=== PATIENT | male | born 1940 | race Caucasian/White ===

== ENCOUNTER → 2017-10-25 08:55 | Outpatient (CLI) | payer MEDICARE, SELFPAY ==
[2017-10-25 11:14] LABS: Alanine Aminotransferase 37 IU/L (21-72); Albumin Globulin Ratio 1.5 (1.0-2.8); Alkaline Phosphatase 85 U/L (38-126); Amylase 98 U/L (30-110); Aspartate Aminotransferase 33 IU/L (17-59); Bilirubin Total 0.6 mg/dL (0.2-1.3); C-Reactive Protein Quant < 0.5 mg/dL (<1.0); Calcium 9.2 mg/dL (8.4-10.2); Estimated Glomerular Filt Rate > 60.0 mL/min (>60); Globulin 2.6 g/dL (1.7-4.1); Glucose 98 mg/dL (80-110); HEMOLYSIS < 15 (0-50); Lipase 127 U/L (23-300); Potassium 4.1 mmol/L (3.4-5.1); Sodium 142 mmol/L (137-145); Total Protein 6.6 g/dL (6.3-8.2)
[2017-10-25 11:22] LABS: Add Manual Diff / Slide Review YES; Hematocrit 36.7 % (41-53); Hemoglobin 12.6 g/dL (13.5-17.5); Mean Corpuscular HGB Conc 34.4 % (30-36); Mean Corpuscular Hemoglobin 32.3 PG (26-34); Mean Corpuscular Volume 93.8 fL (80-100); Platelet Count 179 X10^3/uL (150-400); Red Blood Cell Count 3.91 X10^6/uL (4.5-5.9); Red Cell Distribution Width 14.1 % (11.6-14.8); White Blood Cell Count 6.3 X10^3/uL (4.5-11.0)
[2017-10-25 13:49] LABS: Neutrophils Absolute Manual 4032 /uL (3000-5900); Total Cells Counted 100
[2017-10-25 13:58] LABS: Morphology Comment Normal Morphology
== END ==
PROVIDERS: PCP Family Medicine; Visit Provider Family Medicine
DX: R10.9 Unspecified abdominal pain (principal); K57.30 Diverticulosis of large intestine without perforation or abscess without bleeding
CPT/HCPCS: 36415; 80053; 82150; 83690; 85025; 86140

== ENCOUNTER → 2017-10-26 10:08 | Outpatient (CLI) | payer MEDICARE, SELFPAY ==
--- NOTE | 2017-10-26 | DI.CT.S_ITS ---
PROCEDURE: CT ABDOMEN PELVIS W CON INDICATIONS: 77 year-old male with left lower quadrant abdominal pain. TECHNIQUE: After the administration of oral and intravenous contrast, 5 mm thick sections acquired from the diaphragms to the symphysis. 5 mm thick coronal and sagittal reformats were performed. For radiation dose reduction, the following was used: automated exposure control, adjustment of mA and/or kV according to patient size. COMPARISON: [facility], CT, ABDOMEN/PELVIS WITH CONTRAST, 06/23/2015, 13:02. [facility], CT, ABDOMEN/PELVIS WITH CONTRAST, 06/19/2014, 18:14. [facility], CT, ABDOMEN/PELVIS WITH CONTRAST, 09/27/2010, 13:47. FINDINGS: Image quality: Metallic streak artifact from right hip arthroplasty hardware obscures adjacent bony and soft tissue structures. ABDOMEN: Lung bases: Lung bases are clear. Heart size is normal. There is small hiatal hernia. Solid organs: Liver is normal in size and enhancement. Gallbladder wall thickness is normal. Biliary system is non-dilated. Pancreas enhances normally. Spleen is normal in size and enhancement. No adrenal nodules. Kidneys are normal in size and enhancement, without hydronephrosis. Peritoneum and bowel: Stomach, small bowel, and colon loops are normal in caliber and wall thickness. There is pancolonic diverticulosis as before, without acute diverticulitis. No free fluid or air. Nodes and vessels: No retroperitoneal or mesenteric adenopathy. Aorta and inferior vena cava are normal in caliber, with mild aortoiliac atherosclerosis. 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 Miscellaneous: No ventral hernias. PELVIS: Genitourinary: Bladder wall thickness is normal. Prostate gland is normal in size. Miscellaneous: No inguinal hernias or adenopathy. Bones: No suspicious bony lesions. No vertebral body compression fractures. IMPRESSION: 1. Romero colonic diverticulosis, without acute diverticulitis to explain left lower quadrant abdominal pain. 2. 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 3. 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 4. Small retrocardiac hiatal hernia. Dictated by: Jadon Arreguin M.D. on 10/26/2017 at 12:31 Approved by: Jadon Arreguin M.D. on 10/26/2017 at 12:42
== END ==
PROVIDERS: Family Provider Family Medicine; PCP Family Medicine; Visit Provider Family Medicine
DX: K57.90 Diverticulosis of intestine, part unspecified, without perforation or abscess without bleeding (principal); I72.8 Aneurysm of other specified arteries; K44.9 Diaphragmatic hernia without obstruction or gangrene
CPT/HCPCS: 74177; Q9967

== ENCOUNTER → 2017-12-05 16:13 | Outpatient (CLI) | payer MEDICARE, SELFPAY ==
--- NOTE | 2017-12-05 16:20 | DI.MRI.S_ITS ---
PROCEDURE: MR LUMBAR SPINE WO CON INDICATIONS: BACK PAIN TECHNIQUE: Noncontrast sagittal T1 spin echo and T2 fast echo, sagittal STIR, axial T1 and T2 fast spin echo through the lumbar spine. In cases with scoliosis, additional coronal T2 fast spin echo may be performed. COMPARISON: [facility], MR, MR THORACIC SPINE WO CON, 12/05/2017, 16:24. [facility], CT, CT ABDOMEN PELVIS W CON, 10/26/2017, 11:20. [facility], MR, L-SPINE WITHOUT CONTRAST, 04/26/2010, 7:39. FINDINGS: Image quality: Excellent. Alignment and Curvature: There is minimal retrolisthesis seen at the L3-L4 level and the L5-S1 level. Bone Marrow: Marrow is of normal overall signal. No acute vertebral body compression fractures. Spinal Cord: Conus medullaris terminates at the L1 level. Visualized cord demonstrates normal signal and size. Paraspinous Soft Tissues: No paravertebral masses. T12-L1: Normal appearance. L1-L2: Moderate loss of disc height is seen. Loss of disc signal is seen. Moderate generalized disc bulge is seen. Mild facet joint hypertrophy is seen. Moderate bilateral neural foraminal narrowing is seen, left greater than right. Dxag-hl-xwaqnykl central canal narrowing is seen. These degenerative findings have progressed compared to 2010. L2-L3: Mild loss of disc height is seen. Loss of disc signal is seen. Moderate generalized disc bulge is seen. Moderate facet joint hypertrophy is seen. Novz-mp-[id number] bilateral neural foraminal narrowing is seen. Fwur-vo-llffnyhu central canal narrowing is seen. These imaging findings are mildly progressed compared to the prior study. L3-L4: Moderate loss of disc height is seen. Loss of disc signal is seen. Moderate to prominent disc bulge is seen, which is eccentric to the left. Moderate facet joint hypertrophy is seen. There is at least moderate bilateral neural foraminal narrowing seen, left greater than right. Mild to moderate central canal narrowing is seen. There has been progression of degenerative change since 2009. L4-L5: Moderate loss of disc height is seen. Loss of disc signal is seen. Moderate generalized disc bulge is seen. Moderate facet joint hypertrophy is seen. There is at least moderate bilateral neural foraminal narrowing seen, right worse than left. Mild central canal narrowing is seen. These degenerative findings are worse than in 2010. L5-S1: Moderate to severe loss of disc height and disc signal are seen. Moderate to prominent disc bulge is seen, which is eccentric to the right. Moderate facet joint hypertrophy is seen. Moderate to severe bilateral neural foraminal narrowing is seen. There is a degree of impingement seen upon the exiting nerve roots. Mild central canal narrowing is seen. These degenerative changes are prominent than in 2010. IMPRESSION: Multiple levels of lumbar spine degenerative change are seen, which are most prominent at the L5-S1 level, where there is moderate to severe bilateral neural foraminal narrowing, with associated nerve root impingement. The degenerative changes have progressed compared to 2009. Dictated by: Gonzalez Galindo M.D. on 12/05/2017 at 16:52 Approved by: Gonzalez Galindo M.D. on 12/05/2017 at 16:57
--- NOTE | 2017-12-05 16:20 | DI.MRI.S_ITS ---
PROCEDURE: MR THORACIC SPINE WO CON INDICATIONS: BACK PAIN TECHNIQUE: Noncontrast sagittal T1 spine echo and T2 fast spin echo, sagittal STIR, axial T1 and T2 fast spin echo through the thoracic spine. COMPARISON: [facility], , MR LUMBAR SPINE WO CON, 12/05/2017, 16:48. FINDINGS: Image quality: Excellent. Alignment and Curvature: There is normal bony alignment. Bone Marrow: Marrow is of normal overall signal. No acute vertebral body compression fractures. Scattered foci are seen, which are hyperintense on T1-weighted and T2-weighted imaging, which are most consistent with benign vertebral body hemangiomas. Spinal Cord: Visualized spinal cord is normal in size and signal. Paraspinous Soft Tissues: No paravertebral masses. Miscellaneous: Age-appropriate degenerative changes are seen, with minimal to mild disc space narrowing with associated endplate irregularity. There is a minimal central/left disc bulge seen at the T5-T6 level. No significant neural foraminal or central canal narrowing can be seen at this level. IMPRESSION: No significant abnormality is seen for age. Dictated by: Gonzalez Galindo M.D. on 12/05/2017 at 16:45 Approved by: Gonzalez Galindo M.D. on 12/05/2017 at 16:49
== END ==
PROVIDERS: Family Provider Family Medicine; PCP Family Medicine; Visit Provider Family Medicine
DX: M54.9 Dorsalgia, unspecified (principal); M47.9 Spondylosis, unspecified; M48.061 Spinal stenosis, lumbar region without neurogenic claudication
CPT/HCPCS: 72146; 72148

== ENCOUNTER → 2018-06-27 10:22 | Outpatient (CLI) | payer MEDICARE, SELFPAY ==
--- NOTE | 2018-06-27 | DI.US.S_ITS ---
ULTRASOUND OF RIGHT BREAST: 06/27/2018 CLINICAL: Right axillary edema x 2 months. History of rtight shoulder replacement 2 years ago. No prior exams were available for comparison. Ultrasound of the right axilla was performed on the area of interest. Bishop scale images of the real-time examination were reviewed. IMPRESSION: NEGATIVE There is no sonographic evidence of malignancy. There is no sonographic abnormality seen in the right axilla to correspond with the area of clinical concern in the right axilla, however, clinical followup is recommended. If further characterization is warranted, MRI could be considered. This exam was interpreted at Station ID: [id number]. Electronically Signed By: Chioma odell/:06/27/2018 17:23:46 letter sent: Clinical Evaluation Ultrasound BI-RADS: 1 Negative
== END ==
PROVIDERS: Family Provider Family Medicine; PCP Family Medicine; Visit Provider Family Medicine
DX: R22.31 Localized swelling, mass and lump, right upper limb (principal); Z96.611 Presence of right artificial shoulder joint
CPT/HCPCS: 76882

== ENCOUNTER → 2018-08-29 11:44 | Outpatient (REF) | payer MEDICARE, SELFPAY ==
[2018-08-29 11:56] LABS: Prothrombin Time 34.8 SECONDS (10.1-12.7)
== END ==
LOC: LAB 11:44
PROVIDERS: Family Provider Family Medicine; PCP Family Medicine; Visit Provider Family Medicine
DX: Z79.01 Long term (current) use of anticoagulants (principal)
CPT/HCPCS: 85610

== ENCOUNTER → 2018-09-05 15:32 | Outpatient (REF) | payer MEDICARE, SELFPAY ==
[2018-09-05 15:50] LABS: INR 3.1 (0.9-1.3); Prothrombin Time 36.3 SECONDS (10.1-12.7)
== END ==
LOC: LAB 15:32
PROVIDERS: Family Provider Family Medicine; PCP Family Medicine; Visit Provider Family Medicine
DX: Z79.01 Long term (current) use of anticoagulants (principal)
CPT/HCPCS: 85610

== ENCOUNTER → 2018-09-17 10:06 | Outpatient (REF) | payer MEDICARE, SELFPAY ==
[2018-09-17 10:20] LABS: Prothrombin Time 35.6 SECONDS (10.1-12.7)
== END ==
LOC: LAB 10:06
PROVIDERS: Family Provider Family Medicine; PCP Family Medicine; Visit Provider Family Medicine
DX: Z79.01 Long term (current) use of anticoagulants (principal)
CPT/HCPCS: 85610

== ENCOUNTER → 2018-10-05 16:10 | Outpatient (REF) | payer MEDICARE, SELFPAY ==
[2018-10-05 16:23] LABS: INR 2.7 (0.9-1.3)
== END ==
LOC: LAB 16:10
PROVIDERS: Family Provider Family Medicine; PCP Family Medicine; Visit Provider Family Medicine
DX: Z79.01 Long term (current) use of anticoagulants (principal)
CPT/HCPCS: 85610

== ENCOUNTER → 2018-10-25 11:00 | Outpatient (ROUT) | payer MEDICARE, SELFPAY | PROVIDERS: Family Provider Family Medicine; PCP Family Medicine; Visit Provider Family Medicine | DX: Z79.01 Long term (current) use of anticoagulants (principal) | CPT/HCPCS: 85610 ==

== ENCOUNTER → 2018-11-22 14:52 | Outpatient (ROUT) | payer MEDICARE, SELFPAY ==
[2018-11-22 15:00] LABS: INR 2.7 (0.9-1.3); Prothrombin Time 32.4 SECONDS (10.1-12.7)
== END ==
PROVIDERS: Family Provider Family Medicine; PCP Family Medicine; Visit Provider Family Medicine
DX: Z79.01 Long term (current) use of anticoagulants (principal)
CPT/HCPCS: 85610

== ENCOUNTER → 2018-12-25 11:46 | Outpatient (ROUT) | payer MEDICARE, SELFPAY ==
[2018-12-25 12:23] LABS: INR 2.7 (0.9-1.3); Prothrombin Time 31.3 SECONDS (10.1-12.7)
== END ==
PROVIDERS: PCP Family Medicine; Visit Provider Family Medicine
DX: Z79.01 Long term (current) use of anticoagulants (principal)
CPT/HCPCS: 85610

== ENCOUNTER → 2019-01-25 12:21 | Outpatient (ROUT) | payer MEDICARE, SELFPAY ==
[2019-01-25 12:37] LABS: INR 3.1 (0.9-1.3); Prothrombin Time 36.3 SECONDS (10.1-12.7)
== END ==
PROVIDERS: PCP Family Medicine; Visit Provider Family Medicine
DX: I48.0 Paroxysmal atrial fibrillation (principal); Z79.01 Long term (current) use of anticoagulants
CPT/HCPCS: 85610

== ENCOUNTER → 2019-02-08 10:49 | Outpatient (ROUT) | payer MEDICARE, SELFPAY ==
[2019-02-08 11:01] LABS: INR 2.6 (0.9-1.3); Prothrombin Time 30.1 SECONDS (10.1-12.7)
== END ==
PROVIDERS: PCP Family Medicine; Visit Provider Family Medicine
DX: Z79.01 Long term (current) use of anticoagulants (principal)
CPT/HCPCS: 85610

== ENCOUNTER 2019-03-19 14:30 | Outpatient (RCR) | payer MEDICARE, SELFPAY ==
--- NOTE | 2018-11-22 15:30 | PT.OIE ---
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) Spinal stenosis, lumbar region without neurogenic claudication (11/22/18) Other intervertebral disc degeneration, lumbosacral region (11/22/18) Low back pain (11/22/18) Abnormal posture (11/22/18) Pain in left hip (11/22/18) Past Medical History (Last Reviewed 09/11/18 @ 13:06 by Hector Oviedo MD) Obstructive sleep apnea of adult (Chronic ~2011) Central sleep apnea (Chronic Unknown) Snoring (Chronic ~2011) Atrial fibrillation, currently in sinus rhythm (Chronic ~08/2016) Past Surgical History (Last Updated 11/22/18 @ 16:36 by Maral Gonzales, PT) History of arthroplasty of right shoulder (Acute) History of total hip arthroplasty (Acute), right Provider Visit Care Team Role Provider Type Genet Severino MD Attending Provider Physician Primary Care Provider Specialty: Family Practice Address: [address] [place] [address], [facility] Email: Physical Therapy Initial Evaluation PT-OP-A Visit Information Start: 11/22/18 16:41 Freq: Status: Active Protocol: Document 11/22/18 15:30 DLM (Rec: 11/22/18 16:57 DL [id number]) Out-Patient Physical Therapy Visit Information Visit Information Visit Type Initial Evaluation Visit Start Time 15:30 Visit Stop Time 16:15 Total Visit Minutes 45 Visit Number 1 Number of ENGROSSER Visits 0 Evaluation Information Evaluation Date 11/22/18 Precautions Precautions hx of falls PT-OP-B Current Condition Start: 11/22/18 16:41 Freq: Status: Active Protocol: Document 11/22/18 15:30 DLM (Rec: 11/22/18 16:57 DLM [id number]) Current Condition History of Current Condition Onset Date 6 months ago Current Complaints low back pain and left lateral hip pain History of Current Condition He reports about 6 months ago he developed more difficulty walking. He reports his back gets stiff and sore. He fell a few months ago when his foot caught on the steps at his Sisters house and he fell onto his left side. He is having left lateral hip pain that he is not sure if it is from his back or from the fall. Prior Treatments and Tests Pool therapy years ago that helped his back. 02/2018 Injection in his low back that did not help. Treatment Goals Patient/Caregiver Goals He wants to be able to walk without back pain. He wants to be able to walk up the hill in his neighborhood to walk his dog. He wants to have a pool exercise program he can continue on his own. Prior Functional Status Baseline Function- ADL's Independent Baseline Function- Mobility Independent Baseline Function- Gait Independent in community, [place] Baseline Function- Work/School retired Baseline Function- Recreation/Hobbies golf, yard work, walks dog, travels Current Functional Impairments (Reported) Functional Limitations- ADL's Independent, holds onto soap dish in shower when closes his eyes, back pain getting in/ out of car, back pain if he tries to sit for any length of time without back support Functional Limitations- Mobility/Gait Independent, slower pace, back pain limits his distances, too much pain to be able to walk up the hill in his neighborhood to walk his dog Functional Limitations- Work/School retired Functional Limitations- Recreation/ back pain and stiffness when Hobbies he tries to golf, can only bend over doing yard work for about 5 min due to back pain Personal Factors Other Personal Factors That May Effect new tremor in right hand Therapy/Recovery started about 6 months ago, pt reports physician is aware and they are monitoring it ( concern for Parkinsons disease ) PT-OP-C Subjective Start: 11/22/18 16:41 Freq: Status: Active Protocol: Document 11/22/18 15:30 DLM (Rec: 11/22/18 16:57 DLM [id number]) Patient Questionnaires Oswestry Low Back Index Oswestry Score 24% Oswestry Impairment 20 to 39% Impaired (Score 20- 39) OP-PT Pain Assessment Location Bilateral Lower Back Intensity 4 Scale Used Numeric (1 - 10) Description Aching Tightness With Movement Description- Other no pain at rest Frequency Intermittent Pain Aggravating Factors Changing Position Activity Walking Bending Pain Alleviating Factors Rest Pain Behaviors Pain Behaviors Facial Grimacing Wincing PT-OP-D Balance Start: 11/22/18 16:41 Freq: Status: Active Protocol: Document 11/22/18 15:30 DLM (Rec: 11/22/18 16:58 DLM [id number]) Balance Tests Davalos Balance Test Davalos Balance Test Score 45/56 Davalos Impairment Rating 1 to 19% Impaired (Score 45-55 ) Romberg Romberg increased sway with eyes closed but no loss of balance Single Limb Standing Single Limb- Right 3-5 sec Single Limb- Left 3 sec PT-OP-E Functional Tests Start: 11/22/18 16:41 Freq: Status: Active Protocol: Document 11/22/18 15:30 DLM (Rec: 11/22/18 17:00 DLM [id number]) Functional Tests 6 Minute Walk Test Distance 936.5 feet Device Used none Comments low back pain and stiffness PT-OP-G Mobility & Gait Start: 11/22/18 16:41 Freq: Status: Active Protocol: Document 11/22/18 15:30 DLM (Rec: 11/22/18 17:02 DLM [id number]) OP Mobility Evaluation Bed Mobility Rolling Independent, slow and difficult Supine to and from Sit Independent with mild difficulty Transfers Sit to Stand Independent Functional Movements Other Functional Movements increased left lateral hip pain with any rotational movements in standing OP Gait Assessment Gait Gait Assistance Required: Independent Assistive Devices Assistive Device None Gait Deviations General Gait Pattern Decreased Stride Length Flexed Trunk Factors Limiting Gait Function Factors Limiting Gait Function Decreased Activity Tolerance Pain PT-OP-H Neuro Start: 11/22/18 16:41 Freq: Status: Active Protocol: Document 11/22/18 15:30 DLM (Rec: 11/22/18 17:23 DLM [id number]) Sensation Evaluation Comments Summary Comments hx of neuropathy in feet, mild tremor noted in right hand PT-OP-J Posture/Palpation/Skin Start: 11/22/18 16:41 Freq: Status: Active Protocol: Document 11/22/18 15:30 DLM (Rec: 11/22/18 17:19 DLM [id number]) Posture Evaluation Position Standing Evaluation View Posterior Head/C-Spine Posture Forward Head L-Spine Posture Flexed Shoulder Posture (L) Rounded (R) Rounded Comments Posture Comments protruding abdomen in standing Palpation Assessment Location Two Palpation Location left lateral hip Palpation Findings Tenderness Palpation Details bursa tenderness One Palpation Location lumbar paraspinals Palpation Findings Soft Tissue Tightness Tenderness PT-OP-K Range of Motion Start: 11/22/18 16:41 Freq: Status: Active Protocol: Document 11/22/18 15:30 DLM (Rec: 11/22/18 17:19 DLM [id number]) Lumbar Spine Range of Motion Lumbar Spine Active Percentage Testing Position Standing Flexion 50 Extension 5 Rotation Left 30 Rotation Right 50 Lateral Flexion Left 25 Lateral Flexion Right 25 ROM Limitations Soft Tissue Tightness Pain Comments back pain with flexion and right lateral flexion, left hip pain with rotation Shoulder Goniometric Range of Motion Shoulder Measured in Degrees bilateral Shoulder ROM WFL Yes Testing Position Sitting Shoulder ROM Limitations Comments hx right shoulder total arthroplasty with pt reporting good recovery PT-OP-L Special Tests Start: 11/22/18 16:41 Freq: Status: Active Protocol: Document 11/22/18 15:30 DLM (Rec: 11/22/18 17:19 DL [id number]) Special Tests Lumbar Spine Special Tests Straight Leg Raise Test Results no back pain Comments hamstring tightness at 60b degrees bilaterally Slump Test Results back pain PT-OP-M Strength Start: 11/22/18 16:41 Freq: Status: Active Protocol: Document 11/22/18 15:30 DLM (Rec: 11/22/18 17:19 DL [id number]) Trunk Strength Trunk Manual Muscle Testing Core Stabilization 3+/5 Reason Not Measured Pain Comments bilateral hip flexor tightness interferes with his ability to stand erect Hip Strength Hip Manual Muscle Testing Right Flexion (L2) 4 Good Extension (S1) 3+ Fair+ Abduction 4 Good Adduction 5 Normal Comments left hip pain with resisted right hip abduction in sidelying, hip extension tested in prone Left Flexion (L2) 4+ Good+ Extension (S1) 3+ Fair+ Abduction 5 Normal Adduction 5 Normal Comments pain with resisted left hip flexion, hip extension tested in prone Knee Strength Knee Manual Muscle Testing bilateral Flexion (S2) 5 Normal Extension (L3) 5 Normal Ankle/Foot Strength Ankle and Foot Manual Muscle Testing Bilateral Dorsiflexion (L4) 5 Normal PT-OP-T Assessment and Plan Start: 11/22/18 16:41 Freq: Status: Active Protocol: Document 11/22/18 15:30 DLM (Rec: 11/22/18 17:43 DLM [id number]) Physical Therapy Assessment Rehab Potential Rehabilitation Potential Good Evaluation Complexity Number of Personal Factors/Comorbidities 3 or More Number of Body Systems Impaired 4 or More Clinical Presentation at Evaluation Evolving Impairments Impairments Activity Tolerance Balance Functional Activities Functional Mobility Gait Pain Posture ROM Soft Tissue Mobility Strength Goals Three Impairment Limited activity Short Term Goal (STG) He will be able to bend over to the ground without increased back pain. STG Duration 4 weeks Detention Goal (LTG) He will be able to walk up the hill in his neighborhood to walk his dog. LTG Duration 6 weeks Two Impairment Has no Home Exercise Program Short Term Goal (STG) Independent with stretching and strengthening program to do at home. 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 STG Duration 4 weeks Detention Goal (LTG) He will be able to walk for at least 30 min without back pain. LTG Duration 6 weeks Assessment Summary Assessment Thor presents with low back pain that appears degenerative in nature compounded by significant muscular tightness . He has left lateral hip pain that does not present like radicular pain. Suspect his left hip pain is related to trauma from his fall. His posture is flexed in standing and he can barely improve it to an erect position when asked and he can not maintain it. He is a good candidate for physical therapy to address his impairments. Pt agrees to a treatment plan of one day a week at the clinic and one day a week in the pool. He reports pool therapy helped his back pain in the past so he is motivated to have an independent pool HEP by discharge. Physical Therapy Plan Frequency and Duration Frequency of Treatment 2x/Week Duration of Treatment 6 weeks Plan of Care Start Date 11/22/18 Plan of Care End Date 12/05/18 Therapeutic Interventions Therapeutic Interventions Aquatic Therapy Balance Training Gait Training Home Exercise Program Manual Therapy Neuromuscular Re-education Patient/Caregiver Education Self-Care/Home Management Soft Tissue Mobilization Therapeutic Activities Therapeutic Exercises Modalities Cold Pack/Ice Massage Electric Stimulation Hot Packs Ultrasound Next Visit Focus/Plan Next Note Type Treatment Note Next Visit Plan pool therapy once a week and physical therapy at the clinic once a week, begin stretching program
--- NOTE | 2018-11-22 15:30 | PT.OPPOC ---
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) Spinal stenosis, lumbar region without neurogenic claudication (11/22/18) Other intervertebral disc degeneration, lumbosacral region (11/22/18) Low back pain (11/22/18) Abnormal posture (11/22/18) Provider Visit Care Team Role Provider Type Genet Severino MD Attending Provider Physician Primary Care Provider Specialty: Family Practice Address: [address] [place] [address], [facility] Email: Plan Of Care PT-OP-T Assessment and Plan Start: 11/22/18 16:41 Freq: Status: Active Protocol: Document 11/22/18 15:30 DLM (Rec: 11/22/18 17:43 DLM [id number]) Physical Therapy Assessment Rehab Potential Rehabilitation Potential Good Evaluation Complexity Number of Personal Factors/Comorbidities 3 or More Number of Body Systems Impaired 4 or More Clinical Presentation at Evaluation Evolving Impairments Impairments Activity Tolerance Balance Functional Activities Functional Mobility Gait Pain Posture ROM Soft Tissue Mobility Strength Goals Three Impairment Limited activity Short Term Goal (STG) He will be able to bend over to the ground without increased back pain. STG Duration 4 weeks Custodial Goal (LTG) He will be able to walk up the hill in his neighborhood to walk his dog. LTG Duration 6 weeks Two Impairment Has no Home Exercise Program Short Term Goal (STG) Independent with stretching and strengthening program to do at home. 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 STG Duration 4 weeks Custodial Goal (LTG) He will be able to walk for at least 30 min without back pain. LTG Duration 6 weeks Assessment Summary Assessment Thor presents with low back pain that appears degenerative in nature compounded by significant muscular tightness . He has left lateral hip pain that does not present like radicular pain. Suspect his left hip pain is related to trauma from his fall. His posture is flexed in standing and he can barely improve it to an erect position when asked and he can not maintain it. He is a good candidate for physical therapy to address his impairments. Pt agrees to a treatment plan of one day a week at the clinic and one day a week in the pool. He reports pool therapy helped his back pain in the past so he is motivated to have an independent pool HEP by discharge. Physical Therapy Plan Frequency and Duration Frequency of Treatment 2x/Week Duration of Treatment 6 weeks Plan of Care Start Date 11/22/18 Plan of Care End Date 01/04/19 Therapeutic Interventions Therapeutic Interventions Aquatic Therapy Balance Training Gait Training Home Exercise Program Manual Therapy Neuromuscular Re-education Patient/Caregiver Education Self-Care/Home Management Soft Tissue Mobilization Therapeutic Activities Therapeutic Exercises Modalities Cold Pack/Ice Massage Electric Stimulation Hot Packs Ultrasound Next Visit Focus/Plan Next Note Type Treatment Note Next Visit Plan pool therapy once a week and physical therapy at the clinic once a week, begin stretching program Plan of Care Dates Plan of Care Start Date 11/22/18 Plan of Care End Date 01/04/19 Please Sign and Return: I have reviewed this Plan of Care and certify that the skilled therapy services above are required to meet the patient?s needs. Physician Signature Date Printed Name and Credentials
--- NOTE | 2018-11-28 13:45 | PT.OTN ---
Current Diagnoses Pain in left hip (11/28/18) Unspecified inflammatory spondylopathy, lumbar region (11/28/18) Spinal stenosis, lumbar region without neurogenic claudication (11/28/18) Other intervertebral disc degeneration, lumbosacral region (11/28/18) Low back pain (11/28/18) Abnormal posture (11/28/18) Physical Therapy Treatment Note PT-OP-A Visit Information Start: 11/22/18 16:41 Freq: Status: Active Protocol: Document 11/28/18 13:45 RCC (Rec: 11/29/18 09:34 RCC [email or web address]) Out-Patient Physical Therapy Visit Information Visit Information Visit Type Treatment Note Visit Start Time 13:45 Visit Stop Time 14:35 Total Visit Minutes 50 Visit Number 2 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 He reports his back gets stiff and sore. He fell a few months ago when his foot caught on the steps at his Sisters house and he fell onto his left side. He is having left lateral hip pain that he is not sure if it is from his back or from the fall. Prior Treatments and Tests Pool therapy years ago that helped his back. 02/2018 Injection in his low back that did not help. Treatment Goals Patient/Caregiver Goals He wants to be able to walk without back pain. He wants to be able to walk up the hill in his neighborhood to walk his dog. He wants to have a pool exercise program he can continue on his own. Prior Functional Status Baseline Function- ADL's Independent Baseline Function- Mobility Independent Baseline Function- Gait Independent in community, [place] Baseline Function- Work/School retired Baseline Function- Recreation/Hobbies golf, yard work, walks dog, travels Current Functional Impairments (Reported) Functional Limitations- ADL's Independent, holds onto soap dish in shower when closes his eyes, back pain getting in/ out of car, back pain if he tries to sit for any length of time without back support Functional Limitations- Mobility/Gait Independent, slower pace, back pain limits his distances, too much pain to be able to walk up the hill in his neighborhood to walk his dog Functional Limitations- Work/School retired Functional Limitations- Recreation/ back pain and stiffness when Hobbies he tries to golf, can only bend over doing yard work for about 5 min due to back pain Personal Factors Other Personal Factors That May Effect new tremor in right hand Therapy/Recovery started about 6 months ago, pt reports physician is aware and they are monitoring it ( concern for Parkinsons disease ) PT-OP-C Subjective Start: 11/22/18 16:41 Freq: Status: Active Protocol: Document 11/28/18 13:45 RCC (Rec: 11/29/18 09:34 RCC [email or web address]) OP-PT Subjective Patient Comments Patient Comments Pt reports that his back is about the same, as well as his L hip pain has not improved yet. PT-OP-D Balance Start: 11/22/18 16:41 Freq: Status: Active Protocol: Document 11/22/18 15:30 DLM (Rec: 11/22/18 16:58 DLM [id number]) Balance Tests Davalos Balance Test Davalos Balance Test Score 45/56 Davalos Impairment Rating 1 to 19% Impaired (Score 45-55 ) Romberg Romberg increased sway with eyes closed but no loss of balance Single Limb Standing Single Limb- Right 3-5 sec Single Limb- Left 3 sec PT-OP-E Functional Tests Start: 11/22/18 16:41 Freq: Status: Active Protocol: Document 11/22/18 15:30 DLM (Rec: 11/22/18 17:00 DLM [id number]) Functional Tests 6 Minute Walk Test Distance 936.5 feet Device Used none Comments low back pain and stiffness PT-OP-G Mobility & Gait Start: 11/22/18 16:41 Freq: Status: Active Protocol: Document 11/22/18 15:30 DLM (Rec: 11/22/18 17:02 DLM [id number]) OP Mobility Evaluation Bed Mobility Rolling Independent, slow and difficult Supine to and from Sit Independent with mild difficulty Transfers Sit to Stand Independent Functional Movements Other Functional Movements increased left lateral hip pain with any rotational movements in standing OP Gait Assessment Gait Gait Assistance Required: Independent Assistive Devices Assistive Device None Gait Deviations General Gait Pattern Decreased Stride Length Flexed Trunk Factors Limiting Gait Function Factors Limiting Gait Function Decreased Activity Tolerance Pain PT-OP-H Neuro Start: 11/22/18 16:41 Freq: Status: Active Protocol: Document 11/22/18 15:30 DLM (Rec: 11/22/18 17:23 DLM [id number]) Sensation Evaluation Comments Summary Comments hx of neuropathy in feet, mild tremor noted in right hand PT-OP-J Posture/Palpation/Skin Start: 11/22/18 16:41 Freq: Status: Active Protocol: Document 11/22/18 15:30 DLM (Rec: 11/22/18 17:19 DLM [id number]) Posture Evaluation Position Standing Evaluation View Posterior Head/C-Spine Posture Forward Head L-Spine Posture Flexed Shoulder Posture (L) Rounded (R) Rounded Comments Posture Comments protruding abdomen in standing Palpation Assessment Location Two Palpation Location left lateral hip Palpation Findings Tenderness Palpation Details bursa tenderness One Palpation Location lumbar paraspinals Palpation Findings Soft Tissue Tightness Tenderness PT-OP-K Range of Motion Start: 11/22/18 16:41 Freq: Status: Active Protocol: Document 11/22/18 15:30 DLM (Rec: 11/22/18 17:19 DLM [id number]) Lumbar Spine Range of Motion Lumbar Spine Active Percentage Testing Position Standing Flexion 50 Extension 5 Rotation Left 30 Rotation Right 50 Lateral Flexion Left 25 Lateral Flexion Right 25 ROM Limitations Soft Tissue Tightness Pain Comments back pain with flexion and right lateral flexion, left hip pain with rotation Shoulder Goniometric Range of Motion Shoulder Measured in Degrees bilateral Shoulder ROM WFL Yes Testing Position Sitting Shoulder ROM Limitations Comments hx right shoulder total arthroplasty with pt reporting good recovery PT-OP-L Special Tests Start: 11/22/18 16:41 Freq: Status: Active Protocol: Document 11/22/18 15:30 DLM (Rec: 11/22/18 17:19 DLM [id number]) Special Tests Lumbar Spine Special Tests Straight Leg Raise Test Results no back pain Comments hamstring tightness at 60b degrees bilaterally Slump Test Results back pain PT-OP-M Strength Start: 11/22/18 16:41 Freq: Status: Active Protocol: Document 11/22/18 15:30 DLM (Rec: 11/22/18 17:19 DLM [id number]) Trunk Strength Trunk Manual Muscle Testing Core Stabilization 3+/5 Reason Not Measured Pain Comments bilateral hip flexor tightness interferes with his ability to stand erect Hip Strength Hip Manual Muscle Testing Right Flexion (L2) 4 Good Extension (S1) 3+ Fair+ Abduction 4 Good Adduction 5 Normal Comments left hip pain with resisted right hip abduction in sidelying, hip extension tested in prone Left Flexion (L2) 4+ Good+ Extension (S1) 3+ Fair+ Abduction 5 Normal Adduction 5 Normal Comments pain with resisted left hip flexion, hip extension tested in prone Knee Strength Knee Manual Muscle Testing bilateral Flexion (S2) 5 Normal Extension (L3) 5 Normal Ankle/Foot Strength Ankle and Foot Manual Muscle Testing Bilateral Dorsiflexion (L4) 5 Normal PT-OP-Q Treatments Start: 11/22/18 16:41 Freq: Status: Active Protocol: Document 11/28/18 13:45 RCC (Rec: 11/29/18 09:34 RCC [email or web address]) Therapeutic Exercises Supine Exercises sciatic nerve glides Supine Exercise Name manual assist- flossing Side bilateral Reps/Minutes 2x60 sec each HS stretch Side bilateral Equipment Used with towel Reps/Minutes 3x30 sec piriformis stretch Side bilateral Reps/Minutes 3x30 sec SKC Side bilateral Reps/Minutes 3x30 sec Sitting Exercises sciatic nerve glides Sitting Exercise Name HS stretch position with ankle pumps Side bilateral Reps/Minutes x3 min HS stretch Side bilateral Equipment Used foot on stool Reps/Minutes 3x60 sec Standing Exercises HC stretch Side bilateral Equipment Used MAYE Reps/Minutes 5x10 sec Manual Therapy Treatment Soft Tissue Mobilization L IT band Mobilization Type Rolling Intensity/Depth Superficial Body Position Sidelying Comments rolling stick to L IT band PT-OP-R Modalities Start: 11/22/18 16:41 Freq: Status: Active Protocol: Document 11/28/18 13:45 RCC (Rec: 11/29/18 09:35 RCC [email or web address]) Hot Pack/Cold Pack Treatment Hot Pack Location lumbar and L IT band Patient Position Hooklying Treatment Duration (minutes) 15 Patient Tolerance Good PT-OP-T Assessment and Plan Start: 11/22/18 16:41 Freq: Status: Active Protocol: Document 11/28/18 13:45 RCC (Rec: 11/29/18 09:34 RCC [email or web address]) Physical Therapy Assessment Assessment Summary Assessment Pt with significant tension along the L IT band this session, without c/o pain with palpation in the buttock or hip ERs today. Pt presents with high tension throughout the lumbar and LE mm. He was given a HEP today for stretching bilaterally. Physical Therapy Plan Frequency and Duration Frequency of Treatment 2x/Week Duration of Treatment 6 weeks Plan of Care Start Date 11/22/18 Plan of Care End Date 01/04/19 Next Visit Focus/Plan Next Note Type Treatment Note Next Visit Plan progress aquatic PT as tolerated.
--- NOTE | 2018-11-30 15:25 | PT.OTN ---
Current Diagnoses Pain in left hip (11/30/18) Unspecified inflammatory spondylopathy, lumbar region (11/30/18) Spinal stenosis, lumbar region without neurogenic claudication (11/30/18) Other intervertebral disc degeneration, lumbosacral region (11/30/18) Low back pain (11/30/18) Abnormal posture (11/30/18) Physical Therapy Treatment Note PT-OP-A Visit Information Start: 11/22/18 16:41 Freq: Status: Active Protocol: Document 11/30/18 11:45 LJ (Rec: 11/30/18 15:25 LJ [email or web address]) Out-Patient Physical Therapy Visit Information Visit Information Visit Type Aquatic Treatment Note Visit Start Time 11:45 Visit Stop Time 12:30 Total Visit Minutes 45 Visit Number 3 Number of EXPLOSIVE MAN Visits 1 Precautions Precautions hx of falls PT-OP-B Current Condition Start: 11/22/18 16:41 Freq: Status: Active Protocol: Document 11/22/18 15:30 DLM (Rec: 11/22/18 16:57 DLM [id number]) Current Condition History of Current Condition Onset Date 6 months ago Current Complaints low back pain and left lateral hip pain History of Current Condition He reports about 6 monts ago he developed more difficulty walking. He reports his back gets stiff and sore. He fell a few months ago when his foot caught on the steps at his Sisters house and he fell onto his left side. He is having left lateral hip pain that he is not sure if it is from his back or from the fall. Prior Treatments and Tests Pool therapy years ago that helped his back. 02/2018 Injection in his low back that did not help. Treatment Goals Patient/Caregiver Goals He wants to be able to walk without back pain. He wants to be able to walk up the hill in his neighborhood to walk his dog. He wants to have a pool exercise program he can continue on his own. Prior Functional Status Baseline Function- ADL's Independent Baseline Function- Mobility Independent Baseline Function- Gait Independent in community, able [place] Baseline Function- Work/School retired Baseline Function- Recreation/Hobbies golf, yard work, walks dog, travels Current Functional Impairments (Reported) Functional Limitations- ADL's Independent, holds onto soap dish in shower when closes his eyes, back pain getting in/ out of car, back pain if he tries to sit for any length of time without back support Functional Limitations- Mobility/Gait Independent, slower pace, back pain limits his distances, too much pain to be able to walk up the hill in his neighborhood to walk his dog Functional Limitations- Work/School retired Functional Limitations- Recreation/ back pain and stiffness when Hobbies he tries to golf, can only bend over doing yard work for about 5 min due to back pain Personal Factors Other Personal Factors That May Effect new tremor in right hand Therapy/Recovery started about 6 months ago, pt reports physician is aware and they are monitoring it ( concern for Parkinsons disease ) PT-OP-C Subjective Start: 11/22/18 16:41 Freq: Status: Active Protocol: Document 11/30/18 11:45 LJ (Rec: 11/30/18 15:25 LJ [email or web address]) OP-PT Subjective Patient Comments Patient Comments Pt reports L hip pain while walking. PT-OP-D Balance Start: 11/22/18 16:41 Freq: Status: Active Protocol: Document 11/22/18 15:30 DLM (Rec: 11/22/18 16:58 DLM [id number]) Balance Tests Davalos Balance Test Davalos Balance Test Score 45/56 Davalos Impairment Rating 1 to 19% Impaired (Score 45-55 ) Romberg Romberg increased sway with eyes closed but no loss of balance Single Limb Standing Single Limb- Right 3-5 sec Single Limb- Left 3 sec PT-OP-E Functional Tests Start: 11/22/18 16:41 Freq: Status: Active Protocol: Document 11/22/18 15:30 DLM (Rec: 11/22/18 17:00 DLM [id number]) Functional Tests 6 Minute Walk Test Distance 936.5 feet Device Used none Comments low back pain and stiffness PT-OP-G Mobility & Gait Start: 11/22/18 16:41 Freq: Status: Active Protocol: Document 11/22/18 15:30 DLM (Rec: 11/22/18 17:02 DLM [id number]) OP Mobility Evaluation Bed Mobility Rolling Independent, slow and difficult Supine to and from Sit Independent with mild difficulty Transfers Sit to Stand Independent Functional Movements Other Functional Movements increased left lateral hip pain with any rotational movements in standing OP Gait Assessment Gait Gait Assistance Required: Independent Assistive Devices Assistive Device None Gait Deviations General Gait Pattern Decreased Stride Length Flexed Trunk Factors Limiting Gait Function Factors Limiting Gait Function Decreased Activity Tolerance Pain PT-OP-H Neuro Start: 11/22/18 16:41 Freq: Status: Active Protocol: Document 11/22/18 15:30 DLM (Rec: 11/22/18 17:23 DLM [id number]) Sensation Evaluation Comments Summary Comments hx of neuropathy in feet, mild tremor noted in right hand PT-OP-J Posture/Palpation/Skin Start: 11/22/18 16:41 Freq: Status: Active Protocol: Document 11/22/18 15:30 DLM (Rec: 11/22/18 17:19 DLM [id number]) Posture Evaluation Position Standing Evaluation View Posterior Head/C-Spine Posture Forward Head L-Spine Posture Flexed Shoulder Posture (L) Rounded (R) Rounded Comments Posture Comments protruding abdomen in standing Palpation Assessment Location Two Palpation Location left lateral hip Palpation Findings Tenderness Palpation Details bursa tenderness One Palpation Location lumbar paraspinals Palpation Findings Soft Tissue Tightness Tenderness PT-OP-K Range of Motion Start: 11/22/18 16:41 Freq: Status: Active Protocol: Document 11/22/18 15:30 DLM (Rec: 11/22/18 17:19 DLM [id number]) Lumbar Spine Range of Motion Lumbar Spine Active Percentage Testing Position Standing Flexion 50 Extension 5 Rotation Left 30 Rotation Right 50 Lateral Flexion Left 25 Lateral Flexion Right 25 ROM Limitations Soft Tissue Tightness Pain Comments back pain with flexion and right lateral flexion, left hip pain with rotation Shoulder Goniometric Range of Motion Shoulder bilateral Shoulder ROM WFL Yes Testing Position Sitting Shoulder ROM Limitations Comments hx right shoulder total arthroplasty with pt reporting good recovery PT-OP-L Special Tests Start: 11/22/18 16:41 Freq: Status: Active Protocol: Document 11/22/18 15:30 DLM (Rec: 11/22/18 17:19 DLM [id number]) Special Tests Lumbar Spine Special Tests Straight Leg Raise Test Results no back pain Comments hamstring tightness at 60b degrees bilaterally Slump Test Results back pain PT-OP-M Strength Start: 11/22/18 16:41 Freq: Status: Active Protocol: Document 11/22/18 15:30 DLM (Rec: 11/22/18 17:19 DLM [id number]) Trunk Strength Trunk Manual Muscle Testing Core Stabilization 3+/5 Reason Not Measured Pain Comments bilateral hip flexor tightness interferes with his ability to stand erect Hip Strength Hip Manual Muscle Testing Right Flexion (L2) 4 Good Extension (S1) 3+ Fair+ Abduction 4 Good Adduction 5 Normal Comments left hip pain with resisted right hip abduction in sidelying, hip extension tested in prone Left Flexion (L2) 4+ Good+ Extension (S1) 3+ Fair+ Abduction 5 Normal Adduction 5 Normal Comments pain with resisted left hip flexion, hip extension tested in prone Knee Strength Knee Manual Muscle Testing bilateral Flexion (S2) 5 Normal Extension (L3) 5 Normal Ankle/Foot Strength Ankle and Foot Manual Muscle Testing Bilateral Dorsiflexion (L4) 5 Normal PT-OP-Q Treatments Start: 11/22/18 16:41 Freq: Status: Active Protocol: Document 11/28/18 13:45 RCC (Rec: 11/29/18 09:34 RCC [email or web address]) Therapeutic Exercises Supine Exercises sciatic nerve glides Supine Exercise Name manual assist- flossing Side bilateral Reps/Minutes 2x60 sec each HS stretch Side bilateral Equipment Used with towel Reps/Minutes 3x30 sec piriformis stretch Side bilateral Reps/Minutes 3x30 sec SKC Side bilateral Reps/Minutes 3x30 sec Sitting Exercises sciatic nerve glides Sitting Exercise Name HS stretch position with ankle pumps Side bilateral Reps/Minutes x3 min HS stretch Side bilateral Equipment Used foot on stool Reps/Minutes 3x60 sec Standing Exercises HC stretch Side bilateral Equipment Used MAYE Reps/Minutes 5x10 sec Manual Therapy Treatment Soft Tissue Mobilization L IT band Mobilization Type Rolling Intensity/Depth Superficial Body Position Sidelying Comments rolling stick to L IT band PT-OP-R Modalities Start: 11/22/18 16:41 Freq: Status: Active Protocol: Document 11/28/18 13:45 RCC (Rec: 11/29/18 09:35 RCC [email or web address]) Hot Pack/Cold Pack Treatment Hot Pack Location lumbar and L IT band Patient Position Hooklying Treatment Duration (minutes) 15 Patient Tolerance Good PT-OP-S Aquatic Treatment Start: 11/22/18 16:41 Freq: Status: Active Protocol: Document 11/30/18 11:45 LJ (Rec: 11/30/18 15:25 LJ [email or web address]) Aquatics Treatment Pool Entry/Exit Pool Entry/Exit Method Stairs Assistance Standby Assistance Verbal Cues Comments step to gait Water Walking Quick Reverses Water Level Chest Level Level of Assistance Standby Assistance Verbal Cues Comments difficulty stabilizing [place] March Water Level Chest Level Level of Assistance Standby Assistance Verbal Cues Lunge Walk Water Level Waist Level Level of Assistance Standby Assistance Verbal Cues Comments cues for large steps, poor coordination Sideways Water Level Chest Level Level of Assistance Standby Assistance Verbal Cues Comments poor coordination Marching Water Level Chest Level Level of Assistance Standby Assistance Verbal Cues Comments poor posture and balance Backwards Water Level Chest Level Level of Assistance Standby Assistance Verbal Cues Comments poor posture, scooting and shuffling rather than stepping Forwards Water Level Chest Level Level of Assistance Standby Assistance Verbal Cues Comments poor posture and balance Lower Extremity Exercises squats on stairs and boxes Water Level Waist Level Reps/Duration 10 Comments cues for mm activation sequencing HS curls Water Level Chest Level Reps/Duration 10 bilat Comments verbal and man cues for reducing hip flexion ab/ad Water Level Chest Level Reps/Duration 10 bilat Comments handhold on wall, man cues for posture flex/ext Water Level Chest Level Reps/Duration 10 bilat Comments handhold on wall Lower Extremity Stretches hip flexors Details at wall Water Level Chest Level Reps/Duration 2 x 30 Comments man cuing HS, Body Position Standing Water Level Chest Level Equipment Large Noodle Reps/Duration 2 x 30 Comments poor posture requiring man cuing Balance SLS Water Level Chest Level Reps/Duration 4 min-alternating Comments with difficulty-no hand hold [place] Activities [place] Activities Bicycle [place] Other Activities scissor kicks in corner Equipment blue float, BBs for stability Duration 10 min Comments Pt very unstable in deep water with difficulty activating glutes and maintaining upright position PT-OP-T Assessment and Plan Start: 11/22/18 16:41 Freq: Status: Active Protocol: Document 11/30/18 11:45 JOHNIE (Rec: 11/30/18 15:25 JOHNIE [email or web address]) Physical Therapy Assessment Rehab Potential Rehabilitation Potential Good Evaluation Complexity Number of Personal Factors/Comorbidities 3 or More Number of Body Systems Impaired 4 or More Clinical Presentation at Evaluation Evolving Impairments Impairments Activity Tolerance Balance Functional Activities Functional Mobility Gait Pain Posture ROM Soft Tissue Mobility Strength Goals Three Impairment Limited activity Short Term Goal (STG) He will be able to bend over to the ground without increased back pain. STG Duration 4 weeks Longterm Goal (LTG) He will be able to walk up the hill in his neighborhood to walk his dog. LTG Duration 6 weeks Two Impairment Has no Home Exercise Program Short Term Goal (STG) Independent with stretching and strengthening program to do at home. STG Duration 4 weeks Mud Analysis Supervisor Goal (LTG) Independent with pool exercise program LTG Duration 6 weeks One Impairment pain 4/10 with activity Short Term Goal (STG) He will be able to walk with less than 2/10 pain. STG Duration 4 weeks Longterm Goal (LTG) He will be able to walk for at least 30 min without back pain. LTG Duration 6 weeks Assessment Summary Assessment Pt was unstable and lacked walking coordination in water walking activitiies and deep water. Very weak in glutes and core with difficulty activating posterior chain mm to stand erect for more than a few seconds. Appears to ba a fall risk especially on the pool deck where he slipped slightly when exiting. In corner scissor kicking exercise pt was unable to flex and extend LEs without hip rotation compensation. With step up/down pt stronger with Lhip. Pt presents with Parkinson like movements and coordination. Recommend gait and balance testing next clinic visit. Physical Therapy Plan Frequency and Duration Frequency of Treatment 2x/Week Duration of Treatment 6 weeks Plan of Care Start Date 11/22/18 Plan of Care End Date 01/04/19 Therapeutic Interventions Therapeutic Interventions Aquatic Therapy Balance Training Gait Training Home Exercise Program Manual Therapy Neuromuscular Re-education Patient/Caregiver Education Self-Care/Home Management Soft Tissue Mobilization Therapeutic Activities Therapeutic Exercises Modalities Cold Pack/Ice Massage Electric Stimulation Hot Packs Ultrasound Other Referrals/Consults Referrals/Consults Recommended fall risk assessment Next Visit Focus/Plan Next Note Type Treatment Note Next Visit Plan Next clinic visit assess balance and gait due to potential fall risk. Progress core stabilization and strengthening focusing on balance and mm coordination.
--- NOTE | 2018-12-07 11:45 | PT.OTN ---
Current Diagnoses Pain in left hip (12/07/18) Unspecified inflammatory spondylopathy, lumbar region (12/07/18) Spinal stenosis, lumbar region without neurogenic claudication (12/07/18) Other intervertebral disc degeneration, lumbosacral region (12/07/18) Low back pain (12/07/18) Abnormal posture (12/07/18) Physical Therapy Treatment Note PT-OP-A Visit Information Start: 11/22/18 16:41 Freq: Status: Active Protocol: Document 12/07/18 11:45 SAK (Rec: 12/09/18 16:08 SAK [id number]) Out-Patient Physical Therapy Visit Information Visit Information Visit Type Aquatic Treatment Note Visit Start Time 11:45 Visit Stop Time 12:30 Total Visit Minutes 45 Visit Number 4 Number of PHYSICIAN GYNECOLOGIST Visits 0 Precautions Precautions hx of falls PT-OP-B Current Condition Start: 11/22/18 16:41 Freq: Status: Active Protocol: Document 11/22/18 15:30 DLM (Rec: 11/22/18 16:57 DLM [id number]) Current Condition History of Current Condition Onset Date 6 months ago Current Complaints low back pain and left lateral hip pain History of Current Condition He reports about 6 monts ago he developed more difficulty walking. He reports his back gets stiff and sore. He fell a few months ago when his foot caught on the steps at his Sisters house and he fell onto his left side. He is having left lateral hip pain that he is not sure if it is from his back or from the fall. Prior Treatments and Tests Pool therapy years ago that helped his back. 02/2018 Injection in his low back that did not help. Treatment Goals Patient/Caregiver Goals He wants to be able to walk without back pain. He wants to be able to walk up the hill in his neighborhood to walk his dog. He wants to have a pool exercise program he can continue on his own. Prior Functional Status Baseline Function- ADL's Independent Baseline Function- Mobility Independent Baseline Function- Gait Independent in community, [place] Baseline Function- Work/School retired Baseline Function- Recreation/Hobbies golf, yard work, walks dog, travels Current Functional Impairments (Reported) Functional Limitations- ADL's Independent, holds onto soap dish in shower when closes his eyes, back pain getting in/ out of car, back pain if he tries to sit for any length of time without back support Functional Limitations- Mobility/Gait Independent, slower pace, back pain limits his distances, too much pain to be able to walk up the hill in his neighborhood to walk his dog Functional Limitations- Work/School retired Functional Limitations- Recreation/ back pain and stiffness when Hobbies he tries to golf, can only bend over doing yard work for about 5 min due to back pain Personal Factors Other Personal Factors That May Effect new tremor in right hand Therapy/Recovery started about 6 months ago, pt reports physician is aware and they are monitoring it ( concern for Parkinsons disease ) PT-OP-C Subjective Start: 11/22/18 16:41 Freq: Status: Active Protocol: Document 12/07/18 11:45 SAK (Rec: 12/09/18 16:08 SAK [id number]) OP-PT Subjective Patient Comments Patient Comments Maybe a little better, easy to flare left hip pain. PT-OP-D Balance Start: 11/22/18 16:41 Freq: Status: Active Protocol: Document 11/22/18 15:30 DLM (Rec: 11/22/18 16:58 DLM [id number]) Balance Tests Davalos Balance Test Davalos Balance Test Score 45/56 Davalos Impairment Rating 1 to 19% Impaired (Score 45-55 ) Romberg Romberg increased sway with eyes closed but no loss of balance Single Limb Standing Single Limb- Right 3-5 sec Single Limb- Left 3 sec PT-OP-E Functional Tests Start: 11/22/18 16:41 Freq: Status: Active Protocol: Document 11/22/18 15:30 DLM (Rec: 11/22/18 17:00 DLM [id number]) Functional Tests 6 Minute Walk Test Distance 936.5 feet Device Used none Comments low back pain and stiffness PT-OP-G Mobility & Gait Start: 11/22/18 16:41 Freq: Status: Active Protocol: Document 11/22/18 15:30 DLM (Rec: 11/22/18 17:02 DLM [id number]) OP Mobility Evaluation Bed Mobility Rolling Independent, slow and difficult Supine to and from Sit Independent with mild difficulty Transfers Sit to Stand Independent Functional Movements Other Functional Movements increased left lateral hip pain with any rotational movements in standing OP Gait Assessment Gait Gait Assistance Required: Independent Assistive Devices Assistive Device None Gait Deviations General Gait Pattern Decreased Stride Length Flexed Trunk Factors Limiting Gait Function Factors Limiting Gait Function Decreased Activity Tolerance Pain PT-OP-H Neuro Start: 11/22/18 16:41 Freq: Status: Active Protocol: Document 11/22/18 15:30 DLM (Rec: 11/22/18 17:23 DLM [id number]) Sensation Evaluation Comments Summary Comments hx of neuropathy in feet, mild tremor noted in right hand PT-OP-J Posture/Palpation/Skin Start: 11/22/18 16:41 Freq: Status: Active Protocol: Document 11/22/18 15:30 DLM (Rec: 11/22/18 17:19 DLM [id number]) Posture Evaluation Position Standing Evaluation View Posterior Head/C-Spine Posture Forward Head L-Spine Posture Flexed Shoulder Posture (L) Rounded (R) Rounded Comments Posture Comments protruding abdomen in standing Palpation Assessment Location Two Palpation Location left lateral hip Palpation Findings Tenderness Palpation Details bursa tenderness One Palpation Location lumbar paraspinals Palpation Findings Soft Tissue Tightness Tenderness PT-OP-K Range of Motion Start: 11/22/18 16:41 Freq: Status: Active Protocol: Document 11/22/18 15:30 DLM (Rec: 11/22/18 17:19 DLM [id number]) Lumbar Spine Range of Motion Lumbar Spine Active Percentage Testing Position Standing Flexion 50 Extension 5 Rotation Left 30 Rotation Right 50 Lateral Flexion Left 25 Lateral Flexion Right 25 ROM Limitations Soft Tissue Tightness Pain Comments back pain with flexion and right lateral flexion, left hip pain with rotation Shoulder Goniometric Range of Motion Shoulder bilateral Shoulder ROM WFL Yes Testing Position Sitting Shoulder ROM Limitations Comments hx right shoulder total arthroplasty with pt reporting good recovery PT-OP-L Special Tests Start: 11/22/18 16:41 Freq: Status: Active Protocol: Document 11/22/18 15:30 DLM (Rec: 11/22/18 17:19 DLM [id number]) Special Tests Lumbar Spine Special Tests Straight Leg Raise Test Results no back pain Comments hamstring tightness at 60b degrees bilaterally Slump Test Results back pain PT-OP-M Strength Start: 11/22/18 16:41 Freq: Status: Active Protocol: Document 11/22/18 15:30 DLM (Rec: 11/22/18 17:19 DLM [id number]) Trunk Strength Trunk Manual Muscle Testing Core Stabilization 3+/5 Reason Not Measured Pain Comments bilateral hip flexor tightness interferes with his ability to stand erect Hip Strength Hip Manual Muscle Testing Right Flexion (L2) 4 Good Extension (S1) 3+ Fair+ Abduction 4 Good Adduction 5 Normal Comments left hip pain with resisted right hip abduction in sidelying, hip extension tested in prone Left Flexion (L2) 4+ Good+ Extension (S1) 3+ Fair+ Abduction 5 Normal Adduction 5 Normal Comments pain with resisted left hip flexion, hip extension tested in prone Knee Strength Knee Manual Muscle Testing bilateral Flexion (S2) 5 Normal Extension (L3) 5 Normal Ankle/Foot Strength Ankle and Foot Manual Muscle Testing Bilateral Dorsiflexion (L4) 5 Normal PT-OP-Q Treatments Start: 11/22/18 16:41 Freq: Status: Active Protocol: Document 11/28/18 13:45 RCC (Rec: 11/29/18 09:34 RCC [id number]) Therapeutic Exercises Supine Exercises sciatic nerve glides Supine Exercise Name manual assist- flossing Side bilateral Reps/Minutes 2x60 sec each HS stretch Side bilateral Equipment Used with towel Reps/Minutes 3x30 sec piriformis stretch Side bilateral Reps/Minutes 3x30 sec SKC Side bilateral Reps/Minutes 3x30 sec Sitting Exercises sciatic nerve glides Sitting Exercise Name HS stretch position with ankle pumps Side bilateral Reps/Minutes x3 min HS stretch Side bilateral Equipment Used foot on stool Reps/Minutes 3x60 sec Standing Exercises HC stretch Side bilateral Equipment Used MAYE Reps/Minutes 5x10 sec Manual Therapy Treatment Soft Tissue Mobilization L IT band Mobilization Type Rolling Intensity/Depth Superficial Body Position Sidelying Comments rolling stick to L IT band PT-OP-R Modalities Start: 11/22/18 16:41 Freq: Status: Active Protocol: Document 11/28/18 13:45 RCC (Rec: 11/29/18 09:35 RCC [id number]) Hot Pack/Cold Pack Treatment Hot Pack Location lumbar and L IT band Patient Position Hooklying Treatment Duration (minutes) 15 Patient Tolerance Good PT-OP-S Aquatic Treatment Start: 11/22/18 16:41 Freq: Status: Active Protocol: Document 12/07/18 11:45 SAK (Rec: 12/09/18 16:08 SAK [id number]) Aquatics Treatment Pool Entry/Exit Pool Entry/Exit Method Stairs Assistance Standby Assistance Verbal Cues Comments step to gait Water Walking Quick Reverses Water Level Chest Level Level of Assistance Standby Assistance Verbal Cues Comments difficulty stabilizing [place] Water Level Chest Level Level of Assistance Standby Assistance Verbal Cues Comments manual cues Lunge Walk Water Level Waist Level Level of Assistance Standby Assistance Verbal Cues Comments manual cues Marching Water Level Chest Level Level of Assistance Standby Assistance Verbal Cues Comments poor posture and balance Backwards Water Level Chest Level Level of Assistance Standby Assistance Verbal Cues Comments manual cues Forwards Water Level Chest Level Level of Assistance Standby Assistance Verbal Cues Comments manual cues Lower Extremity Exercises squats on stairs and boxes Water Level Waist Level Reps/Duration 10 Comments cues for mm activation sequencing HS curls Water Level Chest Level Reps/Duration 10 bilat Comments verbal and man cues for reducing hip flexion flex/ext Water Level Chest Level Reps/Duration 10 bilat Comments handhold on wall Lower Extremity Stretches quads Equipment Small Noodle Reps/Duration 2 x 30 hip flexors Details at wall Water Level Chest Level Reps/Duration 2 x 30 Comments man cuing [place] Activities [place] Activities Bicycle [place] Other Activities scissor kicks in corner Equipment blue float, 2.5# ankle weights Duration 10 min Comments verbal and manual cues for alignment but much improved ability with use of ankle weights. PT-OP-T Assessment and Plan Start: 11/22/18 16:41 Freq: Status: Active Protocol: Document 12/07/18 11:45 [facility] (Rec: 12/09/18 16:08 [facility] [id number]) Physical Therapy Assessment Goals Three Impairment Limited activity Short Term Goal (STG) He will be able to bend over to the ground without increased back pain. STG Duration 4 weeks Halfway Goal (LTG) He will be able to walk up the hill in his neighborhood to walk his dog. LTG Duration 6 weeks Two Impairment Has no Home Exercise Program Short Term Goal (STG) Independent with stretching and strengthening program to do at home. STG Duration 4 weeks [employer] Goal (LTG) Independent with pool exercise program LTG Duration 6 weeks One Impairment pain 4/10 with activity Short Term Goal (STG) He will be able to walk with less than 2/10 pain. STG Duration 4 weeks Halfway Goal (LTG) He will be able to walk for at least 30 min without back pain. LTG Duration 6 weeks Assessment Summary Assessment Improved ability to perform deep water activities with use of ankle weights. Needs mod verbal and manual cues for exercise performance, muscle activation. Physical Therapy Plan Frequency and Duration Frequency of Treatment 2x/Week Duration of Treatment 6 weeks Plan of Care Start Date 11/22/18 Plan of Care End Date 01/04/19 Therapeutic Interventions Therapeutic Interventions Aquatic Therapy Balance Training Gait Training Home Exercise Program Manual Therapy Neuromuscular Re-education Patient/Caregiver Education Self-Care/Home Management Soft Tissue Mobilization Therapeutic Activities Therapeutic Exercises Modalities Cold Pack/Ice Massage Electric Stimulation Hot Packs Ultrasound Other Referrals/Consults Referrals/Consults Recommended fall risk assessment Next Visit Focus/Plan Next Note Type Treatment Note Next Visit Plan Continue PT per POC to decrease patient's pain and improve his function.
--- NOTE | 2018-12-09 16:08 | PT.OTN ---
Current Diagnoses Pain in left hip (12/07/18) Unspecified inflammatory spondylopathy, lumbar region (12/07/18) Spinal stenosis, lumbar region without neurogenic claudication (12/07/18) Other intervertebral disc degeneration, lumbosacral region (12/07/18) Low back pain (12/07/18) Abnormal posture (12/07/18) Physical Therapy Treatment Note PT-OP-A Visit Information Start: 11/22/18 16:41 Freq: Status: Active Protocol: Document 12/07/18 11:45 SAK (Rec: 12/09/18 16:08 SAK [id number]) Out-Patient Physical Therapy Visit Information Visit Information Visit Type Aquatic Treatment Note Visit Start Time 11:45 Visit Stop Time 12:30 Total Visit Minutes 45 Visit Number 4 Number of X RAY TECH Visits 0 Precautions Precautions hx of falls PT-OP-B Current Condition Start: 11/22/18 16:41 Freq: Status: Active Protocol: Document 11/22/18 15:30 DLM (Rec: 11/22/18 16:57 DLM [id number]) Current Condition History of Current Condition Onset Date 6 months ago Current Complaints low back pain and left lateral hip pain History of Current Condition He reports about 6 monts ago he developed more difficulty walking. He reports his back gets stiff and sore. He fell a few months ago when his foot caught on the steps at his Sisters house and he fell onto his left side. He is having left lateral hip pain that he is not sure if it is from his back or from the fall. Prior Treatments and Tests Pool therapy years ago that helped his back. 02/2018 Injection in his low back that did not help. Treatment Goals Patient/Caregiver Goals He wants to be able to walk without back pain. He wants to be able to walk up the hill in his neighborhood to walk his dog. He wants to have a pool exercise program he can continue on his own. Prior Functional Status Baseline Function- ADL's Independent Baseline Function- Mobility Independent Baseline Function- Gait Independent in community, able [place] Baseline Function- Work/School retired Baseline Function- Recreation/Hobbies golf, yard work, walks dog, travels Current Functional Impairments (Reported) Functional Limitations- ADL's Independent, holds onto soap dish in shower when closes his eyes, back pain getting in/ out of car, back pain if he tries to sit for any length of time without back support Functional Limitations- Mobility/Gait Independent, slower pace, back pain limits his distances, too much pain to be able to walk up the hill in his neighborhood to walk his dog Functional Limitations- Work/School retired Functional Limitations- Recreation/ back pain and stiffness when Hobbies he tries to golf, can only bend over doing yard work for about 5 min due to back pain Personal Factors Other Personal Factors That May Effect new tremor in right hand Therapy/Recovery started about 6 months ago, pt reports physician is aware and they are monitoring it ( concern for Parkinsons disease ) PT-OP-C Subjective Start: 11/22/18 16:41 Freq: Status: Active Protocol: Document 12/07/18 11:45 SAK (Rec: 12/09/18 16:08 SAK [id number]) OP-PT Subjective Patient Comments Patient Comments Maybe a little better, easy to flare left hip pain. PT-OP-D Balance Start: 11/22/18 16:41 Freq: Status: Active Protocol: Document 11/22/18 15:30 DLM (Rec: 11/22/18 16:58 DLM [id number]) Balance Tests Davalos Balance Test Davalos Balance Test Score 45/56 Davalos Impairment Rating 1 to 19% Impaired (Score 45-55 ) Romberg Romberg increased sway with eyes closed but no loss of balance Single Limb Standing Single Limb- Right 3-5 sec Single Limb- Left 3 sec PT-OP-E Functional Tests Start: 11/22/18 16:41 Freq: Status: Active Protocol: Document 11/22/18 15:30 DLM (Rec: 11/22/18 17:00 DLM [id number]) Functional Tests 6 Minute Walk Test Distance 936.5 feet Device Used none Comments low back pain and stiffness PT-OP-G Mobility & Gait Start: 11/22/18 16:41 Freq: Status: Active Protocol: Document 11/22/18 15:30 DLM (Rec: 11/22/18 17:02 DLM [id number]) OP Mobility Evaluation Bed Mobility Rolling Independent, slow and difficult Supine to and from Sit Independent with mild difficulty Transfers Sit to Stand Independent Functional Movements Other Functional Movements increased left lateral hip pain with any rotational movements in standing OP Gait Assessment Gait Gait Assistance Required: Independent Assistive Devices Assistive Device None Gait Deviations General Gait Pattern Decreased Stride Length Flexed Trunk Factors Limiting Gait Function Factors Limiting Gait Function Decreased Activity Tolerance Pain PT-OP-H Neuro Start: 11/22/18 16:41 Freq: Status: Active Protocol: Document 11/22/18 15:30 DLM (Rec: 11/22/18 17:23 DLM [id number]) Sensation Evaluation Comments Summary Comments hx of neuropathy in feet, mild tremor noted in right hand PT-OP-J Posture/Palpation/Skin Start: 11/22/18 16:41 Freq: Status: Active Protocol: Document 11/22/18 15:30 DLM (Rec: 11/22/18 17:19 DLM [id number]) Posture Evaluation Position Standing Evaluation View Posterior Head/C-Spine Posture Forward Head L-Spine Posture Flexed Shoulder Posture (L) Rounded (R) Rounded Comments Posture Comments protruding abdomen in standing Palpation Assessment Location Two Palpation Location left lateral hip Palpation Findings Tenderness Palpation Details bursa tenderness One Palpation Location lumbar paraspinals Palpation Findings Soft Tissue Tightness Tenderness PT-OP-K Range of Motion Start: 11/22/18 16:41 Freq: Status: Active Protocol: Document 11/22/18 15:30 DLM (Rec: 11/22/18 17:19 DLM [id number]) Lumbar Spine Range of Motion Lumbar Spine Active Percentage Testing Position Standing Flexion 50 Extension 5 Rotation Left 30 Rotation Right 50 Lateral Flexion Left 25 Lateral Flexion Right 25 ROM Limitations Soft Tissue Tightness Pain Comments back pain with flexion and right lateral flexion, left hip pain with rotation Shoulder Goniometric Range of Motion Shoulder bilateral Shoulder ROM WFL Yes Testing Position Sitting Shoulder ROM Limitations Comments hx right shoulder total arthroplasty with pt reporting good recovery PT-OP-L Special Tests Start: 11/22/18 16:41 Freq: Status: Active Protocol: Document 11/22/18 15:30 DLM (Rec: 11/22/18 17:19 DLM [id number]) Special Tests Lumbar Spine Special Tests Straight Leg Raise Test Results no back pain Comments hamstring tightness at 60b degrees bilaterally Slump Test Results back pain PT-OP-M Strength Start: 11/22/18 16:41 Freq: Status: Active Protocol: Document 11/22/18 15:30 DLM (Rec: 11/22/18 17:19 DLM [id number]) Trunk Strength Trunk Manual Muscle Testing Core Stabilization 3+/5 Reason Not Measured Pain Comments bilateral hip flexor tightness interferes with his ability to stand erect Hip Strength Hip Manual Muscle Testing Right Flexion (L2) 4 Good Extension (S1) 3+ Fair+ Abduction 4 Good Adduction 5 Normal Comments left hip pain with resisted right hip abduction in sidelying, hip extension tested in prone Left Flexion (L2) 4+ Good+ Extension (S1) 3+ Fair+ Abduction 5 Normal Adduction 5 Normal Comments pain with resisted left hip flexion, hip extension tested in prone Knee Strength Knee Manual Muscle Testing bilateral Flexion (S2) 5 Normal Extension (L3) 5 Normal Ankle/Foot Strength Ankle and Foot Manual Muscle Testing Bilateral Dorsiflexion (L4) 5 Normal PT-OP-Q Treatments Start: 11/22/18 16:41 Freq: Status: Active Protocol: Document 11/28/18 13:45 RCC (Rec: 11/29/18 09:34 RCC [id number]) Therapeutic Exercises Supine Exercises sciatic nerve glides Supine Exercise Name manual assist- flossing Side bilateral Reps/Minutes 2x60 sec each HS stretch Side bilateral Equipment Used with towel Reps/Minutes 3x30 sec piriformis stretch Side bilateral Reps/Minutes 3x30 sec SKC Side bilateral Reps/Minutes 3x30 sec Sitting Exercises sciatic nerve glides Sitting Exercise Name HS stretch position with ankle pumps Side bilateral Reps/Minutes x3 min HS stretch Side bilateral Equipment Used foot on stool Reps/Minutes 3x60 sec Standing Exercises HC stretch Side bilateral Equipment Used MAYE Reps/Minutes 5x10 sec Manual Therapy Treatment Soft Tissue Mobilization L IT band Mobilization Type Rolling Intensity/Depth Superficial Body Position Sidelying Comments rolling stick to L IT band PT-OP-R Modalities Start: 11/22/18 16:41 Freq: Status: Active Protocol: Document 11/28/18 13:45 RCC (Rec: 11/29/18 09:35 RCC [id number]) Hot Pack/Cold Pack Treatment Hot Pack Location lumbar and L IT band Patient Position Hooklying Treatment Duration (minutes) 15 Patient Tolerance Good PT-OP-S Aquatic Treatment Start: 11/22/18 16:41 Freq: Status: Active Protocol: Document 12/07/18 11:45 SAK (Rec: 12/09/18 16:08 SAK [id number]) Aquatics Treatment Pool Entry/Exit Pool Entry/Exit Method Stairs Assistance Standby Assistance Verbal Cues Comments step to gait Water Walking Quick Reverses Water Level Chest Level Level of Assistance Standby Assistance Verbal Cues Comments difficulty stabilizing [place] March Water Level Chest Level Level of Assistance Standby Assistance Verbal Cues Comments manual cues Lunge Walk Water Level Waist Level Level of Assistance Standby Assistance Verbal Cues Comments manual cues Marching Water Level Chest Level Level of Assistance Standby Assistance Verbal Cues Comments poor posture and balance Backwards Water Level Chest Level Level of Assistance Standby Assistance Verbal Cues Comments manual cues Forwards Water Level Chest Level Level of Assistance Standby Assistance Verbal Cues Comments manual cues Lower Extremity Exercises squats on stairs and boxes Water Level Waist Level Reps/Duration 10 Comments cues for mm activation sequencing HS curls Water Level Chest Level Reps/Duration 10 bilat Comments verbal and man cues for reducing hip flexion flex/ext Water Level Chest Level Reps/Duration 10 bilat Comments handhold on wall Lower Extremity Stretches quads Equipment Small Noodle Reps/Duration 2 x 30 hip flexors Details at wall Water Level Chest Level Reps/Duration 2 x 30 Comments man cuing [place] Activities [place] Activities Bicycle Cross [place] Other Activities scissor kicks in corner Equipment blue float, 2.5# ankle weights Duration 10 min Comments verbal and manual cues for alignment but much improved ability with use of ankle weights. PT-OP-T Assessment and Plan Start: 11/22/18 16:41 Freq: Status: Active Protocol: Document 12/07/18 11:45 [facility] (Rec: 12/09/18 16:08 [facility] [id number]) Physical Therapy Assessment Goals Three Impairment Limited activity Short Term Goal (STG) He will be able to bend over to the ground without increased back pain. STG Duration 4 weeks [facility] Goal (LTG) He will be able to walk up the hill in his neighborhood to walk his dog. LTG Duration 6 weeks Two Impairment Has no Home Exercise Program Short Term Goal (STG) Independent with stretching and strengthening program to do at home. STG Duration 4 weeks Load Blocker Goal (LTG) Independent with pool exercise program LTG Duration 6 weeks One Impairment pain 4/10 with activity Short Term Goal (STG) He will be able to walk with less than 2/10 pain. STG Duration 4 weeks [facility] Goal (LTG) He will be able to walk for at least 30 min without back pain. LTG Duration 6 weeks Assessment Summary Assessment Improved ability to perform deep water activities with use of ankle weights. Needs mod verbal and manual cues for exercise performance, muscle activation. Physical Therapy Plan Frequency and Duration Frequency of Treatment 2x/Week Duration of Treatment 6 weeks Plan of Care Start Date 11/22/18 Plan of Care End Date 01/04/19 Therapeutic Interventions Therapeutic Interventions Aquatic Therapy Balance Training Gait Training Home Exercise Program Manual Therapy Neuromuscular Re-education Patient/Caregiver Education Self-Care/Home Management Soft Tissue Mobilization Therapeutic Activities Therapeutic Exercises Modalities Cold Pack/Ice Massage Electric Stimulation Hot Packs Ultrasound Other Referrals/Consults Referrals/Consults Recommended fall risk assessment Next Visit Focus/Plan Next Note Type Treatment Note Next Visit Plan Continue PT per POC to decrease patient's pain and improve his function.
--- NOTE | 2018-12-12 15:12 | PT.OTN ---
Current Diagnoses Pain in left hip (12/12/18) Unspecified inflammatory spondylopathy, lumbar region (12/12/18) Spinal stenosis, lumbar region without neurogenic claudication (12/12/18) Other intervertebral disc degeneration, lumbosacral region (12/12/18) Low back pain (12/12/18) Abnormal posture (12/12/18) Physical Therapy Treatment Note PT-OP-A Visit Information Start: 11/22/18 16:41 Freq: Status: Active Protocol: Document 12/12/18 13:45 AMB (Rec: 12/12/18 15:11 AMB [email or web address]) Out-Patient Physical Therapy Visit Information Visit Information Visit Type Treatment Note Visit Start Time 13:45 Visit Stop Time 14:30 Total Visit Minutes 45 Visit Number 5 Number of [employer] MEMBER Visits 0 PT-OP-B Current Condition Start: 11/22/18 16:41 Freq: Status: Active Protocol: Document 11/22/18 15:30 DLM (Rec: 11/22/18 16:57 DLM [id number]) Current Condition History of Current Condition Onset Date 6 months ago Current Complaints low back pain and left lateral hip pain History of Current Condition He reports about 6 monts ago he developed more difficulty walking. He reports his back gets stiff and sore. He fell a few months ago when his foot caught on the steps at his Sisters house and he fell onto his left side. He is having left lateral hip pain that he is not sure if it is from his back or from the fall. Prior Treatments and Tests Pool therapy years ago that helped his back. 02/2018 Injection in his low back that did not help. Treatment Goals Patient/Caregiver Goals He wants to be able to walk without back pain. He wants to be able to walk up the hill in his neighborhood to walk his dog. He wants to have a pool exercise program he can continue on his own. Prior Functional Status Baseline Function- ADL's Independent Baseline Function- Mobility Independent Baseline Function- Gait Independent in community, able [place] Baseline Function- Work/School retired Baseline Function- Recreation/Hobbies golf, yard work, walks dog, travels Current Functional Impairments (Reported) Functional Limitations- ADL's Independent, holds onto soap dish in shower when closes his eyes, back pain getting in/ out of car, back pain if he tries to sit for any length of time without back support Functional Limitations- Mobility/Gait Independent, slower pace, back pain limits his distances, too much pain to be able to walk up the hill in his neighborhood to walk his dog Functional Limitations- Work/School retired Functional Limitations- Recreation/ back pain and stiffness when Hobbies he tries to golf, can only bend over doing yard work for about 5 min due to back pain Personal Factors Other Personal Factors That May Effect new tremor in right hand Therapy/Recovery started about 6 months ago, pt reports physician is aware and they are monitoring it ( concern for Parkinsons disease ) PT-OP-C Subjective Start: 11/22/18 16:41 Freq: Status: Active Protocol: Document 12/12/18 13:45 AMB (Rec: 12/12/18 15:11 AMB [email or web address]) OP-PT Subjective Patient Comments Patient Comments Left hip feels a lot better, but right lower back has been bothersome, especially with moving from sit to stand. PT-OP-D Balance Start: 11/22/18 16:41 Freq: Status: Active Protocol: Document 11/22/18 15:30 DLM (Rec: 11/22/18 16:58 DLM [id number]) Balance Tests Davalos Balance Test Davalos Balance Test Score 45/56 Davalos Impairment Rating 1 to 19% Impaired (Score 45-55 ) Romberg Romberg increased sway with eyes closed but no loss of balance Single Limb Standing Single Limb- Right 3-5 sec Single Limb- Left 3 sec PT-OP-E Functional Tests Start: 11/22/18 16:41 Freq: Status: Active Protocol: Document 11/22/18 15:30 DLM (Rec: 11/22/18 17:00 DLM [id number]) Functional Tests 6 Minute Walk Test Distance 936.5 feet Device Used none Comments low back pain and stiffness PT-OP-G Mobility & Gait Start: 11/22/18 16:41 Freq: Status: Active Protocol: Document 11/22/18 15:30 DLM (Rec: 11/22/18 17:02 DLM [id number]) OP Mobility Evaluation Bed Mobility Rolling Independent, slow and difficult Supine to and from Sit Independent with mild difficulty Transfers Sit to Stand Independent Functional Movements Other Functional Movements increased left lateral hip pain with any rotational movements in standing OP Gait Assessment Gait Gait Assistance Required: Independent Assistive Devices Assistive Device None Gait Deviations General Gait Pattern Decreased Stride Length Flexed Trunk Factors Limiting Gait Function Factors Limiting Gait Function Decreased Activity Tolerance Pain PT-OP-H Neuro Start: 11/22/18 16:41 Freq: Status: Active Protocol: Document 11/22/18 15:30 DLM (Rec: 11/22/18 17:23 DLM [id number]) Sensation Evaluation Comments Summary Comments hx of neuropathy in feet, mild tremor noted in right hand PT-OP-J Posture/Palpation/Skin Start: 11/22/18 16:41 Freq: Status: Active Protocol: Document 11/22/18 15:30 DLM (Rec: 11/22/18 17:19 DLM [id number]) Posture Evaluation Position Standing Evaluation View Posterior Head/C-Spine Posture Forward Head L-Spine Posture Flexed Shoulder Posture (L) Rounded (R) Rounded Comments Posture Comments protruding abdomen in standing Palpation Assessment Location Two Palpation Location left lateral hip Palpation Findings Tenderness Palpation Details bursa tenderness One Palpation Location lumbar paraspinals Palpation Findings Soft Tissue Tightness Tenderness PT-OP-K Range of Motion Start: 11/22/18 16:41 Freq: Status: Active Protocol: Document 11/22/18 15:30 DLM (Rec: 11/22/18 17:19 DLM [id number]) Lumbar Spine Range of Motion Lumbar Spine Active Percentage Testing Position Standing Flexion 50 Extension 5 Rotation Left 30 Rotation Right 50 Lateral Flexion Left 25 Lateral Flexion Right 25 ROM Limitations Soft Tissue Tightness Pain Comments back pain with flexion and right lateral flexion, left hip pain with rotation Shoulder Goniometric Range of Motion Shoulder bilateral Shoulder ROM WFL Yes Testing Position Sitting Shoulder ROM Limitations Comments hx right shoulder total arthroplasty with pt reporting good recovery PT-OP-L Special Tests Start: 11/22/18 16:41 Freq: Status: Active Protocol: Document 11/22/18 15:30 DLM (Rec: 11/22/18 17:19 DLM [id number]) Special Tests Lumbar Spine Special Tests Straight Leg Raise Test Results no back pain Comments hamstring tightness at 60b degrees bilaterally Slump Test Results back pain PT-OP-M Strength Start: 11/22/18 16:41 Freq: Status: Active Protocol: Document 11/22/18 15:30 DLM (Rec: 11/22/18 17:19 DLM [id number]) Trunk Strength Trunk Manual Muscle Testing Core Stabilization 3+/5 Reason Not Measured Pain Comments bilateral hip flexor tightness interferes with his ability to stand erect Hip Strength Hip Manual Muscle Testing Right Flexion (L2) 4 Good Extension (S1) 3+ Fair+ Abduction 4 Good Adduction 5 Normal Comments left hip pain with resisted right hip abduction in sidelying, hip extension tested in prone Left Flexion (L2) 4+ Good+ Extension (S1) 3+ Fair+ Abduction 5 Normal Adduction 5 Normal Comments pain with resisted left hip flexion, hip extension tested in prone Knee Strength Knee Manual Muscle Testing bilateral Flexion (S2) 5 Normal Extension (L3) 5 Normal Ankle/Foot Strength Ankle and Foot Manual Muscle Testing Bilateral Dorsiflexion (L4) 5 Normal PT-OP-Q Treatments Start: 11/22/18 16:41 Freq: Status: Active Protocol: Document 12/12/18 13:45 AMB (Rec: 12/12/18 15:11 AMB [email or web address]) Therapeutic Exercises Supine Exercises 3 Supine Exercise Name lower trunk rotation Reps/Minutes 2x10 2 Supine Exercise Name bridges Reps/Minutes 2x10 1 Supine Exercise Name SLR Reps/Minutes 10 Comments with TrA SKC Side bilateral Reps/Minutes 3x30 sec Comments modified to avoid back pain on R Standing Exercises 2 Standing Exercise Name lumbar extension Reps/Minutes 10 1 Standing Exercise Name doorway pec stretch Reps/Minutes 30x2 PT-OP-R Modalities Start: 11/22/18 16:41 Freq: Status: Active Protocol: Document 12/12/18 13:45 AMB (Rec: 12/12/18 15:12 AMB [email or web address]) Hot Pack/Cold Pack Treatment Hot Pack Location lumbar Patient Position Hooklying Treatment Duration (minutes) 15 Patient Tolerance Good PT-OP-S Aquatic Treatment Start: 11/22/18 16:41 Freq: Status: Active Protocol: Document 12/07/18 11:45 SAK (Rec: 12/09/18 16:08 SAK [id number]) Aquatics Treatment Pool Entry/Exit Pool Entry/Exit Method Stairs Assistance Standby Assistance Verbal Cues Comments step to gait Water Walking Quick Reverses Water Level Chest Level Level of Assistance Standby Assistance Verbal Cues Comments difficulty stabilizing [place] March Water Level Chest Level Level of Assistance Standby Assistance Verbal Cues Comments manual cues Lunge Walk Water Level Waist Level Level of Assistance Standby Assistance Verbal Cues Comments manual cues Marching Water Level Chest Level Level of Assistance Standby Assistance Verbal Cues Comments poor posture and balance Backwards Water Level Chest Level Level of Assistance Standby Assistance Verbal Cues Comments manual cues Forwards Water Level Chest Level Level of Assistance Standby Assistance Verbal Cues Comments manual cues Lower Extremity Exercises squats on stairs and boxes Water Level Waist Level Reps/Duration 10 Comments cues for mm activation sequencing HS curls Water Level Chest Level Reps/Duration 10 bilat Comments verbal and man cues for reducing hip flexion flex/ext Water Level Chest Level Reps/Duration 10 bilat Comments handhold on wall Lower Extremity Stretches quads Equipment Small Noodle Reps/Duration 2 x 30 hip flexors Details at wall Water Level Chest Level Reps/Duration 2 x 30 Comments man cuing [place] Activities [place] Activities Bicycle [place] Other Activities scissor kicks in corner Equipment blue float, 2.5# ankle weights Duration 10 min Comments verbal and manual cues for alignment but much improved ability with use of ankle weights. PT-OP-T Assessment and Plan Start: 11/22/18 16:41 Freq: Status: Active Protocol: Document 12/12/18 13:45 AMB (Rec: 12/12/18 15:11 AMB [email or web address]) Physical Therapy Assessment Goals Three Impairment Limited activity Short Term Goal (STG) He will be able to bend over to the ground without increased back pain. STG Duration 4 weeks Custodial Goal (LTG) He will be able to walk up the hill in his neighborhood to walk his dog. LTG Duration 6 weeks Two Impairment Has no Home Exercise Program Short Term Goal (STG) Independent with stretching and strengthening program to do at home. STG Duration 4 weeks Assembly Stock Supervisor Goal (LTG) Independent with pool exercise program LTG Duration 6 weeks One Impairment pain 4/10 with activity Short Term Goal (STG) He will be able to walk with less than 2/10 pain. STG Duration 4 weeks Assembly Stock Supervisor Goal (LTG) He will be able to walk for at least 30 min without back pain. LTG Duration 6 weeks Assessment Summary Assessment Pt's hip pain is improving, removed/modified two stretches (single knee to chest, and knee to opposite shoulder that were increasing pain). Physical Therapy Plan Frequency and Duration Frequency of Treatment 2x/Week Duration of Treatment 6 weeks Plan of Care Start Date 11/22/18 Plan of Care End Date 01/04/19 Therapeutic Interventions Therapeutic Interventions Aquatic Therapy Balance Training Gait Training Home Exercise Program Manual Therapy Neuromuscular Re-education Patient/Caregiver Education Self-Care/Home Management Soft Tissue Mobilization Therapeutic Activities Therapeutic Exercises Modalities Cold Pack/Ice Massage Electric Stimulation Hot Packs Ultrasound Next Visit Focus/Plan Next Visit Plan Progress core stabilization, reassess stretching, continue aquatic.
--- NOTE | 2018-12-14 14:21 | PT.OTN ---
Current Diagnoses Pain in left hip (12/12/18) Unspecified inflammatory spondylopathy, lumbar region (12/12/18) Spinal stenosis, lumbar region without neurogenic claudication (12/12/18) Other intervertebral disc degeneration, lumbosacral region (12/12/18) Low back pain (12/12/18) Abnormal posture (12/12/18) Physical Therapy Treatment Note PT-OP-A Visit Information Start: 11/22/18 16:41 Freq: Status: Active Protocol: Document 12/14/18 11:45 LJ (Rec: 12/14/18 14:21 LJ [id number]) Out-Patient Physical Therapy Visit Information Visit Information Visit Type Aquatic Treatment Note Visit Start Time 11:45 Visit Stop Time 12:30 Total Visit Minutes 45 Visit Number 6 Number of MAINTENANCE DATA ANALYST Visits 1 Precautions Precautions hx of falls PT-OP-B Current Condition Start: 11/22/18 16:41 Freq: Status: Active Protocol: Document 11/22/18 15:30 DLM (Rec: 11/22/18 16:57 DLM [id number]) Current Condition History of Current Condition Onset Date 6 months ago Current Complaints low back pain and left lateral hip pain History of Current Condition He reports about 6 monts ago he developed more difficulty walking. He reports his back gets stiff and sore. He fell a few months ago when his foot caught on the steps at his Sisters house and he fell onto his left side. He is having left lateral hip pain that he is not sure if it is from his back or from the fall. Prior Treatments and Tests Pool therapy years ago that helped his back. 02/2018 Injection in his low back that did not help. Treatment Goals Patient/Caregiver Goals He wants to be able to walk without back pain. He wants to be able to walk up the hill in his neighborhood to walk his dog. He wants to have a pool exercise program he can continue on his own. Prior Functional Status Baseline Function- ADL's Independent Baseline Function- Mobility Independent Baseline Function- Gait Independent in community, [place] Baseline Function- Work/School retired Baseline Function- Recreation/Hobbies golf, yard work, walks dog, travels Current Functional Impairments (Reported) Functional Limitations- ADL's Independent, holds onto soap dish in shower when closes his eyes, back pain getting in/ out of car, back pain if he tries to sit for any length of time without back support Functional Limitations- Mobility/Gait Independent, slower pace, back pain limits his distances, too much pain to be able to walk up the hill in his neighborhood to walk his dog Functional Limitations- Work/School retired Functional Limitations- Recreation/ back pain and stiffness when Hobbies he tries to golf, can only bend over doing yard work for about 5 min due to back pain Personal Factors Other Personal Factors That May Effect new tremor in right hand Therapy/Recovery started about 6 months ago, pt reports physician is aware and they are monitoring it ( concern for Parkinsons disease ) PT-OP-C Subjective Start: 11/22/18 16:41 Freq: Status: Active Protocol: Document 12/14/18 11:45 LJ (Rec: 12/14/18 14:21 LJ [email or web address]) OP-PT Subjective Patient Comments Patient Comments Left hip is less painful and feels it is getting stronger. Pt reports doing all of the exercises he has been perscribed. PT-OP-D Balance Start: 11/22/18 16:41 Freq: Status: Active Protocol: Document 11/22/18 15:30 DLM (Rec: 11/22/18 16:58 DLM [id number]) Balance Tests Davalos Balance Test Davalos Balance Test Score 45/56 Davalos Impairment Rating 1 to 19% Impaired (Score 45-55 ) Romberg Romberg increased sway with eyes closed but no loss of balance Single Limb Standing Single Limb- Right 3-5 sec Single Limb- Left 3 sec PT-OP-E Functional Tests Start: 11/22/18 16:41 Freq: Status: Active Protocol: Document 11/22/18 15:30 DLM (Rec: 11/22/18 17:00 DLM [id number]) Functional Tests 6 Minute Walk Test Distance 936.5 feet Device Used none Comments low back pain and stiffness PT-OP-G Mobility & Gait Start: 11/22/18 16:41 Freq: Status: Active Protocol: Document 11/22/18 15:30 DLM (Rec: 11/22/18 17:02 DLM [id number]) OP Mobility Evaluation Bed Mobility Rolling Independent, slow and difficult Supine to and from Sit Independent with mild difficulty Transfers Sit to Stand Independent Functional Movements Other Functional Movements increased left lateral hip pain with any rotational movements in standing OP Gait Assessment Gait Gait Assistance Required: Independent Assistive Devices Assistive Device None Gait Deviations General Gait Pattern Decreased Stride Length Flexed Trunk Factors Limiting Gait Function Factors Limiting Gait Function Decreased Activity Tolerance Pain PT-OP-H Neuro Start: 11/22/18 16:41 Freq: Status: Active Protocol: Document 11/22/18 15:30 DLM (Rec: 11/22/18 17:23 DLM [id number]) Sensation Evaluation Comments Summary Comments hx of neuropathy in feet, mild tremor noted in right hand PT-OP-J Posture/Palpation/Skin Start: 11/22/18 16:41 Freq: Status: Active Protocol: Document 11/22/18 15:30 DLM (Rec: 11/22/18 17:19 DLM [id number]) Posture Evaluation Position Standing Evaluation View Posterior Head/C-Spine Posture Forward Head L-Spine Posture Flexed Shoulder Posture (L) Rounded (R) Rounded Comments Posture Comments protruding abdomen in standing Palpation Assessment Location Two Palpation Location left lateral hip Palpation Findings Tenderness Palpation Details bursa tenderness One Palpation Location lumbar paraspinals Palpation Findings Soft Tissue Tightness Tenderness PT-OP-K Range of Motion Start: 11/22/18 16:41 Freq: Status: Active Protocol: Document 11/22/18 15:30 DLM (Rec: 11/22/18 17:19 DLM [id number]) Lumbar Spine Range of Motion Lumbar Spine Active Percentage Testing Position Standing Flexion 50 Extension 5 Rotation Left 30 Rotation Right 50 Lateral Flexion Left 25 Lateral Flexion Right 25 ROM Limitations Soft Tissue Tightness Pain Comments back pain with flexion and right lateral flexion, left hip pain with rotation Shoulder Goniometric Range of Motion Shoulder bilateral Shoulder ROM WFL Yes Testing Position Sitting Shoulder ROM Limitations Comments hx right shoulder total arthroplasty with pt reporting good recovery PT-OP-L Special Tests Start: 11/22/18 16:41 Freq: Status: Active Protocol: Document 11/22/18 15:30 DLM (Rec: 11/22/18 17:19 DLM [id number]) Special Tests Lumbar Spine Special Tests Straight Leg Raise Test Results no back pain Comments hamstring tightness at 60b degrees bilaterally Slump Test Results back pain PT-OP-M Strength Start: 11/22/18 16:41 Freq: Status: Active Protocol: Document 11/22/18 15:30 DLM (Rec: 11/22/18 17:19 DLM [id number]) Trunk Strength Trunk Manual Muscle Testing Core Stabilization 3+/5 Reason Not Measured Pain Comments bilateral hip flexor tightness interferes with his ability to stand erect Hip Strength Hip Manual Muscle Testing Right Flexion (L2) 4 Good Extension (S1) 3+ Fair+ Abduction 4 Good Adduction 5 Normal Comments left hip pain with resisted right hip abduction in sidelying, hip extension tested in prone Left Flexion (L2) 4+ Good+ Extension (S1) 3+ Fair+ Abduction 5 Normal Adduction 5 Normal Comments pain with resisted left hip flexion, hip extension tested in prone Knee Strength Knee Manual Muscle Testing bilateral Flexion (S2) 5 Normal Extension (L3) 5 Normal Ankle/Foot Strength Ankle and Foot Manual Muscle Testing Bilateral Dorsiflexion (L4) 5 Normal PT-OP-Q Treatments Start: 11/22/18 16:41 Freq: Status: Active Protocol: Document 12/12/18 13:45 AMB (Rec: 12/12/18 15:11 AMB [id number]) Therapeutic Exercises Supine Exercises 3 Supine Exercise Name lower trunk rotation Reps/Minutes 2x10 2 Supine Exercise Name bridges Reps/Minutes 2x10 1 Supine Exercise Name SLR Reps/Minutes 10 Comments with TrA SKC Side bilateral Reps/Minutes 3x30 sec Comments modified to avoid back pain on R Standing Exercises 2 Standing Exercise Name lumbar extension Reps/Minutes 10 1 Standing Exercise Name doorway pec stretch Reps/Minutes 30x2 PT-OP-R Modalities Start: 11/22/18 16:41 Freq: Status: Active Protocol: Document 12/12/18 13:45 AMB (Rec: 12/12/18 15:12 AMB [email or web address]) Hot Pack/Cold Pack Treatment Hot Pack Location lumbar Patient Position Hooklying Treatment Duration (minutes) 15 Patient Tolerance Good PT-OP-S Aquatic Treatment Start: 11/22/18 16:41 Freq: Status: Active Protocol: Document 12/14/18 11:45 LJ (Rec: 12/14/18 14:21 LJ [email or web address]) Aquatics Treatment Pool Entry/Exit Pool Entry/Exit Method Stairs Assistance Standby Assistance Comments step to gait Water Walking Quick Reverses Water Level Chest Level Level of Assistance Standby Assistance Verbal Cues Comments improved stability; all directions [place] August Water Level Chest Level Level of Assistance Standby Assistance Verbal Cues Comments unable to attain full knee ext bilat Lunge Walk Water Level Waist Level Level of Assistance Standby Assistance Verbal Cues Comments slowly requiring single leg balance Sideways Water Level Chest Level Level of Assistance Standby Assistance Verbal Cues Marching Water Level Chest Level Level of Assistance Standby Assistance Verbal Cues Comments improved posture and balance Backwards Water Level Chest Level Level of Assistance Standby Assistance Verbal Cues Forwards Water Level Chest Level Level of Assistance Standby Assistance Verbal Cues Comments uncoordinated recrip arm motion Lower Extremity Exercises diag hip extension Body Position Standing Water Level Waist Level Equipment Ankle Weight- 2.5# Reps/Duration 2x10 bilat squats on stairs and boxes Water Level Waist Level Reps/Duration 10 Comments pt pulling self up w/arms HS curls Body Position Standing Water Level Chest Level Equipment Ankle Weight- 2.5# Reps/Duration 2x10 bilat Comments verbal and man cues for reducing hip flexion ab/ad Body Position Standing Water Level Waist Level Equipment Ankle Weight- 2.5# Reps/Duration 2x10 bilat Comments handhold on wall, man cues for posture Lower Extremity Stretches quads Equipment Small Noodle Reps/Duration 2 x 30 hip flexors Details at wall Water Level Chest Level Reps/Duration 2 x 30 Comments man cuing HS, Body Position Standing Water Level Chest Level Equipment Large Noodle Reps/Duration 2 x 30 Comments improved posture; still requiring man cuing Upper Extremity Exercises stretch cord lat pull downs and rows Body Position Standing Water Level Neck Level Reps/Duration 2x10 ea Comments pt in squat position Spinal Exercises stretch cord spinal rotations Body Position Standing Water Level Chest Level Balance SLS Water Level Chest Level Equipment right more stable Reps/Duration 4 min-alternating Comments with difficulty-no hand hold Collins Activities Collins Activities Bicycle Cross Country Other Activities quick activity change emphasizing alternating planes of motion Equipment blue float, 2.5# ankle weights Duration 10 min Comments verbal and manual cues for alignment but much improved ability with use of ankle weights. PT-OP-T Assessment and Plan Start: 11/22/18 16:41 Freq: Status: Active Protocol: Document 12/14/18 11:45 JOHNIE (Rec: 12/14/18 14:21 JOHNIE [email or web address]) Physical Therapy Assessment Rehab Potential Rehabilitation Potential Good Evaluation Complexity Number of Personal Factors/Comorbidities 3 or More Number of Body Systems Impaired 4 or More Clinical Presentation at Evaluation Evolving Impairments Impairments Activity Tolerance Balance Functional Activities Functional Mobility Gait Pain Posture ROM Soft Tissue Mobility Strength Goals Three Impairment Limited activity Short Term Goal (STG) He will be able to bend over to the ground without increased back pain. STG Duration 4 weeks Brokerage Office Manager Goal (LTG) He will be able to walk up the hill in his neighborhood to walk his dog. LTG Duration 6 weeks Two Impairment Has no Home Exercise Program Short Term Goal (STG) Independent with stretching and strengthening program to do at home. STG Duration 4 weeks Shelter Goal (LTG) Independent with pool exercise program LTG Duration 6 weeks One Impairment pain 4/10 with activity Short Term Goal (STG) He will be able to walk with less than 2/10 pain. STG Duration 4 weeks Brokerage Office Manager Goal (LTG) He will be able to walk for at least 30 min without back pain. LTG Duration 6 weeks Assessment Summary Assessment Pt improved with coordination and exercise tolerance. Still lacks some coordination with recip arm swing and deep water running. Pt tends to flex at hips during most activities. Needs man and verbal cues for posture and LE coordination Physical Therapy Plan Frequency and Duration Frequency of Treatment 2x/Week Duration of Treatment 6 weeks Plan of Care Start Date 11/22/18 Plan of Care End Date 01/04/19 Therapeutic Interventions Therapeutic Interventions Aquatic Therapy Balance Training Gait Training Home Exercise Program Manual Therapy Neuromuscular Re-education Patient/Caregiver Education Self-Care/Home Management Soft Tissue Mobilization Therapeutic Activities Therapeutic Exercises Modalities Cold Pack/Ice Massage Electric Stimulation Hot Packs Ultrasound Other Referrals/Consults Referrals/Consults Recommended fall risk assessment Next Visit Focus/Plan Next Visit Plan Progress core stabilization, reassess stretching, continue aquatic.
--- NOTE | 2018-12-18 15:39 | PT.OTN ---
Current Diagnoses Pain in left hip (12/18/18) Unspecified inflammatory spondylopathy, lumbar region (12/18/18) Spinal stenosis, lumbar region without neurogenic claudication (12/18/18) Other intervertebral disc degeneration, lumbosacral region (12/18/18) Low back pain (12/18/18) Abnormal posture (12/18/18) Physical Therapy Treatment Note PT-OP-A Visit Information Start: 11/22/18 16:41 Freq: Status: Active Protocol: Document 12/18/18 15:29 SA (Rec: 12/18/18 15:39 SA [email or web address]) Out-Patient Physical Therapy Visit Information Visit Information Visit Type Treatment Note Visit Start Time 13:00 Visit Stop Time 13:47 Total Visit Minutes 47 Visit Number 7 Number of TRUST EVALUATION SUPERVISOR Visits 2 PT-OP-B Current Condition Start: 11/22/18 16:41 Freq: Status: Active Protocol: Document 11/22/18 15:30 DLM (Rec: 11/22/18 16:57 DLM [id number]) Current Condition History of Current Condition Onset Date 6 months ago Current Complaints low back pain and left lateral hip pain History of Current Condition He reports about 6 monts ago he developed more difficulty walking. He reports his back gets stiff and sore. He fell a few months ago when his foot caught on the steps at his Sisters house and he fell onto his left side. He is having left lateral hip pain that he is not sure if it is from his back or from the fall. Prior Treatments and Tests Pool therapy years ago that helped his back. 02/2018 Injection in his low back that did not help. Treatment Goals Patient/Caregiver Goals He wants to be able to walk without back pain. He wants to be able to walk up the hill in his neighborhood to walk his dog. He wants to have a pool exercise program he can continue on his own. Prior Functional Status Baseline Function- ADL's Independent Baseline Function- Mobility Independent Baseline Function- Gait Independent in community, [place] Baseline Function- Work/School retired Baseline Function- Recreation/Hobbies golf, yard work, walks dog, travels Current Functional Impairments (Reported) Functional Limitations- ADL's Independent, holds onto soap dish in shower when closes his eyes, back pain getting in/ out of car, back pain if he tries to sit for any length of time without back support Functional Limitations- Mobility/Gait Independent, slower pace, back pain limits his distances, too much pain to be able to walk up the hill in his neighborhood to walk his dog Functional Limitations- Work/School retired Functional Limitations- Recreation/ back pain and stiffness when Hobbies he tries to golf, can only bend over doing yard work for about 5 min due to back pain Personal Factors Other Personal Factors That May Effect new tremor in right hand Therapy/Recovery started about 6 months ago, pt reports physician is aware and they are monitoring it ( concern for Parkinsons disease ) PT-OP-C Subjective Start: 11/22/18 16:41 Freq: Status: Active Protocol: Document 12/18/18 15:29 SA (Rec: 12/18/18 15:39 SA [email or web address]) OP-PT Subjective Patient Comments Patient Comments L hip is a little flared up today, tolerated aquatic session well but had some soreness the last couple days. PT-OP-D Balance Start: 11/22/18 16:41 Freq: Status: Active Protocol: Document 11/22/18 15:30 DLM (Rec: 11/22/18 16:58 DLM [id number]) Balance Tests Davalos Balance Test Davalos Balance Test Score 45/56 Davalos Impairment Rating 1 to 19% Impaired (Score 45-55 ) Romberg Romberg increased sway with eyes closed but no loss of balance Single Limb Standing Single Limb- Right 3-5 sec Single Limb- Left 3 sec PT-OP-E Functional Tests Start: 11/22/18 16:41 Freq: Status: Active Protocol: Document 11/22/18 15:30 DLM (Rec: 11/22/18 17:00 DLM [id number]) Functional Tests 6 Minute Walk Test Distance 936.5 feet Device Used none Comments low back pain and stiffness PT-OP-G Mobility & Gait Start: 11/22/18 16:41 Freq: Status: Active Protocol: Document 11/22/18 15:30 DLM (Rec: 11/22/18 17:02 DLM [id number]) OP Mobility Evaluation Bed Mobility Rolling Independent, slow and difficult Supine to and from Sit Independent with mild difficulty Transfers Sit to Stand Independent Functional Movements Other Functional Movements increased left lateral hip pain with any rotational movements in standing OP Gait Assessment Gait Gait Assistance Required: Independent Assistive Devices Assistive Device None Gait Deviations General Gait Pattern Decreased Stride Length Flexed Trunk Factors Limiting Gait Function Factors Limiting Gait Function Decreased Activity Tolerance Pain PT-OP-H Neuro Start: 11/22/18 16:41 Freq: Status: Active Protocol: Document 11/22/18 15:30 DLM (Rec: 11/22/18 17:23 DLM [id number]) Sensation Evaluation Comments Summary Comments hx of neuropathy in feet, mild tremor noted in right hand PT-OP-J Posture/Palpation/Skin Start: 11/22/18 16:41 Freq: Status: Active Protocol: Document 11/22/18 15:30 DLM (Rec: 11/22/18 17:19 DLM [id number]) Posture Evaluation Position Standing Evaluation View Posterior Head/C-Spine Posture Forward Head L-Spine Posture Flexed Shoulder Posture (L) Rounded (R) Rounded Comments Posture Comments protruding abdomen in standing Palpation Assessment Location Two Palpation Location left lateral hip Palpation Findings Tenderness Palpation Details bursa tenderness One Palpation Location lumbar paraspinals Palpation Findings Soft Tissue Tightness Tenderness PT-OP-K Range of Motion Start: 11/22/18 16:41 Freq: Status: Active Protocol: Document 11/22/18 15:30 DLM (Rec: 11/22/18 17:19 DLM [id number]) Lumbar Spine Range of Motion Lumbar Spine Active Percentage Testing Position Standing Flexion 50 Extension 5 Rotation Left 30 Rotation Right 50 Lateral Flexion Left 25 Lateral Flexion Right 25 ROM Limitations Soft Tissue Tightness Pain Comments back pain with flexion and right lateral flexion, left hip pain with rotation Shoulder Goniometric Range of Motion Shoulder bilateral Shoulder ROM WFL Yes Testing Position Sitting Shoulder ROM Limitations Comments hx right shoulder total arthroplasty with pt reporting good recovery PT-OP-L Special Tests Start: 11/22/18 16:41 Freq: Status: Active Protocol: Document 11/22/18 15:30 DLM (Rec: 11/22/18 17:19 DLM [id number]) Special Tests Lumbar Spine Special Tests Straight Leg Raise Test Results no back pain Comments hamstring tightness at 60b degrees bilaterally Slump Test Results back pain PT-OP-M Strength Start: 11/22/18 16:41 Freq: Status: Active Protocol: Document 11/22/18 15:30 DLM (Rec: 11/22/18 17:19 DLM [id number]) Trunk Strength Trunk Manual Muscle Testing Core Stabilization 3+/5 Reason Not Measured Pain Comments bilateral hip flexor tightness interferes with his ability to stand erect Hip Strength Hip Manual Muscle Testing Right Flexion (L2) 4 Good Extension (S1) 3+ Fair+ Abduction 4 Good Adduction 5 Normal Comments left hip pain with resisted right hip abduction in sidelying, hip extension tested in prone Left Flexion (L2) 4+ Good+ Extension (S1) 3+ Fair+ Abduction 5 Normal Adduction 5 Normal Comments pain with resisted left hip flexion, hip extension tested in prone Knee Strength Knee Manual Muscle Testing bilateral Flexion (S2) 5 Normal Extension (L3) 5 Normal Ankle/Foot Strength Ankle and Foot Manual Muscle Testing Bilateral Dorsiflexion (L4) 5 Normal PT-OP-Q Treatments Start: 11/22/18 16:41 Freq: Status: Active Protocol: Document 12/18/18 15:29 SA (Rec: 12/18/18 15:39 SA [email or web address]) Cardio Equipment Recumbent Elliptical (TxVia) Duration (Minutes) 6 Resistance 3 Therapeutic Exercises Supine Exercises 3 Supine Exercise Name lower trunk rotation Reps/Minutes 2x10 2 Supine Exercise Name bridges Reps/Minutes 2x10 1 Supine Exercise Name SLR Reps/Minutes 15 Comments with TrA HS stretch Side bilateral Equipment Used with towel Reps/Minutes 3x30 sec piriformis stretch Side bilateral Reps/Minutes 3x30 sec SKC Side bilateral Reps/Minutes 3x30 sec Comments modified to avoid back pain on R Standing Exercises 2 Standing Exercise Name lumbar extension Reps/Minutes 10 x 10 1 Standing Exercise Name doorway pec stretch Reps/Minutes 30x2 PT-OP-R Modalities Start: 11/22/18 16:41 Freq: Status: Active Protocol: Document 12/18/18 15:29 SA (Rec: 12/18/18 15:39 SA [email or web address]) Electric Stimulation Electric Stimulation L hip IFC Body Location L hip Duration (Minutes) 15 Combined With Heat/Cold Hot Pack Comments R side lying PT-OP-S Aquatic Treatment Start: 11/22/18 16:41 Freq: Status: Active Protocol: Document 12/14/18 11:45 LJ (Rec: 12/14/18 14:21 LJ [email or web address]) Aquatics Treatment Pool Entry/Exit Pool Entry/Exit Method Stairs Assistance Standby Assistance Comments step to gait Water Walking Quick Reverses Water Level Chest Level Level of Assistance Standby Assistance Verbal Cues Comments improved stability; all directions [place] March Water Level Chest Level Level of Assistance Standby Assistance Verbal Cues Comments unable to attain full knee ext bilat Lunge Walk Water Level Waist Level Level of Assistance Standby Assistance Verbal Cues Comments slowly requiring single leg balance Sideways Water Level Chest Level Level of Assistance Standby Assistance Verbal Cues Marching Water Level Chest Level Level of Assistance Standby Assistance Verbal Cues Comments improved posture and balance Backwards Water Level Chest Level Level of Assistance Standby Assistance Verbal Cues Forwards Water Level Chest Level Level of Assistance Standby Assistance Verbal Cues Comments uncoordinated recrip arm motion Lower Extremity Exercises diag hip extension Body Position Standing Water Level Waist Level Equipment Ankle Weight- 2.5# Reps/Duration 2x10 bilat squats on stairs and boxes Water Level Waist Level Reps/Duration 10 Comments pt pulling self up w/arms HS curls Body Position Standing Water Level Chest Level Equipment Ankle Weight- 2.5# Reps/Duration 2x10 bilat Comments verbal and man cues for reducing hip flexion ab/ad Body Position Standing Water Level Waist Level Equipment Ankle Weight- 2.5# Reps/Duration 2x10 bilat Comments handhold on wall, man cues for posture Lower Extremity Stretches quads Equipment Small Noodle Reps/Duration 2 x 30 hip flexors Details at wall Water Level Chest Level Reps/Duration 2 x 30 Comments man cuing HS, Body Position Standing Water Level Chest Level Equipment Large Noodle Reps/Duration 2 x 30 Comments improved posture; still requiring man cuing Upper Extremity Exercises stretch cord lat pull downs and rows Body Position Standing Water Level Neck Level Reps/Duration 2x10 ea Comments pt in squat position Spinal Exercises stretch cord spinal rotations Body Position Standing Water Level Chest Level Balance SLS Water Level Chest Level Equipment right more stable Reps/Duration 4 min-alternating Comments with difficulty-no hand hold Mccoll Activities M[place]oll Activities Bicycle [place] Other Activities quick activity change emphasizing alternating planes of motion Equipment blue float, 2.5# ankle weights Duration 10 min Comments verbal and manual cues for alignment but much improved ability with use of ankle weights. PT-OP-T Assessment and Plan Start: 11/22/18 16:41 Freq: Status: Active Protocol: Document 12/18/18 15:29 SA (Rec: 12/18/18 15:39 SA [email or web address]) Physical Therapy Assessment Assessment Summary Assessment Pt doing HEP daily, tolerating core stability training well. Continued limitations with hip mobility. Physical Therapy Plan Next Visit Focus/Plan Next Note Type Treatment Note Next Visit Plan Progress core stabilization, reassess stretching, continue aquatic.
--- NOTE | 2018-12-25 15:21 | PT.OTN ---
Current Diagnoses Pain in left hip (12/25/18) Unspecified inflammatory spondylopathy, lumbar region (12/25/18) Spinal stenosis, lumbar region without neurogenic claudication (12/25/18) Other intervertebral disc degeneration, lumbosacral region (12/25/18) Low back pain (12/25/18) Abnormal posture (12/25/18) Physical Therapy Treatment Note PT-OP-A Visit Information Start: 11/22/18 16:41 Freq: Status: Active Protocol: Document 12/25/18 15:13 SA (Rec: 12/25/18 15:21 SA [email or web address]) Out-Patient Physical Therapy Visit Information Visit Information Visit Type Treatment Note Visit Start Time 13:45 Visit Stop Time 14:32 Total Visit Minutes 47 Visit Number 8 Number of UTILITY TENDER CARDING Visits 3 PT-OP-B Current Condition Start: 11/22/18 16:41 Freq: Status: Active Protocol: Document 11/22/18 15:30 DLM (Rec: 11/22/18 16:57 DLM [id number]) Current Condition History of Current Condition Onset Date 6 months ago Current Complaints low back pain and left lateral hip pain History of Current Condition He reports about 6 monts ago he developed more difficulty walking. He reports his back gets stiff and sore. He fell a few months ago when his foot caught on the steps at his Sisters house and he fell onto his left side. He is having left lateral hip pain that he is not sure if it is from his back or from the fall. Prior Treatments and Tests Pool therapy years ago that helped his back. 02/2018 Injection in his low back that did not help. Treatment Goals Patient/Caregiver Goals He wants to be able to walk without back pain. He wants to be able to walk up the hill in his neighborhood to walk his dog. He wants to have a pool exercise program he can continue on his own. Prior Functional Status Baseline Function- ADL's Independent Baseline Function- Mobility Independent Baseline Function- Gait Independent in community, able [place] Baseline Function- Work/School retired Baseline Function- Recreation/Hobbies golf, yard work, walks dog, travels Current Functional Impairments (Reported) Functional Limitations- ADL's Independent, holds onto soap dish in shower when closes his eyes, back pain getting in/ out of car, back pain if he tries to sit for any length of time without back support Functional Limitations- Mobility/Gait Independent, slower pace, back pain limits his distances, too much pain to be able to walk up the hill in his neighborhood to walk his dog Functional Limitations- Work/School retired Functional Limitations- Recreation/ back pain and stiffness when Hobbies he tries to golf, can only bend over doing yard work for about 5 min due to back pain Personal Factors Other Personal Factors That May Effect new tremor in right hand Therapy/Recovery started about 6 months ago, pt reports physician is aware and they are monitoring it ( concern for Parkinsons disease ) PT-OP-C Subjective Start: 11/22/18 16:41 Freq: Status: Active Protocol: Document 12/25/18 15:13 SA (Rec: 12/25/18 15:21 SA [email or web address]) OP-PT Subjective Patient Comments Patient Comments Pt reports decreased hip pain but continued tightness, doing HEP regularly. PT-OP-D Balance Start: 11/22/18 16:41 Freq: Status: Active Protocol: Document 11/22/18 15:30 DLM (Rec: 11/22/18 16:58 DLM [id number]) Balance Tests Davalos Balance Test Davalos Balance Test Score 45/56 Davalos Impairment Rating 1 to 19% Impaired (Score 45-55 ) Romberg Romberg increased sway with eyes closed but no loss of balance Single Limb Standing Single Limb- Right 3-5 sec Single Limb- Left 3 sec PT-OP-E Functional Tests Start: 11/22/18 16:41 Freq: Status: Active Protocol: Document 11/22/18 15:30 DLM (Rec: 11/22/18 17:00 DLM [id number]) Functional Tests 6 Minute Walk Test Distance 936.5 feet Device Used none Comments low back pain and stiffness PT-OP-G Mobility & Gait Start: 11/22/18 16:41 Freq: Status: Active Protocol: Document 11/22/18 15:30 DLM (Rec: 11/22/18 17:02 DLM [id number]) OP Mobility Evaluation Bed Mobility Rolling Independent, slow and difficult Supine to and from Sit Independent with mild difficulty Transfers Sit to Stand Independent Functional Movements Other Functional Movements increased left lateral hip pain with any rotational movements in standing OP Gait Assessment Gait Gait Assistance Required: Independent Assistive Devices Assistive Device None Gait Deviations General Gait Pattern Decreased Stride Length Flexed Trunk Factors Limiting Gait Function Factors Limiting Gait Function Decreased Activity Tolerance Pain PT-OP-H Neuro Start: 11/22/18 16:41 Freq: Status: Active Protocol: Document 11/22/18 15:30 DLM (Rec: 11/22/18 17:23 DLM [id number]) Sensation Evaluation Comments Summary Comments hx of neuropathy in feet, mild tremor noted in right hand PT-OP-J Posture/Palpation/Skin Start: 11/22/18 16:41 Freq: Status: Active Protocol: Document 11/22/18 15:30 DLM (Rec: 11/22/18 17:19 DLM [id number]) Posture Evaluation Position Standing Evaluation View Posterior Head/C-Spine Posture Forward Head L-Spine Posture Flexed Shoulder Posture (L) Rounded (R) Rounded Comments Posture Comments protruding abdomen in standing Palpation Assessment Location Two Palpation Location left lateral hip Palpation Findings Tenderness Palpation Details bursa tenderness One Palpation Location lumbar paraspinals Palpation Findings Soft Tissue Tightness Tenderness PT-OP-K Range of Motion Start: 11/22/18 16:41 Freq: Status: Active Protocol: Document 11/22/18 15:30 DLM (Rec: 11/22/18 17:19 DLM [id number]) Lumbar Spine Range of Motion Lumbar Spine Active Percentage Testing Position Standing Flexion 50 Extension 5 Rotation Left 30 Rotation Right 50 Lateral Flexion Left 25 Lateral Flexion Right 25 ROM Limitations Soft Tissue Tightness Pain Comments back pain with flexion and right lateral flexion, left hip pain with rotation Shoulder Goniometric Range of Motion Shoulder bilateral Shoulder ROM WFL Yes Testing Position Sitting Shoulder ROM Limitations Comments hx right shoulder total arthroplasty with pt reporting good recovery PT-OP-L Special Tests Start: 11/22/18 16:41 Freq: Status: Active Protocol: Document 11/22/18 15:30 DLM (Rec: 11/22/18 17:19 DLM [id number]) Special Tests Lumbar Spine Special Tests Straight Leg Raise Test Results no back pain Comments hamstring tightness at 60b degrees bilaterally Slump Test Results back pain PT-OP-M Strength Start: 11/22/18 16:41 Freq: Status: Active Protocol: Document 11/22/18 15:30 DLM (Rec: 11/22/18 17:19 DLM [id number]) Trunk Strength Trunk Manual Muscle Testing Core Stabilization 3+/5 Reason Not Measured Pain Comments bilateral hip flexor tightness interferes with his ability to stand erect Hip Strength Hip Manual Muscle Testing Right Flexion (L2) 4 Good Extension (S1) 3+ Fair+ Abduction 4 Good Adduction 5 Normal Comments left hip pain with resisted right hip abduction in sidelying, hip extension tested in prone Left Flexion (L2) 4+ Good+ Extension (S1) 3+ Fair+ Abduction 5 Normal Adduction 5 Normal Comments pain with resisted left hip flexion, hip extension tested in prone Knee Strength Knee Manual Muscle Testing bilateral Flexion (S2) 5 Normal Extension (L3) 5 Normal Ankle/Foot Strength Ankle and Foot Manual Muscle Testing Bilateral Dorsiflexion (L4) 5 Normal PT-OP-Q Treatments Start: 11/22/18 16:41 Freq: Status: Active Protocol: Document 12/25/18 15:13 SA (Rec: 12/25/18 15:21 SA [email or web address]) Therapeutic Exercises Supine Exercises 3 Supine Exercise Name lower trunk rotation Equipment Used Red PT ball Reps/Minutes 2x10 2 Supine Exercise Name bridges Equipment Used Red PT ball Reps/Minutes 2x10 1 Supine Exercise Name SLR Side bilateral Reps/Minutes 20x Comments with TrA HS stretch Side bilateral Equipment Used with towel Reps/Minutes 3x30 sec piriformis stretch Side bilateral Reps/Minutes 3x30 sec SKC Side bilateral Reps/Minutes 3x30 sec Comments modified to avoid back pain on R Sidelying Exercises Clamshells Side bilateral Reps/Minutes 20 x each Standing Exercises half kneel hip flexor stretch Side bilateral Equipment Used low mat Reps/Minutes 30 x 3 each 2 Standing Exercise Name lumbar extension Reps/Minutes 10 x 10 1 Standing Exercise Name doorway pec stretch Reps/Minutes 30x2 HC stretch Side bilateral Equipment Used MAYE Reps/Minutes 5x10 sec PT-OP-R Modalities Start: 11/22/18 16:41 Freq: Status: Active Protocol: Document 12/25/18 15:13 SA (Rec: 12/25/18 15:21 SA [email or web address]) Electric Stimulation Electric Stimulation L hip IFC Body Location L hip Duration (Minutes) 15 Combined With Heat/Cold Hot Pack Comments R side lying PT-OP-S Aquatic Treatment Start: 11/22/18 16:41 Freq: Status: Active Protocol: Document 12/14/18 11:45 LJ (Rec: 12/14/18 14:21 LJ [email or web address]) Aquatics Treatment Pool Entry/Exit Pool Entry/Exit Method Stairs Assistance Standby Assistance Comments step to gait Water Walking Quick Reverses Water Level Chest Level Level of Assistance Standby Assistance Verbal Cues Comments improved stability; all directions [place] March Water Level Chest Level Level of Assistance Standby Assistance Verbal Cues Comments unable to attain full knee ext bilat Lunge Walk Water Level Waist Level Level of Assistance Standby Assistance Verbal Cues Comments slowly requiring single leg balance Sideways Water Level Chest Level Level of Assistance Standby Assistance Verbal Cues Marching Water Level Chest Level Level of Assistance Standby Assistance Verbal Cues Comments improved posture and balance Backwards Water Level Chest Level Level of Assistance Standby Assistance Verbal Cues Forwards Water Level Chest Level Level of Assistance Standby Assistance Verbal Cues Comments uncoordinated recrip arm motion Lower Extremity Exercises diag hip extension Body Position Standing Water Level Waist Level Equipment Ankle Weight- 2.5# Reps/Duration 2x10 bilat squats on stairs and boxes Water Level Waist Level Reps/Duration 10 Comments pt pulling self up w/arms HS curls Body Position Standing Water Level Chest Level Equipment Ankle Weight- 2.5# Reps/Duration 2x10 bilat Comments verbal and man cues for reducing hip flexion ab/ad Body Position Standing Water Level Waist Level Equipment Ankle Weight- 2.5# Reps/Duration 2x10 bilat Comments handhold on wall, man cues for posture Lower Extremity Stretches quads Equipment Small Noodle Reps/Duration 2 x 30 hip flexors Details at wall Water Level Chest Level Reps/Duration 2 x 30 Comments man cuing HS, Body Position Standing Water Level Chest Level Equipment Large Noodle Reps/Duration 2 x 30 Comments improved posture; still requiring man cuing Upper Extremity Exercises stretch cord lat pull downs and rows Body Position Standing Water Level Neck Level Reps/Duration 2x10 ea Comments pt in squat position Spinal Exercises stretch cord spinal rotations Body Position Standing Water Level Chest Level Balance SLS Water Level Chest Level Equipment right more stable Reps/Duration 4 min-alternating Comments with difficulty-no hand hold [place]ye Activities Nye Activities Bicycle Cross [place] Other Activities quick activity change emphasizing alternating planes of motion Equipment blue float, 2.5# ankle weights Duration 10 min Comments verbal and manual cues for alignment but much improved ability with use of ankle weights. PT-OP-T Assessment and Plan Start: 06/06/19 16:41 Freq: Status: Active Protocol: Document 12/25/18 15:13 SA (Rec: 12/25/18 15:21 SA [email or web address]) Physical Therapy Assessment Assessment Summary Assessment Pt tolerating ther ex progressions well, added hip flexor stretch to HEP. Decreasing hip pain overall. Physical Therapy Plan Next Visit Focus/Plan Next Note Type Treatment Note Next Visit Plan Progress core stabilization, reassess stretching, continue aquatic.
--- NOTE | 2018-12-26 15:56 | PT.OTN ---
Current Diagnoses Pain in left hip (12/26/18) Unspecified inflammatory spondylopathy, lumbar region (12/26/18) Spinal stenosis, lumbar region without neurogenic claudication (12/26/18) Other intervertebral disc degeneration, lumbosacral region (12/26/18) Low back pain (12/26/18) Abnormal posture (12/26/18) Physical Therapy Treatment Note PT-OP-A Visit Information Start: 11/22/18 16:41 Freq: Status: Active Protocol: Document 12/26/18 11:30 LJ (Rec: 12/26/18 15:55 LJ [email or web address]) Out-Patient Physical Therapy Visit Information Visit Information Visit Type Aquatic Treatment Note Visit Start Time 11:30 Visit Stop Time 12:15 Total Visit Minutes 45 Visit Number 9 Number of VENEER STOCK GRADER Visits 4 PT-OP-B Current Condition Start: 11/22/18 16:41 Freq: Status: Active Protocol: Document 11/22/18 15:30 DLM (Rec: 11/22/18 16:57 DLM [id number]) Current Condition History of Current Condition Onset Date 6 months ago Current Complaints low back pain and left lateral hip pain History of Current Condition He reports about 6 monts ago he developed more difficulty walking. He reports his back gets stiff and sore. He fell a few months ago when his foot caught on the steps at his Sisters house and he fell onto his left side. He is having left lateral hip pain that he is not sure if it is from his back or from the fall. Prior Treatments and Tests Pool therapy years ago that helped his back. 02/2018 Injection in his low back that did not help. Treatment Goals Patient/Caregiver Goals He wants to be able to walk without back pain. He wants to be able to walk up the hill in his neighborhood to walk his dog. He wants to have a pool exercise program he can continue on his own. Prior Functional Status Baseline Function- ADL's Independent Baseline Function- Mobility Independent Baseline Function- Gait Independent in community, [place] Baseline Function- Work/School retired Baseline Function- Recreation/Hobbies golf, yard work, walks dog, travels Current Functional Impairments (Reported) Functional Limitations- ADL's Independent, holds onto soap dish in shower when closes his eyes, back pain getting in/ out of car, back pain if he tries to sit for any length of time without back support Functional Limitations- Mobility/Gait Independent, slower pace, back pain limits his distances, too much pain to be able to walk up the hill in his neighborhood to walk his dog Functional Limitations- Work/School retired Functional Limitations- Recreation/ back pain and stiffness when Hobbies he tries to golf, can only bend over doing yard work for about 5 min due to back pain Personal Factors Other Personal Factors That May Effect new tremor in right hand Therapy/Recovery started about 6 months ago, pt reports physician is aware and they are monitoring it ( concern for Parkinsons disease ) PT-OP-C Subjective Start: 11/22/18 16:41 Freq: Status: Active Protocol: Document 12/26/18 11:30 LJ (Rec: 12/26/18 15:55 LJ [email or web address]) OP-PT Subjective Patient Comments Patient Comments Pt reports aquatic therapy is helping with his balance and strength. PT-OP-D Balance Start: 11/22/18 16:41 Freq: Status: Active Protocol: Document 11/22/18 15:30 DLM (Rec: 11/22/18 16:58 DLM [id number]) Balance Tests Davalos Balance Test Davalos Balance Test Score 45/56 Davalos Impairment Rating 1 to 19% Impaired (Score 45-55 ) Romberg Romberg increased sway with eyes closed but no loss of balance Single Limb Standing Single Limb- Right 3-5 sec Single Limb- Left 3 sec PT-OP-E Functional Tests Start: 11/22/18 16:41 Freq: Status: Active Protocol: Document 11/22/18 15:30 DLM (Rec: 11/22/18 17:00 DLM [id number]) Functional Tests 6 Minute Walk Test Distance 936.5 feet Device Used none Comments low back pain and stiffness PT-OP-G Mobility & Gait Start: 11/22/18 16:41 Freq: Status: Active Protocol: Document 11/22/18 15:30 DLM (Rec: 11/22/18 17:02 DLM [id number]) OP Mobility Evaluation Bed Mobility Rolling Independent, slow and difficult Supine to and from Sit Independent with mild difficulty Transfers Sit to Stand Independent Functional Movements Other Functional Movements increased left lateral hip pain with any rotational movements in standing OP Gait Assessment Gait Gait Assistance Required: Independent Assistive Devices Assistive Device None Gait Deviations General Gait Pattern Decreased Stride Length Flexed Trunk Factors Limiting Gait Function Factors Limiting Gait Function Decreased Activity Tolerance Pain PT-OP-H Neuro Start: 11/22/18 16:41 Freq: Status: Active Protocol: Document 11/22/18 15:30 DLM (Rec: 11/22/18 17:23 DLM [id number]) Sensation Evaluation Comments Summary Comments hx of neuropathy in feet, mild tremor noted in right hand PT-OP-J Posture/Palpation/Skin Start: 11/22/18 16:41 Freq: Status: Active Protocol: Document 11/22/18 15:30 DLM (Rec: 11/22/18 17:19 DLM [id number]) Posture Evaluation Position Standing Evaluation View Posterior Head/C-Spine Posture Forward Head L-Spine Posture Flexed Shoulder Posture (L) Rounded (R) Rounded Comments Posture Comments protruding abdomen in standing Palpation Assessment Location Two Palpation Location left lateral hip Palpation Findings Tenderness Palpation Details bursa tenderness One Palpation Location lumbar paraspinals Palpation Findings Soft Tissue Tightness Tenderness PT-OP-K Range of Motion Start: 11/22/18 16:41 Freq: Status: Active Protocol: Document 11/22/18 15:30 DLM (Rec: 11/22/18 17:19 DLM [id number]) Lumbar Spine Range of Motion Lumbar Spine Active Percentage Testing Position Standing Flexion 50 Extension 5 Rotation Left 30 Rotation Right 50 Lateral Flexion Left 25 Lateral Flexion Right 25 ROM Limitations Soft Tissue Tightness Pain Comments back pain with flexion and right lateral flexion, left hip pain with rotation Shoulder Goniometric Range of Motion Shoulder bilateral Shoulder ROM WFL Yes Testing Position Sitting Shoulder ROM Limitations Comments hx right shoulder total arthroplasty with pt reporting good recovery PT-OP-L Special Tests Start: 11/22/18 16:41 Freq: Status: Active Protocol: Document 11/22/18 15:30 DLM (Rec: 11/22/18 17:19 DLM [id number]) Special Tests Lumbar Spine Special Tests Straight Leg Raise Test Results no back pain Comments hamstring tightness at 60b degrees bilaterally Slump Test Results back pain PT-OP-M Strength Start: 11/22/18 16:41 Freq: Status: Active Protocol: Document 11/22/18 15:30 DLM (Rec: 11/22/18 17:19 DLM [id number]) Trunk Strength Trunk Manual Muscle Testing Core Stabilization 3+/5 Reason Not Measured Pain Comments bilateral hip flexor tightness interferes with his ability to stand erect Hip Strength Hip Manual Muscle Testing Right Flexion (L2) 4 Good Extension (S1) 3+ Fair+ Abduction 4 Good Adduction 5 Normal Comments left hip pain with resisted right hip abduction in sidelying, hip extension tested in prone Left Flexion (L2) 4+ Good+ Extension (S1) 3+ Fair+ Abduction 5 Normal Adduction 5 Normal Comments pain with resisted left hip flexion, hip extension tested in prone Knee Strength Knee Manual Muscle Testing bilateral Flexion (S2) 5 Normal Extension (L3) 5 Normal Ankle/Foot Strength Ankle and Foot Manual Muscle Testing Bilateral Dorsiflexion (L4) 5 Normal PT-OP-Q Treatments Start: 11/22/18 16:41 Freq: Status: Active Protocol: Document 12/25/18 15:13 SA (Rec: 12/25/18 15:21 SA [email or web address]) Therapeutic Exercises Supine Exercises 3 Supine Exercise Name lower trunk rotation Equipment Used Red PT ball Reps/Minutes 2x10 2 Supine Exercise Name bridges Equipment Used Red PT ball Reps/Minutes 2x10 1 Supine Exercise Name SLR Side bilateral Reps/Minutes 20x Comments with TrA HS stretch Side bilateral Equipment Used with towel Reps/Minutes 3x30 sec piriformis stretch Side bilateral Reps/Minutes 3x30 sec SKC Side bilateral Reps/Minutes 3x30 sec Comments modified to avoid back pain on R Sidelying Exercises Clamshells Side bilateral Reps/Minutes 20 x each Standing Exercises half kneel hip flexor stretch Side bilateral Equipment Used low mat Reps/Minutes 30 x 3 each 2 Standing Exercise Name lumbar extension Reps/Minutes 10 x 10 1 Standing Exercise Name doorway pec stretch Reps/Minutes 30x2 HC stretch Side bilateral Equipment Used MAYE Reps/Minutes 5x10 sec PT-OP-R Modalities Start: 11/22/18 16:41 Freq: Status: Active Protocol: Document 12/25/18 15:13 SA (Rec: 12/25/18 15:21 SA [id number]) Electric Stimulation Electric Stimulation L hip IFC Body Location L hip Duration (Minutes) 15 Combined With Heat/Cold Hot Pack Comments R side lying PT-OP-S Aquatic Treatment Start: 11/22/18 16:41 Freq: Status: Active Protocol: Document 12/26/18 11:30 LJ (Rec: 12/26/18 15:55 LJ [email or web address]) Aquatics Treatment Pool Entry/Exit Pool Entry/Exit Method Stairs Assistance Standby Assistance Comments step to gait Water Walking Quick Reverses Water Level Chest Level Level of Assistance Standby Assistance Verbal Cues Comments improved stability; all directions Barton March Water Level Chest Level Comments unable to attain full knee ext bilat Sideways Water Level Chest Level Backwards Water Level Chest Level Level of Assistance Verbal Cues Comments man cues for hip ext and posture Forwards Water Level Chest Level Level of Assistance Standby Assistance Verbal Cues Comments self correcting arm swing Lower Extremity Exercises diag hip extension Body Position Standing Water Level Waist Level Equipment Ankle Weight- 2.5# Reps/Duration 2x10 bilat squats on stairs and boxes Water Level Waist Level Reps/Duration 10 Comments pt pulling self up w/arms HS curls Body Position Standing Water Level Chest Level Equipment Ankle Weight- 2.5# Reps/Duration 2x10 bilat Comments verbal and man cues for reducing hip flexion ab/ad Body Position Standing Water Level Waist Level Equipment Ankle Weight- 2.5# Reps/Duration 2x10 bilat Comments handhold on wall, man cues for posture Lower Extremity Stretches seated figure 4 Reps/Duration 2 x 45 sec bilat Comments at wall spiderman on wall Reps/Duration 1 min Comments pt in modified pose horizontal abd Body Position Standing Water Level Chest Level Equipment Large Noodle Reps/Duration 2 x 30 Comments contract relax-improved ROM bilat HS, Body Position Standing Water Level Chest Level Equipment Large Noodle Reps/Duration 2 x 30 Comments improved posture; still requiring man cuing Upper Extremity Exercises stretch cord lat pull downs and rows Body Position Standing Water Level Neck Level Reps/Duration 2x10 ea Comments pt in squat position Spinal Exercises stretch cord spinal rotations Body Position Standing Water Level Chest Level Reps/Duration 15 bilat Comments improved posture Balance SLS Water Level Chest Level Equipment right more stable Reps/Duration 4 min-alternating Comments with difficulty-no hand hold Rousseau Activities Rousseau Activities Bicycle Cross [place] Other Activities quick activity change emphasizing alternating planes of motion Equipment blue float Duration 8 min Comments verbal cues for alignment; pt did not require wts PT-OP-T Assessment and Plan Start: 11/22/18 16:41 Freq: Status: Active Protocol: Document 12/26/18 11:30 JOHNIE (Rec: 12/26/18 15:55 LJ [email or web address]) Physical Therapy Assessment Rehab Potential Rehabilitation Potential Good Evaluation Complexity Number of Personal Factors/Comorbidities 3 or More Number of Body Systems Impaired 4 or More Clinical Presentation at Evaluation Evolving Impairments Impairments Activity Tolerance Balance Functional Activities Functional Mobility Gait Pain Posture ROM Soft Tissue Mobility Strength Goals Three Impairment Limited activity Short Term Goal (STG) He will be able to bend over to the ground without increased back pain. STG Duration 4 weeks Hand Compositor Goal (LTG) He will be able to walk up the hill in his neighborhood to walk his dog. LTG Duration 6 weeks Two Impairment Has no Home Exercise Program Short Term Goal (STG) Independent with stretching and strengthening program to do at home. STG Duration 4 weeks Alf Goal (LTG) Independent with pool exercise program LTG Duration 6 weeks One Impairment pain 4/10 with activity Short Term Goal (STG) He will be able to walk with less than 2/10 pain. STG Duration 4 weeks Hand Compositor Goal (LTG) He will be able to walk for at least 30 min without back pain. LTG Duration 6 weeks Assessment Summary Assessment Pt demonstrated much better posture and coordination with walking activities after using stretch cords and walking with paddles. Improved hip ROM after session complete. Overall, seeing improvements Physical Therapy Plan Frequency and Duration Frequency of Treatment 2x/Week Duration of Treatment 6 weeks Plan of Care Start Date 11/22/18 Plan of Care End Date 01/04/19 Therapeutic Interventions Therapeutic Interventions Aquatic Therapy Balance Training Gait Training Home Exercise Program Manual Therapy Neuromuscular Re-education Patient/Caregiver Education Self-Care/Home Management Soft Tissue Mobilization Therapeutic Activities Therapeutic Exercises Modalities Cold Pack/Ice Massage Electric Stimulation Hot Packs Ultrasound Other Referrals/Consults Referrals/Consults Recommended fall risk assessment Next Visit Focus/Plan Next Note Type Treatment Note Next Visit Plan Progress core stabilization, incorporate monster steps and reverse lunges for hip strengthening and balance.
--- NOTE | 2019-01-01 14:42 | PT.OTN ---
Current Diagnoses Pain in left hip (01/01/19) Unspecified inflammatory spondylopathy, lumbar region (01/01/19) Spinal stenosis, lumbar region without neurogenic claudication (01/01/19) Other intervertebral disc degeneration, lumbosacral region (01/01/19) Low back pain (01/01/19) Abnormal posture (01/01/19) Physical Therapy Treatment Note PT-OP-A Visit Information Start: 11/22/18 16:41 Freq: Status: Active Protocol: Document 01/01/19 14:32 EA (Rec: 01/01/19 14:42 EA [id number]) Out-Patient Physical Therapy Visit Information Visit Information Visit Type Treatment Note Visit Start Time 13:45 Visit Stop Time 14:30 Total Visit Minutes 50 Visit Number 10 PT-OP-B Current Condition Start: 11/22/18 16:41 Freq: Status: Active Protocol: Document 11/22/18 15:30 DLM (Rec: 11/22/18 16:57 DLM [id number]) Current Condition History of Current Condition Onset Date 6 months ago Current Complaints low back pain and left lateral hip pain History of Current Condition He reports about 6 monts ago he developed more difficulty walking. He reports his back gets stiff and sore. He fell a few months ago when his foot caught on the steps at his Sisters house and he fell onto his left side. He is having left lateral hip pain that he is not sure if it is from his back or from the fall. Prior Treatments and Tests Pool therapy years ago that helped his back. 02/2018 Injection in his low back that did not help. Treatment Goals Patient/Caregiver Goals He wants to be able to walk without back pain. He wants to be able to walk up the hill in his neighborhood to walk his dog. He wants to have a pool exercise program he can continue on his own. Prior Functional Status Baseline Function- ADL's Independent Baseline Function- Mobility Independent Baseline Function- Gait Independent in community, [place] Baseline Function- Work/School retired Baseline Function- Recreation/Hobbies golf, yard work, walks dog, travels Current Functional Impairments (Reported) Functional Limitations- ADL's Independent, holds onto soap dish in shower when closes his eyes, back pain getting in/ out of car, back pain if he tries to sit for any length of time without back support Functional Limitations- Mobility/Gait Independent, slower pace, back pain limits his distances, too much pain to be able to walk up the hill in his neighborhood to walk his dog Functional Limitations- Work/School retired Functional Limitations- Recreation/ back pain and stiffness when Hobbies he tries to golf, can only bend over doing yard work for about 5 min due to back pain Personal Factors Other Personal Factors That May Effect new tremor in right hand Therapy/Recovery started about 6 months ago, pt reports physician is aware and they are monitoring it ( concern for Parkinsons disease ) PT-OP-C Subjective Start: 11/22/18 16:41 Freq: Status: Active Protocol: Document 01/01/19 14:32 EA (Rec: 01/01/19 14:42 EA [id number]) OP-PT Subjective Patient Comments Patient Comments Patient reports low back when at steady sitting and improves once mobilized. PT-OP-D Balance Start: 11/22/18 16:41 Freq: Status: Active Protocol: Document 11/22/18 15:30 DLM (Rec: 11/22/18 16:58 DLM [id number]) Balance Tests Davalos Balance Test Davalos Balance Test Score 45/56 Davalos Impairment Rating 1 to 19% Impaired (Score 45-55 ) Romberg Romberg increased sway with eyes closed but no loss of balance Single Limb Standing Single Limb- Right 3-5 sec Single Limb- Left 3 sec PT-OP-E Functional Tests Start: 11/22/18 16:41 Freq: Status: Active Protocol: Document 11/22/18 15:30 DLM (Rec: 11/22/18 17:00 DLM [id number]) Functional Tests 6 Minute Walk Test Distance 936.5 feet Device Used none Comments low back pain and stiffness PT-OP-G Mobility & Gait Start: 11/22/18 16:41 Freq: Status: Active Protocol: Document 11/22/18 15:30 DLM (Rec: 11/22/18 17:02 DLM [id number]) OP Mobility Evaluation Bed Mobility Rolling Independent, slow and difficult Supine to and from Sit Independent with mild difficulty Transfers Sit to Stand Independent Functional Movements Other Functional Movements increased left lateral hip pain with any rotational movements in standing OP Gait Assessment Gait Gait Assistance Required: Independent Assistive Devices Assistive Device None Gait Deviations General Gait Pattern Decreased Stride Length Flexed Trunk Factors Limiting Gait Function Factors Limiting Gait Function Decreased Activity Tolerance Pain PT-OP-H Neuro Start: 11/22/18 16:41 Freq: Status: Active Protocol: Document 11/22/18 15:30 DLM (Rec: 11/22/18 17:23 DLM [id number]) Sensation Evaluation Comments Summary Comments hx of neuropathy in feet, mild tremor noted in right hand PT-OP-J Posture/Palpation/Skin Start: 11/22/18 16:41 Freq: Status: Active Protocol: Document 11/22/18 15:30 DLM (Rec: 11/22/18 17:19 DLM [id number]) Posture Evaluation Position Standing Evaluation View Posterior Head/C-Spine Posture Forward Head L-Spine Posture Flexed Shoulder Posture (L) Rounded (R) Rounded Comments Posture Comments protruding abdomen in standing Palpation Assessment Location Two Palpation Location left lateral hip Palpation Findings Tenderness Palpation Details bursa tenderness One Palpation Location lumbar paraspinals Palpation Findings Soft Tissue Tightness Tenderness PT-OP-K Range of Motion Start: 11/22/18 16:41 Freq: Status: Active Protocol: Document 11/22/18 15:30 DLM (Rec: 11/22/18 17:19 DLM [id number]) Lumbar Spine Range of Motion Lumbar Spine Active Percentage Testing Position Standing Flexion 50 Extension 5 Rotation Left 30 Rotation Right 50 Lateral Flexion Left 25 Lateral Flexion Right 25 ROM Limitations Soft Tissue Tightness Pain Comments back pain with flexion and right lateral flexion, left hip pain with rotation Shoulder Goniometric Range of Motion Shoulder bilateral Shoulder ROM WFL Yes Testing Position Sitting Shoulder ROM Limitations Comments hx right shoulder total arthroplasty with pt reporting good recovery PT-OP-L Special Tests Start: 11/22/18 16:41 Freq: Status: Active Protocol: Document 11/22/18 15:30 DLM (Rec: 11/22/18 17:19 DLM [id number]) Special Tests Lumbar Spine Special Tests Straight Leg Raise Test Results no back pain Comments hamstring tightness at 60b degrees bilaterally Slump Test Results back pain PT-OP-M Strength Start: 11/22/18 16:41 Freq: Status: Active Protocol: Document 11/22/18 15:30 DLM (Rec: 11/22/18 17:19 DLM [id number]) Trunk Strength Trunk Manual Muscle Testing Core Stabilization 3+/5 Reason Not Measured Pain Comments bilateral hip flexor tightness interferes with his ability to stand erect Hip Strength Hip Manual Muscle Testing Right Flexion (L2) 4 Good Extension (S1) 3+ Fair+ Abduction 4 Good Adduction 5 Normal Comments left hip pain with resisted right hip abduction in sidelying, hip extension tested in prone Left Flexion (L2) 4+ Good+ Extension (S1) 3+ Fair+ Abduction 5 Normal Adduction 5 Normal Comments pain with resisted left hip flexion, hip extension tested in prone Knee Strength Knee Manual Muscle Testing bilateral Flexion (S2) 5 Normal Extension (L3) 5 Normal Ankle/Foot Strength Ankle and Foot Manual Muscle Testing Bilateral Dorsiflexion (L4) 5 Normal PT-OP-Q Treatments Start: 11/22/18 16:41 Freq: Status: Active Protocol: Document 01/01/19 14:32 EA (Rec: 01/01/19 14:42 EA [id number]) Cardio Equipment Recumbent Elliptical (Private Practice) Duration (Minutes) 6 Resistance 3 Other noted calves tightness Therapeutic Exercises Supine Exercises 4 Supine Exercise Name BKTC Reps/Minutes x 30SH x 2 reps 3 Supine Exercise Name lower trunk rotation Equipment Used Red PT ball Reps/Minutes 2x10 1 Supine Exercise Name Marching with PPT Side bilateral Reps/Minutes 15 x 3 reps Comments with TrA HS stretch Side bilateral Equipment Used with towel Reps/Minutes 3x30 sec piriformis stretch Side bilateral Reps/Minutes 3x30 sec SKC Side bilateral Reps/Minutes 3x30 sec Comments modified to avoid back pain on R Sitting Exercises 1 Sitting Exercise Name Lumabr stretch Reps/Minutes c 10 secs hold x 6 reps Standing Exercises 3 Standing Exercise Name The [facility] Manual Therapy Treatment Soft Tissue Mobilization 1 Body Location Par[place]umbars Mobilization Type Myofascial Release Rolling Sustained Pressure Intensity/Depth Moderate L IT band Mobilization Type Rolling Intensity/Depth Superficial Body Position Sidelying PT-OP-R Modalities Start: 11/22/18 16:41 Freq: Status: Active Protocol: Document 01/01/19 14:32 EA (Rec: 01/01/19 14:42 EA [id number]) Electric Stimulation Electric Stimulation L hip IFC Body Location both paralumbars Duration (Minutes) 15 Combined With Heat/Cold Hot Pack Comments supine PT-OP-S Aquatic Treatment Start: 11/22/18 16:41 Freq: Status: Active Protocol: Document 12/26/18 11:30 LJ (Rec: 12/26/18 15:55 LJ [id number]) Aquatics Treatment Pool Entry/Exit Pool Entry/Exit Method Stairs Assistance Standby Assistance Comments step to gait Water Walking Quick Reverses Water Level Chest Level Level of Assistance Standby Assistance Verbal Cues Comments improved stability; all directions [employer] [place] Water Level Chest Level Comments unable to attain full knee ext bilat Sideways Water Level Chest Level Backwards Water Level Chest Level Level of Assistance Verbal Cues Comments man cues for hip ext and posture Forwards Water Level Chest Level Level of Assistance Standby Assistance Verbal Cues Comments self correcting arm swing Lower Extremity Exercises diag hip extension Body Position Standing Water Level Waist Level Equipment Ankle Weight- 2.5# Reps/Duration 2x10 bilat squats on stairs and boxes Water Level Waist Level Reps/Duration 10 Comments pt pulling self up w/arms HS curls Body Position Standing Water Level Chest Level Equipment Ankle Weight- 2.5# Reps/Duration 2x10 bilat Comments verbal and man cues for reducing hip flexion ab/ad Body Position Standing Water Level Waist Level Equipment Ankle Weight- 2.5# Reps/Duration 2x10 bilat Comments handhold on wall, man cues for posture Lower Extremity Stretches seated figure 4 Reps/Duration 2 x 45 sec bilat Comments at wall spiderman on wall Reps/Duration 1 min Comments pt in modified pose horizontal abd Body Position Standing Water Level Chest Level Equipment Large Noodle Reps/Duration 2 x 30 Comments contract relax-improved ROM bilat HS, Body Position Standing Water Level Chest Level Equipment Large Noodle Reps/Duration 2 x 30 Comments improved posture; still requiring man cuing Upper Extremity Exercises stretch cord lat pull downs and rows Body Position Standing Water Level Neck Level Reps/Duration 2x10 ea Comments pt in squat position Spinal Exercises stretch cord spinal rotations Body Position Standing Water Level Chest Level Reps/Duration 15 bilat Comments improved posture Balance SLS Water Level Chest Level Equipment right more stable Reps/Duration 4 min-alternating Comments with difficulty-no hand hold [place] Activities [place] Activities Bicycle [place] Other Activities quick activity change emphasizing alternating planes of motion Equipment blue float Duration 8 min Comments verbal cues for alignment; pt did not require wts PT-OP-T Assessment and Plan Start: 11/22/18 16:41 Freq: Status: Active Protocol: Document 01/01/19 14:32 EA (Rec: 01/01/19 14:42 EA [id number]) Physical Therapy Assessment Assessment Summary Assessment Quick assessment performed and identified abdominal hernia with a previous diagnosis of spinal stenosis with DJD; therefore in my opinion back extension exercises is not necessary at this time. Patient would benefit with decreasing lumbar curve while preventing abd hernia progression through the use of abdominal binder. Physical Therapy Plan Next Visit Focus/Plan Next Note Type Treatment Note Next Visit Plan Progress core stabilization in supine to progress in standing
--- NOTE | 2019-01-04 14:52 | PT.OTN ---
Current Diagnoses Pain in left hip (01/04/19) Unspecified inflammatory spondylopathy, lumbar region (01/04/19) Spinal stenosis, lumbar region without neurogenic claudication (01/04/19) Other intervertebral disc degeneration, lumbosacral region (01/04/19) Low back pain (01/04/19) Abnormal posture (01/04/19) Physical Therapy Treatment Note PT-OP-A Visit Information Start: 11/22/18 16:41 Freq: Status: Active Protocol: Document 01/04/19 14:36 SAK (Rec: 01/04/19 14:48 SAK [id number]) Out-Patient Physical Therapy Visit Information Visit Information Visit Type Treatment Note Visit Start Time 13:45 Visit Stop Time 14:30 Total Visit Minutes 45 Visit Number 11 PT-OP-B Current Condition Start: 11/22/18 16:41 Freq: Status: Active Protocol: Document 11/22/18 15:30 DLM (Rec: 11/22/18 16:57 DLM [id number]) Current Condition History of Current Condition Onset Date 6 months ago Current Complaints low back pain and left lateral hip pain History of Current Condition He reports about 6 monts ago he developed more difficulty walking. He reports his back gets stiff and sore. He fell a few months ago when his foot caught on the steps at his Sisters house and he fell onto his left side. He is having left lateral hip pain that he is not sure if it is from his back or from the fall. Prior Treatments and Tests Pool therapy years ago that helped his back. 02/2018 Injection in his low back that did not help. Treatment Goals Patient/Caregiver Goals He wants to be able to walk without back pain. He wants to be able to walk up the hill in his neighborhood to walk his dog. He wants to have a pool exercise program he can continue on his own. Prior Functional Status Baseline Function- ADL's Independent Baseline Function- Mobility Independent Baseline Function- Gait Independent in community, [place] Baseline Function- Work/School retired Baseline Function- Recreation/Hobbies golf, yard work, walks dog, travels Current Functional Impairments (Reported) Functional Limitations- ADL's Independent, holds onto soap dish in shower when closes his eyes, back pain getting in/ out of car, back pain if he tries to sit for any length of time without back support Functional Limitations- Mobility/Gait Independent, slower pace, back pain limits his distances, too much pain to be able to walk up the hill in his neighborhood to walk his dog Functional Limitations- Work/School retired Functional Limitations- Recreation/ back pain and stiffness when Hobbies he tries to golf, can only bend over doing yard work for about 5 min due to back pain Personal Factors Other Personal Factors That May Effect new tremor in right hand Therapy/Recovery started about 6 months ago, pt reports physician is aware and they are monitoring it ( concern for Parkinsons disease ) PT-OP-C Subjective Start: 11/22/18 16:41 Freq: Status: Active Protocol: Document 01/04/19 14:36 SAK (Rec: 01/04/19 14:48 SAK [id number]) OP-PT Subjective Patient Comments Patient Comments Reports decreased pain with walking since he started PT, feeling stronger, balance improved. Not really able to walk further and when pain comes on can get as high as a 6. PT-OP-D Balance Start: 11/22/18 16:41 Freq: Status: Active Protocol: Document 11/22/18 15:30 DLM (Rec: 11/22/18 16:58 DLM [id number]) Balance Tests Davalos Balance Test Davalos Balance Test Score 45/56 Davalos Impairment Rating 1 to 19% Impaired (Score 45-55 ) Romberg Romberg increased sway with eyes closed but no loss of balance Single Limb Standing Single Limb- Right 3-5 sec Single Limb- Left 3 sec PT-OP-E Functional Tests Start: 11/22/18 16:41 Freq: Status: Active Protocol: Document 11/22/18 15:30 DLM (Rec: 11/22/18 17:00 DLM [id number]) Functional Tests 6 Minute Walk Test Distance 936.5 feet Device Used none Comments low back pain and stiffness PT-OP-G Mobility & Gait Start: 11/22/18 16:41 Freq: Status: Active Protocol: Document 11/22/18 15:30 DLM (Rec: 11/22/18 17:02 DLM [id number]) OP Mobility Evaluation Bed Mobility Rolling Independent, slow and difficult Supine to and from Sit Independent with mild difficulty Transfers Sit to Stand Independent Functional Movements Other Functional Movements increased left lateral hip pain with any rotational movements in standing OP Gait Assessment Gait Gait Assistance Required: Independent Assistive Devices Assistive Device None Gait Deviations General Gait Pattern Decreased Stride Length Flexed Trunk Factors Limiting Gait Function Factors Limiting Gait Function Decreased Activity Tolerance Pain PT-OP-H Neuro Start: 11/22/18 16:41 Freq: Status: Active Protocol: Document 11/22/18 15:30 DLM (Rec: 11/22/18 17:23 DLM [id number]) Sensation Evaluation Comments Summary Comments hx of neuropathy in feet, mild tremor noted in right hand PT-OP-J Posture/Palpation/Skin Start: 11/22/18 16:41 Freq: Status: Active Protocol: Document 11/22/18 15:30 DLM (Rec: 11/22/18 17:19 DLM [id number]) Posture Evaluation Position Standing Evaluation View Posterior Head/C-Spine Posture Forward Head L-Spine Posture Flexed Shoulder Posture (L) Rounded (R) Rounded Comments Posture Comments protruding abdomen in standing Palpation Assessment Location Two Palpation Location left lateral hip Palpation Findings Tenderness Palpation Details bursa tenderness One Palpation Location lumbar paraspinals Palpation Findings Soft Tissue Tightness Tenderness PT-OP-K Range of Motion Start: 11/22/18 16:41 Freq: Status: Active Protocol: Document 11/22/18 15:30 DLM (Rec: 11/22/18 17:19 DLM [id number]) Lumbar Spine Range of Motion Lumbar Spine Active Percentage Testing Position Standing Flexion 50 Extension 5 Rotation Left 30 Rotation Right 50 Lateral Flexion Left 25 Lateral Flexion Right 25 ROM Limitations Soft Tissue Tightness Pain Comments back pain with flexion and right lateral flexion, left hip pain with rotation Shoulder Goniometric Range of Motion Shoulder bilateral Shoulder ROM WFL Yes Testing Position Sitting Shoulder ROM Limitations Comments hx right shoulder total arthroplasty with pt reporting good recovery PT-OP-L Special Tests Start: 11/22/18 16:41 Freq: Status: Active Protocol: Document 11/22/18 15:30 DLM (Rec: 11/22/18 17:19 DLM [id number]) Special Tests Lumbar Spine Special Tests Straight Leg Raise Test Results no back pain Comments hamstring tightness at 60b degrees bilaterally Slump Test Results back pain PT-OP-M Strength Start: 11/22/18 16:41 Freq: Status: Active Protocol: Document 11/22/18 15:30 DLM (Rec: 11/22/18 17:19 DLM [id number]) Trunk Strength Trunk Manual Muscle Testing Core Stabilization 3+/5 Reason Not Measured Pain Comments bilateral hip flexor tightness interferes with his ability to stand erect Hip Strength Hip Manual Muscle Testing Right Flexion (L2) 4 Good Extension (S1) 3+ Fair+ Abduction 4 Good Adduction 5 Normal Comments left hip pain with resisted right hip abduction in sidelying, hip extension tested in prone Left Flexion (L2) 4+ Good+ Extension (S1) 3+ Fair+ Abduction 5 Normal Adduction 5 Normal Comments pain with resisted left hip flexion, hip extension tested in prone Knee Strength Knee Manual Muscle Testing bilateral Flexion (S2) 5 Normal Extension (L3) 5 Normal Ankle/Foot Strength Ankle and Foot Manual Muscle Testing Bilateral Dorsiflexion (L4) 5 Normal PT-OP-Q Treatments Start: 11/22/18 16:41 Freq: Status: Active Protocol: Document 01/01/19 14:32 EA (Rec: 01/01/19 14:42 EA [id number]) Cardio Equipment Recumbent Elliptical (Shelfari) Duration (Minutes) 6 Resistance 3 Other noted calves tightness Therapeutic Exercises Supine Exercises 4 Supine Exercise Name BKTC Reps/Minutes x 30SH x 2 reps 3 Supine Exercise Name lower trunk rotation Equipment Used Red PT ball Reps/Minutes 2x10 1 Supine Exercise Name Marching with PPT Side bilateral Reps/Minutes 15 x 3 reps Comments with TrA HS stretch Side bilateral Equipment Used with towel Reps/Minutes 3x30 sec piriformis stretch Side bilateral Reps/Minutes 3x30 sec SKC Side bilateral Reps/Minutes 3x30 sec Comments modified to avoid back pain on R Sitting Exercises 1 Sitting Exercise Name Lumabr stretch Reps/Minutes c 10 secs hold x 6 reps Standing Exercises 3 Standing Exercise Name The MAYE Manual Therapy Treatment Soft Tissue Mobilization 1 Body Location Paralumbars Mobilization Type Myofascial Release Rolling Sustained Pressure Intensity/Depth Moderate L IT band Mobilization Type Rolling Intensity/Depth Superficial Body Position Sidelying PT-OP-R Modalities Start: 11/22/18 16:41 Freq: Status: Active Protocol: Document 01/01/19 14:32 EA (Rec: 01/01/19 14:42 EA [id number]) Electric Stimulation Electric Stimulation L hip IFC Body Location both paralumbars Duration (Minutes) 15 Combined With Heat/Cold Hot Pack Comments supine PT-OP-S Aquatic Treatment Start: 11/22/18 16:41 Freq: Status: Active Protocol: Document 01/04/19 14:36 SAK (Rec: 01/04/19 14:52 SAK [id number]) Aquatics Treatment Pool Entry/Exit Pool Entry/Exit Method Stairs Assistance Standby Assistance Comments step to gait Water Walking Quick Reverses Water Level Chest Level Level of Assistance Standby Assistance Verbal Cues Comments improved stability; all directions Mackey March Water Level Chest Level Comments unable to attain full knee ext bilat Sideways Water Level Chest Level Marching Water Level Chest Level Level of Assistance Standby Assistance Verbal Cues Comments improved posture and balance Backwards Water Level Chest Level Level of Assistance Verbal Cues Comments man cues for hip ext and posture Forwards Water Level Chest Level Level of Assistance Standby Assistance Verbal Cues Comments self correcting arm swing Lower Extremity Exercises hoe downs Details UE support reinaldo Equipment Large Noodle Reps/Duration 10x Comments to strengthen hip ext diag hip extension Body Position Standing Water Level Waist Level Equipment Ankle Weight- 2.5# Reps/Duration 2x10 bilat ab/ad Body Position Standing Water Level Waist Level Equipment Ankle Weight- 2.5# Reps/Duration 2x10 bilat Comments handhold on wall, man cues for posture flex/ext Water Level Chest Level Equipment 2.5# Reps/Duration 10 bilat Comments handhold on wall Lower Extremity Stretches seated figure 4 Reps/Duration 2 x 45 sec bilat Comments at wall horizontal abd Body Position Standing Water Level Chest Level Equipment Large Noodle Reps/Duration 2 x 30 quads Equipment Small Noodle Reps/Duration 2 x 30 hip flexors Details at wall Water Level Chest Level Reps/Duration 2 x 30 Comments man cuing HS, Body Position Standing Water Level Chest Level Equipment Large Noodle Reps/Duration 2 x 30 Comments improved posture; still requiring man cuing Upper Extremity Exercises stretch cord lat pull downs and rows Body Position Standing Water Level Neck Level Reps/Duration 2x10 ea Comments pt in squat position Spinal Exercises stretch cord spinal rotations Body Position Standing Water Level Chest Level Reps/Duration 15 bilat Comments improved posture Balance SLS Water Level Chest Level Equipment right more stable Reps/Duration 4 min-alternating Comments with difficulty-no hand hold [place] Activities [place] Activities Bicycle [place] Other Activities quick activity change emphasizing alternating planes of motion Equipment blue float Duration 8 min PT-OP-T Assessment and Plan Start: 11/22/18 16:41 Freq: Status: Active Protocol: Document 01/04/19 14:36 ACOSTA (Rec: 01/04/19 14:48 [facility] [id number]) Physical Therapy Assessment Goals Three Impairment Limited activity Short Term Goal (STG) He will be able to bend over to the ground without increased back pain. 01/04/19: good goal progress STG Duration 01/18/19 Lead Project Engineer Goal (LTG) He will be able to walk up the hill in his neighborhood to walk his dog. 01/04/19: some goal progress, painful LTG Duration 02/04/19 Two Impairment Has no Home Exercise Program Short Term Goal (STG) Independent with stretching and strengthening program to do at home. 01/04/19: achieved but continue to modify and progress STG Duration 01/18/19 Assisted Goal (LTG) Independent with pool exercise program 01/04/19: good goal progress, also continue to progress his aquatic exercise program LTG Duration 02/04/19 One Impairment pain 4/10 with activity Short Term Goal (STG) He will be able to walk with less than 2/10 pain. 01/04/19: some goal progress though reports pain can get as high as 6/10 STG Duration 01/25/19 Lead Project Engineer Goal (LTG) He will be able to walk for at least 30 min without back pain. 01/04/19: limited to 10 min LTG Duration 02/04/19 Assessment Summary Assessment Making progress toward physical therapy goals, recommend continued skilled PT to help patient fully achieve his goals to decrease his pain and improve his function and quality of life. Complicating progress is assessment of abdominal hernia at last PT visit with recommendation for abdominal binder and follow-up with physician. Physical Therapy Plan Frequency and Duration Frequency of Treatment 2x/Week Duration of Treatment 6 weeks Plan of Care Start Date 01/04/19 Plan of Care End Date 02/04/19 Therapeutic Interventions Therapeutic Interventions Aquatic Therapy Balance Training Gait Training Home Exercise Program Manual Therapy Neuromuscular Re-education Patient/Caregiver Education Self-Care/Home Management Soft Tissue Mobilization Therapeutic Activities Therapeutic Exercises Modalities Cold Pack/Ice Massage Electric Stimulation Hot Packs Ultrasound Next Visit Focus/Plan Next Note Type Treatment Note Next Visit Plan Continue combination land and aquatic-based PT. Further discuss hernia as noted at last PT visit.
--- NOTE | 2019-01-04 14:53 | PT.OPPOC ---
Current Diagnoses Pain in left hip (01/04/19) Unspecified inflammatory spondylopathy, lumbar region (01/04/19) Spinal stenosis, lumbar region without neurogenic claudication (01/04/19) Other intervertebral disc degeneration, lumbosacral region (01/04/19) Low back pain (01/04/19) Abnormal posture (01/04/19) Provider Visit Care Team Role Provider Type Genet Severino MD Attending Provider Physician Primary Care Provider Specialty: Family Practice Address: [address] [place] [address], [facility] Email: Plan Of Care PT-OP-T Assessment and Plan Start: 11/22/18 16:41 Freq: Status: Active Protocol: Document 01/04/19 14:36 SAK (Rec: 01/04/19 14:48 SAK [id number]) Physical Therapy Assessment Goals Three Impairment Limited activity Short Term Goal (STG) He will be able to bend over to the ground without increased back pain. 01/04/19: good goal progress STG Duration 01/18/19 Vending Technician Goal (LTG) He will be able to walk up the hill in his neighborhood to walk his dog. 01/04/19: some goal progress, painful LTG Duration 02/04/19 Two Impairment Has no Home Exercise Program Short Term Goal (STG) Independent with stretching and strengthening program to do at home. 01/04/19: achieved but continue to modify and progress STG Duration 01/18/19 Vending Technician Goal (LTG) Independent with pool exercise program 01/04/19: good goal progress, also continue to progress his aquatic exercise program LTG Duration 02/04/19 One Impairment pain 4/10 with activity Short Term Goal (STG) He will be able to walk with less than 2/10 pain. 01/04/19: some goal progress though reports pain can get as high as 6/10 STG Duration 01/25/19 [facility] Goal (LTG) He will be able to walk for at least 30 min without back pain. 01/04/19: limited to 10 min LTG Duration 02/04/19 Assessment Summary Assessment Making progress toward physical therapy goals, recommend continued skilled PT to help patient fully achieve his goals to decrease his pain and improve his function and quality of life. Complicating progress is assessment of abdominal hernia at last PT visit with recommendation for abdominal binder and follow-up with physician. Physical Therapy Plan Frequency and Duration Frequency of Treatment 2x/Week Duration of Treatment 6 weeks Plan of Care Start Date 01/04/19 Plan of Care End Date 02/04/19 Therapeutic Interventions Therapeutic Interventions Aquatic Therapy Balance Training Gait Training Home Exercise Program Manual Therapy Neuromuscular Re-education Patient/Caregiver Education Self-Care/Home Management Soft Tissue Mobilization Therapeutic Activities Therapeutic Exercises Modalities Cold Pack/Ice Massage Electric Stimulation Hot Packs Ultrasound Next Visit Focus/Plan Next Note Type Treatment Note Next Visit Plan Continue combination land and aquatic-based PT. Further discuss hernia as noted at last PT visit. Plan of Care Dates Plan of Care Start Date 01/04/19 Plan of Care End Date 02/04/19 Please Sign and Return: I have reviewed this Plan of Care and certify that the skilled therapy services above are required to meet the patient?s needs. Physician Signature Date Printed Name and Credentials Clinical Instructor Signature Printed Name and Credentials
--- NOTE | 2019-01-08 14:44 | PT.OTN ---
Current Diagnoses Pain in left hip (01/08/19) Unspecified inflammatory spondylopathy, lumbar region (01/08/19) Spinal stenosis, lumbar region without neurogenic claudication (01/08/19) Other intervertebral disc degeneration, lumbosacral region (01/08/19) Low back pain (01/08/19) Abnormal posture (01/08/19) Physical Therapy Treatment Note PT-OP-A Visit Information Start: 11/22/18 16:41 Freq: Status: Active Protocol: Document 01/08/19 14:36 SA (Rec: 01/08/19 14:44 SA [email or web address]) Out-Patient Physical Therapy Visit Information Visit Information Visit Type Treatment Note Visit Start Time 13:45 Visit Stop Time 14:30 Total Visit Minutes 45 Visit Number 12 Number of CLINICAL PROGRAM DIRECTOR Visits 1 PT-OP-B Current Condition Start: 11/22/18 16:41 Freq: Status: Active Protocol: Document 11/22/18 15:30 DLM (Rec: 11/22/18 16:57 DLM [id number]) Current Condition History of Current Condition Onset Date 6 months ago Current Complaints low back pain and left lateral hip pain History of Current Condition He reports about 6 monts ago he developed more difficulty walking. He reports his back gets stiff and sore. He fell a few months ago when his foot caught on the steps at his Sisters house and he fell onto his left side. He is having left lateral hip pain that he is not sure if it is from his back or from the fall. Prior Treatments and Tests Pool therapy years ago that helped his back. 02/2018 Injection in his low back that did not help. Treatment Goals Patient/Caregiver Goals He wants to be able to walk without back pain. He wants to be able to walk up the hill in his neighborhood to walk his dog. He wants to have a pool exercise program he can continue on his own. Prior Functional Status Baseline Function- ADL's Independent Baseline Function- Mobility Independent Baseline Function- Gait Independent in community, [place] Baseline Function- Work/School retired Baseline Function- Recreation/Hobbies golf, yard work, walks dog, travels Current Functional Impairments (Reported) Functional Limitations- ADL's Independent, holds onto soap dish in shower when closes his eyes, back pain getting in/ out of car, back pain if he tries to sit for any length of time without back support Functional Limitations- Mobility/Gait Independent, slower pace, back pain limits his distances, too much pain to be able to walk up the hill in his neighborhood to walk his dog Functional Limitations- Work/School retired Functional Limitations- Recreation/ back pain and stiffness when Hobbies he tries to golf, can only bend over doing yard work for about 5 min due to back pain Personal Factors Other Personal Factors That May Effect new tremor in right hand Therapy/Recovery started about 6 months ago, pt reports physician is aware and they are monitoring it ( concern for Parkinsons disease ) PT-OP-C Subjective Start: 11/22/18 16:41 Freq: Status: Active Protocol: Document 01/08/19 14:36 SA (Rec: 01/08/19 14:44 SA [email or web address]) OP-PT Subjective Patient Comments Patient Comments Pt has trip planned next week with long plane ride, discussed getting up and stretching as often as able. States exercises are helping and does not want to have a set back. PT-OP-D Balance Start: 11/22/18 16:41 Freq: Status: Active Protocol: Document 11/22/18 15:30 DLM (Rec: 11/22/18 16:58 DLM [id number]) Balance Tests Davalos Balance Test Davalos Balance Test Score 45/56 Davalos Impairment Rating 1 to 19% Impaired (Score 45-55 ) Romberg Romberg increased sway with eyes closed but no loss of balance Single Limb Standing Single Limb- Right 3-5 sec Single Limb- Left 3 sec PT-OP-E Functional Tests Start: 11/22/18 16:41 Freq: Status: Active Protocol: Document 11/22/18 15:30 DLM (Rec: 11/22/18 17:00 DLM [id number]) Functional Tests 6 Minute Walk Test Distance 936.5 feet Device Used none Comments low back pain and stiffness PT-OP-G Mobility & Gait Start: 11/22/18 16:41 Freq: Status: Active Protocol: Document 11/22/18 15:30 DLM (Rec: 11/22/18 17:02 DLM [id number]) OP Mobility Evaluation Bed Mobility Rolling Independent, slow and difficult Supine to and from Sit Independent with mild difficulty Transfers Sit to Stand Independent Functional Movements Other Functional Movements increased left lateral hip pain with any rotational movements in standing OP Gait Assessment Gait Gait Assistance Required: Independent Assistive Devices Assistive Device None Gait Deviations General Gait Pattern Decreased Stride Length Flexed Trunk Factors Limiting Gait Function Factors Limiting Gait Function Decreased Activity Tolerance Pain PT-OP-H Neuro Start: 11/22/18 16:41 Freq: Status: Active Protocol: Document 11/22/18 15:30 DLM (Rec: 11/22/18 17:23 DLM [id number]) Sensation Evaluation Comments Summary Comments hx of neuropathy in feet, mild tremor noted in right hand PT-OP-J Posture/Palpation/Skin Start: 11/22/18 16:41 Freq: Status: Active Protocol: Document 11/22/18 15:30 DLM (Rec: 11/22/18 17:19 DLM [id number]) Posture Evaluation Position Standing Evaluation View Posterior Head/C-Spine Posture Forward Head L-Spine Posture Flexed Shoulder Posture (L) Rounded (R) Rounded Comments Posture Comments protruding abdomen in standing Palpation Assessment Location Two Palpation Location left lateral hip Palpation Findings Tenderness Palpation Details bursa tenderness One Palpation Location lumbar paraspinals Palpation Findings Soft Tissue Tightness Tenderness PT-OP-K Range of Motion Start: 11/22/18 16:41 Freq: Status: Active Protocol: Document 11/22/18 15:30 DLM (Rec: 11/22/18 17:19 DLM [id number]) Lumbar Spine Range of Motion Lumbar Spine Active Percentage Testing Position Standing Flexion 50 Extension 5 Rotation Left 30 Rotation Right 50 Lateral Flexion Left 25 Lateral Flexion Right 25 ROM Limitations Soft Tissue Tightness Pain Comments back pain with flexion and right lateral flexion, left hip pain with rotation Shoulder Goniometric Range of Motion Shoulder bilateral Shoulder ROM WFL Yes Testing Position Sitting Shoulder ROM Limitations Comments hx right shoulder total arthroplasty with pt reporting good recovery PT-OP-L Special Tests Start: 11/22/18 16:41 Freq: Status: Active Protocol: Document 11/22/18 15:30 DLM (Rec: 11/22/18 17:19 DLM [id number]) Special Tests Lumbar Spine Special Tests Straight Leg Raise Test Results no back pain Comments hamstring tightness at 60b degrees bilaterally Slump Test Results back pain PT-OP-M Strength Start: 11/22/18 16:41 Freq: Status: Active Protocol: Document 11/22/18 15:30 DLM (Rec: 11/22/18 17:19 DL [id number]) Trunk Strength Trunk Manual Muscle Testing Core Stabilization 3+/5 Reason Not Measured Pain Comments bilateral hip flexor tightness interferes with his ability to stand erect Hip Strength Hip Manual Muscle Testing Right Flexion (L2) 4 Good Extension (S1) 3+ Fair+ Abduction 4 Good Adduction 5 Normal Comments left hip pain with resisted right hip abduction in sidelying, hip extension tested in prone Left Flexion (L2) 4+ Good+ Extension (S1) 3+ Fair+ Abduction 5 Normal Adduction 5 Normal Comments pain with resisted left hip flexion, hip extension tested in prone Knee Strength Knee Manual Muscle Testing bilateral Flexion (S2) 5 Normal Extension (L3) 5 Normal Ankle/Foot Strength Ankle and Foot Manual Muscle Testing Bilateral Dorsiflexion (L4) 5 Normal PT-OP-Q Treatments Start: 11/22/18 16:41 Freq: Status: Active Protocol: Document 01/08/19 14:36 SA (Rec: 01/08/19 14:44 SA [email or web address]) Cardio Equipment Recumbent Elliptical (Live Matrix) Duration (Minutes) 6 Resistance 5 Other noted calves tightness Therapeutic Exercises Supine Exercises 4 Supine Exercise Name BKTC Reps/Minutes x 30SH x 2 reps 3 Supine Exercise Name lower trunk rotation Equipment Used Red PT ball Reps/Minutes 2x10 1 Supine Exercise Name Marching with PPT Side bilateral Reps/Minutes 15 x 3 reps Comments with TrA HS stretch Side bilateral Equipment Used with towel Reps/Minutes 3x30 sec piriformis stretch Side bilateral Reps/Minutes 3x30 sec SKC Side bilateral Reps/Minutes 3x30 sec Comments modified to avoid back pain on R Sidelying Exercises Clamshells Side bilateral Equipment Used 2 # Reps/Minutes 20 x each Standing Exercises 3 Standing Exercise Name The MAYE Side bilateral Reps/Minutes 30 x 3 Manual Therapy Treatment Soft Tissue Mobilization 1 Body Location [place] Mobilization Type Myofascial Release Rolling Sustained Pressure Intensity/Depth Moderate Body Position Sidelying L IT band Mobilization Type Rolling Intensity/Depth Superficial Body Position Sidelying PT-OP-R Modalities Start: 11/22/18 16:41 Freq: Status: Active Protocol: Document 01/08/19 14:36 SA (Rec: 01/08/19 14:44 SA [email or web address]) Hot Pack/Cold Pack Treatment Hot Pack Location lumbar Patient Position Hooklying Treatment Duration (minutes) 10 Patient Tolerance Good PT-OP-S Aquatic Treatment Start: 11/22/18 16:41 Freq: Status: Active Protocol: Document 01/04/19 14:36 [facility] (Rec: 01/04/19 14:52 [facility] [id number]) Aquatics Treatment Pool Entry/Exit Pool Entry/Exit Method Stairs Assistance Standby Assistance Comments step to gait Water Walking Quick Reverses Water Level Chest Level Level of Assistance Standby Assistance Verbal Cues Comments improved stability; all directions [place] March Water Level Chest Level Comments unable to attain full knee ext bilat Sideways Water Level Chest Level Marching Water Level Chest Level Level of Assistance Standby Assistance Verbal Cues Comments improved posture and balance Backwards Water Level Chest Level Level of Assistance Verbal Cues Comments man cues for hip ext and posture Forwards Water Level Chest Level Level of Assistance Standby Assistance Verbal Cues Comments self correcting arm swing Lower Extremity Exercises hoe downs Details UE support reinaldo Equipment Large Noodle Reps/Duration 10x Comments to strengthen hip ext diag hip extension Body Position Standing Water Level Waist Level Equipment Ankle Weight- 2.5# Reps/Duration 2x10 bilat ab/ad Body Position Standing Water Level Waist Level Equipment Ankle Weight- 2.5# Reps/Duration 2x10 bilat Comments handhold on wall, man cues for posture flex/ext Water Level Chest Level Equipment 2.5# Reps/Duration 10 bilat Comments handhold on wall Lower Extremity Stretches seated figure 4 Reps/Duration 2 x 45 sec bilat Comments at wall horizontal abd Body Position Standing Water Level Chest Level Equipment Large Noodle Reps/Duration 2 x 30 quads Equipment Small Noodle Reps/Duration 2 x 30 hip flexors Details at wall Water Level Chest Level Reps/Duration 2 x 30 Comments man cuing HS, Body Position Standing Water Level Chest Level Equipment Large Noodle Reps/Duration 2 x 30 Comments improved posture; still requiring man cuing Upper Extremity Exercises stretch cord lat pull downs and rows Body Position Standing Water Level Neck Level Reps/Duration 2x10 ea Comments pt in squat position Spinal Exercises stretch cord spinal rotations Body Position Standing Water Level Chest Level Reps/Duration 15 bilat Comments improved posture Balance SLS Water Level Chest Level Equipment right more stable Reps/Duration 4 min-alternating Comments with difficulty-no hand hold [place] Activities [place] Activities Bicycle [place] Other Activities quick activity change emphasizing alternating planes of motion Equipment blue float Duration 8 min PT-OP-T Assessment and Plan Start: 11/22/18 16:41 Freq: Status: Active Protocol: Document 01/08/19 14:36 SA (Rec: 01/08/19 14:44 SA [email or web address]) Physical Therapy Assessment Assessment Summary Assessment Pt has one more aqautic apt left, made follow up visits for after trip today. Pt to cont with HEP while traveling. Physical Therapy Plan Next Visit Focus/Plan Next Note Type Treatment Note Next Visit Plan Continue combination land and aquatic-based PT. Further discuss hernia as noted at last PT visit.
--- NOTE | 2019-01-11 15:15 | PT.OTN ---
Current Diagnoses Pain in left hip (01/11/19) Unspecified inflammatory spondylopathy, lumbar region (01/11/19) Spinal stenosis, lumbar region without neurogenic claudication (01/11/19) Other intervertebral disc degeneration, lumbosacral region (01/11/19) Low back pain (01/11/19) Abnormal posture (01/11/19) Physical Therapy Treatment Note PT-OP-A Visit Information Start: 11/22/18 16:41 Freq: Status: Active Protocol: Document 01/11/19 11:30 LJ (Rec: 01/11/19 15:15 LJ [email or web address]) Out-Patient Physical Therapy Visit Information Visit Information Visit Type Aquatic Treatment Note Visit Start Time 11:30 Visit Stop Time 12:15 Total Visit Minutes 45 Visit Number 13 Number of [employer] Visits 1 PT-OP-B Current Condition Start: 11/22/18 16:41 Freq: Status: Active Protocol: Document 11/22/18 15:30 DLM (Rec: 11/22/18 16:57 DLM [id number]) Current Condition History of Current Condition Onset Date 6 months ago Current Complaints low back pain and left lateral hip pain History of Current Condition He reports about 6 monts ago he developed more difficulty walking. He reports his back gets stiff and sore. He fell a few months ago when his foot caught on the steps at his Sisters house and he fell onto his left side. He is having left lateral hip pain that he is not sure if it is from his back or from the fall. Prior Treatments and Tests Pool therapy years ago that helped his back. 02/2018 Injection in his low back that did not help. Treatment Goals Patient/Caregiver Goals He wants to be able to walk without back pain. He wants to be able to walk up the hill in his neighborhood to walk his dog. He wants to have a pool exercise program he can continue on his own. Prior Functional Status Baseline Function- ADL's Independent Baseline Function- Mobility Independent Baseline Function- Gait Independent in community, [place] Baseline Function- Work/School retired Baseline Function- Recreation/Hobbies golf, yard work, walks dog, travels Current Functional Impairments (Reported) Functional Limitations- ADL's Independent, holds onto soap dish in shower when closes his eyes, back pain getting in/ out of car, back pain if he tries to sit for any length of time without back support Functional Limitations- Mobility/Gait Independent, slower pace, back pain limits his distances, too much pain to be able to walk up the hill in his neighborhood to walk his dog Functional Limitations- Work/School retired Functional Limitations- Recreation/ back pain and stiffness when Hobbies he tries to golf, can only bend over doing yard work for about 5 min due to back pain Personal Factors Other Personal Factors That May Effect new tremor in right hand Therapy/Recovery started about 6 months ago, pt reports physician is aware and they are monitoring it ( concern for Parkinsons disease ) PT-OP-C Subjective Start: 11/22/18 16:41 Freq: Status: Active Protocol: Document 01/11/19 11:30 LJ (Rec: 01/11/19 15:15 LJ [email or web address]) OP-PT Subjective Patient Comments Patient Comments Pt states he feels less pain with walking and feels stronger but thinks he has hit a plateau in his rehab. PT-OP-D Balance Start: 11/22/18 16:41 Freq: Status: Active Protocol: Document 11/22/18 15:30 DLM (Rec: 11/22/18 16:58 DLM [id number]) Balance Tests Davalos Balance Test Davalos Balance Test Score 45/56 Davalos Impairment Rating 1 to 19% Impaired (Score 45-55 ) Romberg Romberg increased sway with eyes closed but no loss of balance Single Limb Standing Single Limb- Right 3-5 sec Single Limb- Left 3 sec PT-OP-E Functional Tests Start: 11/22/18 16:41 Freq: Status: Active Protocol: Document 11/22/18 15:30 DLM (Rec: 11/22/18 17:00 DLM [id number]) Functional Tests 6 Minute Walk Test Distance 936.5 feet Device Used none Comments low back pain and stiffness PT-OP-G Mobility & Gait Start: 11/22/18 16:41 Freq: Status: Active Protocol: Document 11/22/18 15:30 DLM (Rec: 11/22/18 17:02 DLM [id number]) OP Mobility Evaluation Bed Mobility Rolling Independent, slow and difficult Supine to and from Sit Independent with mild difficulty Transfers Sit to Stand Independent Functional Movements Other Functional Movements increased left lateral hip pain with any rotational movements in standing OP Gait Assessment Gait Gait Assistance Required: Independent Assistive Devices Assistive Device None Gait Deviations General Gait Pattern Decreased Stride Length Flexed Trunk Factors Limiting Gait Function Factors Limiting Gait Function Decreased Activity Tolerance Pain PT-OP-H Neuro Start: 11/22/18 16:41 Freq: Status: Active Protocol: Document 11/22/18 15:30 DLM (Rec: 11/22/18 17:23 DLM [id number]) Sensation Evaluation Comments Summary Comments hx of neuropathy in feet, mild tremor noted in right hand PT-OP-J Posture/Palpation/Skin Start: 11/22/18 16:41 Freq: Status: Active Protocol: Document 11/22/18 15:30 DLM (Rec: 11/22/18 17:19 DLM [id number]) Posture Evaluation Position Standing Evaluation View Posterior Head/C-Spine Posture Forward Head L-Spine Posture Flexed Shoulder Posture (L) Rounded (R) Rounded Comments Posture Comments protruding abdomen in standing Palpation Assessment Location Two Palpation Location left lateral hip Palpation Findings Tenderness Palpation Details bursa tenderness One Palpation Location lumbar paraspinals Palpation Findings Soft Tissue Tightness Tenderness PT-OP-K Range of Motion Start: 11/22/18 16:41 Freq: Status: Active Protocol: Document 11/22/18 15:30 DLM (Rec: 11/22/18 17:19 DLM [id number]) Lumbar Spine Range of Motion Lumbar Spine Active Percentage Testing Position Standing Flexion 50 Extension 5 Rotation Left 30 Rotation Right 50 Lateral Flexion Left 25 Lateral Flexion Right 25 ROM Limitations Soft Tissue Tightness Pain Comments back pain with flexion and right lateral flexion, left hip pain with rotation Shoulder Goniometric Range of Motion Shoulder bilateral Shoulder ROM WFL Yes Testing Position Sitting Shoulder ROM Limitations Comments hx right shoulder total arthroplasty with pt reporting good recovery PT-OP-L Special Tests Start: 11/22/18 16:41 Freq: Status: Active Protocol: Document 11/22/18 15:30 DLM (Rec: 11/22/18 17:19 DLM [id number]) Special Tests Lumbar Spine Special Tests Straight Leg Raise Test Results no back pain Comments hamstring tightness at 60b degrees bilaterally Slump Test Results back pain PT-OP-M Strength Start: 11/22/18 16:41 Freq: Status: Active Protocol: Document 11/22/18 15:30 DLM (Rec: 11/22/18 17:19 DLM [id number]) Trunk Strength Trunk Manual Muscle Testing Core Stabilization 3+/5 Reason Not Measured Pain Comments bilateral hip flexor tightness interferes with his ability to stand erect Hip Strength Hip Manual Muscle Testing Right Flexion (L2) 4 Good Extension (S1) 3+ Fair+ Abduction 4 Good Adduction 5 Normal Comments left hip pain with resisted right hip abduction in sidelying, hip extension tested in prone Left Flexion (L2) 4+ Good+ Extension (S1) 3+ Fair+ Abduction 5 Normal Adduction 5 Normal Comments pain with resisted left hip flexion, hip extension tested in prone Knee Strength Knee Manual Muscle Testing bilateral Flexion (S2) 5 Normal Extension (L3) 5 Normal Ankle/Foot Strength Ankle and Foot Manual Muscle Testing Bilateral Dorsiflexion (L4) 5 Normal PT-OP-Q Treatments Start: 11/22/18 16:41 Freq: Status: Active Protocol: Document 01/08/19 14:36 SA (Rec: 01/08/19 14:44 SA [email or web address]) Cardio Equipment Recumbent Elliptical ([place]) Duration (Minutes) 6 Resistance 5 Other noted calves tightness Therapeutic Exercises Supine Exercises 4 Supine Exercise Name BKTC Reps/Minutes x 30SH x 2 reps 3 Supine Exercise Name lower trunk rotation Equipment Used Red PT ball Reps/Minutes 2x10 1 Supine Exercise Name Marching with PPT Side bilateral Reps/Minutes 15 x 3 reps Comments with TrA HS stretch Side bilateral Equipment Used with towel Reps/Minutes 3x30 sec piriformis stretch Side bilateral Reps/Minutes 3x30 sec SKC Side bilateral Reps/Minutes 3x30 sec Comments modified to avoid back pain on R Sidelying Exercises Clamshells Side bilateral Equipment Used 2 # Reps/Minutes 20 x each Standing Exercises 3 Standing Exercise Name The MAYE Side bilateral Reps/Minutes 30 x 3 Manual Therapy Treatment Soft Tissue Mobilization 1 Body Location [place] Mobilization Type Myofascial Release Rolling Sustained Pressure Intensity/Depth Moderate Body Position Sidelying L IT band Mobilization Type Rolling Intensity/Depth Superficial Body Position Sidelying PT-OP-R Modalities Start: 11/22/18 16:41 Freq: Status: Active Protocol: Document 01/08/19 14:36 SA (Rec: 01/08/19 14:44 SA [email or web address]) Hot Pack/Cold Pack Treatment Hot Pack Location lumbar Patient Position Hooklying Treatment Duration (minutes) 10 Patient Tolerance Good PT-OP-S Aquatic Treatment Start: 11/22/18 16:41 Freq: Status: Active Protocol: Document 01/11/19 11:30 LJ (Rec: 01/11/19 15:15 LJ [email or web address]) Aquatics Treatment Pool Entry/Exit Pool Entry/Exit Method Stairs Assistance Standby Assistance Comments step to gait Water Walking forward w/reverse breaststroke Water Level Chest Level Quick Reverses Water Level Chest Level Level of Assistance Standby Assistance Verbal Cues Comments improved stability; all directions Lunge Walk Water Level Waist Level Level of Assistance Standby Assistance Verbal Cues Comments slowly requiring single leg balance Marching Water Level Chest Level Level of Assistance Standby Assistance Verbal Cues Comments improved posture and balance Backwards Water Level Chest Level Level of Assistance Verbal Cues Comments breaststroke arms Forwards Water Level Chest Level Level of Assistance Standby Assistance Verbal Cues Comments self correcting arm swing Lower Extremity Exercises figure 8 knee leading Body Position Standing Water Level Chest Level Equipment Ankle Weight- 2.5# Comments verbal cues hoe downs Details UE support reinaldo Equipment Large Noodle Reps/Duration 10x Comments to strengthen hip ext diag hip extension Body Position Standing Water Level Waist Level Equipment Ankle Weight- 2.5# Reps/Duration 2x10 bilat ab/ad Body Position Standing Water Level Waist Level Equipment Ankle Weight- 2.5# Reps/Duration 2x10 bilat Comments handhold on wall, man cues for posture Lower Extremity Stretches right hip ER Details bracing on stairs Body Position Standing Water Level Waist Level Reps/Duration 1 min hold seated figure 4 Reps/Duration 2 x 45 sec bilat Comments at wall horizontal abd Body Position Standing Water Level Chest Level Equipment Large Noodle Reps/Duration 2 x 30 quads Equipment Small Noodle Reps/Duration 2 x 30 hip flexors Details at wall Water Level Chest Level Reps/Duration 2 x 30 Comments man cuing HS, Body Position Standing Water Level Chest Level Equipment Large Noodle Reps/Duration 2 x 30 Comments improved posture; still requiring man cuing Upper Extremity Exercises stretch cord lat pull downs and rows Body Position Standing Water Level Neck Level Reps/Duration 2x10 ea Comments pt in squat position Spinal Exercises stretch cord spinal rotations Body Position Standing Water Level Chest Level Reps/Duration 15 bilat Comments improved posture Elk Activities Elk Activities Bicycle Cross Country Other Activities quick activity change emphasizing alternating planes of motion Equipment blue float Duration 10 min PT-OP-T Assessment and Plan Start: 11/22/18 16:41 Freq: Status: Active Protocol: Document 01/11/19 11:30 LJ (Rec: 01/11/19 15:15 LJ [email or web address]) Physical Therapy Assessment Impairments Impairments Activity Tolerance Balance Functional Activities Functional Mobility Gait Pain Posture ROM Soft Tissue Mobility Strength Goals Three Impairment Limited activity Short Term Goal (STG) He will be able to bend over to the ground without increased back pain. 01/04/19: good goal progress STG Duration 01/18/19 Soils Analyst Goal (LTG) He will be able to walk up the hill in his neighborhood to walk his dog. 01/04/19: some goal progress, painful LTG Duration 02/04/19 Two Impairment Has no Home Exercise Program Short Term Goal (STG) Independent with stretching and strengthening program to do at home. 01/04/19: achieved but continue to modify and progress STG Duration 01/18/19 Assisted Goal (LTG) Independent with pool exercise program 01/04/19: good goal progress, also continue to progress his aquatic exercise program LTG Duration 02/04/19 One Impairment pain 4/10 with activity Short Term Goal (STG) He will be able to walk with less than 2/10 pain. 01/04/19: some goal progress though reports pain can get as high as 6/10 STG Duration 01/25/19 Soils Analyst Goal (LTG) He will be able to walk for at least 30 min without back pain. 01/04/19: limited to 10 min LTG Duration 02/04/19 Assessment Summary Assessment Pt shows improvement with mobility and coordination as well as strength and tolerance for exercise. Will purchase stretch cords for HEP. Also given new stretches for right hip mobility and HS tightness. Physical Therapy Plan Frequency and Duration Frequency of Treatment 2x/Week Duration of Treatment 6 weeks Plan of Care Start Date 01/04/19 Plan of Care End Date 02/04/19 Therapeutic Interventions Therapeutic Interventions Aquatic Therapy Balance Training Gait Training Home Exercise Program Manual Therapy Neuromuscular Re-education Patient/Caregiver Education Self-Care/Home Management Soft Tissue Mobilization Therapeutic Activities Therapeutic Exercises Modalities Cold Pack/Ice Massage Electric Stimulation Hot Packs Ultrasound Next Visit Focus/Plan Next Note Type Treatment Note Next Visit Plan Revisit balance and core stability exercises to determine improvement. Progress strengthening and increase intensity with aquatic exercises.
--- NOTE | 2019-01-23 14:57 | PT.OTN ---
Current Diagnoses Pain in left hip (01/11/19) Unspecified inflammatory spondylopathy, lumbar region (01/11/19) Spinal stenosis, lumbar region without neurogenic claudication (01/11/19) Other intervertebral disc degeneration, lumbosacral region (01/11/19) Low back pain (01/11/19) Abnormal posture (01/11/19) Physical Therapy Treatment Note PT-OP-A Visit Information Start: 11/22/18 16:41 Freq: Status: Active Protocol: Document 01/23/19 13:00 LJ (Rec: 01/23/19 14:56 LJ [email or web address]) Out-Patient Physical Therapy Visit Information Visit Information Visit Type Aquatic Treatment Note Visit Start Time 13:00 Visit Stop Time 13:45 Total Visit Minutes 45 Visit Number 14 Number of FIBREGLASS GUN HAND Visits 2 PT-OP-B Current Condition Start: 11/22/18 16:41 Freq: Status: Active Protocol: Document 11/22/18 15:30 DLM (Rec: 11/22/18 16:57 DLM [id number]) Current Condition History of Current Condition Onset Date 6 months ago Current Complaints low back pain and left lateral hip pain History of Current Condition He reports about 6 monts ago he developed more difficulty walking. He reports his back gets stiff and sore. He fell a few months ago when his foot caught on the steps at his Sisters house and he fell onto his left side. He is having left lateral hip pain that he is not sure if it is from his back or from the fall. Prior Treatments and Tests Pool therapy years ago that helped his back. 02/2018 Injection in his low back that did not help. Treatment Goals Patient/Caregiver Goals He wants to be able to walk without back pain. He wants to be able to walk up the hill in his neighborhood to walk his dog. He wants to have a pool exercise program he can continue on his own. Prior Functional Status Baseline Function- ADL's Independent Baseline Function- Mobility Independent Baseline Function- Gait Independent in community, [place] Baseline Function- Work/School retired Baseline Function- Recreation/Hobbies golf, yard work, walks dog, travels Current Functional Impairments (Reported) Functional Limitations- ADL's Independent, holds onto soap dish in shower when closes his eyes, back pain getting in/ out of car, back pain if he tries to sit for any length of time without back support Functional Limitations- Mobility/Gait Independent, slower pace, back pain limits his distances, too much pain to be able to walk up the hill in his neighborhood to walk his dog Functional Limitations- Work/School retired Functional Limitations- Recreation/ back pain and stiffness when Hobbies he tries to golf, can only bend over doing yard work for about 5 min due to back pain Personal Factors Other Personal Factors That May Effect new tremor in right hand Therapy/Recovery started about 6 months ago, pt reports physician is aware and they are monitoring it ( concern for Parkinsons disease ) PT-OP-C Subjective Start: 11/22/18 16:41 Freq: Status: Active Protocol: Document 01/23/19 13:00 LJ (Rec: 01/23/19 14:56 LJ [email or web address]) OP-PT Subjective Patient Comments Patient Comments Pt reutrned from business trip where he walked a lot. States he feels he is getting stronger and his balance is getting better. PT-OP-D Balance Start: 11/22/18 16:41 Freq: Status: Active Protocol: Document 11/22/18 15:30 DLM (Rec: 11/22/18 16:58 DLM [id number]) Balance Tests Davalos Balance Test Davalos Balance Test Score 45/56 Davalos Impairment Rating 1 to 19% Impaired (Score 45-55 ) Romberg Romberg increased sway with eyes closed but no loss of balance Single Limb Standing Single Limb- Right 3-5 sec Single Limb- Left 3 sec PT-OP-E Functional Tests Start: 11/22/18 16:41 Freq: Status: Active Protocol: Document 11/22/18 15:30 DLM (Rec: 11/22/18 17:00 DLM [id number]) Functional Tests 6 Minute Walk Test Distance 936.5 feet Device Used none Comments low back pain and stiffness PT-OP-G Mobility & Gait Start: 11/22/18 16:41 Freq: Status: Active Protocol: Document 11/22/18 15:30 DLM (Rec: 11/22/18 17:02 DLM [id number]) OP Mobility Evaluation Bed Mobility Rolling Independent, slow and difficult Supine to and from Sit Independent with mild difficulty Transfers Sit to Stand Independent Functional Movements Other Functional Movements increased left lateral hip pain with any rotational movements in standing OP Gait Assessment Gait Gait Assistance Required: Independent Assistive Devices Assistive Device None Gait Deviations General Gait Pattern Decreased Stride Length Flexed Trunk Factors Limiting Gait Function Factors Limiting Gait Function Decreased Activity Tolerance Pain PT-OP-H Neuro Start: 11/22/18 16:41 Freq: Status: Active Protocol: Document 11/22/18 15:30 DLM (Rec: 11/22/18 17:23 DLM [id number]) Sensation Evaluation Comments Summary Comments hx of neuropathy in feet, mild tremor noted in right hand PT-OP-J Posture/Palpation/Skin Start: 11/22/18 16:41 Freq: Status: Active Protocol: Document 11/22/18 15:30 DLM (Rec: 11/22/18 17:19 DLM [id number]) Posture Evaluation Position Standing Evaluation View Posterior Head/C-Spine Posture Forward Head L-Spine Posture Flexed Shoulder Posture (L) Rounded (R) Rounded Comments Posture Comments protruding abdomen in standing Palpation Assessment Location Two Palpation Location left lateral hip Palpation Findings Tenderness Palpation Details bursa tenderness One Palpation Location lumbar paraspinals Palpation Findings Soft Tissue Tightness Tenderness PT-OP-K Range of Motion Start: 11/22/18 16:41 Freq: Status: Active Protocol: Document 11/22/18 15:30 DLM (Rec: 11/22/18 17:19 DLM [id number]) Lumbar Spine Range of Motion Lumbar Spine Active Percentage Testing Position Standing Flexion 50 Extension 5 Rotation Left 30 Rotation Right 50 Lateral Flexion Left 25 Lateral Flexion Right 25 ROM Limitations Soft Tissue Tightness Pain Comments back pain with flexion and right lateral flexion, left hip pain with rotation Shoulder Goniometric Range of Motion Shoulder bilateral Shoulder ROM WFL Yes Testing Position Sitting Shoulder ROM Limitations Comments hx right shoulder total arthroplasty with pt reporting good recovery PT-OP-L Special Tests Start: 11/22/18 16:41 Freq: Status: Active Protocol: Document 11/22/18 15:30 DLM (Rec: 11/22/18 17:19 DLM [id number]) Special Tests Lumbar Spine Special Tests Straight Leg Raise Test Results no back pain Comments hamstring tightness at 60b degrees bilaterally Slump Test Results back pain PT-OP-M Strength Start: 11/22/18 16:41 Freq: Status: Active Protocol: Document 11/22/18 15:30 DLM (Rec: 11/22/18 17:19 [facility] [id number]) Trunk Strength Trunk Manual Muscle Testing Core Stabilization 3+/5 Reason Not Measured Pain Comments bilateral hip flexor tightness interferes with his ability to stand erect Hip Strength Hip Manual Muscle Testing Right Flexion (L2) 4 Good Extension (S1) 3+ Fair+ Abduction 4 Good Adduction 5 Normal Comments left hip pain with resisted right hip abduction in sidelying, hip extension tested in prone Left Flexion (L2) 4+ Good+ Extension (S1) 3+ Fair+ Abduction 5 Normal Adduction 5 Normal Comments pain with resisted left hip flexion, hip extension tested in prone Knee Strength Knee Manual Muscle Testing bilateral Flexion (S2) 5 Normal Extension (L3) 5 Normal Ankle/Foot Strength Ankle and Foot Manual Muscle Testing Bilateral Dorsiflexion (L4) 5 Normal PT-OP-Q Treatments Start: 11/22/18 16:41 Freq: Status: Active Protocol: Document 01/08/19 14:36 SA (Rec: 01/08/19 14:44 SA [email or web address]) Cardio Equipment Recumbent Elliptical ([employer]) Duration (Minutes) 6 Resistance 5 Other noted calves tightness Therapeutic Exercises Supine Exercises 4 Supine Exercise Name BKTC Reps/Minutes x 30SH x 2 reps 3 Supine Exercise Name lower trunk rotation Equipment Used Red PT ball Reps/Minutes 2x10 1 Supine Exercise Name Marching with PPT Side bilateral Reps/Minutes 15 x 3 reps Comments with TrA HS stretch Side bilateral Equipment Used with towel Reps/Minutes 3x30 sec piriformis stretch Side bilateral Reps/Minutes 3x30 sec SKC Side bilateral Reps/Minutes 3x30 sec Comments modified to avoid back pain on R Sidelying Exercises Clamshells Side bilateral Equipment Used 2 # Reps/Minutes 20 x each Standing Exercises 3 Standing Exercise Name The MAYE Side bilateral Reps/Minutes 30 x 3 Manual Therapy Treatment Soft Tissue Mobilization 1 Body Location [place] Mobilization Type Myofascial Release Rolling Sustained Pressure Intensity/Depth Moderate Body Position Sidelying L IT band Mobilization Type Rolling Intensity/Depth Superficial Body Position Sidelying PT-OP-R Modalities Start: 11/22/18 16:41 Freq: Status: Active Protocol: Document 01/08/19 14:36 SA (Rec: 01/08/19 14:44 SA [email or web address]) Hot Pack/Cold Pack Treatment Hot Pack Location lumbar Patient Position Hooklying Treatment Duration (minutes) 10 Patient Tolerance Good PT-OP-S Aquatic Treatment Start: 11/22/18 16:41 Freq: Status: Active Protocol: Document 01/23/19 13:00 JOHNIE (Rec: 01/23/19 14:56 JOHNEI [email or web address]) Aquatics Treatment Pool Entry/Exit Pool Entry/Exit Method Stairs Assistance Standby Assistance Comments step to gait Water Walking forward w/reverse breaststroke Water Level Chest Level Quick Reverses Water Level Chest Level Level of Assistance Standby Assistance Verbal Cues Comments improved stability; all directions Sideways Water Level Chest Level Comments 15 steps across pool Marching Water Level Chest Level Level of Assistance Standby Assistance Verbal Cues Comments 15 steps across pool Backwards Water Level Chest Level Level of Assistance Verbal Cues Comments 17 steps across pool Forwards Water Level Chest Level Level of Assistance Standby Assistance Verbal Cues Comments 15 steps across pool Lower Extremity Exercises figure 8 knee leading Body Position Standing Water Level Chest Level Equipment Ankle Weight- 2.5# Comments verbal cues Lower Extremity Stretches seated figure 4 Reps/Duration 2 x 45 sec bilat Comments at wall quads Equipment Small Noodle Reps/Duration 2 x 30 hip flexors Details at wall Water Level Chest Level Reps/Duration 2 x 30 HS, Body Position Standing Water Level Chest Level Equipment Large Noodle Reps/Duration 2 x 30 Upper Extremity Exercises stretch cord lat pull downs and rows Body Position Standing Water Level Neck Level Reps/Duration 2x10 ea Comments pt in squat position Spinal Exercises stretch cord spinal rotations Body Position Standing Water Level Chest Level Reps/Duration 15 bilat Comments improved posture Balance step ups on boxes Details all directions Water Level Chest Level Reps/Duration x3 each direction Comments with difficulty SLS Water Level Chest Level Equipment right more stable Reps/Duration 4 min-alternating Comments 30 seconds each [place] Activities [place] Activities Bicycle [place] Other Activities quick activity change emphasizing alternating planes of motion Equipment blue float Duration 10 min PT-OP-T Assessment and Plan Start: 11/22/18 16:41 Freq: Status: Active Protocol: Document 01/23/19 13:00 JOHNIE (Rec: 01/23/19 14:56 JOHNIE [email or web address]) Physical Therapy Assessment Impairments Impairments Activity Tolerance Balance Functional Activities Functional Mobility Gait Pain Posture ROM Soft Tissue Mobility Strength Goals Three Impairment Limited activity Short Term Goal (STG) He will be able to bend over to the ground without increased back pain. 01/04/19: good goal progress STG Duration 8/2/19 Fundraising Officer Goal (LTG) He will be able to walk up the hill in his neighborhood to walk his dog. 01/04/19: some goal progress, painful LTG Duration 02/04/19 Two Impairment Has no Home Exercise Program Short Term Goal (STG) Independent with stretching and strengthening program to do at home. 01/04/19: achieved but continue to modify and progress STG Duration 01/18/19 Custodial Goal (LTG) Independent with pool exercise program 01/04/19: good goal progress, also continue to progress his aquatic exercise program LTG Duration 02/04/19 One Impairment pain 4/10 with activity Short Term Goal (STG) He will be able to walk with less than 2/10 pain. 01/04/19: some goal progress though reports pain can get as high as 6/10 STG Duration 01/25/19 Custodial Goal (LTG) He will be able to walk for at least 30 min without back pain. 01/04/19: limited to 10 min LTG Duration 02/04/19 Assessment Summary Assessment Pt improving strength, coordination and balance. Still challenged on SLS and step ups on boxes not coming to full standing but rather remaining low in the water for support. Still has difficulty following directions in deep water. Unable to perform a ski with straight legs. Most LE movement is the same regardless of whether he is skiing or bicycling. Physical Therapy Plan Frequency and Duration Frequency of Treatment 2x/Week Duration of Treatment 6 weeks Plan of Care Start Date 01/04/19 Plan of Care End Date 02/04/19 Therapeutic Interventions Therapeutic Interventions Aquatic Therapy Balance Training Gait Training Home Exercise Program Manual Therapy Neuromuscular Re-education Patient/Caregiver Education Self-Care/Home Management Soft Tissue Mobilization Therapeutic Activities Therapeutic Exercises Modalities Cold Pack/Ice Massage Electric Stimulation Hot Packs Ultrasound Other Referrals/Consults Referrals/Consults Recommended fall risk assessment Next Visit Focus/Plan Next Note Type Treatment Note Next Visit Plan Attempt skiing in shallower water where pt can slide his feet on bottom to encourage straight knees. Progress exercises using bands and encourage large movements.
--- NOTE | 2019-02-01 15:36 | PT.OTN ---
Current Diagnoses Pain in left hip (02/01/19) Unspecified inflammatory spondylopathy, lumbar region (02/01/19) Spinal stenosis, lumbar region without neurogenic claudication (02/01/19) Other intervertebral disc degeneration, lumbosacral region (02/01/19) Low back pain (02/01/19) Abnormal posture (02/01/19) Physical Therapy Treatment Note PT-OP-A Visit Information Start: 11/22/18 16:41 Freq: Status: Active Protocol: Document 02/01/19 13:45 AMB (Rec: 02/01/19 15:35 AMB [email or web address]) Out-Patient Physical Therapy Visit Information Visit Information Visit Type Progress Note Visit Start Time 13:45 Visit Stop Time 14:30 Total Visit Minutes 45 Visit Number 15 Number of BI ANALYST Visits 0 PT-OP-B Current Condition Start: 11/22/18 16:41 Freq: Status: Active Protocol: Document 11/22/18 15:30 DLM (Rec: 11/22/18 16:57 DLM [id number]) Current Condition History of Current Condition Onset Date 6 months ago Current Complaints low back pain and left lateral hip pain History of Current Condition He reports about 6 monts ago he developed more difficulty walking. He reports his back gets stiff and sore. He fell a few months ago when his foot caught on the steps at his Sisters house and he fell onto his left side. He is having left lateral hip pain that he is not sure if it is from his back or from the fall. Prior Treatments and Tests Pool therapy years ago that helped his back. 02/2018 Injection in his low back that did not help. Treatment Goals Patient/Caregiver Goals He wants to be able to walk without back pain. He wants to be able to walk up the hill in his neighborhood to walk his dog. He wants to have a pool exercise program he can continue on his own. Prior Functional Status Baseline Function- ADL's Independent Baseline Function- Mobility Independent Baseline Function- Gait Independent in community, [place] Baseline Function- Work/School retired Baseline Function- Recreation/Hobbies golf, yard work, walks dog, travels Current Functional Impairments (Reported) Functional Limitations- ADL's Independent, holds onto soap dish in shower when closes his eyes, back pain getting in/ out of car, back pain if he tries to sit for any length of time without back support Functional Limitations- Mobility/Gait Independent, slower pace, back pain limits his distances, too much pain to be able to walk up the hill in his neighborhood to walk his dog Functional Limitations- Work/School retired Functional Limitations- Recreation/ back pain and stiffness when Hobbies he tries to golf, can only bend over doing yard work for about 5 min due to back pain Personal Factors Other Personal Factors That May Effect new tremor in right hand Therapy/Recovery started about 6 months ago, pt reports physician is aware and they are monitoring it ( concern for Parkinsons disease ) PT-OP-C Subjective Start: 11/22/18 16:41 Freq: Status: Active Protocol: Document 02/01/19 13:45 AMB (Rec: 02/01/19 15:35 AMB [email or web address]) OP-PT Subjective Patient Comments Patient Comments Pt continues to notice balance challenges and walking up a hill is still difficult. Low back is painful at times. PT-OP-D Balance Start: 11/22/18 16:41 Freq: Status: Active Protocol: Document 11/22/18 15:30 DLM (Rec: 11/22/18 16:58 DLM [id number]) Balance Tests Davalos Balance Test Davalos Balance Test Score 45/56 Davalos Impairment Rating 1 to 19% Impaired (Score 45-55 ) Romberg Romberg increased sway with eyes closed but no loss of balance Single Limb Standing Single Limb- Right 3-5 sec Single Limb- Left 3 sec PT-OP-E Functional Tests Start: 11/22/18 16:41 Freq: Status: Active Protocol: Document 11/22/18 15:30 DLM (Rec: 11/22/18 17:00 DLM [id number]) Functional Tests 6 Minute Walk Test Distance 936.5 feet Device Used none Comments low back pain and stiffness PT-OP-G Mobility & Gait Start: 11/22/18 16:41 Freq: Status: Active Protocol: Document 11/22/18 15:30 DLM (Rec: 11/22/18 17:02 DLM [id number]) OP Mobility Evaluation Bed Mobility Rolling Independent, slow and difficult Supine to and from Sit Independent with mild difficulty Transfers Sit to Stand Independent Functional Movements Other Functional Movements increased left lateral hip pain with any rotational movements in standing OP Gait Assessment Gait Gait Assistance Required: Independent Assistive Devices Assistive Device None Gait Deviations General Gait Pattern Decreased Stride Length Flexed Trunk Factors Limiting Gait Function Factors Limiting Gait Function Decreased Activity Tolerance Pain PT-OP-H Neuro Start: 11/22/18 16:41 Freq: Status: Active Protocol: Document 11/22/18 15:30 DLM (Rec: 11/22/18 17:23 DLM [id number]) Sensation Evaluation Comments Summary Comments hx of neuropathy in feet, mild tremor noted in right hand PT-OP-J Posture/Palpation/Skin Start: 11/22/18 16:41 Freq: Status: Active Protocol: Document 11/22/18 15:30 DLM (Rec: 11/22/18 17:19 DLM [id number]) Posture Evaluation Position Standing Evaluation View Posterior Head/C-Spine Posture Forward Head L-Spine Posture Flexed Shoulder Posture (L) Rounded (R) Rounded Comments Posture Comments protruding abdomen in standing Palpation Assessment Location Two Palpation Location left lateral hip Palpation Findings Tenderness Palpation Details bursa tenderness One Palpation Location lumbar paraspinals Palpation Findings Soft Tissue Tightness Tenderness PT-OP-K Range of Motion Start: 11/22/18 16:41 Freq: Status: Active Protocol: Document 11/22/18 15:30 DLM (Rec: 11/22/18 17:19 DLM [id number]) Lumbar Spine Range of Motion Lumbar Spine Active Percentage Testing Position Standing Flexion 50 Extension 5 Rotation Left 30 Rotation Right 50 Lateral Flexion Left 25 Lateral Flexion Right 25 ROM Limitations Soft Tissue Tightness Pain Comments back pain with flexion and right lateral flexion, left hip pain with rotation Shoulder Goniometric Range of Motion Shoulder bilateral Shoulder ROM WFL Yes Testing Position Sitting Shoulder ROM Limitations Comments hx right shoulder total arthroplasty with pt reporting good recovery PT-OP-L Special Tests Start: 11/22/18 16:41 Freq: Status: Active Protocol: Document 11/22/18 15:30 DLM (Rec: 11/22/18 17:19 DLM [id number]) Special Tests Lumbar Spine Special Tests Straight Leg Raise Test Results no back pain Comments hamstring tightness at 60b degrees bilaterally Slump Test Results back pain PT-OP-M Strength Start: 11/22/18 16:41 Freq: Status: Active Protocol: Document 11/22/18 15:30 DLM (Rec: 11/22/18 17:19 DLM [id number]) Trunk Strength Trunk Manual Muscle Testing Core Stabilization 3+/5 Reason Not Measured Pain Comments bilateral hip flexor tightness interferes with his ability to stand erect Hip Strength Hip Manual Muscle Testing Right Flexion (L2) 4 Good Extension (S1) 3+ Fair+ Abduction 4 Good Adduction 5 Normal Comments left hip pain with resisted right hip abduction in sidelying, hip extension tested in prone Left Flexion (L2) 4+ Good+ Extension (S1) 3+ Fair+ Abduction 5 Normal Adduction 5 Normal Comments pain with resisted left hip flexion, hip extension tested in prone Knee Strength Knee Manual Muscle Testing bilateral Flexion (S2) 5 Normal Extension (L3) 5 Normal Ankle/Foot Strength Ankle and Foot Manual Muscle Testing Bilateral Dorsiflexion (L4) 5 Normal PT-OP-Q Treatments Start: 11/22/18 16:41 Freq: Status: Active Protocol: Document 02/01/19 13:45 AMB (Rec: 02/01/19 15:35 AMB [email or web address]) Cardio Equipment Recumbent Elliptical (Bevvy) Duration (Minutes) 6 Resistance 5 Therapeutic Exercises Supine Exercises 4 Supine Exercise Name BKTC Reps/Minutes x 30SH x 2 reps 3 Supine Exercise Name lower trunk rotation Equipment Used Red PT ball Reps/Minutes 2x10 HS stretch Side bilateral Equipment Used with towel Reps/Minutes 3x30 sec piriformis stretch Side bilateral Reps/Minutes 3x30 sec SKC Side bilateral Reps/Minutes 3x30 sec Comments modified to avoid back pain on R Sidelying Exercises 1 Sidelying Exercise Name hip abd Side right Resistance AROM Reps/Minutes 2x10 Comments physical cues for form Clamshells Side bilateral Equipment Used 2 # Reps/Minutes 20 x each Standing Exercises 2 Standing Exercise Name forward lunges Reps/Minutes 10x2 1 Standing Exercise Name sidestepping Resistance #2 t band Reps/Minutes 10 feetx4 Neuro Re-Education Treatment Balance Activities 2 Details modified tandem Comments eyse open head turns 1 Details slow august Reps/Duration 10 feet x 4 PT-OP-R Modalities Start: 11/22/18 16:41 Freq: Status: Active Protocol: Document 02/01/19 13:45 AMB (Rec: 02/01/19 15:36 AMB [email or web address]) Hot Pack/Cold Pack Treatment Hot Pack Location lumbar Patient Position Hooklying Treatment Duration (minutes) 10 Patient Tolerance Good PT-OP-S Aquatic Treatment Start: 11/22/18 16:41 Freq: Status: Active Protocol: Document 01/23/19 13:00 LJ (Rec: 01/23/19 14:56 LJ [email or web address]) Aquatics Treatment Pool Entry/Exit Pool Entry/Exit Method Stairs Assistance Standby Assistance Comments step to gait Water Walking forward w/reverse breaststroke Water Level Chest Level Quick Reverses Water Level Chest Level Level of Assistance Standby Assistance Verbal Cues Comments improved stability; all directions Sideways Water Level Chest Level Comments 15 steps across pool Marching Water Level Chest Level Level of Assistance Standby Assistance Verbal Cues Comments 15 steps across pool Backwards Water Level Chest Level Level of Assistance Verbal Cues Comments 17 steps across pool Forwards Water Level Chest Level Level of Assistance Standby Assistance Verbal Cues Comments 15 steps across pool Lower Extremity Exercises figure 8 knee leading Body Position Standing Water Level Chest Level Equipment Ankle Weight- 2.5# Comments verbal cues Lower Extremity Stretches seated figure 4 Reps/Duration 2 x 45 sec bilat Comments at wall quads Equipment Small Noodle Reps/Duration 2 x 30 hip flexors Details at wall Water Level Chest Level Reps/Duration 2 x 30 HS, Body Position Standing Water Level Chest Level Equipment Large Noodle Reps/Duration 2 x 30 Upper Extremity Exercises stretch cord lat pull downs and rows Body Position Standing Water Level Neck Level Reps/Duration 2x10 ea Comments pt in squat position Spinal Exercises stretch cord spinal rotations Body Position Standing Water Level Chest Level Reps/Duration 15 bilat Comments improved posture Balance step ups on boxes Details all directions Water Level Chest Level Reps/Duration x3 each direction Comments with difficulty SLS Water Level Chest Level Equipment right more stable Reps/Duration 4 min-alternating Comments 30 seconds each [place] Activities Gl[place]ive Activities Bicycle [place] Other Activities quick activity change emphasizing alternating planes of motion Equipment blue float Duration 10 min PT-OP-T Assessment and Plan Start: 11/22/18 16:41 Freq: Status: Active Protocol: Document 02/01/19 13:45 AMB (Rec: 02/01/19 15:35 AMB [email or web address]) Physical Therapy Assessment Goals Three Impairment Limited activity Short Term Goal (STG) He will be able to bend over to the ground without increased back pain. 01/04/19: good goal progress STG Duration MET Production Service Manager Goal (LTG) He will be able to walk up the hill in his neighborhood to walk his dog. LTG Duration MET Two Impairment Has no Home Exercise Program Short Term Goal (STG) Independent with stretching and strengthening program to do at home. 01/04/19: achieved but continue to modify and progress STG Duration 02/22/19 Halfway Goal (LTG) Independent with pool exercise program 01/04/19: good goal progress, also continue to progress his aquatic exercise program LTG Duration 03/15/19 One Impairment pain 4/10 with activity Short Term Goal (STG) He will be able to walk with less than 2/10 pain. 01/04/19: some goal progress though reports pain can get as high as 6/10 STG Duration 02/22/19 Production Service Manager Goal (LTG) He will be able to walk for at least 30 min without back pain. 02/01/19: limited to 10 min LTG Duration 03/15/19 Assessment Summary Assessment Thor has shown good improvement in left hip pain, but continues to have significant right knee valgus positioning and low back tightness that make walking for any distance/elevation change challenging. He continues to have a UE tremor, gait stiffness, and a flat affect so was encouraged to follow up with his PCP regarding those symptoms. Physical Therapy Plan Frequency and Duration Frequency of Treatment 2x/Week Duration of Treatment 6 weeks Plan of Care Start Date 02/01/19 Plan of Care End Date 03/15/19 Therapeutic Interventions Therapeutic Interventions Aquatic Therapy Balance Training Gait Training Home Exercise Program Manual Therapy Neuromuscular Re-education Patient/Caregiver Education Self-Care/Home Management Soft Tissue Mobilization Therapeutic Activities Therapeutic Exercises Modalities Cold Pack/Ice Massage Electric Stimulation Hot Packs Ultrasound Next Visit Focus/Plan Next Note Type Treatment Note Next Visit Plan Continue land and aquatic therapy, pt's left hip pain is improving well, but back pain continues to limit walking
--- NOTE | 2019-02-01 15:39 | PT.OPPOC ---
Current Diagnoses Pain in left hip (02/01/19) Unspecified inflammatory spondylopathy, lumbar region (02/01/19) Spinal stenosis, lumbar region without neurogenic claudication (02/01/19) Other intervertebral disc degeneration, lumbosacral region (02/01/19) Low back pain (02/01/19) Abnormal posture (02/01/19) Provider Visit Care Team Role Provider Type Genet Severino MD Attending Provider Physician Primary Care Provider Specialty: Family Practice Address: [address] [place] [address], [facility] Email: Plan Of Care PT-OP-T Assessment and Plan Start: 11/22/18 16:41 Freq: Status: Active Protocol: Document 02/01/19 13:45 AMB (Rec: 02/01/19 15:35 AMB [email or web address]) Physical Therapy Assessment Goals Three Impairment Limited activity Short Term Goal (STG) He will be able to bend over to the ground without increased back pain. 01/04/19: good goal progress STG Duration MET Firefighting Equipment Specialist Goal (LTG) He will be able to walk up the hill in his neighborhood to walk his dog. LTG Duration MET Two Impairment Has no Home Exercise Program Short Term Goal (STG) Independent with stretching and strengthening program to do at home. 01/04/19: achieved but continue to modify and progress STG Duration 02/22/19 Prison Goal (LTG) Independent with pool exercise program 01/04/19: good goal progress, also continue to progress his aquatic exercise program LTG Duration 03/15/19 One Impairment pain 4/10 with activity Short Term Goal (STG) He will be able to walk with less than 2/10 pain. 01/04/19: some goal progress though reports pain can get as high as 6/10 STG Duration 02/22/19 Prison Goal (LTG) He will be able to walk for at least 30 min without back pain. 02/01/19: limited to 10 min LTG Duration 03/15/19 Assessment Summary Assessment Thor has shown good improvement in left hip pain, but continues to have significant right knee valgus positioning and low back tightness that make walking for any distance/elevation change challenging. He continues to have a UE tremor, gait stiffness, and a flat affect so was encouraged to follow up with his PCP regarding those symptoms. Physical Therapy Plan Frequency and Duration Frequency of Treatment 2x/Week Duration of Treatment 6 weeks Plan of Care Start Date 02/01/19 Plan of Care End Date 03/15/19 Therapeutic Interventions Therapeutic Interventions Aquatic Therapy Balance Training Gait Training Home Exercise Program Manual Therapy Neuromuscular Re-education Patient/Caregiver Education Self-Care/Home Management Soft Tissue Mobilization Therapeutic Activities Therapeutic Exercises Modalities Cold Pack/Ice Massage Electric Stimulation Hot Packs Ultrasound Next Visit Focus/Plan Next Note Type Treatment Note Next Visit Plan Continue land and aquatic therapy, pt's left hip pain is improving well, but back pain continues to limit walking Plan of Care Dates Plan of Care Start Date 02/01/19 Plan of Care End Date 03/15/19 Please Sign and Return: I have reviewed this Plan of Care and certify that the skilled therapy services above are required to meet the patient?s needs. Physician Signature Date Printed Name and Credentials Clinical Instructor Signature Printed Name and Credentials
--- NOTE | 2019-02-05 12:36 | PT.OTN ---
Current Diagnoses Pain in left hip (02/05/19) Unspecified inflammatory spondylopathy, lumbar region (02/05/19) Spinal stenosis, lumbar region without neurogenic claudication (02/05/19) Other intervertebral disc degeneration, lumbosacral region (02/05/19) Low back pain (02/05/19) Abnormal posture (02/05/19) Physical Therapy Treatment Note PT-OP-A Visit Information Start: 11/22/18 16:41 Freq: Status: Active Protocol: Document 02/05/19 12:26 HH (Rec: 02/05/19 12:35 HH [email or web address]) Out-Patient Physical Therapy Visit Information Visit Information Visit Type Treatment Note Visit Start Time 11:20 Visit Stop Time 12:02 Total Visit Minutes 42 Visit Number 16 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 He reports his back gets stiff and sore. He fell a few months ago when his foot caught on the steps at his Sisters house and he fell onto his left side. He is having left lateral hip pain that he is not sure if it is from his back or from the fall. Prior Treatments and Tests Pool therapy years ago that helped his back. 02/2018 Injection in his low back that did not help. Treatment Goals Patient/Caregiver Goals He wants to be able to walk without back pain. He wants to be able to walk up the hill in his neighborhood to walk his dog. He wants to have a pool exercise program he can continue on his own. Prior Functional Status Baseline Function- ADL's Independent Baseline Function- Mobility Independent Baseline Function- Gait Independent in community, [place] Baseline Function- Work/School retired Baseline Function- Recreation/Hobbies golf, yard work, walks dog, travels Current Functional Impairments (Reported) Functional Limitations- ADL's Independent, holds onto soap dish in shower when closes his eyes, back pain getting in/ out of car, back pain if he tries to sit for any length of time without back support Functional Limitations- Mobility/Gait Independent, slower pace, back pain limits his distances, too much pain to be able to walk up the hill in his neighborhood to walk his dog Functional Limitations- Work/School retired Functional Limitations- Recreation/ back pain and stiffness when Hobbies he tries to golf, can only bend over doing yard work for about 5 min due to back pain Personal Factors Other Personal Factors That May Effect new tremor in right hand Therapy/Recovery started about 6 months ago, pt reports physician is aware and they are monitoring it ( concern for Parkinsons disease ) PT-OP-C Subjective Start: 11/22/18 16:41 Freq: Status: Active Protocol: Document 02/05/19 12:35 HH (Rec: 02/05/19 12:35 HH [email or web address]) OP-PT Subjective Patient Comments Patient Comments My L hip does get sore sometimes after a long walk. But i think i am getting better. PT-OP-D Balance Start: 11/22/18 16:41 Freq: Status: Active Protocol: Document 11/22/18 15:30 DLM (Rec: 11/22/18 16:58 DLM [id number]) Balance Tests Davalos Balance Test Davalos Balance Test Score 45/56 Davalos Impairment Rating 1 to 19% Impaired (Score 45-55 ) Romberg Romberg increased sway with eyes closed but no loss of balance Single Limb Standing Single Limb- Right 3-5 sec Single Limb- Left 3 sec PT-OP-E Functional Tests Start: 11/22/18 16:41 Freq: Status: Active Protocol: Document 11/22/18 15:30 DLM (Rec: 11/22/18 17:00 DLM [id number]) Functional Tests 6 Minute Walk Test Distance 936.5 feet Device Used none Comments low back pain and stiffness PT-OP-G Mobility & Gait Start: 11/22/18 16:41 Freq: Status: Active Protocol: Document 11/22/18 15:30 DLM (Rec: 11/22/18 17:02 DLM [id number]) OP Mobility Evaluation Bed Mobility Rolling Independent, slow and difficult Supine to and from Sit Independent with mild difficulty Transfers Sit to Stand Independent Functional Movements Other Functional Movements increased left lateral hip pain with any rotational movements in standing OP Gait Assessment Gait Gait Assistance Required: Independent Assistive Devices Assistive Device None Gait Deviations General Gait Pattern Decreased Stride Length Flexed Trunk Factors Limiting Gait Function Factors Limiting Gait Function Decreased Activity Tolerance Pain PT-OP-H Neuro Start: 11/22/18 16:41 Freq: Status: Active Protocol: Document 11/22/18 15:30 DLM (Rec: 11/22/18 17:23 DLM [id number]) Sensation Evaluation Comments Summary Comments hx of neuropathy in feet, mild tremor noted in right hand PT-OP-J Posture/Palpation/Skin Start: 11/22/18 16:41 Freq: Status: Active Protocol: Document 11/22/18 15:30 DLM (Rec: 11/22/18 17:19 DLM [id number]) Posture Evaluation Position Standing Evaluation View Posterior Head/C-Spine Posture Forward Head L-Spine Posture Flexed Shoulder Posture (L) Rounded (R) Rounded Comments Posture Comments protruding abdomen in standing Palpation Assessment Location Two Palpation Location left lateral hip Palpation Findings Tenderness Palpation Details bursa tenderness One Palpation Location lumbar paraspinals Palpation Findings Soft Tissue Tightness Tenderness PT-OP-K Range of Motion Start: 11/22/18 16:41 Freq: Status: Active Protocol: Document 11/22/18 15:30 DLM (Rec: 11/22/18 17:19 DLM [id number]) Lumbar Spine Range of Motion Lumbar Spine Active Percentage Testing Position Standing Flexion 50 Extension 5 Rotation Left 30 Rotation Right 50 Lateral Flexion Left 25 Lateral Flexion Right 25 ROM Limitations Soft Tissue Tightness Pain Comments back pain with flexion and right lateral flexion, left hip pain with rotation Shoulder Goniometric Range of Motion Shoulder bilateral Shoulder ROM WFL Yes Testing Position Sitting Shoulder ROM Limitations Comments hx right shoulder total arthroplasty with pt reporting good recovery PT-OP-L Special Tests Start: 11/22/18 16:41 Freq: Status: Active Protocol: Document 11/22/18 15:30 DLM (Rec: 11/22/18 17:19 DLM [id number]) Special Tests Lumbar Spine Special Tests Straight Leg Raise Test Results no back pain Comments hamstring tightness at 60b degrees bilaterally Slump Test Results back pain PT-OP-M Strength Start: 11/22/18 16:41 Freq: Status: Active Protocol: Document 11/22/18 15:30 DLM (Rec: 11/22/18 17:19 DLM [id number]) Trunk Strength Trunk Manual Muscle Testing Core Stabilization 3+/5 Reason Not Measured Pain Comments bilateral hip flexor tightness interferes with his ability to stand erect Hip Strength Hip Manual Muscle Testing Right Flexion (L2) 4 Good Extension (S1) 3+ Fair+ Abduction 4 Good Adduction 5 Normal Comments left hip pain with resisted right hip abduction in sidelying, hip extension tested in prone Left Flexion (L2) 4+ Good+ Extension (S1) 3+ Fair+ Abduction 5 Normal Adduction 5 Normal Comments pain with resisted left hip flexion, hip extension tested in prone Knee Strength Knee Manual Muscle Testing bilateral Flexion (S2) 5 Normal Extension (L3) 5 Normal Ankle/Foot Strength Ankle and Foot Manual Muscle Testing Bilateral Dorsiflexion (L4) 5 Normal PT-OP-Q Treatments Start: 11/22/18 16:41 Freq: Status: Active Protocol: Document 02/05/19 12:26 HH (Rec: 02/05/19 12:35 HH [email or web address]) Therapeutic Exercises Sitting Exercises squat Side right Equipment Used 4 inch box underneath L foot Reps/Minutes 8 x2 Comments facilitate push off through R LE seated unilateral ankle reach Sitting Exercise Name lumbar flexion, SB and rotation Side bilateral Reps/Minutes 10 x2 seated ankle reach Sitting Exercise Name lumbar flexion Side bilateral Reps/Minutes 10 x2 seated extension Sitting Exercise Name lumbar extension Side bilateral Reps/Minutes 10 x2 Standing Exercises single leg stance Side bilateral Equipment Used within bar Comments as [place] high knee walking Side bilateral Reps/Minutes 5 rounds Comments within bar Neuro Re-Education Treatment Balance Activities hurdles step over Details step over pattern Surface ground level Equipment hurdles Reps/Duration 8 mins Comments cues on heel strike , hip hike hurdles step to Surface ground level Equipment hurdles Reps/Duration 8 mins Comments cues on heel strike , hip hike PT-OP-R Modalities Start: 11/22/18 16:41 Freq: Status: Active Protocol: Document 02/01/19 13:45 AMB (Rec: 02/01/19 15:36 AMB [email or web address]) Hot Pack/Cold Pack Treatment Hot Pack Location lumbar Patient Position Hooklying Treatment Duration (minutes) 10 Patient Tolerance Good PT-OP-S Aquatic Treatment Start: 11/22/18 16:41 Freq: Status: Active Protocol: Document 01/23/19 13:00 LJ (Rec: 01/23/19 14:56 LJ [email or web address]) Aquatics Treatment Pool Entry/Exit Pool Entry/Exit Method Stairs Assistance Standby Assistance Comments step to gait Water Walking forward w/reverse breaststroke Water Level Chest Level Quick Reverses Water Level Chest Level Level of Assistance Standby Assistance Verbal Cues Comments improved stability; all directions Sideways Water Level Chest Level Comments 15 steps across pool Marching Water Level Chest Level Level of Assistance Standby Assistance Verbal Cues Comments 15 steps across pool Backwards Water Level Chest Level Level of Assistance Verbal Cues Comments 17 steps across pool Forwards Water Level Chest Level Level of Assistance Standby Assistance Verbal Cues Comments 15 steps across pool Lower Extremity Exercises figure 8 knee leading Body Position Standing Water Level Chest Level Equipment Ankle Weight- 2.5# Comments verbal cues Lower Extremity Stretches seated figure 4 Reps/Duration 2 x 45 sec bilat Comments at wall quads Equipment Small Noodle Reps/Duration 2 x 30 hip flexors Details at wall Water Level Chest Level Reps/Duration 2 x 30 HS, Body Position Standing Water Level Chest Level Equipment Large Noodle Reps/Duration 2 x 30 Upper Extremity Exercises stretch cord lat pull downs and rows Body Position Standing Water Level Neck Level Reps/Duration 2x10 ea Comments pt in squat position Spinal Exercises stretch cord spinal rotations Body Position Standing Water Level Chest Level Reps/Duration 15 bilat Comments improved posture Balance step ups on boxes Details all directions Water Level Chest Level Reps/Duration x3 each direction Comments with difficulty SLS Water Level Chest Level Equipment right more stable Reps/Duration 4 min-alternating Comments 30 seconds each [place] Activities [place] Activities Bicycle [place] Other Activities quick activity change emphasizing alternating planes of motion Equipment blue float Duration 10 min PT-OP-T Assessment and Plan Start: 11/22/18 16:41 Freq: Status: Active Protocol: Document 02/05/19 12:26 HH (Rec: 02/05/19 12:35 HH [email or web address]) Physical Therapy Assessment Assessment Summary Assessment pt's SLS: R= 3s, L= 10s. Today focused on single leg balance, hip control during step to /step up ex. Pt [place] tx well. Physical Therapy Plan Next Visit Focus/Plan Next Note Type Treatment Note Next Visit Plan Continue land and aquatic therapy, pt's left hip pain is improving well, but back pain continues to limit walking
--- NOTE | 2019-02-20 16:59 | PT.OTN ---
Current Diagnoses Pain in left hip (02/20/19) Unspecified inflammatory spondylopathy, lumbar region (02/20/19) Spinal stenosis, lumbar region without neurogenic claudication (02/20/19) Other intervertebral disc degeneration, lumbosacral region (02/20/19) Low back pain (02/20/19) Abnormal posture (02/20/19) Physical Therapy Treatment Note PT-OP-A Visit Information Start: 11/22/18 16:41 Freq: Status: Active Protocol: Document 02/20/19 11:45 LJ (Rec: 02/20/19 16:59 LJ [id number]) Out-Patient Physical Therapy Visit Information Visit Information Visit Type Aquatic Treatment Note Visit Start Time 11:45 Visit Stop Time 12:30 Total Visit Minutes 45 Visit Number 3 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 He reports his back gets stiff and sore. He fell a few months ago when his foot caught on the steps at his Sisters house and he fell onto his left side. He is having left lateral hip pain that he is not sure if it is from his back or from the fall. Prior Treatments and Tests Pool therapy years ago that helped his back. 02/2018 Injection in his low back that did not help. Treatment Goals Patient/Caregiver Goals He wants to be able to walk without back pain. He wants to be able to walk up the hill in his neighborhood to walk his dog. He wants to have a pool exercise program he can continue on his own. Prior Functional Status Baseline Function- ADL's Independent Baseline Function- Mobility Independent Baseline Function- Gait Independent in community, [place] Baseline Function- Work/School retired Baseline Function- Recreation/Hobbies golf, yard work, walks dog, travels Current Functional Impairments (Reported) Functional Limitations- ADL's Independent, holds onto soap dish in shower when closes his eyes, back pain getting in/ out of car, back pain if he tries to sit for any length of time without back support Functional Limitations- Mobility/Gait Independent, slower pace, back pain limits his distances, too much pain to be able to walk up the hill in his neighborhood to walk his dog Functional Limitations- Work/School retired Functional Limitations- Recreation/ back pain and stiffness when Hobbies he tries to golf, can only bend over doing yard work for about 5 min due to back pain Personal Factors Other Personal Factors That May Effect new tremor in right hand Therapy/Recovery started about 6 months ago, pt reports physician is aware and they are monitoring it ( concern for Parkinsons disease ) PT-OP-C Subjective Start: 11/22/18 16:41 Freq: Status: Active Protocol: Document 02/20/19 11:45 LJ (Rec: 02/20/19 16:59 LJ [email or web address]) OP-PT Subjective Patient Comments Patient Comments States hip is getting stronger and is able to walk longer distances PT-OP-D Balance Start: 11/22/18 16:41 Freq: Status: Active Protocol: Document 11/22/18 15:30 DLM (Rec: 11/22/18 16:58 DLM [id number]) Balance Tests Davalos Balance Test Davalos Balance Test Score 45/56 Davalos Impairment Rating 1 to 19% Impaired (Score 45-55 ) Romberg Romberg increased sway with eyes closed but no loss of balance Single Limb Standing Single Limb- Right 3-5 sec Single Limb- Left 3 sec PT-OP-E Functional Tests Start: 11/22/18 16:41 Freq: Status: Active Protocol: Document 11/22/18 15:30 DLM (Rec: 11/22/18 17:00 DLM [id number]) Functional Tests 6 Minute Walk Test Distance 936.5 feet Device Used none Comments low back pain and stiffness PT-OP-G Mobility & Gait Start: 11/22/18 16:41 Freq: Status: Active Protocol: Document 11/22/18 15:30 DLM (Rec: 11/22/18 17:02 DLM [id number]) OP Mobility Evaluation Bed Mobility Rolling Independent, slow and difficult Supine to and from Sit Independent with mild difficulty Transfers Sit to Stand Independent Functional Movements Other Functional Movements increased left lateral hip pain with any rotational movements in standing OP Gait Assessment Gait Gait Assistance Required: Independent Assistive Devices Assistive Device None Gait Deviations General Gait Pattern Decreased Stride Length,Flexed Trunk Factors Limiting Gait Function Factors Limiting Gait Function Decreased Activity Tolerance, Pain PT-OP-H Neuro Start: 11/22/18 16:41 Freq: Status: Active Protocol: Document 11/22/18 15:30 DLM (Rec: 11/22/18 17:23 DLM [id number]) Sensation Evaluation Comments Summary Comments hx of neuropathy in feet, mild tremor noted in right hand PT-OP-J Posture/Palpation/Skin Start: 11/22/18 16:41 Freq: Status: Active Protocol: Document 11/22/18 15:30 DLM (Rec: 11/22/18 17:19 DLM [id number]) Posture Evaluation Position Standing Evaluation View Posterior Head/C-Spine Posture Forward Head L-Spine Posture Flexed Shoulder Posture (L) Rounded,(R) Rounded Comments Posture Comments protruding abdomen in standing Palpation Assessment Location Two Palpation Location left lateral hip Palpation Findings Tenderness Palpation Details bursa tenderness One Palpation Location lumbar paraspinals Palpation Findings Soft Tissue Tightness, Tenderness PT-OP-K Range of Motion Start: 11/22/18 16:41 Freq: Status: Active Protocol: Document 11/22/18 15:30 DLM (Rec: 11/22/18 17:19 DLM [id number]) Lumbar Spine Range of Motion Lumbar Spine Active Percentage Testing Position Standing Flexion 50 Extension 5 Rotation Left 30 Rotation Right 50 Lateral Flexion Left 25 Lateral Flexion Right 25 ROM Limitations Soft Tissue Tightness,Pain Comments back pain with flexion and right lateral flexion, left hip pain with rotation Shoulder Goniometric Range of Motion Shoulder bilateral Shoulder ROM WFL Yes Testing Position Sitting Shoulder ROM Limitations Comments hx right shoulder total arthroplasty with pt reporting good recovery PT-OP-L Special Tests Start: 11/22/18 16:41 Freq: Status: Active Protocol: Document 11/22/18 15:30 DLM (Rec: 11/22/18 17:19 DLM [id number]) Special Tests Lumbar Spine Special Tests Straight Leg Raise Test Results no back pain Comments hamstring tightness at 60b degrees bilaterally Slump Test Results back pain PT-OP-M Strength Start: 11/22/18 16:41 Freq: Status: Active Protocol: Document 11/22/18 15:30 DLM (Rec: 11/22/18 17:19 DLM [id number]) Trunk Strength Trunk Manual Muscle Testing Core Stabilization 3+/5 Reason Not Measured Pain Comments bilateral hip flexor tightness interferes with his ability to stand erect Hip Strength Hip Manual Muscle Testing Right Flexion (L2) 4 Good Extension (S1) 3+ Fair+ Abduction 4 Good Adduction 5 Normal Comments left hip pain with resisted right hip abduction in sidelying, hip extension tested in prone Left Flexion (L2) 4+ Good+ Extension (S1) 3+ Fair+ Abduction 5 Normal Adduction 5 Normal Comments pain with resisted left hip flexion, hip extension tested in prone Knee Strength Knee Manual Muscle Testing bilateral Flexion (S2) 5 Normal Extension (L3) 5 Normal Ankle/Foot Strength Ankle and Foot Manual Muscle Testing Bilateral Dorsiflexion (L4) 5 Normal PT-OP-Q Treatments Start: 11/22/18 16:41 Freq: Status: Active Protocol: Document 02/05/19 12:26 HH (Rec: 02/05/19 12:35 HH [email or web address]) Therapeutic Exercises Sitting Exercises squat Side right Equipment Used 4 inch box underneath L foot Reps/Minutes 8 x2 Comments facilitate push off through R LE seated unilateral ankle reach Sitting Exercise Name lumbar flexion, SB and rotation Side bilateral Reps/Minutes 10 x2 seated ankle reach Sitting Exercise Name lumbar flexion Side bilateral Reps/Minutes 10 x2 seated extension Sitting Exercise Name lumbar extension Side bilateral Reps/Minutes 10 x2 Standing Exercises single leg stance Side bilateral Equipment Used within bar Comments as [place] high knee walking Side bilateral Reps/Minutes 5 rounds Comments within bar Neuro Re-Education Treatment Balance Activities hurdles step over Details step over pattern Surface ground level Equipment hurdles Reps/Duration 8 mins Comments cues on heel strike , hip hike hurdles step to Surface ground level Equipment hurdles Reps/Duration 8 mins Comments cues on heel strike , hip hike PT-OP-R Modalities Start: 11/22/18 16:41 Freq: Status: Active Protocol: Document 02/01/19 13:45 AMB (Rec: 02/01/19 15:36 AMB [email or web address]) Hot Pack/Cold Pack Treatment Hot Pack Location lumbar Patient Position Hooklying Treatment Duration (minutes) 10 Patient Tolerance Good PT-OP-S Aquatic Treatment Start: 11/22/18 16:41 Freq: Status: Active Protocol: Document 02/20/19 11:45 LJ (Rec: 02/20/19 16:59 LJ [email or web address]) Aquatics Treatment Pool Entry/Exit Pool Entry/Exit Method Stairs Assistance Standby Assistance Comments step to gait Water Walking forward w/reverse breaststroke Water Level Chest Level Quick Reverses Water Level Chest Level Level of Assistance Standby Assistance,Verbal Cues Comments improved stability; all directions [place] March Water Level Chest Level Comments unable to attain full knee ext bilat Lunge Walk Water Level Waist Level Level of Assistance Standby Assistance,Verbal Cues Comments slowly requiring single leg balance Sideways Water Level Chest Level Comments 15 steps across pool Marching Water Level Chest Level Level of Assistance Standby Assistance,Verbal Cues Comments 15 steps across pool Backwards Water Level Chest Level Level of Assistance Verbal Cues Comments 17 steps across pool Forwards Water Level Chest Level Level of Assistance Standby Assistance,Verbal Cues Comments cues for recrip pattern Lower Extremity Exercises figure 8 knee leading Body Position Standing Water Level Chest Level Equipment Ankle Weight- 2.5# Comments verbal cues hoe downs Details UE support reinaldo Equipment Large Noodle Reps/Duration 10x Comments to strengthen hip ext HS curls Body Position Standing Water Level Chest Level Equipment Ankle Weight- 2.5# Reps/Duration 2x10 bilat Comments verbal and man cues for reducing hip flexion ab/ad Body Position Standing Water Level Waist Level Equipment green band Reps/Duration 2x10 bilat Comments handhold on wall, man cues for posture flex/ext Water Level Chest Level Equipment green band Reps/Duration 2x10 bilat Comments handhold on wall Lower Extremity Stretches right hip ER Details bracing on stairs Body Position Standing Water Level Waist Level Reps/Duration 1 min hold seated figure 4 Reps/Duration 2 x 45 sec bilat Comments at wall spiderman on wall Reps/Duration 1 min Comments pt in modified pose quads Equipment Small Noodle Reps/Duration 2 x 30 hip flexors Details at wall Water Level Chest Level Reps/Duration 2 x 30 HS, Body Position Standing Water Level Chest Level Equipment Large Noodle Reps/Duration 2 x 30 Upper Extremity Exercises stretch cord lat pull downs and rows Body Position Standing Water Level Neck Level Reps/Duration 2x10 ea Comments pt in squat position Spinal Exercises stretch cord spinal rotations Body Position Standing Water Level Chest Level Reps/Duration 15 bilat Comments improved posture Balance obstacle course with boxes Details weaving in and out of 3 boxes Water Level Waist Level Reps/Duration 3 min Comments 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 01/04/19: good goal progress STG Duration MET Shelter Goal (LTG) He will be able to walk up the hill in his neighborhood to walk his dog. LTG Duration MET Two Impairment Has no Home Exercise Program Short Term Goal (STG) Independent with stretching and strengthening program to do at home. 01/04/19: achieved but continue to modify and progress STG Duration 02/22/19 Revenue Manager Goal (LTG) Independent with pool exercise program 01/04/19: good goal progress, also continue to progress his aquatic exercise program LTG Duration 03/15/19 One Impairment pain 4/10 with activity Short Term Goal (STG) He will be able to walk with less than 2/10 pain. 01/04/19: some goal progress though reports pain can get as high as 6/10 STG Duration 02/22/19 Shelter Goal (LTG) He will be able to walk for at least 30 min without back pain. 02/01/19: limited to 10 min LTG Duration 03/15/19 Assessment Summary Assessment Pt improving with coordination and balance. Still challenged with getting knees straight with soldier march and CC ski. Posture and endurance has also improved Physical Therapy Plan Frequency and Duration Frequency of Treatment 2x/Week Duration of Treatment 6 weeks Plan of Care Start Date 02/01/19 Plan of Care End Date 03/15/19 Therapeutic Interventions Therapeutic Interventions Aquatic Therapy,Balance Training,Gait Training,Home Exercise Program,Manual Therapy,Neuromuscular Re- education,Patient/Caregiver Education,Self-Care/Home Management,Soft Tissue Mobilization,Therapeutic Activities,Therapeutic Exercises Modalities Cold Pack/Ice Massage,Electric Stimulation,Hot Packs, Ultrasound Next Visit Focus/Plan Next Note Type Treatment Note Next Visit Plan Increase intensity and strengthening as tolerated.
--- NOTE | 2019-02-22 10:11 | PT.OTN ---
Current Diagnoses Pain in left hip (02/22/19) Unspecified inflammatory spondylopathy, lumbar region (02/22/19) Spinal stenosis, lumbar region without neurogenic claudication (02/22/19) Other intervertebral disc degeneration, lumbosacral region (02/22/19) Low back pain (02/22/19) Abnormal posture (02/22/19) Physical Therapy Treatment Note PT-OP-A Visit Information Start: 11/22/18 16:41 Freq: Status: Active Protocol: Document 02/22/19 09:35 AMB (Rec: 02/22/19 09:56 AMB [id number]) Out-Patient Physical Therapy Visit Information Visit Information Visit Type Treatment Note Visit Note 09/26 Visit Start Time 09:00 Visit Stop Time 09:50 Total Visit Minutes 50 Visit Number 18 Number of REGISTERED NURSE NURSERY Visits 0 PT-OP-B Current Condition Start: 11/22/18 16:41 Freq: Status: Active Protocol: Document 11/22/18 15:30 DLM (Rec: 11/22/18 16:57 DLM [id number]) Current Condition History of Current Condition Onset Date 6 months ago Current Complaints low back pain and left lateral hip pain History of Current Condition He reports about 6 monts ago he developed more difficulty walking. He reports his back gets stiff and sore. He fell a few months ago when his foot caught on the steps at his Sisters house and he fell onto his left side. He is having left lateral hip pain that he is not sure if it is from his back or from the fall. Prior Treatments and Tests Pool therapy years ago that helped his back. 02/2018 Injection in his low back that did not help. Treatment Goals Patient/Caregiver Goals He wants to be able to walk without back pain. He wants to be able to walk up the hill in his neighborhood to walk his dog. He wants to have a pool exercise program he can continue on his own. Prior Functional Status Baseline Function- ADL's Independent Baseline Function- Mobility Independent Baseline Function- Gait Independent in community, [place] Baseline Function- Work/School retired Baseline Function- Recreation/Hobbies golf, yard work, walks dog, travels Current Functional Impairments (Reported) Functional Limitations- ADL's Independent, holds onto soap dish in shower when closes his eyes, back pain getting in/ out of car, back pain if he tries to sit for any length of time without back support Functional Limitations- Mobility/Gait Independent, slower pace, back pain limits his distances, too much pain to be able to walk up the hill in his neighborhood to walk his dog Functional Limitations- Work/School retired Functional Limitations- Recreation/ back pain and stiffness when Hobbies he tries to golf, can only bend over doing yard work for about 5 min due to back pain Personal Factors Other Personal Factors That May Effect new tremor in right hand Therapy/Recovery started about 6 months ago, pt reports physician is aware and they are monitoring it ( concern for Parkinsons disease ) PT-OP-C Subjective Start: 11/22/18 16:41 Freq: Status: Active Protocol: Document 02/22/19 09:35 AMB (Rec: 02/22/19 09:56 AMB [id number]) OP-PT Subjective Patient Comments Patient Comments Pt is feeling like he is continuing to do better. Does feel like back gets a bit stiff at times. 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 PT-OP-D Balance Start: 11/22/18 16:41 Freq: Status: Active Protocol: Document 11/22/18 15:30 DLM (Rec: 11/22/18 16:58 DLM [id number]) Balance Tests Davalos Balance Test Davalos Balance Test Score 45/56 Davalos Impairment Rating 1 to 19% Impaired (Score 45-55 ) Romberg Romberg increased sway with eyes closed but no loss of balance Single Limb Standing Single Limb- Right 3-5 sec Single Limb- Left 3 sec PT-OP-E Functional Tests Start: 11/22/18 16:41 Freq: Status: Active Protocol: Document 11/22/18 15:30 DLM (Rec: 11/22/18 17:00 DLM [id number]) Functional Tests 6 Minute Walk Test Distance 936.5 feet Device Used none Comments low back pain and stiffness PT-OP-G Mobility & Gait Start: 11/22/18 16:41 Freq: Status: Active Protocol: Document 11/22/18 15:30 DLM (Rec: 11/22/18 17:02 DLM [id number]) OP Mobility Evaluation Bed Mobility Rolling Independent, slow and difficult Supine to and from Sit Independent with mild difficulty Transfers Sit to Stand Independent Functional Movements Other Functional Movements increased left lateral hip pain with any rotational movements in standing OP Gait Assessment Gait Gait Assistance Required: Independent Assistive Devices Assistive Device None Gait Deviations General Gait Pattern Decreased Stride Length,Flexed Trunk Factors Limiting Gait Function Factors Limiting Gait Function Decreased Activity Tolerance, Pain PT-OP-H Neuro Start: 11/22/18 16:41 Freq: Status: Active Protocol: Document 11/22/18 15:30 DLM (Rec: 11/22/18 17:23 DLM [id number]) Sensation Evaluation Comments Summary Comments hx of neuropathy in feet, mild tremor noted in right hand PT-OP-J Posture/Palpation/Skin Start: 11/22/18 16:41 Freq: Status: Active Protocol: Document 11/22/18 15:30 DLM (Rec: 11/22/18 17:19 DLM [id number]) Posture Evaluation Position Standing Evaluation View Posterior Head/C-Spine Posture Forward Head L-Spine Posture Flexed Shoulder Posture (L) Rounded,(R) Rounded Comments Posture Comments protruding abdomen in standing Palpation Assessment Location Two Palpation Location left lateral hip Palpation Findings Tenderness Palpation Details bursa tenderness One Palpation Location lumbar paraspinals Palpation Findings Soft Tissue Tightness, Tenderness PT-OP-K Range of Motion Start: 11/22/18 16:41 Freq: Status: Active Protocol: Document 11/22/18 15:30 DLM (Rec: 11/22/18 17:19 DLM [id number]) Lumbar Spine Range of Motion Lumbar Spine Active Percentage Testing Position Standing Flexion 50 Extension 5 Rotation Left 30 Rotation Right 50 Lateral Flexion Left 25 Lateral Flexion Right 25 ROM Limitations Soft Tissue Tightness,Pain Comments back pain with flexion and right lateral flexion, left hip pain with rotation Shoulder Goniometric Range of Motion Shoulder bilateral Shoulder ROM WFL Yes Testing Position Sitting Shoulder ROM Limitations Comments hx right shoulder total arthroplasty with pt reporting good recovery PT-OP-L Special Tests Start: 11/22/18 16:41 Freq: Status: Active Protocol: Document 11/22/18 15:30 DLM (Rec: 11/22/18 17:19 DLM [id number]) Special Tests Lumbar Spine Special Tests Straight Leg Raise Test Results no back pain Comments hamstring tightness at 60b degrees bilaterally Slump Test Results back pain PT-OP-M Strength Start: 11/22/18 16:41 Freq: Status: Active Protocol: Document 11/22/18 15:30 DLM (Rec: 11/22/18 17:19 DLM [id number]) Trunk Strength Trunk Manual Muscle Testing Core Stabilization 3+/5 Reason Not Measured Pain Comments bilateral hip flexor tightness interferes with his ability to stand erect Hip Strength Hip Manual Muscle Testing Right Flexion (L2) 4 Good Extension (S1) 3+ Fair+ Abduction 4 Good Adduction 5 Normal Comments left hip pain with resisted right hip abduction in sidelying, hip extension tested in prone Left Flexion (L2) 4+ Good+ Extension (S1) 3+ Fair+ Abduction 5 Normal Adduction 5 Normal Comments pain with resisted left hip flexion, hip extension tested in prone Knee Strength Knee Manual Muscle Testing bilateral Flexion (S2) 5 Normal Extension (L3) 5 Normal Ankle/Foot Strength Ankle and Foot Manual Muscle Testing Bilateral Dorsiflexion (L4) 5 Normal PT-OP-Q Treatments Start: 11/22/18 16:41 Freq: Status: Active Protocol: Document 02/22/19 09:58 AMB (Rec: 02/22/19 10:10 AMB [id number]) Therapeutic Exercises Supine Exercises 4 Supine Exercise Name lower trunk rotation Reps/Minutes 2x10 Sidelying Exercises 1 Sidelying Exercise Name hip abduction Reps/Minutes 2x10 Comments vc form Sitting Exercises 2 Sitting Exercise Name pelvic circles Equipment Used 65cm ball seated ankle reach Sitting Exercise Name lumbar flexion Side bilateral Reps/Minutes 10 x2 Comments with coming up into arms overhead and then pec stretch 1 Sitting Exercise Name august with alt UE flex Equipment Used 65cm ball Comments 3 min Standing Exercises 3 Standing Exercise Name forward and lateral mini lunge Reps/Minutes 15 ea 2 Standing Exercise Name stride stance weightshift Reps/Minutes 10 ea Comments with alternating arm swing 1 Standing Exercise Name hamstring stretch Reps/Minutes 30x4 Comments at stair HC stretch Standing Exercise Name on MAYE Reps/Minutes 1 min PT-OP-R Modalities Start: 11/22/18 16:41 Freq: Status: Active Protocol: Document 02/01/19 13:45 AMB (Rec: 02/01/19 15:36 AMB [id number]) Hot Pack/Cold Pack Treatment Hot Pack Location lumbar Patient Position Hooklying Treatment Duration (minutes) 10 Patient Tolerance Good PT-OP-S Aquatic Treatment Start: 11/22/18 16:41 Freq: Status: Active Protocol: Document 02/20/19 11:45 LJ (Rec: 02/20/19 16:59 LJ [id number]) Aquatics Treatment Pool Entry/Exit Pool Entry/Exit Method Stairs Assistance Standby Assistance Comments step to gait Water Walking forward w/reverse breaststroke Water Level Chest Level Quick Reverses Water Level Chest Level Level of Assistance Standby Assistance,Verbal Cues Comments improved stability; all directions Chaplin March Water Level Chest Level Comments unable to attain full knee ext bilat Lunge Walk Water Level Waist Level Level of Assistance Standby Assistance,Verbal Cues Comments slowly requiring single leg balance Sideways Water Level Chest Level Comments 15 steps across pool Marching Water Level Chest Level Level of Assistance Standby Assistance,Verbal Cues Comments 15 steps across pool Backwards Water Level Chest Level Level of Assistance Verbal Cues Comments 17 steps across pool Forwards Water Level Chest Level Level of Assistance Standby Assistance,Verbal Cues Comments cues for recrip pattern Lower Extremity Exercises figure 8 knee leading Body Position Standing Water Level Chest Level Equipment Ankle Weight- 2.5# Comments verbal cues hoe downs Details UE support reinaldo Equipment Large Noodle Reps/Duration 10x Comments to strengthen hip ext HS curls Body Position Standing Water Level Chest Level Equipment Ankle Weight- 2.5# Reps/Duration 2x10 bilat Comments verbal and man cues for reducing hip flexion ab/ad Body Position Standing Water Level Waist Level Equipment green band Reps/Duration 2x10 bilat Comments handhold on wall, man cues for posture flex/ext Water Level Chest Level Equipment green band Reps/Duration 2x10 bilat Comments handhold on wall Lower Extremity Stretches right hip ER Details bracing on stairs Body Position Standing Water Level Waist Level Reps/Duration 1 min hold seated figure 4 Reps/Duration 2 x 45 sec bilat Comments at wall spiderman on wall Reps/Duration 1 min Comments pt in modified pose quads Equipment Small Noodle Reps/Duration 2 x 30 hip flexors Details at wall Water Level Chest Level Reps/Duration 2 x 30 HS, Body Position Standing Water Level Chest Level Equipment Large Noodle Reps/Duration 2 x 30 Upper Extremity Exercises stretch cord lat pull downs and rows Body Position Standing Water Level Neck Level Reps/Duration 2x10 ea Comments pt in squat position Spinal Exercises stretch cord spinal rotations Body Position Standing Water Level Chest Level Reps/Duration 15 bilat Comments improved posture Balance obstacle course with boxes Details weaving in and out of 3 boxes Water Level Waist Level Reps/Duration 3 min Comments Therapist making waves for resistance [place] Activities [place] Activities Bicycle,Cross [place] Other Activities quick activity change emphasizing alternating planes of motion Equipment blue float Duration 10 min PT-OP-T Assessment and Plan Start: 11/22/18 16:41 Freq: Status: Active Protocol: Document 02/22/19 09:58 AMB (Rec: 02/22/19 10:10 AMB [email or web address]) Physical Therapy Assessment Assessment Summary Assessment Pt with difficulty with single leg stance today due to toe pain, but otherwise doing well , challenged by higher level coordination exercises and continues to be stiff in hips/ back. Physical Therapy Plan Next Visit Focus/Plan Next Note Type Treatment Note Next Visit Plan Increase intensity and strengthening as tolerated.
--- NOTE | 2019-02-25 15:06 | PT.OTN ---
Current Diagnoses Pain in left hip (02/25/19) Unspecified inflammatory spondylopathy, lumbar region (02/25/19) Spinal stenosis, lumbar region without neurogenic claudication (02/25/19) Other intervertebral disc degeneration, lumbosacral region (02/25/19) Low back pain (02/25/19) Abnormal posture (02/25/19) Physical Therapy Treatment Note PT-OP-A Visit Information Start: 11/22/18 16:41 Freq: Status: Active Protocol: Document 02/25/19 11:00 LJ (Rec: 02/25/19 15:06 LJ [id number]) Out-Patient Physical Therapy Visit Information Visit Information Visit Type Aquatic Treatment Note Visit Start Time 11:00 Visit Stop Time 11:45 Total Visit Minutes 45 Visit Number 19 Number of CUSTOMER TECHNICAL SERVICES MANAGER Visits 1 PT-OP-B Current Condition Start: 11/22/18 16:41 Freq: Status: Active Protocol: Document 11/22/18 15:30 DLM (Rec: 11/22/18 16:57 DLM [id number]) Current Condition History of Current Condition Onset Date 6 months ago Current Complaints low back pain and left lateral hip pain History of Current Condition He reports about 6 monts ago he developed more difficulty walking. He reports his back gets stiff and sore. He fell a few months ago when his foot caught on the steps at his Sisters house and he fell onto his left side. He is having left lateral hip pain that he is not sure if it is from his back or from the fall. Prior Treatments and Tests Pool therapy years ago that helped his back. 02/2018 Injection in his low back that did not help. Treatment Goals Patient/Caregiver Goals He wants to be able to walk without back pain. He wants to be able to walk up the hill in his neighborhood to walk his dog. He wants to have a pool exercise program he can continue on his own. Prior Functional Status Baseline Function- ADL's Independent Baseline Function- Mobility Independent Baseline Function- Gait Independent in community, [place] Baseline Function- Work/School retired Baseline Function- Recreation/Hobbies golf, yard work, walks dog, travels Current Functional Impairments (Reported) Functional Limitations- ADL's Independent, holds onto soap dish in shower when closes his eyes, back pain getting in/ out of car, back pain if he tries to sit for any length of time without back support Functional Limitations- Mobility/Gait Independent, slower pace, back pain limits his distances, too much pain to be able to walk up the hill in his neighborhood to walk his dog Functional Limitations- Work/School retired Functional Limitations- Recreation/ back pain and stiffness when Hobbies he tries to golf, can only bend over doing yard work for about 5 min due to back pain Personal Factors Other Personal Factors That May Effect new tremor in right hand Therapy/Recovery started about 6 months ago, pt reports physician is aware and they are monitoring it ( concern for Parkinsons disease ) PT-OP-C Subjective Start: 11/22/18 16:41 Freq: Status: Active Protocol: Document 02/25/19 11:00 LJ (Rec: 02/25/19 15:06 LJ [id number]) OP-PT Subjective Patient Comments Patient Comments Pt says he feels much stronger than he did a few weeks ago. He and his are planning to get memberships at the pool and he will continue aquatic exercise on his own. PT-OP-D Balance Start: 11/22/18 16:41 Freq: Status: Active Protocol: Document 11/22/18 15:30 DLM (Rec: 11/22/18 16:58 DLM [id number]) Balance Tests Davalos Balance Test Davalos Balance Test Score 45/56 Davalos Impairment Rating 1 to 19% Impaired (Score 45-55 ) Romberg Romberg increased sway with eyes closed but no loss of balance Single Limb Standing Single Limb- Right 3-5 sec Single Limb- Left 3 sec PT-OP-E Functional Tests Start: 11/22/18 16:41 Freq: Status: Active Protocol: Document 11/22/18 15:30 DLM (Rec: 11/22/18 17:00 DLM [id number]) Functional Tests 6 Minute Walk Test Distance 936.5 feet Device Used none Comments low back pain and stiffness PT-OP-G Mobility & Gait Start: 11/22/18 16:41 Freq: Status: Active Protocol: Document 11/22/18 15:30 DLM (Rec: 11/22/18 17:02 DLM [id number]) OP Mobility Evaluation Bed Mobility Rolling Independent, slow and difficult Supine to and from Sit Independent with mild difficulty Transfers Sit to Stand Independent Functional Movements Other Functional Movements increased left lateral hip pain with any rotational movements in standing OP Gait Assessment Gait Gait Assistance Required: Independent Assistive Devices Assistive Device None Gait Deviations General Gait Pattern Decreased Stride Length,Flexed Trunk Factors Limiting Gait Function Factors Limiting Gait Function Decreased Activity Tolerance, Pain PT-OP-H Neuro Start: 11/22/18 16:41 Freq: Status: Active Protocol: Document 11/22/18 15:30 DLM (Rec: 11/22/18 17:23 DLM [id number]) Sensation Evaluation Comments Summary Comments hx of neuropathy in feet, mild tremor noted in right hand PT-OP-J Posture/Palpation/Skin Start: 11/22/18 16:41 Freq: Status: Active Protocol: Document 11/22/18 15:30 DLM (Rec: 11/22/18 17:19 DLM [id number]) Posture Evaluation Position Standing Evaluation View Posterior Head/C-Spine Posture Forward Head L-Spine Posture Flexed Shoulder Posture (L) Rounded,(R) Rounded Comments Posture Comments protruding abdomen in standing Palpation Assessment Location Two Palpation Location left lateral hip Palpation Findings Tenderness Palpation Details bursa tenderness One Palpation Location lumbar paraspinals Palpation Findings Soft Tissue Tightness, Tenderness PT-OP-K Range of Motion Start: 11/22/18 16:41 Freq: Status: Active Protocol: Document 11/22/18 15:30 DLM (Rec: 11/22/18 17:19 DL [id number]) Lumbar Spine Range of Motion Lumbar Spine Active Percentage Testing Position Standing Flexion 50 Extension 5 Rotation Left 30 Rotation Right 50 Lateral Flexion Left 25 Lateral Flexion Right 25 ROM Limitations Soft Tissue Tightness,Pain Comments back pain with flexion and right lateral flexion, left hip pain with rotation Shoulder Goniometric Range of Motion Shoulder bilateral Shoulder ROM WFL Yes Testing Position Sitting Shoulder ROM Limitations Comments hx right shoulder total arthroplasty with pt reporting good recovery PT-OP-L Special Tests Start: 11/22/18 16:41 Freq: Status: Active Protocol: Document 11/22/18 15:30 DLM (Rec: 11/22/18 17:19 DLM [id number]) Special Tests Lumbar Spine Special Tests Straight Leg Raise Test Results no back pain Comments hamstring tightness at 60b degrees bilaterally Slump Test Results back pain PT-OP-M Strength Start: 11/22/18 16:41 Freq: Status: Active Protocol: Document 11/22/18 15:30 DLM (Rec: 11/22/18 17:19 DLM [id number]) Trunk Strength Trunk Manual Muscle Testing Core Stabilization 3+/5 Reason Not Measured Pain Comments bilateral hip flexor tightness interferes with his ability to stand erect Hip Strength Hip Manual Muscle Testing Right Flexion (L2) 4 Good Extension (S1) 3+ Fair+ Abduction 4 Good Adduction 5 Normal Comments left hip pain with resisted right hip abduction in sidelying, hip extension tested in prone Left Flexion (L2) 4+ Good+ Extension (S1) 3+ Fair+ Abduction 5 Normal Adduction 5 Normal Comments pain with resisted left hip flexion, hip extension tested in prone Knee Strength Knee Manual Muscle Testing bilateral Flexion (S2) 5 Normal Extension (L3) 5 Normal Ankle/Foot Strength Ankle and Foot Manual Muscle Testing Bilateral Dorsiflexion (L4) 5 Normal PT-OP-Q Treatments Start: 11/22/18 16:41 Freq: Status: Active Protocol: Document 02/22/19 09:58 AMB (Rec: 02/22/19 10:10 AMB [id number]) Therapeutic Exercises Supine Exercises 4 Supine Exercise Name lower trunk rotation Reps/Minutes 2x10 Sidelying Exercises 1 Sidelying Exercise Name hip abduction Reps/Minutes 2x10 Comments vc form Sitting Exercises 2 Sitting Exercise Name pelvic circles Equipment Used 65cm ball seated ankle reach Sitting Exercise Name lumbar flexion Side bilateral Reps/Minutes 10 x2 Comments with coming up into arms overhead and then pec stretch 1 Sitting Exercise Name august with alt UE flex Equipment Used 65cm ball Comments 3 min Standing Exercises 3 Standing Exercise Name forward and lateral mini lunge Reps/Minutes 15 ea 2 Standing Exercise Name stride stance weightshift Reps/Minutes 10 ea Comments with alternating arm swing 1 Standing Exercise Name hamstring stretch Reps/Minutes 30x4 Comments at stair HC stretch Standing Exercise Name on MAYE Reps/Minutes 1 min PT-OP-R Modalities Start: 11/22/18 16:41 Freq: Status: Active Protocol: Document 02/01/19 13:45 AMB (Rec: 02/01/19 15:36 AMB [id number]) Hot Pack/Cold Pack Treatment Hot Pack Location lumbar Patient Position Hooklying Treatment Duration (minutes) 10 Patient Tolerance Good PT-OP-S Aquatic Treatment Start: 11/22/18 16:41 Freq: Status: Active Protocol: Document 02/25/19 11:00 JOHNIE (Rec: 02/25/19 15:06 JOHNIE [id number]) Aquatics Treatment Pool Entry/Exit Pool Entry/Exit Method Stairs Assistance Independent Water Walking forward w/reverse breaststroke Water Level Chest Level Quick Reverses Water Level Chest Level Level of Assistance Standby Assistance,Verbal Cues Comments improved stability; all directions [place] March Water Level Chest Level Comments unable to attain full knee ext bilat Lunge Walk Water Level Waist Level Level of Assistance Standby Assistance,Verbal Cues Comments slowly requiring single leg balance Sideways Water Level Chest Level Comments 15 steps across pool Marching Water Level Chest Level Level of Assistance Standby Assistance,Verbal Cues Comments 15 steps across pool Backwards Water Level Chest Level Level of Assistance Verbal Cues Comments 20 steps across pool Forwards Water Level Chest Level Level of Assistance Standby Assistance,Verbal Cues Comments cues for recrip pattern Lower Extremity Exercises hoe downs Details UE support reinaldo Equipment Large Noodle Reps/Duration 10x Comments to strengthen hip ext diag hip extension Body Position Standing Water Level Waist Level Equipment Ankle Weight- 5.0# Reps/Duration 2x10 bilat HS curls Body Position Standing Water Level Chest Level Equipment Ankle Weight- 5.0# Reps/Duration 2x10 bilat Comments verbal and man cues for reducing hip flexion ab/ad Body Position Standing Water Level Waist Level Equipment Ankle Weight- 5.0# Reps/Duration 2x10 bilat flex/ext Water Level Chest Level Equipment Ankle Weight- 5.0# Reps/Duration 2x10 bilat Lower Extremity Stretches seated figure 4 Reps/Duration 2 x 45 sec bilat Comments at wall quads Equipment Small Noodle Reps/Duration 2 x 45 hip flexors Details at wall Water Level Chest Level Reps/Duration 2 x 45 HS, Body Position Standing Water Level Chest Level Equipment Large Noodle Reps/Duration 2 x 45 Upper Extremity Exercises stretch cord lat pull downs and rows Body Position Standing Water Level Neck Level Reps/Duration 2x10 ea Comments pt in squat position Spinal Exercises stretch cord spinal rotations Body Position Standing Water Level Chest Level Reps/Duration 15 bilat Comments improved posture Balance obstacle course with boxes Details weaving in and out of 3 boxes Water Level Waist Level Reps/Duration 3 min Comments Therapist making waves for resistance step ups on boxes Details all directions Water Level Chest Level Reps/Duration x3 each direction Comments shallowest water PT-OP-T Assessment and Plan Start: 11/22/18 16:41 Freq: Status: Active Protocol: Document 02/25/19 11:00 JOHNIE (Rec: 02/25/19 15:06 JOHNIE [id number]) Physical Therapy Assessment Goals Three Impairment Limited activity Short Term Goal (STG) He will be able to bend over to the ground without increased back pain. 01/04/19: good goal progress STG Duration MET Egg Separator Goal (LTG) He will be able to walk up the hill in his neighborhood to walk his dog. LTG Duration MET Two Impairment Has no Home Exercise Program Short Term Goal (STG) Independent with stretching and strengthening program to do at home. 01/04/19: achieved but continue to modify and progress STG Duration 02/22/19 Egg Separator Goal (LTG) Independent with pool exercise program 01/04/19: good goal progress, also continue to progress his aquatic exercise program LTG Duration 03/15/19 One Impairment pain 4/10 with activity Short Term Goal (STG) He will be able to walk with less than 2/10 pain. 01/04/19: some goal progress though reports pain can get as high as 6/10 STG Duration 02/22/19 Egg Separator Goal (LTG) He will be able to walk for at least 30 min without back pain. 02/01/19: limited to 10 min LTG Duration 03/15/19 Assessment Summary Assessment Pt did very well with all exercises. Step ups on boxes much improved with pt demonstrating erect posture and balance on top of step for 3 seconds before moving on. He still has difficulty with keeping his knees extended with hip extension exercises and deep water ski. Improving with monster steps across the pool. Physical Therapy Plan Frequency and Duration Frequency of Treatment 2x/Week Duration of Treatment 6 weeks Plan of Care Start Date 02/01/19 Plan of Care End Date 03/15/19 Therapeutic Interventions Therapeutic Interventions Aquatic Therapy,Balance Training,Gait Training,Home Exercise Program,Manual Therapy,Neuromuscular Re- education,Patient/Caregiver Education,Self-Care/Home Management,Soft Tissue Mobilization,Therapeutic Activities,Therapeutic Exercises Modalities Cold Pack/Ice Massage,Electric Stimulation,Hot Packs, Ultrasound Next Visit Focus/Plan Next Note Type Treatment Note Next Visit Plan Give pt HEP handouts next session which is his last session in the pool.
--- NOTE | 2019-02-27 14:30 | PT.OTRE ---
Current Diagnoses Pain in left hip (03/18/19) Unspecified inflammatory spondylopathy, lumbar region (03/18/19) Spinal stenosis, lumbar region without neurogenic claudication (03/18/19) Other intervertebral disc degeneration, lumbosacral region (03/18/19) Low back pain (03/18/19) Abnormal posture (03/18/19) Past Medical History (Last Reviewed 03/12/19 @ 13:12 by Hector Oviedo MD) Atrial fibrillation, currently in sinus rhythm (Chronic ~08/2016) Central sleep apnea (Chronic Unknown) Obstructive sleep apnea of adult (Chronic ~2011) Snoring (Chronic ~2011) Surgical History (Last Reviewed 03/12/19 @ 13:12 by Hector Oviedo MD) History of arthroplasty of right shoulder (Acute) History of total hip arthroplasty (Acute) Visit Care Team Role Provider Type Genet Severino MD Attending Provider Physician Primary Care Provider Specialty: [facility] Address: [address] [place] [address], [facility] Email: [email or web address] Re-Evaluation PT-OP-A Visit Information Start: 11/22/18 16:41 Freq: Status: Active Protocol: Document 02/27/19 14:30 SAK (Rec: 03/18/19 16:32 SAK [id number]) Out-Patient Physical Therapy Visit Information Visit Information Visit Type Re-Evaluation PT-OP-B Current Condition Start: 11/22/18 16:41 Freq: Status: Active Protocol: Document 11/22/18 15:30 DLM (Rec: 11/22/18 16:57 DLM [id number]) Current Condition History of Current Condition Onset Date 6 months ago Current Complaints low back pain and left lateral hip pain History of Current Condition He reports about 6 monts ago he developed more difficulty walking. He reports his back gets stiff and sore. He fell a few months ago when his foot caught on the steps at his Sisters house and he fell onto his left side. He is having left lateral hip pain that he is not sure if it is from his back or from the fall. Prior Treatments and Tests Pool therapy years ago that helped his back. 02/2018 Injection in his low back that did not help. Treatment Goals Patient/Caregiver Goals He wants to be able to walk without back pain. He wants to be able to walk up the hill in his neighborhood to walk his dog. He wants to have a pool exercise program he can continue on his own. Prior Functional Status Baseline Function- ADL's Independent Baseline Function- Mobility Independent Baseline Function- Gait Independent in community, [place] Baseline Function- Work/School retired Baseline Function- Recreation/Hobbies golf, yard work, walks dog, travels Current Functional Impairments (Reported) Functional Limitations- ADL's Independent, holds onto soap dish in shower when closes his eyes, back pain getting in/ out of car, back pain if he tries to sit for any length of time without back support Functional Limitations- Mobility/Gait Independent, slower pace, back pain limits his distances, too much pain to be able to walk up the hill in his neighborhood to walk his dog Functional Limitations- Work/School retired Functional Limitations- Recreation/ back pain and stiffness when Hobbies he tries to golf, can only bend over doing yard work for about 5 min due to back pain Personal Factors Other Personal Factors That May Effect new tremor in right hand Therapy/Recovery started about 6 months ago, pt reports physician is aware and they are monitoring it ( concern for Parkinsons disease ) PT-OP-C Subjective Start: 11/22/18 16:41 Freq: Status: Active Protocol: Document 02/27/19 14:30 LJ (Rec: 02/27/19 16:23 LJ [id number]) OP-PT Subjective Patient Comments Patient Comments Pt is encouraged by his progrwess and plans on continuing exercises at home and at the pool/gym. He was given aquatic HEP today PT-OP-D Balance Start: 11/22/18 16:41 Freq: Status: Active Protocol: Document 11/22/18 15:30 DLM (Rec: 11/22/18 16:58 DLM [id number]) Balance Tests Davalos Balance Test Davalos Balance Test Score 45/56 Davalos Impairment Rating 1 to 19% Impaired (Score 45-55 ) Romberg Romberg increased sway with eyes closed but no loss of balance Single Limb Standing Single Limb- Right 3-5 sec Single Limb- Left 3 sec PT-OP-E Functional Tests Start: 11/22/18 16:41 Freq: Status: Active Protocol: Document 11/22/18 15:30 DLM (Rec: 11/22/18 17:00 DLM [id number]) Functional Tests 6 Minute Walk Test Distance 936.5 feet Device Used none Comments low back pain and stiffness PT-OP-G Mobility & Gait Start: 11/22/18 16:41 Freq: Status: Active Protocol: Document 11/22/18 15:30 DLM (Rec: 11/22/18 17:02 DLM [id number]) OP Mobility Evaluation Bed Mobility Rolling Independent, slow and difficult Supine to and from Sit Independent with mild difficulty Transfers Sit to Stand Independent Functional Movements Other Functional Movements increased left lateral hip pain with any rotational movements in standing OP Gait Assessment Gait Gait Assistance Required: Independent Assistive Devices Assistive Device None Gait Deviations General Gait Pattern Decreased Stride Length,Flexed Trunk Factors Limiting Gait Function Factors Limiting Gait Function Decreased Activity Tolerance, Pain PT-OP-H Neuro Start: 11/22/18 16:41 Freq: Status: Active Protocol: Document 11/22/18 15:30 DLM (Rec: 11/22/18 17:23 DLM [id number]) Sensation Evaluation Comments Summary Comments hx of neuropathy in feet, mild tremor noted in right hand PT-OP-J Posture/Palpation/Skin Start: 11/22/18 16:41 Freq: Status: Active Protocol: Document 11/22/18 15:30 DLM (Rec: 11/22/18 17:19 DLM [id number]) Posture Evaluation Position Standing Evaluation View Posterior Head/C-Spine Posture Forward Head L-Spine Posture Flexed Shoulder Posture (L) Rounded,(R) Rounded Comments Posture Comments protruding abdomen in standing Palpation Assessment Location Two Palpation Location left lateral hip Palpation Findings Tenderness Palpation Details bursa tenderness One Palpation Location lumbar paraspinals Palpation Findings Soft Tissue Tightness, Tenderness PT-OP-K Range of Motion Start: 11/22/18 16:41 Freq: Status: Active Protocol: Document 11/22/18 15:30 DLM (Rec: 11/22/18 17:19 DLM [id number]) Lumbar Spine Range of Motion Lumbar Spine Active Percentage Testing Position Standing Flexion 50 Extension 5 Rotation Left 30 Rotation Right 50 Lateral Flexion Left 25 Lateral Flexion Right 25 ROM Limitations Soft Tissue Tightness,Pain Comments back pain with flexion and right lateral flexion, left hip pain with rotation Shoulder Goniometric Range of Motion Shoulder Measured in Degrees bilateral Shoulder ROM WFL Yes Testing Position Sitting Shoulder ROM Limitations Comments hx right shoulder total arthroplasty with pt reporting good recovery PT-OP-L Special Tests Start: 11/22/18 16:41 Freq: Status: Active Protocol: Document 11/22/18 15:30 DLM (Rec: 11/22/18 17:19 DLM [id number]) Special Tests Lumbar Spine Special Tests Straight Leg Raise Test Results no back pain Comments hamstring tightness at 60b degrees bilaterally Slump Test Results back pain PT-OP-M Strength Start: 11/22/18 16:41 Freq: Status: Active Protocol: Document 11/22/18 15:30 DLM (Rec: 11/22/18 17:19 DLM [id number]) Trunk Strength Trunk Manual Muscle Testing Core Stabilization 3+/5 Reason Not Measured Pain Comments bilateral hip flexor tightness interferes with his ability to stand erect Hip Strength Hip Manual Muscle Testing Right Flexion (L2) 4 Good Extension (S1) 3+ Fair+ Abduction 4 Good Adduction 5 Normal Comments left hip pain with resisted right hip abduction in sidelying, hip extension tested in prone Left Flexion (L2) 4+ Good+ Extension (S1) 3+ Fair+ Abduction 5 Normal Adduction 5 Normal Comments pain with resisted left hip flexion, hip extension tested in prone Knee Strength Knee Manual Muscle Testing bilateral Flexion (S2) 5 Normal Extension (L3) 5 Normal Ankle/Foot Strength Ankle and Foot Manual Muscle Testing Bilateral Dorsiflexion (L4) 5 Normal PT-OP-Q Treatments Start: 11/22/18 16:41 Freq: Status: Active Protocol: Document 02/27/19 14:30 LJ (Rec: 02/27/19 16:23 LJ [email or web address]) Cardio Equipment Recumbent Bicycle Duration (Minutes) 8 Resistance 3 Therapeutic Exercises Supine Exercises 4 Supine Exercise Name lower trunk rotation Reps/Minutes 2x10 2 Supine Exercise Name bridges Reps/Minutes 2x10 Comments on table 1 Supine Exercise Name Marching with PPT Side bilateral Reps/Minutes 15 x 3 reps Comments with TrA HS stretch Side bilateral Equipment Used with towel Reps/Minutes 3x30 sec piriformis stretch Side bilateral Reps/Minutes 3x30 sec Sidelying Exercises 1 Sidelying Exercise Name hip abduction Reps/Minutes 2x10 Comments vc form Clamshells Side bilateral Equipment Used 2 # Reps/Minutes 20 x each Sitting Exercises 2 Sitting Exercise Name pelvic circles Equipment Used 65cm ball squat Side right Reps/Minutes 8 x2 Comments facilitate push off through R LE seated unilateral ankle reach Sitting Exercise Name lumbar flexion, SB and rotation Side bilateral Reps/Minutes 10 x2 Comments 65 cm ball seated ankle reach Sitting Exercise Name lumbar flexion Side bilateral Reps/Minutes 10 x2 Comments with coming up into arms overhead and then pec stretch 1 Sitting Exercise Name march with alt UE flex Equipment Used 65cm ball Comments 3 min HS stretch Side bilateral Equipment Used foot on stool Reps/Minutes 3x60 sec Standing Exercises opposing arm opposite leg extension facing wall Reps/Minutes 15x Comments pt with difficulty coordinating opposite R/L 3 Standing Exercise Name forward and lateral mini lunge Reps/Minutes 15 ea Comments band on RLE for alignment 2 Standing Exercise Name stride stance weightshift Reps/Minutes 10 ea Comments with alternating arm swing PT-OP-R Modalities Start: 11/22/18 16:41 Freq: Status: Active Protocol: Document 02/01/19 13:45 AMB (Rec: 02/01/19 15:36 AMB [id number]) Hot Pack/Cold Pack Treatment Hot Pack Location lumbar Patient Position Hooklying Treatment Duration (minutes) 10 Patient Tolerance Good PT-OP-T Assessment and Plan Start: 11/22/18 16:41 Freq: Status: Active Protocol: Document 02/27/19 14:30 SAK (Rec: 03/18/19 16:32 SAK [id number]) Physical Therapy Assessment Goals Three Impairment Limited activity Short Term Goal (STG) He will be able to bend over to the ground without increased back pain. 01/04/19: good goal progress STG Duration MET Intermediate Goal (LTG) He will be able to walk up the hill in his neighborhood to walk his dog. LTG Duration MET Two Impairment Has no Home Exercise Program Short Term Goal (STG) Independent with stretching and strengthening program to do at home. 01/04/19: achieved but continue to modify and progress 02/27/19 good goal progress. Intermediate Goal (LTG) Independent with pool exercise program 01/04/19: good goal progress, also continue to progress his aquatic exercise program 02/27/19: continue to progress land and aquatic exercise program. LTG Duration 03/20/19 One Impairment pain /10 with activity Short Term Goal (STG) He will be able to walk with less than 2/10 pain. 01/04/19: some goal progress though reports pain can get as high as 6/10 STG Duration MET Intermediate Goal (LTG) He will be able to walk for at least 30 min without back pain. 02/01/19: limited to 10 min 03/20/19 LTG Duration 03/20/19 Assessment Summary Assessment Patient continues to make good progress toward goals. He is highly motivated. Would benefit from further PT to assure safety and independence with HEP and aquatic exercise program. Physical Therapy Plan Frequency and Duration Frequency of Treatment 2 visits Duration of Treatment 3 wks Plan of Care Start Date 02/27/19 Plan of Care End Date 03/20/19 Therapeutic Interventions Therapeutic Interventions Aquatic Therapy,Balance Training,Gait Training,Home Exercise Program,Manual Therapy,Neuromuscular Re- education,Patient/Caregiver Education,Self-Care/Home Management,Soft Tissue Mobilization,Therapeutic Activities,Therapeutic Exercises Modalities Cold Pack/Ice Massage,Electric Stimulation,Hot Packs, Ultrasound Next Visit Focus/Plan Next Note Type Treatment Note Next Visit Plan Review aquatic exercise program and HEP, transition to independence and PT discharge within next month; anticipate 1 further aquatic PT appointment and 1 more PT appointment in clinic.
--- NOTE | 2019-02-27 16:23 | PT.OTN ---
Current Diagnoses Pain in left hip (02/27/19) Unspecified inflammatory spondylopathy, lumbar region (02/27/19) Spinal stenosis, lumbar region without neurogenic claudication (02/27/19) Other intervertebral disc degeneration, lumbosacral region (02/27/19) Low back pain (02/27/19) Abnormal posture (02/27/19) Physical Therapy Treatment Note PT-OP-A Visit Information Start: 11/22/18 16:41 Freq: Status: Active Protocol: Document 02/27/19 14:30 LJ (Rec: 02/27/19 16:23 LJ [id number]) Out-Patient Physical Therapy Visit Information Visit Information Visit Type Treatment Note Visit Start Time 14:30 Visit Stop Time 15:15 Total Visit Minutes 45 Visit Number 20 Number of ENGINEHOUSE BRAKEMAN Visits 2 PT-OP-B Current Condition Start: 11/22/18 16:41 Freq: Status: Active Protocol: Document 11/22/18 15:30 DLM (Rec: 11/22/18 16:57 DLM [id number]) Current Condition History of Current Condition Onset Date 6 months ago Current Complaints low back pain and left lateral hip pain History of Current Condition He reports about 6 monts ago he developed more difficulty walking. He reports his back gets stiff and sore. He fell a few months ago when his foot caught on the steps at his Sisters house and he fell onto his left side. He is having left lateral hip pain that he is not sure if it is from his back or from the fall. Prior Treatments and Tests Pool therapy years ago that helped his back. 02/2018 Injection in his low back that did not help. Treatment Goals Patient/Caregiver Goals He wants to be able to walk without back pain. He wants to be able to walk up the hill in his neighborhood to walk his dog. He wants to have a pool exercise program he can continue on his own. Prior Functional Status Baseline Function- ADL's Independent Baseline Function- Mobility Independent Baseline Function- Gait Independent in community, [place] Baseline Function- Work/School retired Baseline Function- Recreation/Hobbies golf, yard work, walks dog, travels Current Functional Impairments (Reported) Functional Limitations- ADL's Independent, holds onto soap dish in shower when closes his eyes, back pain getting in/ out of car, back pain if he tries to sit for any length of time without back support Functional Limitations- Mobility/Gait Independent, slower pace, back pain limits his distances, too much pain to be able to walk up the hill in his neighborhood to walk his dog Functional Limitations- Work/School retired Functional Limitations- Recreation/ back pain and stiffness when Hobbies he tries to golf, can only bend over doing yard work for about 5 min due to back pain Personal Factors Other Personal Factors That May Effect new tremor in right hand Therapy/Recovery started about 6 months ago, pt reports physician is aware and they are monitoring it ( concern for Parkinsons disease ) PT-OP-C Subjective Start: 11/22/18 16:41 Freq: Status: Active Protocol: Document 02/27/19 14:30 LJ (Rec: 02/27/19 16:23 LJ [id number]) OP-PT Subjective Patient Comments Patient Comments Pt is encouraged by his progrwess and plans on continuing exercises at home and at the pool/gym. He was given aquatic HEP today PT-OP-D Balance Start: 11/22/18 16:41 Freq: Status: Active Protocol: Document 11/22/18 15:30 DLM (Rec: 11/22/18 16:58 DLM [id number]) Balance Tests Davalos Balance Test Davalos Balance Test Score 45/56 Davalos Impairment Rating 1 to 19% Impaired (Score 45-55 ) Romberg Romberg increased sway with eyes closed but no loss of balance Single Limb Standing Single Limb- Right 3-5 sec Single Limb- Left 3 sec PT-OP-E Functional Tests Start: 11/22/18 16:41 Freq: Status: Active Protocol: Document 11/22/18 15:30 DLM (Rec: 11/22/18 17:00 DLM [id number]) Functional Tests 6 Minute Walk Test Distance 936.5 feet Device Used none Comments low back pain and stiffness PT-OP-G Mobility & Gait Start: 11/22/18 16:41 Freq: Status: Active Protocol: Document 11/22/18 15:30 DLM (Rec: 11/22/18 17:02 DLM [id number]) OP Mobility Evaluation Bed Mobility Rolling Independent, slow and difficult Supine to and from Sit Independent with mild difficulty Transfers Sit to Stand Independent Functional Movements Other Functional Movements increased left lateral hip pain with any rotational movements in standing OP Gait Assessment Gait Gait Assistance Required: Independent Assistive Devices Assistive Device None Gait Deviations General Gait Pattern Decreased Stride Length,Flexed Trunk Factors Limiting Gait Function Factors Limiting Gait Function Decreased Activity Tolerance, Pain PT-OP-H Neuro Start: 11/22/18 16:41 Freq: Status: Active Protocol: Document 11/22/18 15:30 DLM (Rec: 11/22/18 17:23 DLM [id number]) Sensation Evaluation Comments Summary Comments hx of neuropathy in feet, mild tremor noted in right hand PT-OP-J Posture/Palpation/Skin Start: 11/22/18 16:41 Freq: Status: Active Protocol: Document 11/22/18 15:30 DLM (Rec: 11/22/18 17:19 DLM [id number]) Posture Evaluation Position Standing Evaluation View Posterior Head/C-Spine Posture Forward Head L-Spine Posture Flexed Shoulder Posture (L) Rounded,(R) Rounded Comments Posture Comments protruding abdomen in standing Palpation Assessment Location Two Palpation Location left lateral hip Palpation Findings Tenderness Palpation Details bursa tenderness One Palpation Location lumbar paraspinals Palpation Findings Soft Tissue Tightness, Tenderness PT-OP-K Range of Motion Start: 11/22/18 16:41 Freq: Status: Active Protocol: Document 11/22/18 15:30 DLM (Rec: 11/22/18 17:19 DLM [id number]) Lumbar Spine Range of Motion Lumbar Spine Active Percentage Testing Position Standing Flexion 50 Extension 5 Rotation Left 30 Rotation Right 50 Lateral Flexion Left 25 Lateral Flexion Right 25 ROM Limitations Soft Tissue Tightness,Pain Comments back pain with flexion and right lateral flexion, left hip pain with rotation Shoulder Goniometric Range of Motion Shoulder bilateral Shoulder ROM WFL Yes Testing Position Sitting Shoulder ROM Limitations Comments hx right shoulder total arthroplasty with pt reporting good recovery PT-OP-L Special Tests Start: 11/22/18 16:41 Freq: Status: Active Protocol: Document 11/22/18 15:30 DLM (Rec: 11/22/18 17:19 DLM [id number]) Special Tests Lumbar Spine Special Tests Straight Leg Raise Test Results no back pain Comments hamstring tightness at 60b degrees bilaterally Slump Test Results back pain PT-OP-M Strength Start: 11/22/18 16:41 Freq: Status: Active Protocol: Document 11/22/18 15:30 DLM (Rec: 11/22/18 17:19 DLM [id number]) Trunk Strength Trunk Manual Muscle Testing Core Stabilization 3+/5 Reason Not Measured Pain Comments bilateral hip flexor tightness interferes with his ability to stand erect Hip Strength Hip Manual Muscle Testing Right Flexion (L2) 4 Good Extension (S1) 3+ Fair+ Abduction 4 Good Adduction 5 Normal Comments left hip pain with resisted right hip abduction in sidelying, hip extension tested in prone Left Flexion (L2) 4+ Good+ Extension (S1) 3+ Fair+ Abduction 5 Normal Adduction 5 Normal Comments pain with resisted left hip flexion, hip extension tested in prone Knee Strength Knee Manual Muscle Testing bilateral Flexion (S2) 5 Normal Extension (L3) 5 Normal Ankle/Foot Strength Ankle and Foot Manual Muscle Testing Bilateral Dorsiflexion (L4) 5 Normal PT-OP-Q Treatments Start: 11/22/18 16:41 Freq: Status: Active Protocol: Document 02/27/19 14:30 LJ (Rec: 02/27/19 16:23 LJ [id number]) Cardio Equipment Recumbent Bicycle Duration (Minutes) 8 Resistance 3 Therapeutic Exercises Supine Exercises 4 Supine Exercise Name lower trunk rotation Reps/Minutes 2x10 2 Supine Exercise Name bridges Reps/Minutes 2x10 Comments on table 1 Supine Exercise Name Marching with PPT Side bilateral Reps/Minutes 15 x 3 reps Comments with TrA HS stretch Side bilateral Equipment Used with towel Reps/Minutes 3x30 sec piriformis stretch Side bilateral Reps/Minutes 3x30 sec Sidelying Exercises 1 Sidelying Exercise Name hip abduction Reps/Minutes 2x10 Comments vc form Clamshells Side bilateral Equipment Used 2 # Reps/Minutes 20 x each Sitting Exercises 2 Sitting Exercise Name pelvic circles Equipment Used 65cm ball squat Side right Reps/Minutes 8 x2 Comments facilitate push off through R LE seated unilateral ankle reach Sitting Exercise Name lumbar flexion, SB and rotation Side bilateral Reps/Minutes 10 x2 Comments 65 cm ball seated ankle reach Sitting Exercise Name lumbar flexion Side bilateral Reps/Minutes 10 x2 Comments with coming up into arms overhead and then pec stretch 1 Sitting Exercise Name march with alt UE flex Equipment Used 65cm ball Comments 3 min HS stretch Side bilateral Equipment Used foot on stool Reps/Minutes 3x60 sec Standing Exercises opposing arm opposite leg extension facing wall Reps/Minutes 15x Comments pt with difficulty coordinating opposite R/L 3 Standing Exercise Name forward and lateral mini lunge Reps/Minutes 15 ea Comments band on RLE for alignment 2 Standing Exercise Name stride stance weightshift Reps/Minutes 10 ea Comments with alternating arm swing PT-OP-R Modalities Start: 11/22/18 16:41 Freq: Status: Active Protocol: Document 02/01/19 13:45 AMB (Rec: 02/01/19 15:36 AMB [id number]) Hot Pack/Cold Pack Treatment Hot Pack Location lumbar Patient Position Hooklying Treatment Duration (minutes) 10 Patient Tolerance Good PT-OP-S Aquatic Treatment Start: 11/22/18 16:41 Freq: Status: Active Protocol: Document 02/25/19 11:00 LJ (Rec: 02/25/19 15:06 LJ [id number]) Aquatics Treatment Pool Entry/Exit Pool Entry/Exit Method Stairs Assistance Independent Water Walking forward w/reverse breaststroke Water Level Chest Level Quick Reverses Water Level Chest Level Level of Assistance Standby Assistance,Verbal Cues Comments improved stability; all directions [place] March Water Level Chest Level Comments unable to attain full knee ext bilat Lunge Walk Water Level Waist Level Level of Assistance Standby Assistance,Verbal Cues Comments slowly requiring single leg balance Sideways Water Level Chest Level Comments 15 steps across pool Marching Water Level Chest Level Level of Assistance Standby Assistance,Verbal Cues Comments 15 steps across pool Backwards Water Level Chest Level Level of Assistance Verbal Cues Comments 20 steps across pool Forwards Water Level Chest Level Level of Assistance Standby Assistance,Verbal Cues Comments cues for recrip pattern Lower Extremity Exercises hoe downs Details UE support reinaldo Equipment Large Noodle Reps/Duration 10x Comments to strengthen hip ext diag hip extension Body Position Standing Water Level Waist Level Equipment Ankle Weight- 5.0# Reps/Duration 2x10 bilat HS curls Body Position Standing Water Level Chest Level Equipment Ankle Weight- 5.0# Reps/Duration 2x10 bilat Comments verbal and man cues for reducing hip flexion ab/ad Body Position Standing Water Level Waist Level Equipment Ankle Weight- 5.0# Reps/Duration 2x10 bilat flex/ext Water Level Chest Level Equipment Ankle Weight- 5.0# Reps/Duration 2x10 bilat Lower Extremity Stretches seated figure 4 Reps/Duration 2 x 45 sec bilat Comments at wall quads Equipment Small Noodle Reps/Duration 2 x 45 hip flexors Details at wall Water Level Chest Level Reps/Duration 2 x 45 HS, Body Position Standing Water Level Chest Level Equipment Large Noodle Reps/Duration 2 x 45 Upper Extremity Exercises stretch cord lat pull downs and rows Body Position Standing Water Level Neck Level Reps/Duration 2x10 ea Comments pt in squat position Spinal Exercises stretch cord spinal rotations Body Position Standing Water Level Chest Level Reps/Duration 15 bilat Comments improved posture Balance obstacle course with boxes Details weaving in and out of 3 boxes Water Level Waist Level Reps/Duration 3 min Comments Therapist making waves for resistance step ups on boxes Details all directions Water Level Chest Level Reps/Duration x3 each direction Comments shallowest water PT-OP-T Assessment and Plan Start: 11/22/18 16:41 Freq: Status: Active Protocol: Document 02/27/19 14:30 JOHNIE (Rec: 02/27/19 16:23 JOHNIE [id number]) Physical Therapy Assessment Goals Three Impairment Limited activity Short Term Goal (STG) He will be able to bend over to the ground without increased back pain. 01/04/19: good goal progress STG Duration MET Volunteer Services Manager Goal (LTG) He will be able to walk up the hill in his neighborhood to walk his dog. LTG Duration MET Two Impairment Has no Home Exercise Program Short Term Goal (STG) Independent with stretching and strengthening program to do at home. 01/04/19: achieved but continue to modify and progress STG Duration 02/22/19 Volunteer Services Manager Goal (LTG) Independent with pool exercise program 01/04/19: good goal progress, also continue to progress his aquatic exercise program LTG Duration 03/15/19 One Impairment pain 4/10 with activity Short Term Goal (STG) He will be able to walk with less than 2/10 pain. 01/04/19: some goal progress though reports pain can get as high as 6/10 STG Duration 02/22/19 Volunteer Services Manager Goal (LTG) He will be able to walk for at least 30 min without back pain. 02/01/19: limited to 10 min LTG Duration 03/15/19 Assessment Summary Assessment Pt shows improved strength and posture with exercises. Seated ball exercises were progressed with holding poses for several seconds to challenge core muscles and balance. Pt was seeking more exercises to do at home and stated he was going to get a ball to continue the exercises at home. Physical Therapy Plan Frequency and Duration Frequency of Treatment 2x/Week Duration of Treatment 6 weeks Plan of Care Start Date 02/01/19 Plan of Care End Date 03/15/19 Therapeutic Interventions Therapeutic Interventions Aquatic Therapy,Balance Training,Gait Training,Home Exercise Program,Manual Therapy,Neuromuscular Re- education,Patient/Caregiver Education,Self-Care/Home Management,Soft Tissue Mobilization,Therapeutic Activities,Therapeutic Exercises Modalities Cold Pack/Ice Massage,Electric Stimulation,Hot Packs, Ultrasound Next Visit Focus/Plan Next Note Type Treatment Note Next Visit Plan Increase intensity and strengthening as tolerated.
--- NOTE | 2019-03-18 16:41 | PT.OTN ---
Current Diagnoses Pain in left hip (03/18/19) Unspecified inflammatory spondylopathy, lumbar region (03/18/19) Spinal stenosis, lumbar region without neurogenic claudication (03/18/19) Other intervertebral disc degeneration, lumbosacral region (03/18/19) Low back pain (03/18/19) Abnormal posture (03/18/19) Physical Therapy Treatment Note PT-OP-A Visit Information Start: 11/22/18 16:41 Freq: Status: Active Protocol: Document 03/18/19 12:30 LJ (Rec: 03/18/19 16:41 LJ [id number]) Out-Patient Physical Therapy Visit Information Visit Information Visit Type Treatment Note Visit Start Time 12:30 Visit Stop Time 12:45 Total Visit Minutes 15 Visit Number 21 Number of REVISING CLERK Visits 1 PT-OP-B Current Condition Start: 11/22/18 16:41 Freq: Status: Active Protocol: Document 11/22/18 15:30 DLM (Rec: 11/22/18 16:57 DLM [id number]) Current Condition History of Current Condition Onset Date 6 months ago Current Complaints low back pain and left lateral hip pain History of Current Condition He reports about 6 monts ago he developed more difficulty walking. He reports his back gets stiff and sore. He fell a few months ago when his foot caught on the steps at his Sisters house and he fell onto his left side. He is having left lateral hip pain that he is not sure if it is from his back or from the fall. Prior Treatments and Tests Pool therapy years ago that helped his back. 02/2018 Injection in his low back that did not help. Treatment Goals Patient/Caregiver Goals He wants to be able to walk without back pain. He wants to be able to walk up the hill in his neighborhood to walk his dog. He wants to have a pool exercise program he can continue on his own. Prior Functional Status Baseline Function- ADL's Independent Baseline Function- Mobility Independent Baseline Function- Gait Independent in community, able [place] Baseline Function- Work/School retired Baseline Function- Recreation/Hobbies golf, yard work, walks dog, travels Current Functional Impairments (Reported) Functional Limitations- ADL's Independent, holds onto soap dish in shower when closes his eyes, back pain getting in/ out of car, back pain if he tries to sit for any length of time without back support Functional Limitations- Mobility/Gait Independent, slower pace, back pain limits his distances, too much pain to be able to walk up the hill in his neighborhood to walk his dog Functional Limitations- Work/School retired Functional Limitations- Recreation/ back pain and stiffness when Hobbies he tries to golf, can only bend over doing yard work for about 5 min due to back pain Personal Factors Other Personal Factors That May Effect new tremor in right hand Therapy/Recovery started about 6 months ago, pt reports physician is aware and they are monitoring it ( concern for Parkinsons disease ) PT-OP-C Subjective Start: 11/22/18 16:41 Freq: Status: Active Protocol: Document 02/27/19 14:30 LJ (Rec: 02/27/19 16:23 LJ [id number]) OP-PT Subjective Patient Comments Patient Comments Pt is encouraged by his progrwess and plans on continuing exercises at home and at the pool/gym. He was given aquatic HEP today PT-OP-D Balance Start: 11/22/18 16:41 Freq: Status: Active Protocol: Document 11/22/18 15:30 DLM (Rec: 11/22/18 16:58 DLM [id number]) Balance Tests Davalos Balance Test Davalos Balance Test Score 45/56 Davalos Impairment Rating 1 to 19% Impaired (Score 45-55 ) Romberg Romberg increased sway with eyes closed but no loss of balance Single Limb Standing Single Limb- Right 3-5 sec Single Limb- Left 3 sec PT-OP-E Functional Tests Start: 11/22/18 16:41 Freq: Status: Active Protocol: Document 11/22/18 15:30 DLM (Rec: 11/22/18 17:00 DLM [id number]) Functional Tests 6 Minute Walk Test Distance 936.5 feet Device Used none Comments low back pain and stiffness PT-OP-G Mobility & Gait Start: 11/22/18 16:41 Freq: Status: Active Protocol: Document 11/22/18 15:30 DLM (Rec: 11/22/18 17:02 DLM [id number]) OP Mobility Evaluation Bed Mobility Rolling Independent, slow and difficult Supine to and from Sit Independent with mild difficulty Transfers Sit to Stand Independent Functional Movements Other Functional Movements increased left lateral hip pain with any rotational movements in standing OP Gait Assessment Gait Gait Assistance Required: Independent Assistive Devices Assistive Device None Gait Deviations General Gait Pattern Decreased Stride Length,Flexed Trunk Factors Limiting Gait Function Factors Limiting Gait Function Decreased Activity Tolerance, Pain PT-OP-H Neuro Start: 11/22/18 16:41 Freq: Status: Active Protocol: Document 11/22/18 15:30 DLM (Rec: 11/22/18 17:23 DLM [id number]) Sensation Evaluation Comments Summary Comments hx of neuropathy in feet, mild tremor noted in right hand PT-OP-J Posture/Palpation/Skin Start: 11/22/18 16:41 Freq: Status: Active Protocol: Document 11/22/18 15:30 DLM (Rec: 11/22/18 17:19 DLM [id number]) Posture Evaluation Position Standing Evaluation View Posterior Head/C-Spine Posture Forward Head L-Spine Posture Flexed Shoulder Posture (L) Rounded,(R) Rounded Comments Posture Comments protruding abdomen in standing Palpation Assessment Location Two Palpation Location left lateral hip Palpation Findings Tenderness Palpation Details bursa tenderness One Palpation Location lumbar paraspinals Palpation Findings Soft Tissue Tightness, Tenderness PT-OP-K Range of Motion Start: 11/22/18 16:41 Freq: Status: Active Protocol: Document 11/22/18 15:30 DLM (Rec: 11/22/18 17:19 DLM [id number]) Lumbar Spine Range of Motion Lumbar Spine Active Percentage Testing Position Standing Flexion 50 Extension 5 Rotation Left 30 Rotation Right 50 Lateral Flexion Left 25 Lateral Flexion Right 25 ROM Limitations Soft Tissue Tightness,Pain Comments back pain with flexion and right lateral flexion, left hip pain with rotation Shoulder Goniometric Range of Motion Shoulder bilateral Shoulder ROM WFL Yes Testing Position Sitting Shoulder ROM Limitations Comments hx right shoulder total arthroplasty with pt reporting good recovery PT-OP-L Special Tests Start: 11/22/18 16:41 Freq: Status: Active Protocol: Document 11/22/18 15:30 DLM (Rec: 11/22/18 17:19 DLM [id number]) Special Tests Lumbar Spine Special Tests Straight Leg Raise Test Results no back pain Comments hamstring tightness at 60b degrees bilaterally Slump Test Results back pain PT-OP-M Strength Start: 11/22/18 16:41 Freq: Status: Active Protocol: Document 11/22/18 15:30 DLM (Rec: 11/22/18 17:19 DLM [id number]) Trunk Strength Trunk Manual Muscle Testing Core Stabilization 3+/5 Reason Not Measured Pain Comments bilateral hip flexor tightness interferes with his ability to stand erect Hip Strength Hip Manual Muscle Testing Right Flexion (L2) 4 Good Extension (S1) 3+ Fair+ Abduction 4 Good Adduction 5 Normal Comments left hip pain with resisted right hip abduction in sidelying, hip extension tested in prone Left Flexion (L2) 4+ Good+ Extension (S1) 3+ Fair+ Abduction 5 Normal Adduction 5 Normal Comments pain with resisted left hip flexion, hip extension tested in prone Knee Strength Knee Manual Muscle Testing bilateral Flexion (S2) 5 Normal Extension (L3) 5 Normal Ankle/Foot Strength Ankle and Foot Manual Muscle Testing Bilateral Dorsiflexion (L4) 5 Normal PT-OP-Q Treatments Start: 11/22/18 16:41 Freq: Status: Active Protocol: Document 03/18/19 12:30 LJ (Rec: 03/18/19 16:41 LJ [email or web address]) Self-Care/Home Management Treatment Education Patient Education Home Exercise Program Other Education verbal review of aquatic HEP for pt use when going to pool on his own. PT-OP-R Modalities Start: 11/22/18 16:41 Freq: Status: Active Protocol: Document 02/01/19 13:45 AMB (Rec: 02/01/19 15:36 AMB [id number]) Hot Pack/Cold Pack Treatment Hot Pack Location lumbar Patient Position Hooklying Treatment Duration (minutes) 10 Patient Tolerance Good PT-OP-S Aquatic Treatment Start: 11/22/18 16:41 Freq: Status: Active Protocol: Document 02/25/19 11:00 LJ (Rec: 02/25/19 15:06 LJ [id number]) Aquatics Treatment Pool Entry/Exit Pool Entry/Exit Method Stairs Assistance Independent Water Walking forward w/reverse breaststroke Water Level Chest Level Quick Reverses Water Level Chest Level Level of Assistance Standby Assistance,Verbal Cues Comments improved stability; all directions [place] March Water Level Chest Level Comments unable to attain full knee ext bilat Lunge Walk Water Level Waist Level Level of Assistance Standby Assistance,Verbal Cues Comments slowly requiring single leg balance Sideways Water Level Chest Level Comments 15 steps across pool Marching Water Level Chest Level Level of Assistance Standby Assistance,Verbal Cues Comments 15 steps across pool Backwards Water Level Chest Level Level of Assistance Verbal Cues Comments 20 steps across pool Forwards Water Level Chest Level Level of Assistance Standby Assistance,Verbal Cues Comments cues for recrip pattern Lower Extremity Exercises hoe downs Details UE support reinaldo Equipment Large Noodle Reps/Duration 10x Comments to strengthen hip ext diag hip extension Body Position Standing Water Level Waist Level Equipment Ankle Weight- 5.0# Reps/Duration 2x10 bilat HS curls Body Position Standing Water Level Chest Level Equipment Ankle Weight- 5.0# Reps/Duration 2x10 bilat Comments verbal and man cues for reducing hip flexion ab/ad Body Position Standing Water Level Waist Level Equipment Ankle Weight- 5.0# Reps/Duration 2x10 bilat flex/ext Water Level Chest Level Equipment Ankle Weight- 5.0# Reps/Duration 2x10 bilat Lower Extremity Stretches seated figure 4 Reps/Duration 2 x 45 sec bilat Comments at wall quads Equipment Small Noodle Reps/Duration 2 x 45 hip flexors Details at wall Water Level Chest Level Reps/Duration 2 x 45 HS, Body Position Standing Water Level Chest Level Equipment Large Noodle Reps/Duration 2 x 45 Upper Extremity Exercises stretch cord lat pull downs and rows Body Position Standing Water Level Neck Level Reps/Duration 2x10 ea Comments pt in squat position Spinal Exercises stretch cord spinal rotations Body Position Standing Water Level Chest Level Reps/Duration 15 bilat Comments improved posture Balance obstacle course with boxes Details weaving in and out of 3 boxes Water Level Waist Level Reps/Duration 3 min Comments Therapist making waves for resistance step ups on boxes Details all directions Water Level Chest Level Reps/Duration x3 each direction Comments shallowest water PT-OP-T Assessment and Plan Start: 11/22/18 16:41 Freq: Status: Active Protocol: Document 03/18/19 12:30 JOHNIE (Rec: 03/18/19 16:41 JOHNIE [email or web address]) Physical Therapy Assessment Assessment Summary Assessment Pt took notes during verbal review and acknowledge understanding of all exercises Physical Therapy Plan Frequency and Duration Frequency of Treatment 2 visits Duration of Treatment 3 wks Plan of Care Start Date 02/27/19 Plan of Care End Date 03/20/19 Therapeutic Interventions Therapeutic Interventions Aquatic Therapy,Balance Training,Gait Training,Home Exercise Program,Manual Therapy,Neuromuscular Re- education,Patient/Caregiver Education,Self-Care/Home Management,Soft Tissue Mobilization,Therapeutic Activities,Therapeutic Exercises Modalities Cold Pack/Ice Massage,Electric Stimulation,Hot Packs, Ultrasound Next Visit Focus/Plan Next Note Type Treatment Note Next Visit Plan DC pt from aquatic therapy and transition to independent [facility] .
--- NOTE | 2019-03-19 16:00 | PT.OPDS ---
Current Diagnoses Pain in left hip (03/19/19) Unspecified inflammatory spondylopathy, lumbar region (03/19/19) Spinal stenosis, lumbar region without neurogenic claudication (03/19/19) Other intervertebral disc degeneration, lumbosacral region (03/19/19) Low back pain (03/19/19) Abnormal posture (03/19/19) Visit Care Team Role Provider Type Genet Severino MD Attending Provider Physician Primary Care Provider Specialty: [facility] Address: [address] [place] [address], [facility] [place] [place], [facility] Email: [email or web address] Visit Number Visit Number 22 Discharge Summary PT-OP-B Current Condition Start: 11/22/18 16:41 Freq: Status: Active Protocol: Document 11/22/18 15:30 DLM (Rec: 11/22/18 16:57 DLM [id number]) Current Condition History of Current Condition Onset Date 6 months ago Current Complaints low back pain and left lateral hip pain History of Current Condition He reports about 6 monts ago he developed more difficulty walking. He reports his back gets stiff and sore. He fell a few months ago when his foot caught on the steps at his Sisters house and he fell onto his left side. He is having left lateral hip pain that he is not sure if it is from his back or from the fall. Prior Treatments and Tests Pool therapy years ago that helped his back. 02/2018 Injection in his low back that did not help. Treatment Goals Patient/Caregiver Goals He wants to be able to walk without back pain. He wants to be able to walk up the hill in his neighborhood to walk his dog. He wants to have a pool exercise program he can continue on his own. Prior Functional Status Baseline Function- ADL's Independent Baseline Function- Mobility Independent Baseline Function- Gait Independent in community, able [place] Baseline Function- Work/School retired Baseline Function- Recreation/Hobbies golf, yard work, walks dog, travels Current Functional Impairments (Reported) Functional Limitations- ADL's Independent, holds onto soap dish in shower when closes his eyes, back pain getting in/ out of car, back pain if he tries to sit for any length of time without back support Functional Limitations- Mobility/Gait Independent, slower pace, back pain limits his distances, too much pain to be able to walk up the hill in his neighborhood to walk his dog Functional Limitations- Work/School retired Functional Limitations- Recreation/ back pain and stiffness when Hobbies he tries to golf, can only bend over doing yard work for about 5 min due to back pain Personal Factors Other Personal Factors That May Effect new tremor in right hand Therapy/Recovery started about 6 months ago, pt reports physician is aware and they are monitoring it ( concern for Parkinsons disease ) PT-OP-C Subjective Start: 11/22/18 16:41 Freq: Status: Active Protocol: Document 03/19/19 17:06 GGD (Rec: 03/19/19 17:10 GGD [email or web address]) OP-PT Subjective Patient Comments Patient Comments Pt states he feels ready to D/ C to HEP PT-OP-D Balance Start: 11/22/18 16:41 Freq: Status: Active Protocol: Document 11/22/18 15:30 DLM (Rec: 11/22/18 16:58 DLM [id number]) Balance Tests Davalos Balance Test Davalos Balance Test Score 45/56 Davalos Impairment Rating 1 to 19% Impaired (Score 45-55 ) Romberg Romberg increased sway with eyes closed but no loss of balance Single Limb Standing Single Limb- Right 3-5 sec Single Limb- Left 3 sec PT-OP-E Functional Tests Start: 11/22/18 16:41 Freq: Status: Active Protocol: Document 11/22/18 15:30 DLM (Rec: 11/22/18 17:00 DLM [id number]) Functional Tests 6 Minute Walk Test Distance 936.5 feet Device Used none Comments low back pain and stiffness PT-OP-G Mobility & Gait Start: 11/22/18 16:41 Freq: Status: Active Protocol: Document 11/22/18 15:30 DLM (Rec: 11/22/18 17:02 DLM [id number]) OP Mobility Evaluation Bed Mobility Rolling Independent, slow and difficult Supine to and from Sit Independent with mild difficulty Transfers Sit to Stand Independent Functional Movements Other Functional Movements increased left lateral hip pain with any rotational movements in standing OP Gait Assessment Gait Gait Assistance Required: Independent Assistive Devices Assistive Device None Gait Deviations General Gait Pattern Decreased Stride Length,Flexed Trunk Factors Limiting Gait Function Factors Limiting Gait Function Decreased Activity Tolerance, Pain PT-OP-H Neuro Start: 11/22/18 16:41 Freq: Status: Active Protocol: Document 11/22/18 15:30 DLM (Rec: 11/22/18 17:23 DLM [id number]) Sensation Evaluation Comments Summary Comments hx of neuropathy in feet, mild tremor noted in right hand PT-OP-J Posture/Palpation/Skin Start: 11/22/18 16:41 Freq: Status: Active Protocol: Document 11/22/18 15:30 DLM (Rec: 11/22/18 17:19 DLM [id number]) Posture Evaluation Position Standing Evaluation View Posterior Head/C-Spine Posture Forward Head L-Spine Posture Flexed Shoulder Posture (L) Rounded,(R) Rounded Comments Posture Comments protruding abdomen in standing Palpation Assessment Location Two Palpation Location left lateral hip Palpation Findings Tenderness Palpation Details bursa tenderness One Palpation Location lumbar paraspinals Palpation Findings Soft Tissue Tightness, Tenderness PT-OP-K Range of Motion Start: 11/22/18 16:41 Freq: Status: Active Protocol: Document 11/22/18 15:30 DLM (Rec: 11/22/18 17:19 DLM [id number]) Lumbar Spine Range of Motion Lumbar Spine Active Percentage Testing Position Standing Flexion 50 Extension 5 Rotation Left 30 Rotation Right 50 Lateral Flexion Left 25 Lateral Flexion Right 25 ROM Limitations Soft Tissue Tightness,Pain Comments back pain with flexion and right lateral flexion, left hip pain with rotation Shoulder Goniometric Range of Motion Shoulder bilateral Shoulder ROM WFL Yes Testing Position Sitting Shoulder ROM Limitations Comments hx right shoulder total arthroplasty with pt reporting good recovery PT-OP-L Special Tests Start: 11/22/18 16:41 Freq: Status: Active Protocol: Document 11/22/18 15:30 DLM (Rec: 11/22/18 17:19 DLM [id number]) Special Tests Lumbar Spine Special Tests Straight Leg Raise Test Results no back pain Comments hamstring tightness at 60b degrees bilaterally Slump Test Results back pain PT-OP-M Strength Start: 11/22/18 16:41 Freq: Status: Active Protocol: Document 11/22/18 15:30 DLM (Rec: 11/22/18 17:19 DLM [id number]) Trunk Strength Trunk Manual Muscle Testing Core Stabilization 3+/5 Reason Not Measured Pain Comments bilateral hip flexor tightness interferes with his ability to stand erect Hip Strength Hip Manual Muscle Testing Right Flexion (L2) 4 Good Extension (S1) 3+ Fair+ Abduction 4 Good Adduction 5 Normal Comments left hip pain with resisted right hip abduction in sidelying, hip extension tested in prone Left Flexion (L2) 4+ Good+ Extension (S1) 3+ Fair+ Abduction 5 Normal Adduction 5 Normal Comments pain with resisted left hip flexion, hip extension tested in prone Knee Strength Knee Manual Muscle Testing bilateral Flexion (S2) 5 Normal Extension (L3) 5 Normal Ankle/Foot Strength Ankle and Foot Manual Muscle Testing Bilateral Dorsiflexion (L4) 5 Normal PT-OP-T Assessment and Plan Start: 11/22/18 16:41 Freq: Status: Active Protocol: Document 03/19/19 17:06 GGBetty (Rec: 03/19/19 17:10 GGD [id number]) Physical Therapy Assessment Goals Three Impairment Limited activity Short Term Goal (STG) He will be able to bend over to the ground without increased back pain. 01/04/19: good goal progress STG Duration MET Care Home Goal (LTG) He will be able to walk up the hill in his neighborhood to walk his dog. LTG Duration MET Two Impairment Has no Home Exercise Program Short Term Goal (STG) Independent with stretching and strengthening program to do at home. 01/04/19: achieved but continue to modify and progress 02/27/19 good goal progress. 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 LTG Duration 03/20/19 One Impairment pain 4/10 with activity Short Term Goal (STG) He will be able to walk with less than 2/10 pain. 01/04/19: some goal progress though reports pain can get as high as 6/10 STG Duration MET Heating Repair Technician Goal (LTG) He will be able to walk for at least 30 min without back pain. 02/01/19: limited to 10 min 03/20/19 LTG Duration 03/20/19 Assessment Summary Assessment Pt has good understanding of HEP and progression. He was able to demonstrate HEP. Physical Therapy Plan Discharge Physical Therapy Discharge Reasons Goals Met Next Visit Focus/Plan Next Note Type Discharge Summary
--- NOTE | 2019-03-19 17:10 | PT.OTN ---
Current Diagnoses Pain in left hip (03/19/19) Unspecified inflammatory spondylopathy, lumbar region (03/19/19) Spinal stenosis, lumbar region without neurogenic claudication (03/19/19) Other intervertebral disc degeneration, lumbosacral region (03/19/19) Low back pain (03/19/19) Abnormal posture (03/19/19) Physical Therapy Treatment Note PT-OP-A Visit Information Start: 11/22/18 16:41 Freq: Status: Active Protocol: Document 03/19/19 17:06 GGD (Rec: 03/19/19 17:10 GGD [id number]) Out-Patient Physical Therapy Visit Information Visit Information Visit Type Treatment Note Visit Start Time 14:30 Visit Stop Time 15:10 Total Visit Minutes 40 Visit Number 22 Number of VALVE FITTER Visits 2 PT-OP-B Current Condition Start: 11/22/18 16:41 Freq: Status: Active Protocol: Document 11/22/18 15:30 DLM (Rec: 11/22/18 16:57 DLM [id number]) Current Condition History of Current Condition Onset Date 6 months ago Current Complaints low back pain and left lateral hip pain History of Current Condition He reports about 6 monts ago he developed more difficulty walking. He reports his back gets stiff and sore. He fell a few months ago when his foot caught on the steps at his Sisters house and he fell onto his left side. He is having left lateral hip pain that he is not sure if it is from his back or from the fall. Prior Treatments and Tests Pool therapy years ago that helped his back. 02/2018 Injection in his low back that did not help. Treatment Goals Patient/Caregiver Goals He wants to be able to walk without back pain. He wants to be able to walk up the hill in his neighborhood to walk his dog. He wants to have a pool exercise program he can continue on his own. Prior Functional Status Baseline Function- ADL's Independent Baseline Function- Mobility Independent Baseline Function- Gait Independent in community, [place] Baseline Function- Work/School retired Baseline Function- Recreation/Hobbies golf, yard work, walks dog, travels Current Functional Impairments (Reported) Functional Limitations- ADL's Independent, holds onto soap dish in shower when closes his eyes, back pain getting in/ out of car, back pain if he tries to sit for any length of time without back support Functional Limitations- Mobility/Gait Independent, slower pace, back pain limits his distances, too much pain to be able to walk up the hill in his neighborhood to walk his dog Functional Limitations- Work/School retired Functional Limitations- Recreation/ back pain and stiffness when Hobbies he tries to golf, can only bend over doing yard work for about 5 min due to back pain Personal Factors Other Personal Factors That May Effect new tremor in right hand Therapy/Recovery started about 6 months ago, pt reports physician is aware and they are monitoring it ( concern for Parkinsons disease ) PT-OP-C Subjective Start: 11/22/18 16:41 Freq: Status: Active Protocol: Document 03/19/19 17:06 GGD (Rec: 03/19/19 17:10 GGD [id number]) OP-PT Subjective Patient Comments Patient Comments Pt states he feels ready to D/ C to HEP PT-OP-D Balance Start: 11/22/18 16:41 Freq: Status: Active Protocol: Document 11/22/18 15:30 DLM (Rec: 11/22/18 16:58 DLM [id number]) Balance Tests Davalos Balance Test Davalos Balance Test Score 45/56 Davalos Impairment Rating 1 to 19% Impaired (Score 45-55 ) Romberg Romberg increased sway with eyes closed but no loss of balance Single Limb Standing Single Limb- Right 3-5 sec Single Limb- Left 3 sec PT-OP-E Functional Tests Start: 11/22/18 16:41 Freq: Status: Active Protocol: Document 11/22/18 15:30 DLM (Rec: 11/22/18 17:00 DLM [id number]) Functional Tests 6 Minute Walk Test Distance 936.5 feet Device Used none Comments low back pain and stiffness PT-OP-G Mobility & Gait Start: 11/22/18 16:41 Freq: Status: Active Protocol: Document 11/22/18 15:30 DLM (Rec: 11/22/18 17:02 DLM [id number]) OP Mobility Evaluation Bed Mobility Rolling Independent, slow and difficult Supine to and from Sit Independent with mild difficulty Transfers Sit to Stand Independent Functional Movements Other Functional Movements increased left lateral hip pain with any rotational movements in standing OP Gait Assessment Gait Gait Assistance Required: Independent Assistive Devices Assistive Device None Gait Deviations General Gait Pattern Decreased Stride Length,Flexed Trunk Factors Limiting Gait Function Factors Limiting Gait Function Decreased Activity Tolerance, Pain PT-OP-H Neuro Start: 11/22/18 16:41 Freq: Status: Active Protocol: Document 11/22/18 15:30 DLM (Rec: 11/22/18 17:23 DLM [id number]) Sensation Evaluation Comments Summary Comments hx of neuropathy in feet, mild tremor noted in right hand PT-OP-J Posture/Palpation/Skin Start: 11/22/18 16:41 Freq: Status: Active Protocol: Document 11/22/18 15:30 DLM (Rec: 11/22/18 17:19 DLM [id number]) Posture Evaluation Position Standing Evaluation View Posterior Head/C-Spine Posture Forward Head L-Spine Posture Flexed Shoulder Posture (L) Rounded,(R) Rounded Comments Posture Comments protruding abdomen in standing Palpation Assessment Location Two Palpation Location left lateral hip Palpation Findings Tenderness Palpation Details bursa tenderness One Palpation Location lumbar paraspinals Palpation Findings Soft Tissue Tightness, Tenderness PT-OP-K Range of Motion Start: 11/22/18 16:41 Freq: Status: Active Protocol: Document 11/22/18 15:30 DLM (Rec: 11/22/18 17:19 DLM [id number]) Lumbar Spine Range of Motion Lumbar Spine Active Percentage Testing Position Standing Flexion 50 Extension 5 Rotation Left 30 Rotation Right 50 Lateral Flexion Left 25 Lateral Flexion Right 25 ROM Limitations Soft Tissue Tightness,Pain Comments back pain with flexion and right lateral flexion, left hip pain with rotation Shoulder Goniometric Range of Motion Shoulder bilateral Shoulder ROM WFL Yes Testing Position Sitting Shoulder ROM Limitations Comments hx right shoulder total arthroplasty with pt reporting good recovery PT-OP-L Special Tests Start: 11/22/18 16:41 Freq: Status: Active Protocol: Document 11/22/18 15:30 DLM (Rec: 11/22/18 17:19 DLM [id number]) Special Tests Lumbar Spine Special Tests Straight Leg Raise Test Results no back pain Comments hamstring tightness at 60b degrees bilaterally Slump Test Results back pain PT-OP-M Strength Start: 11/22/18 16:41 Freq: Status: Active Protocol: Document 11/22/18 15:30 DLM (Rec: 11/22/18 17:19 DLM [id number]) Trunk Strength Trunk Manual Muscle Testing Core Stabilization 3+/5 Reason Not Measured Pain Comments bilateral hip flexor tightness interferes with his ability to stand erect Hip Strength Hip Manual Muscle Testing Right Flexion (L2) 4 Good Extension (S1) 3+ Fair+ Abduction 4 Good Adduction 5 Normal Comments left hip pain with resisted right hip abduction in sidelying, hip extension tested in prone Left Flexion (L2) 4+ Good+ Extension (S1) 3+ Fair+ Abduction 5 Normal Adduction 5 Normal Comments pain with resisted left hip flexion, hip extension tested in prone Knee Strength Knee Manual Muscle Testing bilateral Flexion (S2) 5 Normal Extension (L3) 5 Normal Ankle/Foot Strength Ankle and Foot Manual Muscle Testing Bilateral Dorsiflexion (L4) 5 Normal PT-OP-Q Treatments Start: 11/22/18 16:41 Freq: Status: Active Protocol: Document 03/19/19 17:06 GGD (Rec: 03/19/19 17:10 GGD [email or web address]) Cardio Equipment Recumbent Bicycle Duration (Minutes) 8 Resistance 3 Therapeutic Exercises Supine Exercises 4 Supine Exercise Name lower trunk rotation Reps/Minutes 2x10 2 Supine Exercise Name bridges Reps/Minutes 2x10 Comments on table 1 Supine Exercise Name Marching with PPT Side bilateral Reps/Minutes 15 x 3 reps Comments with TrA HS stretch Side bilateral Equipment Used with towel Reps/Minutes 3x30 sec piriformis stretch Side bilateral Reps/Minutes 3x30 sec Sidelying Exercises 1 Sidelying Exercise Name hip abduction Reps/Minutes 2x10 Comments vc form Clamshells Side bilateral Equipment Used 2 # Reps/Minutes 20 x each Sitting Exercises HS stretch Side bilateral Equipment Used foot on stool Reps/Minutes 3x60 sec Standing Exercises 3 Standing Exercise Name forward and lateral mini lunge Reps/Minutes 15 ea Comments band on RLE for alignment 2 Standing Exercise Name stride stance weightshift Reps/Minutes 10 ea Comments with alternating arm swing Self-Care/Home Management Treatment Education Other Education verbal review of aquatic HEP. PT-OP-R Modalities Start: 11/22/18 16:41 Freq: Status: Active Protocol: Document 02/01/19 13:45 AMB (Rec: 02/01/19 15:36 AMB [email or web address]) Hot Pack/Cold Pack Treatment Hot Pack Location lumbar Patient Position Hooklying Treatment Duration (minutes) 10 Patient Tolerance Good PT-OP-S Aquatic Treatment Start: 11/22/18 16:41 Freq: Status: Active Protocol: Document 02/25/19 11:00 JOHNIE (Rec: 02/25/19 15:06 JOHNIE [id number]) Aquatics Treatment Pool Entry/Exit Pool Entry/Exit Method Stairs Assistance Independent Water Walking forward w/reverse breaststroke Water Level Chest Level Quick Reverses Water Level Chest Level Level of Assistance Standby Assistance,Verbal Cues Comments improved stability; all directions [place] March Water Level Chest Level Comments unable to attain full knee ext bilat Lunge Walk Water Level Waist Level Level of Assistance Standby Assistance,Verbal Cues Comments slowly requiring single leg balance Sideways Water Level Chest Level Comments 15 steps across pool Marching Water Level Chest Level Level of Assistance Standby Assistance,Verbal Cues Comments 15 steps across pool Backwards Water Level Chest Level Level of Assistance Verbal Cues Comments 20 steps across pool Forwards Water Level Chest Level Level of Assistance Standby Assistance,Verbal Cues Comments cues for recrip pattern Lower Extremity Exercises hoe downs Details UE support reinaldo Equipment Large Noodle Reps/Duration 10x Comments to strengthen hip ext diag hip extension Body Position Standing Water Level Waist Level Equipment Ankle Weight- 5.0# Reps/Duration 2x10 bilat HS curls Body Position Standing Water Level Chest Level Equipment Ankle Weight- 5.0# Reps/Duration 2x10 bilat Comments verbal and man cues for reducing hip flexion ab/ad Body Position Standing Water Level Waist Level Equipment Ankle Weight- 5.0# Reps/Duration 2x10 bilat flex/ext Water Level Chest Level Equipment Ankle Weight- 5.0# Reps/Duration 2x10 bilat Lower Extremity Stretches seated figure 4 Reps/Duration 2 x 45 sec bilat Comments at wall quads Equipment Small Noodle Reps/Duration 2 x 45 hip flexors Details at wall Water Level Chest Level Reps/Duration 2 x 45 HS, Body Position Standing Water Level Chest Level Equipment Large Noodle Reps/Duration 2 x 45 Upper Extremity Exercises stretch cord lat pull downs and rows Body Position Standing Water Level Neck Level Reps/Duration 2x10 ea Comments pt in squat position Spinal Exercises stretch cord spinal rotations Body Position Standing Water Level Chest Level Reps/Duration 15 bilat Comments improved posture Balance obstacle course with boxes Details weaving in and out of 3 boxes Water Level Waist Level Reps/Duration 3 min Comments Therapist making waves for resistance step ups on boxes Details all directions Water Level Chest Level Reps/Duration x3 each direction Comments shallowest water PT-OP-T Assessment and Plan Start: 11/22/18 16:41 Freq: Status: Active Protocol: Document 03/19/19 17:06 GGD (Rec: 03/19/19 17:10 GGD [email or web address]) Physical Therapy Assessment Goals Three Impairment Limited activity Short Term Goal (STG) He will be able to bend over to the ground without increased back pain. 01/04/19: good goal progress STG Duration MET Faculty Member Goal (LTG) He will be able to walk up the hill in his neighborhood to walk his dog. LTG Duration MET Two Impairment Has no Home Exercise Program Short Term Goal (STG) Independent with stretching and strengthening program to do at home. 01/04/19: achieved but continue to modify and progress 02/27/19 good goal progress. STG Duration 02/22/19 Care Home Goal (LTG) Independent with pool exercise program 01/04/19: good goal progress, also continue to progress his aquatic exercise program 02/27/19: continue to progress land and aquatic exercise program. LTG Duration 03/20/19 One Impairment pain 4/10 with activity Short Term Goal (STG) He will be able to walk with less than 2/10 pain. 01/04/19: some goal progress though reports pain can get as high as 6/10 STG Duration MET Care Home Goal (LTG) He will be able to walk for at least 30 min without back pain. 02/01/19: limited to 10 min 03/20/19 LTG Duration 03/20/19 Assessment Summary Assessment Pt has good understanding of HEP and progression. He was able to demonstrate HEP. Physical Therapy Plan Discharge Physical Therapy Discharge Reasons Goals Met Next Visit Focus/Plan Next Note Type Discharge Summary
== END 2019-03-29 11:47 | disposition home or self-care (01) ==
LOC: PHYS 14:30
PROVIDERS: PCP Family Medicine; Visit Provider Family Medicine
DX: M48.061 Spinal stenosis, lumbar region without neurogenic claudication (principal); M51.37 Other intervertebral disc degeneration, lumbosacral region; M46.96 Unspecified inflammatory spondylopathy, lumbar region; M54.5 Low back pain; M25.552 Pain in left hip; R29.3 Abnormal posture
CPT/HCPCS: 97010; 97014; 97110; 97112; 97113; 97140; 97162; 97535; G0283

== ENCOUNTER 2019-04-30 18:06 | Emergency (ER) | payer MEDICARE, SELFPAY ==
--- NOTE | 2019-04-30 18:11 | PC.NURSE ---
Pt eyeballed in triage area, RR even and unlabored, no rash noted.
[2019-04-30 18:15] VITALS: BP 158/84; PULSE 51; RESP 16; TEMP 36; O2SAT 97; BMI 30.7
--- NOTE | 2019-04-30 21:25 | PC.NURSE ---
Pt's reports that pt was recently placed on carbidopa-levadopa for Parkinsons. Pt has been having increased disorientation, tinnitus, nausea and generally not feeling well taking the medication. last dose was this morning. pt aaox3, ambulatory. mildly tremulous. NAD.
--- NOTE | 2019-04-30 21:39 | ED_ITS ---
HPI - Altered Mental Status General Chief Complaint: Altered Mental Status Stated Complaint: POSSIBLE ALLERGIC REACTION Time Seen by Provider: 04/30/19 21:39 Source: patient Mode of arrival: Ambulatory Limitations: no limitations History of Present Illness HPI narrative: The patient was seen by Neurology approximately 2 weeks ago, he was diagnosed with Parkinson's and started on Sinemet. He has no history ataxia prior to the Sinemet, but developed an issue with ataxia after starting the Sinemet. He also complains of a degree of nausea. He has no dizziness. He has no focal numbness or weakness. He is having no issue with confusion. He has no dyspnea, chest discomfort or abdominal discomfort. He is concerned about allergic reaction. Continues the medication, he is instructed that he should not stop the medication. He has not been able to reach his neurologist, he has not consulted with his local physician. He has not been ill. He is alert and ambulatory upon arrival. Related Data Home Medications Medication Instructions Recorded Confirmed CA PANTOTHENATE/FOLIC ACID/VIT 1 tab PO QDAY #0 02/22/11 09/11/18 (MULTIVITAMIN) Fish Oil (Fish Oil 500 MG Softgel) 500 mg PO Q DAY #0 02/22/11 09/11/18 atorvastatin [Lipitor] 10 mg PO HS #0 02/22/11 09/11/18 tamsulosin [Flomax] 0.4 mg PO QDAY #0 02/22/11 09/11/18 levothyroxine 50 mcg capsule 50 mcg PO DAILY 12/21/17 09/11/18 Respironics Dreamstation BIPAP #1 ea 03/12/19 03/12/19 Previous Rx's Medication Instructions Recorded metoprolol succinate [Toprol XL] 25 mg PO BID #60 tab 07/16/16 warfarin [Coumadin] 5 mg PO Q DAY #60 tab 07/16/16 Allergies Allergy/AdvReac Type Severity Reaction Status Date / Time No Known Drug Allergies Allergy Verified 03/12/19 13:12 Review of Systems Review of Systems ROS Unobtainable: All systems reviewed & are unremarkable except as noted in HPI and below Constitutional Constitutional: Denies chills, Denies fever(s), Denies frequent falls, Denies headache(s), Denies lethargy and Denies weakness Eyes Eyes: Denies change in vision and Denies loss of vision ENT Ears, Nose, Mouth, and Throat: Denies dysphagia, Denies vertigo, Denies dizziness and Denies headache(s) Cardiovascular Cardiovascular: Denies chest pain, Denies irregular heart rhythm, Denies lightheadedness, Denies palpitations, Denies dyspnea and Denies orthopnea Respiratory Respiratory: Denies cough, Denies dyspnea and Denies wheezing Gastrointestinal Gastrointestinal: Denies dysphagia Musculoskeletal Musculoskeletal: Denies back pain, Denies muscle weakness, Denies numbness and Denies tingling Integumentary/Breasts Skin/Breast: Denies pruritus, Denies erythema, Denies rash and Denies wounds Neurologic Neurologic: Denies confusion, Denies vertigo, Denies dizziness, Denies frequent falls, Denies headache(s), Denies loss of vision, Denies numbness, Denies tingling and Denies weakness Comments: Difficulty with ambulation Psychiatric Psychiatric: Denies anxiety, Denies confusion and Denies depression Endocrine Endocrine: Denies palpitations Allergic/Immunologic Allergic/Immunologic: Denies wheezing Patient History Medical History (Updated 04/30/19 @ 23:57 by Hector Spring MD) Atrial fibrillation, currently in sinus rhythm (Chronic ~08/2016) Central sleep apnea (Chronic Unknown) Obstructive sleep apnea of adult (Chronic ~2011) Parkinsons (Acute) Snoring (Chronic ~2011) Surgical History History of arthroplasty of right shoulder (Acute) History of total hip arthroplasty (Acute) Social History Smoking Status: Former smoker Substance Use Type: does not use Exam Initial Vital Signs Initial Vital Signs: Vital Signs Temperature 96.8 F L 04/30/19 18:15 Pulse Rate 51 L 04/30/19 18:15 Respiratory Rate 16 04/30/19 18:15 Blood Pressure 158/84 H 04/30/19 18:15 Pulse Oximetry 97 04/30/19 18:15 Const General: cooperative and well developed Nutritional Appearance: well nourished Orientation: alert, awake, oriented x3 and not confused HENNV Head: normocephalic and atraumatic Face and sinus: sinuses nontender, face symmetric and No dry mucous membranes Mouth: oral mucosae normal and moist mucous membranes Throat: posterior oropharynx normal Eyes General: appearance normal, both eyes and all related structures Eyelids: eyelids normal Conjunctivae: conjunctivae normal Sclera: sclerae normal Pupils: PERRL EOM: EOM intact bilaterally Neck Neck: No JVD Chest Chest: normal inspection of the chest Resp Effort & Inspection: normal respiratory effort and able to speak in complete sentences Auscultation: clear to auscultation bilaterally, no rales, no rhonchi and no wheezes Cardio Rhythm: abnormal rhythm irregularly irregular Heart Sounds: S1 normal, S2 normal and no murmurs GI Inspection: non-distended Palpation: soft, no hepatosplenomegaly, No guarding, No pulsatile mass and No tender Auscultation: normal bowel sounds Skin General: no rashes or lesions noted, No jaundice and No petechiae Neuro General: alert, oriented x3, gait normal and no focal motor deficits Speech: speech normal Sensory Exam: no sensory deficits noted Other: Gait is slow and mildly wide paced Extrem General: full ROM, no pedal edema and no calf tenderness Psych Appearance: well kempt Mental Status: mental status grossly normal Attitude: cooperative Thought Content: normal Judgment: judgment good Course Orders Ordered: ED Orders 04/30/19 21:37 Basic Metabolic Panel Stat Complete Blood Count AUTO DIFF Stat Prothrombin Time INR Stat 04/30/19 21:58 CT head/brain wo con Stat Vital Signs Vital signs: Vital Signs - 8 hr 04/30/19 18:15 04/30/19 22:16 Temperature 96.8 F L Pulse Rate 51 L 52 L Respiratory Rate 16 14 Blood Pressure 158/84 H Blood Pressure [Right Arm] 171/98 H Pulse Oximetry 97 99 MDM - Altered Mental Status Lab Data Result diagrams: 04/30/19 21:37 04/30/19 21:37 Labs: Lab Results 04/30/19 04/30/19 04/30/19 Range/Units 21:37 21:37 21:37 WBC 6.5 (4.5-11.0) X10^3/uL RBC 4.10 L (4.5-5.9) X10^6/uL Hgb 13.1 L (13.5-17.5) g/dL Hct 38.6 L (41-53) % MCV 94.2 (80-100) fL MCH 31.9 (26-34) PG MCHC 33.9 (30-36) % RDW 13.5 (11.6-14.8) % Plt Count 195 (150-400) X10^3/uL Neut % (Auto) 62.5 (50-75) % Lymph % (Auto) 27.4 (25-40) % [place] % (Auto) 8.0 (3-14) % Eos % (Auto) 1.6 L (2-4) % Baso % (Auto) 0.5 (0-2) % Neut # (Auto) 4000 (0877-0059) /uL Lymph # (Auto) 1800 (8662-8415) /uL [place] # (Auto) 500 (0-900) /uL Eos # (Auto) 100 (0-450) /uL Baso # (Auto) 0 (0-100) /uL PT 28.6 H (10.1-12.7) SECONDS INR 2.4 H (0.9-1.3) Sodium 139 (137-145) mmol/L Potassium 4.1 (3.4-5.1) mmol/L Chloride 105 (98-107) mmol/L Carbon Dioxide 27 (22-32) mmol/L BUN 19 (9-20) mg/dL Creatinine 0.90 (0.66-1.25) mg/dL Estimated GFR > 60.0 (>60) mL/min BUN/Creatinine Ratio 21.1 (6-22) Glucose 95 (80-110) mg/dL Calcium 9.4 (8.4-10.2) mg/dL Imaging Data CT scan - head: Radiologist's impression: No acute findings MDM Narrative Medical decision making narrative: Lab and CT evaluation are benign. I d iscussed the clinical findings with the patient. I agree with him, I think he is having an adverse reaction to the sediment. I advised him to continue the medication daily can talk to his local doctor or his neurologist. Discharge Plan Departure Patient Disposition: Home Clinical Impression: Ataxia Adverse drug reaction Qualifiers: Encounter type: initial encounter Qualified Code(s): T50.905A - Adverse effect of unspecified drugs, medicaments and biological substances, initial encounter Instructions: DI for Adverse Drug Reaction -- Allergic Activity Restrictions/Additional Instructions: Continue taking Sinemet as prescribed until you have the ability to talk to her doctor. I would also recommend he follow up with Dr. Severino, your local doctor. Return to the ER as needed. Prescriptions: No Action levothyroxine 50 mcg capsule 50 mcg PO DAILY RF: 0 atorvastatin [Lipitor] 10 MG tablet 10 mg PO HS Qty: 0 RF: 0 tamsulosin [Flomax] 0.4 MG capsule,extended release 24hr 0.4 mg PO QDAY Qty: 0 RF: 0 CA PANTOTHENATE/FOLIC ACID/VIT (MULTIVITAMIN) 1 tab PO QDAY Qty: 0 RF: 0 Fish Oil (Fish Oil 500 MG Softgel) 500 mg PO Q DAY Qty: 0 RF: 0 warfarin [Coumadin] 5 MG tablet 5 mg PO Q DAY Qty: 60 RF: 0 metoprolol succinate [Toprol XL] 25 MG tablet extended release 24 hr 25 mg PO BID Qty: 60 RF: 0 (DME) Respironics Dreamstation BIPAP Qty: 1 RF: 0 Referrals: Genet Severino MD [Primary Care Provider] -
[2019-04-30 21:52] LABS: Add Manual Diff / Slide Review NO; Basophils Absolute Auto 0 /uL (0-100); Basophils Percent Auto 0.5 % (0-2); Eosinophils Absolute Auto 100 /uL (0-450); Eosinophils Percent Auto 1.6 % (2-4); Hematocrit 38.6 % (41-53); Hemoglobin 13.1 g/dL (13.5-17.5); Lymphocytes Absolute Auto 1800 /uL (1100-4500); Lymphocytes Percent Auto 27.4 % (25-40); Mean Corpuscular HGB Conc 33.9 % (30-36); Mean Corpuscular Hemoglobin 31.9 PG (26-34); Mean Corpuscular Volume 94.2 fL (80-100); Monocytes Absolute Auto 500 /uL (0-900); Neutrophils Absolute Auto 4000 /uL (1500-7000); Neutrophils Percent Auto 62.5 % (50-75); Platelet Count 195 X10^3/uL (150-400); Red Cell Distribution Width 13.5 % (11.6-14.8); White Blood Cell Count 6.5 X10^3/uL (4.5-11.0)
[2019-04-30 21:55] LABS: INR 2.4 (0.9-1.3); Prothrombin Time 28.6 SECONDS (10.1-12.7)
--- NOTE | 2019-04-30 21:58 | DI.CT.S_ITS ---
PROCEDURE: CT HEAD/BRAIN WO CON INDICATIONS: ataxia TECHNIQUE: Noncontrast 4.5 mm thick angled axial sections acquired from the foramen magnum to the vertex, with coronal and sagittal reformats. For radiation dose reduction, the following was used: automated exposure control, adjustment of mA and/or kV according to patient size. COMPARISON: None. FINDINGS: Image quality: Excellent. CSF spaces: Basal cisterns are patent. No extra-axial fluid collections. The ventricles are symmetric in size and shape. Brain: No intracranial bleeds or masses. There is cerebral volume loss for age, with resultant ventricular and sulcal prominence. There are periventricular and deep white matter chronic small vessel ischemic changes. There is intracranial internal carotid artery atherosclerosis. Skull and face: Calvarium and visualized facial bones appear intact, without suspicious lesions. Sinuses: Visualized sinuses and mastoids are clear. IMPRESSION: No acute intracranial disease process. Dictated by: Candie Vaughan MD, PhD on 05/01/2019 at 7:02 Approved by: Candie Vaughan MD, PhD on 05/01/2019 at 7:04
[2019-04-30 21:59] LABS: BUN Creatinine Ratio 21.1 (6-22); Blood Urea Nitrogen 19 mg/dL (9-20); Calcium 9.4 mg/dL (8.4-10.2); Carbon Dioxide 27 mmol/L (22-32); Chloride 105 mmol/L (98-107); Estimated Glomerular Filt Rate > 60.0 mL/min (>60); Glucose 95 mg/dL (80-110); HEMOLYSIS < 15 (0-50); Potassium 4.1 mmol/L (3.4-5.1); Sodium 139 mmol/L (137-145)
[2019-04-30 22:16] VITALS: BP 171/98; PULSE 52; RESP 14; O2SAT 99
[2019-05-01 00:05] VITALS: BP 145/71; PULSE 55; RESP 16; O2SAT 97
== END 2019-05-01 00:06 | disposition home or self-care (01) ==
PROVIDERS: Emergency Provider Emergency Medicine; Family Provider Family Medicine; PCP Family Medicine
DX: R27.0 Ataxia, unspecified (principal); T42.8X5A Adverse effect of antiparkinsonism drugs and other central muscle-tone depressants, initial encounter
CPT/HCPCS: 36415; 70450; 80048; 85025; 85610; 99282; 99284

== ENCOUNTER → 2019-05-30 10:20 | Outpatient (ROUT) | payer MEDICARE, SELFPAY ==
[2019-05-30 10:33] LABS: INR 2.7 (0.9-1.3); Prothrombin Time 32.2 SECONDS (10.1-12.7)
== END ==
PROVIDERS: Family Provider Family Medicine; PCP Family Medicine; Visit Provider Family Medicine
DX: Z79.01 Long term (current) use of anticoagulants (principal)
CPT/HCPCS: 85610

== ENCOUNTER → 2019-07-02 11:44 | Outpatient (ROUT) | payer MEDICARE, SELFPAY | PROVIDERS: Family Provider Family Medicine; PCP Family Medicine; Visit Provider Family Medicine | DX: Z79.01 Long term (current) use of anticoagulants (principal) | CPT/HCPCS: 85610 ==

== ENCOUNTER 2019-07-02 12:00 | Outpatient (RCR) | payer MEDICARE, SELFPAY ==
--- NOTE | 2019-06-03 16:25 | PT.OIE ---
Current Diagnoses Parkinson's disease (06/03/19) Unspecified atrial fibrillation (06/03/19) Spinal stenosis, lumbar region without neurogenic claudication (06/03/19) Past Medical History (Last Updated 04/30/19 @ 23:57 by Hector Spring MD) Atrial fibrillation, currently in sinus rhythm (Chronic ~08/2016) Central sleep apnea (Chronic Unknown) Obstructive sleep apnea of adult (Chronic ~2011) Parkinsons (Acute) Snoring (Chronic ~2011) Past Surgical History (Last Reviewed 04/30/19 @ 23:57 by Hector Spring MD) History of arthroplasty of right shoulder (Acute) History of total hip arthroplasty (Acute) Visit Care Team Role Provider Type Genet Severino MD Family Provider Physician Primary Care Provider Specialty: Family Practice Address: [address] [place] [address] [place], [address] Email: [email or web address] Paul Hodges MD Attending Provider Non-Staff Specialty: Neurology Address: [address] [place] [address], [id number] Email: Physical Therapy Initial Evaluation PT-OP-A Visit Information Start: 06/03/19 10:51 Freq: Status: Active Protocol: Document 06/03/19 11:00 AMB (Rec: 06/03/19 16:25 AMB [email or web address]) Out-Patient Physical Therapy Visit Information Visit Information Visit Type Initial Evaluation Visit Start Time 11:00 Visit Stop Time 12:00 Total Visit Minutes 60 Visit Number 1 PT-OP-B Current Condition Start: 06/03/19 10:51 Freq: Status: Active Protocol: Document 06/03/19 11:00 AMB (Rec: 06/03/19 16:25 AMB [email or web address]) Current Condition History of Current Condition Onset Date 2 years, progressing Current Complaints Difficulty using the right hand, increased difficulty walking History of Current Condition Thor was recently diagnosed with Parkinson's although did notice increased difficulty using his right hand (he is right hand dominant) about 2 years ago after his right total shoulder surgery. He does have a resting tremor in his right hand. He does have a history of low back pain and left hip pain and neuropathy that has limited his walking on hills, he does not report much difficulty walking on flat surfaces although he admits his is slower than he used to be. 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 Prior Functional Status Baseline Function- ADL's Independent Baseline Function- Mobility Independent Current Functional Impairments (Reported) Functional Limitations- ADL's Pt reports he is slower with buttoning, has noticed micrographia especially with signing multiple checks. Functional Limitations- Recreation/ Pt has stopped playing golf: Hobbies he recently finished 18 holes in a golf cart 3x/wk, but then felt that he was too stiff after that, so stopped, he is hoping to return to that but maybe at onex/week. Personal Factors Other Personal Factors That May Effect Hx right total shoulder, right Therapy/Recovery total hip. Neuropathy, lumbar stenosis. PT-OP-C Subjective Start: 06/03/19 10:51 Freq: Status: Active Protocol: Document 06/03/19 11:00 AMB (Rec: 06/03/19 16:25 AMB [email or web address]) OP-PT Pain Assessment Location Bilateral Lower Back Intensity 3 PT-OP-D Balance Start: 06/03/19 10:51 Freq: Status: Active Protocol: Document 06/03/19 11:00 AMB (Rec: 06/03/19 16:25 AMB [email or web address]) Balance Tests Other Other Balance Tests Performed NBOS EC: 20 seconds with increased ankle sway PT-OP-E Functional Tests Start: 06/03/19 10:51 Freq: Status: Active Protocol: Document 06/03/19 11:00 AMB (Rec: 06/03/19 16:25 AMB [email or web address]) Functional Tests 6 Minute Walk Test Distance 1263 feet Device Used none 10 Meter Walk Test Distance 10 seconds at self selected speed, 7 seconds when going fast Device Used none Five Times Sit to Stand Test Score 14 Comments chair in private treatment room, no UE support PT-OP-G Mobility & Gait Start: 06/03/19 10:51 Freq: Status: Active Protocol: Document 06/03/19 11:00 AMB (Rec: 06/03/19 16:25 AMB [email or web address]) OP Gait Assessment Comments Gait Comments Pt can have appropriate armswing, but only when conciously attending to it. Shortened step length bilaterally. Reduced trunk rotation. Reduced heel strike - more flat foot contact. PT-OP-H Neuro Start: 06/03/19 10:51 Freq: Status: Active Protocol: Document 06/03/19 11:00 AMB (Rec: 06/03/19 16:25 AMB [email or web address]) Coordination Evaluation Upper Extremity Tests Right Pronation/Supination Test Minimal Impairment Lower Extremity Tests Foot Tapping Test Normal Performance PT-OP-J Posture/Palpation/Skin Start: 06/03/19 10:51 Freq: Status: Active Protocol: Document 06/03/19 11:00 AMB (Rec: 06/03/19 16:25 AMB [email or web address]) Posture Evaluation Comments Posture Comments Flat lumbar spine with flexed hips in standing, absent trunk rotation in gait PT-OP-K Range of Motion Start: 06/03/19 10:51 Freq: Status: Active Protocol: Document 06/03/19 11:00 AMB (Rec: 06/03/19 16:25 AMB [email or web address]) Shoulder Goniometric Range of Motion Shoulder Left Passive Testing Position Sitting Flexion 146 Right Passive Testing Position Sitting Flexion 140 PT-OP-M Strength Start: 06/03/19 10:51 Freq: Status: Active Protocol: Document 06/03/19 11:00 AMB (Rec: 06/03/19 16:25 AMB [email or web address]) Hand Air Shovel Operator/Pinch Strength Hand Strength Right Air Shovel Operator (lbs) 58 Left Air Shovel Operator (lbs) 58 PT-OP-T Assessment and Plan Start: 06/03/19 10:51 Freq: Status: Active Protocol: Document 06/03/19 11:00 AMB (Rec: 06/03/19 16:25 AMB [email or web address]) Physical Therapy Assessment Rehab Potential Rehabilitation Potential Good Evaluation Complexity Number of Personal Factors/Comorbidities 3 or More Number of Body Systems Impaired 4 or More Clinical Presentation at Evaluation Evolving Impairments Impairments Balance,Functional Activities, Gait,Pain,Posture,ROM Goals Three Impairment ROM Short Term Goal (STG) Thor will improve his shoulder flexion bilaterally to 150 degrees. STG Duration 2 weeks Two Impairment Fine motor control Short Term Goal (STG) Thor will sign his name 10 times with minimal micrographia. STG Duration 2 weeks Shape Brick Molder Goal (LTG) Thor will button a wrist button on a dress shirt with his right hand within 5 seconds of the time it takes to do so with his left hand. LTG Duration 4 weeks One Impairment Gait Short Term Goal (STG) Thor will ambulate over uneven surfaces with good step length and without LOB. STG Duration 2 weeks Halfway Goal (LTG) Thor will improve his 6 minute walk distance to 1532 or more without assistive device. LTG Duration 4 weeks Assessment Summary Assessment Thor attends physical therapy with recent diagnosis of Parkinson's disease. He was not able to tolerate Sinemet due to nausea, so is just starting a new medication. He enjoys exercising, but does have prior orthopedic conditions including back pain , and shoulder stiffness that limits his activity. When describing his functional deficits, he mostly notices his right hand function with fine motor tasks, although he did noticed reduced walking speed in comparison to his previous function, 6MWT was lower than age/gender norms. Thor will benefit from LSVT BIG physical therapy to work on his functional deficits related to Parkinson's including fine motor and balance/gait deficits. Physical Therapy Plan Frequency and Duration Frequency of Treatment 4x/Week Duration of Treatment 6 weeks (longer duration due to break in the middle) Plan of Care Start Date 06/03/19 Plan of Care End Date 07/15/19 Therapeutic Interventions Therapeutic Interventions Balance Training,Gait Training ,Home Exercise Program,Manual Therapy,Neuromuscular Re- education,Self-Care/Home Management,Therapeutic Activities,Therapeutic Exercises Next Visit Focus/Plan Next Note Type Progress Note Next Visit Plan Begin LSVT treatment, review functional tasks review form to finalize functional tasks and hierachy task.
--- NOTE | 2019-06-04 13:29 | PT.OTN ---
Current Diagnoses Parkinson's disease (06/04/19) Unspecified atrial fibrillation (06/04/19) Spinal stenosis, lumbar region without neurogenic claudication (06/04/19) Physical Therapy Treatment Note PT-OP-A Visit Information Start: 06/03/19 10:51 Freq: Status: Active Protocol: Document 06/04/19 13:03 AW (Rec: 06/04/19 13:29 AW [email or web address]) Out-Patient Physical Therapy Visit Information Visit Information Visit Start Time 12:00 Visit Stop Time 13:00 Total Visit Minutes 60 Visit Number 2 Number of GRANULATOR TENDER Visits 0 PT-OP-B Current Condition Start: 06/03/19 10:51 Freq: Status: Active Protocol: Document 06/03/19 11:00 AMB (Rec: 06/03/19 16:25 AMB [email or web address]) Current Condition History of Current Condition Onset Date 2 years, progressing Current Complaints Difficulty using the right hand, increased difficulty walking History of Current Condition Thor was recently diagnosed with Parkinson's although did notice increased difficulty using his right hand (he is righ hand dominant) about 2 years ago after his right total shoulder surgery. He does have a resting tremor in his right hand. He does have a history of low back pain and left hip pain and neuropathy that has limited his walking on hills, he does not report much difficulty walking on flat surfaces although he admits his is slower than he used to be. He is hopeful that he will be able to maintain his mobility for the [employer]. Prior Functional Status Baseline Function- ADL's Independent Baseline Function- Mobility Independent Current Functional Impairments (Reported) Functional Limitations- ADL's Pt reports he is slower with buttoning, has noticed micrographia especially with signing multiple checks. Functional Limitations- Recreation/ Pt has stopped playing golf: Hobbies he recently finished 18 holes in a golf cart 3x/wk, but then felt that he was too stiff after that, so stopped, he is hoping to return to that but maybe at onex/week. Personal Factors Other Personal Factors That May Effect Hx right total shoulder, right Therapy/Recovery total hip. Neuropathy, lumbar stenosis. PT-OP-C Subjective Start: 06/03/19 10:51 Freq: Status: Active Protocol: Document 06/04/19 13:03 AW (Rec: 06/04/19 13:29 AW [email or web address]) OP-PT Subjective Patient Comments Patient Comments I'm feeling a little stiff and have tightness/pain in my left outer thigh. PT-OP-D Balance Start: 06/03/19 10:51 Freq: Status: Active Protocol: Document 06/03/19 11:00 AMB (Rec: 06/03/19 16:25 AMB [email or web address]) Balance Tests Other Other Balance Tests Performed NBOS EC: 20 seconds with increased ankle sway PT-OP-E Functional Tests Start: 06/03/19 10:51 Freq: Status: Active Protocol: Document 06/03/19 11:00 AMB (Rec: 06/03/19 16:25 AMB [email or web address]) Functional Tests 6 Minute Walk Test Distance 1263 feet Device Used none 10 Meter Walk Test Distance 10 seconds at self selected speed, 7 seconds when going fast Device Used none Five Times Sit to Stand Test Score 14 Comments chair in private treatment room, no UE support PT-OP-G Mobility & Gait Start: 06/03/19 10:51 Freq: Status: Active Protocol: Document 06/03/19 11:00 AMB (Rec: 06/03/19 16:25 AMB [email or web address]) OP Gait Assessment Comments Gait Comments Pt can have appropriate armswing, but only when conciously attending to it. Shortened step length bilaterally. Reduced trunk rotation. Reduced heel strike - more flat foot contact. PT-OP-H Neuro Start: 06/03/19 10:51 Freq: Status: Active Protocol: Document 06/03/19 11:00 AMB (Rec: 06/03/19 16:25 AMB [email or web address]) Coordination Evaluation Upper Extremity Tests Right Pronation/Supination Test Minimal Impairment Lower Extremity Tests Foot Tapping Test Normal Performance PT-OP-J Posture/Palpation/Skin Start: 06/03/19 10:51 Freq: Status: Active Protocol: Document 06/03/19 11:00 AMB (Rec: 06/03/19 16:25 AMB [email or web address]) Posture Evaluation Comments Posture Comments Flat lumbar spine with flexed hips in standing, absent trunk rotation in standing PT-OP-K Range of Motion Start: 06/03/19 10:51 Freq: Status: Active Protocol: Document 06/03/19 11:00 AMB (Rec: 06/03/19 16:25 AMB [email or web address]) Shoulder Goniometric Range of Motion Shoulder Left Passive Testing Position Sitting Flexion 146 Right Passive Testing Position Sitting Flexion 140 PT-OP-M Strength Start: 06/03/19 10:51 Freq: Status: Active Protocol: Document 06/03/19 11:00 AMB (Rec: 06/03/19 16:25 AMB [email or web address]) Hand Dock Loader/Pinch Strength Hand Strength Right Dock Loader (lbs) 58 Left Dock Loader (lbs) 58 PT-OP-Q Treatments Start: 06/03/19 10:51 Freq: Status: Active Protocol: Document 06/04/19 13:03 AW (Rec: 06/04/19 13:29 AW [email or web address]) Therapeutic Exercises Sitting Exercises side to side Sitting Exercise Name side to side Side bilateral Equipment Used 20 mat Reps/Minutes 4 each side Comments pt reports left thigh tightness with kick behind floor to ceiling Sitting Exercise Name floor to ceiling Equipment Used 20 mat Reps/Minutes 8 minutes Standing Exercises sideways rock and reach Standing Exercise Name sideways rock and reach Side bilateral Reps/Minutes 5 each side Comments pain in left thigh with right rotation forward rock and reach Standing Exercise Name forward rock and reach Side bilateral Equipment Used chair for UE support both sides Reps/Minutes 5 each side Comments cues for bigger weight shift backward step Standing Exercise Name backward step Side bilateral Equipment Used chair for UE support both sides Reps/Minutes 5 each side Comments pt needs UE support for balance to promote bigness; pain in L lateral thigh sideways step Standing Exercise Name sideways step Side bilateral Reps/Minutes 5 each side Comments cues for trunk rotation, head turn forward step Standing Exercise Name forward step Side bilateral Reps/Minutes 5 each side Comments cues for upright trunk, big step back to start position Other Exercises big sit to stand Other Exercise Name big sit to stand Equipment Used 19 mat table Reps/Minutes 6 Comments cues for forward push with arms Therapeutic Activity Therapeutic Activity handwriting Name handwriting Reps/Minutes 10 minutes Comments Signature practice on lined paper. Cued pt for hand/wrist flicks and big pit furnace operator on standard pen. Cued also for involvement of entire upper extremity including elbow, shoulder, and trunk movement. Gait Training Gait Activity BIG walking Description BIG walking Device Used no AD Level of Assistance SBA Surface level, tile Distance/Duration 50 feet x 6 Treatment Focus arm swing Comments Cued pt to focus on arm swing this session, opposite arm/ opposite leg, especially backward swing of arm. Self-Care/Home Management Treatment Education Patient Education Home Exercise Program Activities Self-Care/Home Management Activities - maximal daily exercises - BIG sit to stand - handwriting practice - BIG walking focus on arm swing PT-OP-T Assessment and Plan Start: 06/03/19 10:51 Freq: Status: Active Protocol: Document 06/04/19 13:03 AW (Rec: 06/04/19 13:29 AW [email or web address]) Physical Therapy Assessment Goals Three Impairment ROM Short Term Goal (STG) Thor will improve his shoulder flexion bilaterally to 150 degrees. STG Duration 2 weeks Two Impairment Fine motor control Short Term Goal (STG) Thor will sign his name 10 times with minimal micrographia. STG Duration 2 weeks Mcfp Goal (LTG) Thor will button a wrist button on a dress shirt with his right hand within 5 seconds of the time it takes to do so with his left hand. LTG Duration 4 weeks One Impairment Gait Short Term Goal (STG) Thor will ambulate over uneven surfaces with good step length and without LOB. STG Duration 2 weeks Mcfp Goal (LTG) Thor will improve his 6 minute walk distance to 1532 or more without assistive device. LTG Duration 4 weeks Assessment Summary Assessment Thor shows good effort with daily exercises introduced today, functional activities, and gait training. Educated pt and cued for big effort in all activities in clinic with the hope of carryover to daily activities at home. He reported 5/10 effort with exercises and was cued for 6-7 /10 effort. Pt required UE support for backward step and forward rock to facilitate BIGness without loss of balance. In gait training with focus on arm swing, pt was able to produce backward swing but has difficulty coordinating with footfalls. Physical Therapy Plan Frequency and Duration Frequency of Treatment 4x/Week Duration of Treatment 6 weeks (longer duration due to break in the middle) Plan of Care Start Date 06/03/19 Plan of Care End Date 07/15/19 Therapeutic Interventions Therapeutic Interventions Balance Training,Gait Training ,Home Exercise Program,Manual Therapy,Neuromuscular Re- education,Self-Care/Home Management,Therapeutic Activities,Therapeutic Exercises Next Visit Focus/Plan Next Note Type Treatment Note Next Visit Plan Inquire about homework, any questions about exercises and homework, identify hierarchy task.
--- NOTE | 2019-06-05 14:11 | PT.OTN ---
Current Diagnoses Parkinson's disease (06/05/19) Unspecified atrial fibrillation (06/05/19) Spinal stenosis, lumbar region without neurogenic claudication (06/05/19) Physical Therapy Treatment Note PT-OP-A Visit Information Start: 06/03/19 10:51 Freq: Status: Active Protocol: Document 06/05/19 11:00 AMB (Rec: 06/05/19 14:11 AMB [email or web address]) Out-Patient Physical Therapy Visit Information Visit Information Visit Type Treatment Note Visit Start Time 11:00 Visit Stop Time 12:00 Total Visit Minutes 60 Visit Number 3 PT-OP-B Current Condition Start: 06/03/19 10:51 Freq: Status: Active Protocol: Document 06/03/19 11:00 AMB (Rec: 06/03/19 16:25 AMB [email or web address]) Current Condition History of Current Condition Onset Date 2 years, progressing Current Complaints Difficulty using the right hand, increased difficulty walking History of Current Condition Thor was recently diagnosed with Parkinson's although did notice increased difficulty using his right hand (he is righ hand dominant) about 2 years ago after his right total shoulder surgery. He does have a resting tremor in his right hand. He does have a history of low back pain and left hip pain and neuropathy that has limited his walking on hills, he does not report much difficulty walking on flat surfaces although he admits his is slower than he used to be. He is hopeful that he will be able to maintain his mobility for the [place] [facility]. Prior Functional Status Baseline Function- ADL's Independent Baseline Function- Mobility Independent Current Functional Impairments (Reported) Functional Limitations- ADL's Pt reports he is slower with buttoning, has noticed micrographia especially with signing multiple checks. Functional Limitations- Recreation/ Pt has stopped playing golf: Hobbies he recently finished 18 holes in a golf cart 3x/wk, but then felt that he was too stiff after that, so stopped, he is hoping to return to that but maybe at onex/week. Personal Factors Other Personal Factors That May Effect Hx right total shoulder, right Therapy/Recovery total hip. Neuropathy, lumbar stenosis. PT-OP-C Subjective Start: 06/03/19 10:51 Freq: Status: Active Protocol: Document 06/05/19 11:00 AMB (Rec: 06/05/19 14:11 AMB [email or web address]) OP-PT Subjective Patient Comments Patient Comments Pt continues to feel stiff, he is noticing a little knee discomfort today. PT-OP-D Balance Start: 06/03/19 10:51 Freq: Status: Active Protocol: Document 06/03/19 11:00 AMB (Rec: 06/03/19 16:25 AMB [email or web address]) Balance Tests Other Other Balance Tests Performed NBOS EC: 20 seconds with increased ankle sway PT-OP-E Functional Tests Start: 06/03/19 10:51 Freq: Status: Active Protocol: Document 06/03/19 11:00 AMB (Rec: 06/03/19 16:25 AMB [email or web address]) Functional Tests 6 Minute Walk Test Distance 1263 feet Device Used none 10 Meter Walk Test Distance 10 seconds at self selected speed, 7 seconds when going fast Device Used none Five Times Sit to Stand Test Score 14 Comments chair in private treatment room, no UE support PT-OP-G Mobility & Gait Start: 06/03/19 10:51 Freq: Status: Active Protocol: Document 06/03/19 11:00 AMB (Rec: 06/03/19 16:25 AMB [email or web address]) OP Gait Assessment Comments Gait Comments Pt can have appropriate armswing, but only when conciously attending to it. Shortened step length bilaterally. Reduced trunk rotation. Reduced heel strike - more flat foot contact. PT-OP-H Neuro Start: 06/03/19 10:51 Freq: Status: Active Protocol: Document 06/03/19 11:00 AMB (Rec: 06/03/19 16:25 AMB [email or web address]) Coordination Evaluation Upper Extremity Tests Right Pronation/Supination Test Minimal Impairment Lower Extremity Tests Foot Tapping Test Normal Performance PT-OP-J Posture/Palpation/Skin Start: 06/03/19 10:51 Freq: Status: Active Protocol: Document 06/03/19 11:00 AMB (Rec: 06/03/19 16:25 AMB [email or web address]) Posture Evaluation Comments Posture Comments Flat lumbar spine with flexed hips in standing, absent trunk rotation in standing PT-OP-K Range of Motion Start: 06/03/19 10:51 Freq: Status: Active Protocol: Document 06/03/19 11:00 AMB (Rec: 06/03/19 16:25 AMB [email or web address]) Shoulder Goniometric Range of Motion Shoulder Left Passive Testing Position Sitting Flexion 146 Right Passive Testing Position Sitting Flexion 140 PT-OP-M Strength Start: 06/03/19 10:51 Freq: Status: Active Protocol: Document 06/03/19 11:00 AMB (Rec: 06/03/19 16:25 AMB [email or web address]) Hand Premium Card Cancellation Clerk/Pinch Strength Hand Strength Right Premium Card Cancellation Clerk (lbs) 58 Left Premium Card Cancellation Clerk (lbs) 58 PT-OP-Q Treatments Start: 06/03/19 10:51 Freq: Status: Active Protocol: Document 06/05/19 11:00 AMB (Rec: 06/05/19 14:11 AMB [email or web address]) Therapeutic Exercises Standing Exercises sideways rock and reach Standing Exercise Name sideways rock and reach Side bilateral Reps/Minutes 10 each side Comments pain in left thigh with right rotation forward rock and reach Standing Exercise Name forward rock and reach Side bilateral Equipment Used chair for UE support both sides Reps/Minutes 10 each side Comments cues for bigger weight shift backward step Standing Exercise Name backward step Side bilateral Equipment Used chair for UE support both sides Reps/Minutes 10 each side Comments pt needs UE support for balance to promote bigness; sideways step Standing Exercise Name sideways step Side bilateral Reps/Minutes 10 each side Comments cues for trunk rotation, head turn, arm position forward step Standing Exercise Name forward step Side bilateral Reps/Minutes 10 each side Comments cues for upright trunk, big step back to start position Gait Training Gait Activity 1 Description stairs Device Used none Level of Assistance CGA Comments 4 step then 6 step- no rail needed for ascent, but hovered over rail for descent with step to. Descent is much more challenging. BIG walking Description BIG walking Device Used no AD Level of Assistance SBA Surface level, tile Distance/Duration [id number] carrying 10 pounds Treatment Focus arm swing Comments cued to focus on big walking even when carrying items, cued posture, heel strike PT-OP-T Assessment and Plan Start: 06/03/19 10:51 Freq: Status: Active Protocol: Document 06/05/19 11:00 AMB (Rec: 06/05/19 14:11 AMB [email or web address]) Physical Therapy Assessment Assessment Summary Assessment Identified today's carryover exercise of walking big with robyn shopping. Pt with difficulty with reaching behind with some exercises. Pt was not holding on to anything at home when doing exercises and reinforced importance of bigness vs balance challenge at this point in program. Physical Therapy Plan Next Visit Focus/Plan Next Note Type Treatment Note Next Visit Plan Inquire about homework and caryover exercise- pt will have had a week off - identify hierarchy task.
--- NOTE | 2019-06-13 12:01 | PT.OTN ---
Current Diagnoses Parkinson's disease (06/13/19) Unspecified atrial fibrillation (06/13/19) Spinal stenosis, lumbar region without neurogenic claudication (06/13/19) Physical Therapy Treatment Note PT-OP-A Visit Information Start: 06/03/19 10:51 Freq: Status: Active Protocol: Document 06/13/19 10:43 AMB (Rec: 06/13/19 11:58 AMB [id number]) Out-Patient Physical Therapy Visit Information Visit Information Visit Type Treatment Note Visit Start Time 10:45 Visit Stop Time 11:45 Total Visit Minutes 60 Visit Number 4 PT-OP-B Current Condition Start: 06/03/19 10:51 Freq: Status: Active Protocol: Document 06/03/19 11:00 AMB (Rec: 06/03/19 16:25 AMB [email or web address]) Current Condition History of Current Condition Onset Date 2 years, progressing Current Complaints Difficulty using the right hand, increased difficulty walking History of Current Condition Thor was recently diagnosed with Parkinson's although did notice increased difficulty using his right hand (he is righ hand dominant) about 2 years ago after his right total shoulder surgery. He does have a resting tremor in his right hand. He does have a history of low back pain and left hip pain and neuropathy that has limited his walking on hills, he does not report much difficulty walking on flat surfaces although he admits his is slower than he used to be. He is hopeful that he will be able to maintain his mobility for the [facility]. Prior Functional Status Baseline Function- ADL's Independent Baseline Function- Mobility Independent Current Functional Impairments (Reported) Functional Limitations- ADL's Pt reports he is slower with buttoning, has noticed micrographia especially with signing multiple checks. Functional Limitations- Recreation/ Pt has stopped playing golf: Hobbies he recently finished 18 holes in a golf cart 3x/wk, but then felt that he was too stiff after that, so stopped, he is hoping to return to that but maybe at onex/week. Personal Factors Other Personal Factors That May Effect Hx right total shoulder, right Therapy/Recovery total hip. Neuropathy, lumbar stenosis. PT-OP-C Subjective Start: 06/03/19 10:51 Freq: Status: Active Protocol: Document 06/13/19 10:43 AMB (Rec: 06/13/19 11:58 AMB [id number]) OP-PT Subjective Patient Comments Patient Comments Pt noticed increased back pain on the L starting on Monday 06/11. He thinks it may have started with the standing side rock and reach. PT-OP-D Balance Start: 06/03/19 10:51 Freq: Status: Active Protocol: Document 06/03/19 11:00 AMB (Rec: 06/03/19 16:25 AMB [email or web address]) Balance Tests Other Other Balance Tests Performed NBOS EC: 20 seconds with increased ankle sway PT-OP-E Functional Tests Start: 06/03/19 10:51 Freq: Status: Active Protocol: Document 06/03/19 11:00 AMB (Rec: 06/03/19 16:25 AMB [email or web address]) Functional Tests 6 Minute Walk Test Distance 1263 feet Device Used none 10 Meter Walk Test Distance 10 seconds at self selected speed, 7 seconds when going fast Device Used none Five Times Sit to Stand Test Score 14 Comments chair in private treatment room, no UE support PT-OP-G Mobility & Gait Start: 06/03/19 10:51 Freq: Status: Active Protocol: Document 06/03/19 11:00 AMB (Rec: 06/03/19 16:25 AMB [email or web address]) OP Gait Assessment Comments Gait Comments Pt can have appropriate armswing, but only when conciously attending to it. Shortened step length bilaterally. Reduced trunk rotation. Reduced heel strike - more flat foot contact. PT-OP-H Neuro Start: 06/03/19 10:51 Freq: Status: Active Protocol: Document 06/03/19 11:00 AMB (Rec: 06/03/19 16:25 AMB [email or web address]) Coordination Evaluation Upper Extremity Tests Right Pronation/Supination Test Minimal Impairment Lower Extremity Tests Foot Tapping Test Normal Performance PT-OP-J Posture/Palpation/Skin Start: 06/03/19 10:51 Freq: Status: Active Protocol: Document 06/03/19 11:00 AMB (Rec: 06/03/19 16:25 AMB [email or web address]) Posture Evaluation Comments Posture Comments Flat lumbar spine with flexed hips in standing, absent trunk rotation in standing PT-OP-K Range of Motion Start: 06/03/19 10:51 Freq: Status: Active Protocol: Document 06/03/19 11:00 AMB (Rec: 06/03/19 16:25 AMB [email or web address]) Shoulder Goniometric Range of Motion Shoulder Left Passive Testing Position Sitting Flexion 146 Right Passive Testing Position Sitting Flexion 140 PT-OP-M Strength Start: 06/03/19 10:51 Freq: Status: Active Protocol: Document 06/03/19 11:00 AMB (Rec: 06/03/19 16:25 AMB [email or web address]) Hand Electronic Device Monitor/Pinch Strength Hand Strength Right Electronic Device Monitor (lbs) 58 Left Electronic Device Monitor (lbs) 58 PT-OP-Q Treatments Start: 06/03/19 10:51 Freq: Status: Active Protocol: Document 06/13/19 10:43 AMB (Rec: 06/13/19 11:58 AMB [id number]) Therapeutic Exercises Sitting Exercises side to side Sitting Exercise Name side to side Side bilateral Equipment Used 20 mat Reps/Minutes x10 Comments vc counting, straighten back knee floor to ceiling Sitting Exercise Name floor to ceiling Equipment Used 20 mat Reps/Minutes x10 Comments vc for counting loud Standing Exercises sideways rock and reach Standing Exercise Name sideways rock and reach Side bilateral Reps/Minutes 10 each side Comments vc to pivot through foot and rotate hips, avoiding much trunk rotation forward rock and reach Standing Exercise Name forward rock and reach Side bilateral Equipment Used chair for UE support both sides Reps/Minutes 10 each side Comments cues for bigger weight - full Rom for UEs backward step Standing Exercise Name backward step Side bilateral Equipment Used chair for UE support both sides Reps/Minutes 10 each side Comments pt needs UE support for balance to promote bigness; sideways step Standing Exercise Name sideways step Side bilateral Reps/Minutes 10 each side Comments cues for trunk rotation, head turn, arm position forward step Standing Exercise Name forward step Side bilateral Reps/Minutes 10 each side Comments cues for upright trunk, big step back to start position Other Exercises big sit to stand Other Exercise Name big sit to stand Equipment Used 16 wooden block Reps/Minutes x10 Comments cues for forward push with arms--increased pt's pain today Therapeutic Activity Therapeutic Activity 1 Name threading belt in loops Reps/Minutes 7 min Comments focus on big movement, coming from elbow/wrist not just fingers Gait Training Gait Activity BIG walking Description BIG walking Device Used no AD Level of Assistance SBA Surface level, tile Distance/Duration 100ft Treatment Focus trunk rotation Comments cued to focus on big walking. Added cognitive distraction, counting backwards by 3s. PT-OP-T Assessment and Plan Start: 06/03/19 10:51 Freq: Status: Active Protocol: Document 06/13/19 10:45 AMB (Rec: 06/13/19 12:00 AMB [id number]) Physical Therapy Assessment Assessment Summary Assessment L sided LBP limited pt today, but he is heating and stretching at home. Challenged with cognitive tasks with BIG walking. Continues to need cues for maximal ROM during exercises. Physical Therapy Plan Next Visit Focus/Plan Next Note Type Treatment Note Next Visit Plan Pt to bring button down shirt next visit to practice buttoning.
--- NOTE | 2019-06-14 12:47 | PT.OTN ---
Current Diagnoses Parkinson's disease (06/14/19) Unspecified atrial fibrillation (06/14/19) Spinal stenosis, lumbar region without neurogenic claudication (06/14/19) Physical Therapy Treatment Note PT-OP-A Visit Information Start: 06/03/19 10:51 Freq: Status: Active Protocol: Document 06/14/19 11:00 AMB (Rec: 06/14/19 12:44 AMB [email or web address]) Out-Patient Physical Therapy Visit Information Visit Information Visit Type Treatment Note Visit Note 10/26 Visit Start Time 11:00 Visit Stop Time 11:55 Total Visit Minutes 55 Visit Number 5 PT-OP-B Current Condition Start: 06/03/19 10:51 Freq: Status: Active Protocol: Document 06/03/19 11:00 AMB (Rec: 06/03/19 16:25 AMB [email or web address]) Current Condition History of Current Condition Onset Date 2 years, progressing Current Complaints Difficulty using the right hand, increased difficulty walking History of Current Condition Thor was recently diagnosed with Parkinson's although did notice increased difficulty using his right hand (he is righ hand dominant) about 2 years ago after his right total shoulder surgery. He does have a resting tremor in his right hand. He does have a history of low back pain and left hip pain and neuropathy that has limited his walking on hills, he does not report much difficulty walking on flat surfaces although he admits his is slower than he used to be. 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 Prior Functional Status Baseline Function- ADL's Independent Baseline Function- Mobility Independent Current Functional Impairments (Reported) Functional Limitations- ADL's Pt reports he is slower with buttoning, has noticed micrographia especially with signing multiple checks. Functional Limitations- Recreation/ Pt has stopped playing golf: Hobbies he recently finished 18 holes in a golf cart 3x/wk, but then felt that he was too stiff after that, so stopped, he is hoping to return to that but maybe at onex/week. Personal Factors Other Personal Factors That May Effect Hx right total shoulder, right Therapy/Recovery total hip. Neuropathy, lumbar stenosis. PT-OP-C Subjective Start: 06/03/19 10:51 Freq: Status: Active Protocol: Document 06/14/19 11:00 AMB (Rec: 06/14/19 12:44 AMB [email or web address]) OP-PT Subjective Patient Comments Patient Comments Pt's back is still a bit stiff at times but better than yesterday. PT-OP-D Balance Start: 06/03/19 10:51 Freq: Status: Active Protocol: Document 06/03/19 11:00 AMB (Rec: 06/03/19 16:25 AMB [email or web address]) Balance Tests Other Other Balance Tests Performed NBOS EC: 20 seconds with increased ankle sway PT-OP-E Functional Tests Start: 06/03/19 10:51 Freq: Status: Active Protocol: Document 06/03/19 11:00 AMB (Rec: 06/03/19 16:25 AMB [email or web address]) Functional Tests 6 Minute Walk Test Distance 1263 feet Device Used none 10 Meter Walk Test Distance 10 seconds at self selected speed, 7 seconds when going fast Device Used none Five Times Sit to Stand Test Score 14 Comments chair in private treatment room, no UE support PT-OP-G Mobility & Gait Start: 06/03/19 10:51 Freq: Status: Active Protocol: Document 06/03/19 11:00 AMB (Rec: 06/03/19 16:25 AMB [email or web address]) OP Gait Assessment Comments Gait Comments Pt can have appropriate armswing, but only when conciously attending to it. Shortened step length bilaterally. Reduced trunk rotation. Reduced heel strike - more flat foot contact. PT-OP-H Neuro Start: 06/03/19 10:51 Freq: Status: Active Protocol: Document 06/03/19 11:00 AMB (Rec: 06/03/19 16:25 AMB [email or web address]) Coordination Evaluation Upper Extremity Tests Right Pronation/Supination Test Minimal Impairment Lower Extremity Tests Foot Tapping Test Normal Performance PT-OP-J Posture/Palpation/Skin Start: 06/03/19 10:51 Freq: Status: Active Protocol: Document 06/03/19 11:00 AMB (Rec: 06/03/19 16:25 AMB [email or web address]) Posture Evaluation Comments Posture Comments Flat lumbar spine with flexed hips in standing, absent trunk rotation in standing PT-OP-K Range of Motion Start: 06/03/19 10:51 Freq: Status: Active Protocol: Document 06/03/19 11:00 AMB (Rec: 06/03/19 16:25 AMB [email or web address]) Shoulder Goniometric Range of Motion Shoulder Left Passive Testing Position Sitting Flexion 146 Right Passive Testing Position Sitting Flexion 140 PT-OP-M Strength Start: 06/03/19 10:51 Freq: Status: Active Protocol: Document 06/03/19 11:00 AMB (Rec: 06/03/19 16:25 AMB [email or web address]) Hand Wine Master/Pinch Strength Hand Strength Right Wine Master (lbs) 58 Left Wine Master (lbs) 58 PT-OP-Q Treatments Start: 06/03/19 10:51 Freq: Status: Active Protocol: Document 06/14/19 11:00 AMB (Rec: 06/14/19 11:33 AMB [id number]) Therapeutic Exercises Sitting Exercises side to side Sitting Exercise Name side to side Side bilateral Equipment Used 20 mat Reps/Minutes x10 Comments vc counting, straighten back knee floor to ceiling Sitting Exercise Name floor to ceiling Equipment Used 20 mat Reps/Minutes x10 Comments vc for counting loud Standing Exercises sideways rock and reach Standing Exercise Name sideways rock and reach Side bilateral Reps/Minutes 10 each side Comments vc to pivot through foot and rotate hips, avoiding much trunk rotation forward rock and reach Standing Exercise Name forward rock and reach Side bilateral Equipment Used chair for UE support both sides Reps/Minutes 10 each side Comments cues for bigger weight - full Rom for UEs backward step Standing Exercise Name backward step Side bilateral Equipment Used chair for UE support both sides Reps/Minutes 10 each side Comments pt needs UE support for balance to promote bigness; sideways step Standing Exercise Name sideways step Side bilateral Reps/Minutes 10 each side Comments cues for trunk rotation, head turn, arm position forward step Standing Exercise Name forward step Side bilateral Reps/Minutes 10 each side Comments cues for upright trunk, big step back to start position Other Exercises big sit to stand Other Exercise Name big sit to stand Equipment Used chair Reps/Minutes x10 Comments cues for forward push with arms-- Therapeutic Activity Therapeutic Activity 1 Name buttoning Comments R hand unbuttoning wrist button on L 34 seconds. L hand unbuttoning was 13 seconds. Buttoning with L hand on R wrist 49 seconds. Buttoning with R hand 19 seconds. Improved with vc to line up first, then one big push of button through button hole Gait Training Gait Activity BIG walking Description BIG walking Device Used no AD Level of Assistance SBA Surface level, tile Distance/Duration 400 ft Treatment Focus trunk rotation Comments cued to focus on big walking. Significant difficulty with walking with head turns, but able to maintain big walking with light conversation. PT-OP-T Assessment and Plan Start: 06/03/19 10:51 Freq: Status: Active Protocol: Document 06/14/19 11:00 AMB (Rec: 06/14/19 12:44 AMB [email or web address]) Physical Therapy Assessment Goals Three Impairment ROM Short Term Goal (STG) Thor will improve his shoulder flexion bilaterally to 150 degrees. STG Duration 2 weeks Two Impairment Fine motor control Short Term Goal (STG) Thor will sign his name 10 times with minimal micrographia. STG Duration 2 weeks Fpc Goal (LTG) Thor will button a wrist button on a dress shirt with his right hand within 5 seconds of the time it takes to do so with his left hand. LTG Duration 4 weeks One Impairment Gait Short Term Goal (STG) Thor will ambulate over uneven surfaces with good step length and without LOB. STG Duration 2 weeks Skoog Machine Operator Goal (LTG) Thor will improve his 6 minute walk distance to 1532 or more without assistive device. LTG Duration 4 weeks Assessment Summary Assessment Cues for slower reps with exercises but bigger ROM. Encouraged attention to UEs big hands for wide fingers and full shouder ROM that is available. Pt's walking deteriorates with head turns, but was able to maintain BIG walking with conversation today. Physical Therapy Plan Next Visit Focus/Plan Next Note Type Treatment Note Next Visit Plan Continue fine motor functional activities.
--- NOTE | 2019-06-17 12:43 | PT.OTN ---
Current Diagnoses Parkinson's disease (06/17/19) Unspecified atrial fibrillation (06/17/19) Spinal stenosis, lumbar region without neurogenic claudication (06/17/19) Physical Therapy Treatment Note PT-OP-A Visit Information Start: 06/03/19 10:51 Freq: Status: Active Protocol: Document 06/17/19 11:00 AMB (Rec: 06/17/19 12:43 AMB [email or web address]) Out-Patient Physical Therapy Visit Information Visit Information Visit Type Treatment Note Visit Note 11/26 Visit Start Time 11:00 Visit Stop Time 11:55 Total Visit Minutes 55 Visit Number 6 PT-OP-B Current Condition Start: 06/03/19 10:51 Freq: Status: Active Protocol: Document 06/03/19 11:00 AMB (Rec: 06/03/19 16:25 AMB [email or web address]) Current Condition History of Current Condition Onset Date 2 years, progressing Current Complaints Difficulty using the right hand, increased difficulty walking History of Current Condition Thor was recently diagnosed with Parkinson's although did notice increased difficulty using his right hand (he is righ hand dominant) about 2 years ago after his right total shoulder surgery. He does have a resting tremor in his right hand. He does have a history of low back pain and left hip pain and neuropathy that has limited his walking on hills, he does not report much difficulty walking on flat surfaces although he admits his is slower than he used to be. He is hopeful that he will be able to maintain his mobility for the [facility]. Prior Functional Status Baseline Function- ADL's Independent Baseline Function- Mobility Independent Current Functional Impairments (Reported) Functional Limitations- ADL's Pt reports he is slower with buttoning, has noticed micrographia especially with signing multiple checks. Functional Limitations- Recreation/ Pt has stopped playing golf: Hobbies he recently finished 18 holes in a golf cart 3x/wk, but then felt that he was too stiff after that, so stopped, he is hoping to return to that but maybe at onex/week. Personal Factors Other Personal Factors That May Effect Hx right total shoulder, right Therapy/Recovery total hip. Neuropathy, lumbar stenosis. PT-OP-C Subjective Start: 06/03/19 10:51 Freq: Status: Active Protocol: Document 06/17/19 11:00 AMB (Rec: 06/17/19 12:43 AMB [email or web address]) OP-PT Subjective Patient Comments Patient Comments Pt had a good weekend, did all his exercises except only once yesterday with all the family in town for his birthday. L sided back pain is still intermittent. PT-OP-D Balance Start: 06/03/19 10:51 Freq: Status: Active Protocol: Document 06/03/19 11:00 AMB (Rec: 06/03/19 16:25 AMB [email or web address]) Balance Tests Other Other Balance Tests Performed NBOS EC: 20 seconds with increased ankle sway PT-OP-E Functional Tests Start: 06/03/19 10:51 Freq: Status: Active Protocol: Document 06/03/19 11:00 AMB (Rec: 06/03/19 16:25 AMB [email or web address]) Functional Tests 6 Minute Walk Test Distance 1263 feet Device Used none 10 Meter Walk Test Distance 10 seconds at self selected speed, 7 seconds when going fast Device Used none Five Times Sit to Stand Test Score 14 Comments chair in private treatment room, no UE support PT-OP-G Mobility & Gait Start: 06/03/19 10:51 Freq: Status: Active Protocol: Document 06/03/19 11:00 AMB (Rec: 06/03/19 16:25 AMB [email or web address]) OP Gait Assessment Comments Gait Comments Pt can have appropriate armswing, but only when conciously attending to it. Shortened step length bilaterally. Reduced trunk rotation. Reduced heel strike - more flat foot contact. PT-OP-H Neuro Start: 06/03/19 10:51 Freq: Status: Active Protocol: Document 06/03/19 11:00 AMB (Rec: 06/03/19 16:25 AMB [email or web address]) Coordination Evaluation Upper Extremity Tests Right Pronation/Supination Test Minimal Impairment Lower Extremity Tests Foot Tapping Test Normal Performance PT-OP-J Posture/Palpation/Skin Start: 06/03/19 10:51 Freq: Status: Active Protocol: Document 06/03/19 11:00 AMB (Rec: 06/03/19 16:25 AMB [email or web address]) Posture Evaluation Comments Posture Comments Flat lumbar spine with flexed hips in standing, absent trunk rotation in standing PT-OP-K Range of Motion Start: 06/03/19 10:51 Freq: Status: Active Protocol: Document 06/03/19 11:00 AMB (Rec: 12/16/19 16:25 AMB [email or web address]) Shoulder Goniometric Range of Motion Shoulder Left Passive Testing Position Sitting Flexion 146 Right Passive Testing Position Sitting Flexion 140 PT-OP-M Strength Start: 06/03/19 10:51 Freq: Status: Active Protocol: Document 06/03/19 11:00 AMB (Rec: 06/03/19 16:25 AMB [email or web address]) Hand Supervisor Veneer/Pinch Strength Hand Strength Right Supervisor Veneer (lbs) 58 Left Supervisor Veneer (lbs) 58 PT-OP-Q Treatments Start: 06/03/19 10:51 Freq: Status: Active Protocol: Document 06/17/19 11:00 AMB (Rec: 06/17/19 12:43 AMB [email or web address]) Therapeutic Exercises Sitting Exercises side to side Sitting Exercise Name side to side Side bilateral Equipment Used 20 mat Reps/Minutes x10 Comments vc counting, straighten back knee floor to ceiling Sitting Exercise Name floor to ceiling Equipment Used 20 mat Reps/Minutes x10 Comments vc for counting loud Standing Exercises sideways rock and reach Standing Exercise Name sideways rock and reach Side bilateral Reps/Minutes 10 each side Comments vc to pivot through foot and rotate hips, avoiding much trunk rotation forward rock and reach Standing Exercise Name forward rock and reach Side bilateral Equipment Used chair for UE support both sides Reps/Minutes 10 each side Comments cue full Rom for UEs backward step Standing Exercise Name backward step Side bilateral Equipment Used chair for UE support both sides Reps/Minutes 10 each side Comments pt needs UE support for balance to promote bigness; sideways step Standing Exercise Name sideways step Side bilateral Reps/Minutes 10 each side Comments cues head turn, arm position forward step Standing Exercise Name forward step Side bilateral Reps/Minutes 10 each side Comments cues for upright trunk, big step back to start position Other Exercises big sit to stand Other Exercise Name big sit to stand Equipment Used 16 step (increased pain so tried chair) Reps/Minutes x10 Comments arms below shoulder height Therapeutic Activity Therapeutic Activity 3 Name threading belt Reps/Minutes 5 Comments cue for big push through once lined up handwriting Name handwriting Reps/Minutes 5 Comments Signature practice on lined paper. Cued pt for hand/wrist flicks and big instructor of sociology on standard pen. Cued also for involvement of entire upper extremity including elbow, shoulder, and trunk movement. Gait Training Gait Activity 1 Description 6-8 step up Device Used light UE touch and then none BIG walking Description BIG walking Device Used no AD Level of Assistance SBA Surface level, tile Distance/Duration 400 ft Treatment Focus trunk rotation Comments cued to focus on big walking. light conversation did not distract from foot clearence or arm swing PT-OP-T Assessment and Plan Start: 06/03/19 10:51 Freq: Status: Active Protocol: Document 06/17/19 11:00 AMB (Rec: 06/17/19 12:43 AMB [email or web address]) Physical Therapy Assessment Assessment Summary Assessment Reinforced big motion with belt and buttoning. Pt with good armswing with gait with cognitive distraction- but overall decreased trunk rotation. Continues to need cues for walking Physical Therapy Plan Next Visit Focus/Plan Next Note Type Treatment Note Next Visit Plan Continue fine motor functional activities.
--- NOTE | 2019-06-18 12:16 | PT.OTN ---
Current Diagnoses Parkinson's disease (06/18/19) Unspecified atrial fibrillation (06/18/19) Spinal stenosis, lumbar region without neurogenic claudication (06/18/19) Physical Therapy Treatment Note PT-OP-A Visit Information Start: 06/03/19 10:51 Freq: Status: Active Protocol: Document 06/18/19 11:55 AW (Rec: 06/18/19 12:16 AW [email or web address]) Out-Patient Physical Therapy Visit Information Visit Information Visit Type Treatment Note Visit Note 12/26 Visit Start Time 10:58 Visit Stop Time 11:55 Total Visit Minutes 57 Visit Number 7 PT-OP-B Current Condition Start: 06/03/19 10:51 Freq: Status: Active Protocol: Document 06/03/19 11:00 AMB (Rec: 06/03/19 16:25 AMB [email or web address]) Current Condition History of Current Condition Onset Date 2 years, progressing Current Complaints Difficulty using the right hand, increased difficulty walking History of Current Condition Thor was recently diagnosed with Parkinson's although did notice increased difficulty using his right hand (he is righ hand dominant) about 2 years ago after his right total shoulder surgery. He does have a resting tremor in his right hand. He does have a history of low back pain and left hip pain and neuropathy that has limited his walking on hills, he does not report much difficulty walking on flat surfaces although he admits his is slower than he used to be. He is hopeful that he will be able to maintain his mobility for the [facility]. Prior Functional Status Baseline Function- ADL's Independent Baseline Function- Mobility Independent Current Functional Impairments (Reported) Functional Limitations- ADL's Pt reports he is slower with buttoning, has noticed micrographia especially with signing multiple checks. Functional Limitations- Recreation/ Pt has stopped playing golf: Hobbies he recently finished 18 holes in a golf cart 3x/wk, but then felt that he was too stiff after that, so stopped, he is hoping to return to that but maybe at onex/week. Personal Factors Other Personal Factors That May Effect Hx right total shoulder, right Therapy/Recovery total hip. Neuropathy, lumbar stenosis. PT-OP-C Subjective Start: 06/03/19 10:51 Freq: Status: Active Protocol: Document 06/18/19 11:55 AW (Rec: 06/18/19 12:16 AW [email or web address]) OP-PT Subjective Patient Comments Patient Comments My told me she thinks I' m moving better. PT-OP-D Balance Start: 06/03/19 10:51 Freq: Status: Active Protocol: Document 06/03/19 11:00 AMB (Rec: 06/03/19 16:25 AMB [email or web address]) Balance Tests Other Other Balance Tests Performed NBOS EC: 20 seconds with increased ankle sway PT-OP-E Functional Tests Start: 06/03/19 10:51 Freq: Status: Active Protocol: Document 06/03/19 11:00 AMB (Rec: 06/03/19 16:25 AMB [email or web address]) Functional Tests 6 Minute Walk Test Distance 1263 feet Device Used none 10 Meter Walk Test Distance 10 seconds at self selected speed, 7 seconds when going fast Device Used none Five Times Sit to Stand Test Score 14 Comments chair in private treatment room, no UE support PT-OP-G Mobility & Gait Start: 06/03/19 10:51 Freq: Status: Active Protocol: Document 06/03/19 11:00 AMB (Rec: 06/03/19 16:25 AMB [email or web address]) OP Gait Assessment Comments Gait Comments Pt can have appropriate armswing, but only when conciously attending to it. Shortened step length bilaterally. Reduced trunk rotation. Reduced heel strike - more flat foot contact. PT-OP-H Neuro Start: 06/03/19 10:51 Freq: Status: Active Protocol: Document 06/03/19 11:00 AMB (Rec: 06/03/19 16:25 AMB [email or web address]) Coordination Evaluation Upper Extremity Tests Right Pronation/Supination Test Minimal Impairment Lower Extremity Tests Foot Tapping Test Normal Performance PT-OP-J Posture/Palpation/Skin Start: 06/03/19 10:51 Freq: Status: Active Protocol: Document 06/03/19 11:00 AMB (Rec: 06/03/19 16:25 AMB [email or web address]) Posture Evaluation Comments Posture Comments Flat lumbar spine with flexed hips in standing, absent trunk rotation in standing PT-OP-K Range of Motion Start: 06/03/19 10:51 Freq: Status: Active Protocol: Document 06/03/19 11:00 AMB (Rec: 06/03/19 16:25 AMB [email or web address]) Shoulder Goniometric Range of Motion Shoulder Left Passive Testing Position Sitting Flexion 146 Right Passive Testing Position Sitting Flexion 140 PT-OP-M Strength Start: 06/03/19 10:51 Freq: Status: Active Protocol: Document 06/03/19 11:00 AMB (Rec: 06/03/19 16:25 AMB [email or web address]) Hand Metal Casting Trades Worker/Pinch Strength Hand Strength Right Metal Casting Trades Worker (lbs) 58 Left Metal Casting Trades Worker (lbs) 58 PT-OP-Q Treatments Start: 06/03/19 10:51 Freq: Status: Active Protocol: Document 06/18/19 11:55 AW (Rec: 06/18/19 12:16 AW [email or web address]) Therapeutic Exercises Sitting Exercises side to side Sitting Exercise Name side to side Side bilateral Equipment Used 20 mat Reps/Minutes x10 alternating sides Comments vc counting, straighten back knee floor to ceiling Sitting Exercise Name floor to ceiling Equipment Used 20 mat Reps/Minutes x10 Comments vc for counting loud Standing Exercises sideways rock and reach Standing Exercise Name sideways rock and reach Side bilateral Reps/Minutes 10 each side Comments vc to pivot through foot and rotate hips, avoiding much trunk rotation forward rock and reach Standing Exercise Name forward rock and reach Side bilateral Equipment Used without UE support but with diminished amplitude; plan to return to UE supp Reps/Minutes 10 each side Comments cue full Rom for UEs backward step Standing Exercise Name backward step Side bilateral Equipment Used chair for UE support both sides Reps/Minutes 10 each side Comments cues for bigger weight shift sideways step Standing Exercise Name sideways step Side bilateral Reps/Minutes 10 each side, alternating Comments cues head turn, arm position forward step Standing Exercise Name forward step Side bilateral Reps/Minutes 10 each side, alternating Comments cues for upright trunk, big step back to start position Other Exercises big sit to stand Other Exercise Name big sit to stand Equipment Used 20 mat, 2 blue foam Reps/Minutes 3 x 5 reps Comments arms below shoulder height, extension into pain-free range Therapeutic Activity Therapeutic Activity stairs Name stairs Reps/Minutes 5 minutes Comments Initiated with light alternating taps to 6 step to promote amplitude of hip flexion/foot clearance. Practice on 6 steps without hand rails ascending step over step and with fingertip support on bilateral rails descending step-to. 3 Name threading belt Reps/Minutes 5 Comments Uncued rep 35 seconds including buckle. After cues for big voip network engineer, big push, and big pull through, pt completed in 23 seconds. handwriting Name handwriting Reps/Minutes 5 Comments Signature practice, check- writing components, grocery list practice, and consecutive circles on lined paper. Cued pt for hand/wrist flicks and big voip network engineer on standard pen. Cued also for involvement of entire upper extremity including elbow, shoulder, and trunk movement. Gait Training Gait Activity BIG walking Description BIG walking Device Used no AD Level of Assistance SBA Surface level, tile Distance/Duration 400 ft Treatment Focus trunk rotation Comments cued to focus on big walking. light conversation distracted from arm swing (left more affected than right) but pt able to maintain big steps. PT-OP-T Assessment and Plan Start: 06/03/19 10:51 Freq: Status: Active Protocol: Document 06/18/19 11:55 AW (Rec: 06/18/19 12:16 AW [email or web address]) Physical Therapy Assessment Goals Three Impairment ROM Short Term Goal (STG) Thor will improve his shoulder flexion bilaterally to 150 degrees. STG Duration 2 weeks Two Impairment Fine motor control Short Term Goal (STG) Thor will sign his name 10 times with minimal micrographia. STG Duration 2 weeks Reverberatory Furnace Supervisor Goal (LTG) Thor will button a wrist button on a dress shirt with his right hand within 5 seconds of the time it takes to do so with his left hand. LTG Duration 4 weeks One Impairment Gait Short Term Goal (STG) Thor will ambulate over uneven surfaces with good step length and without LOB. STG Duration 2 weeks Correction Goal (LTG) Thor will improve his 6 minute walk distance to 1532 or more without assistive device. LTG Duration 4 weeks Assessment Summary Assessment Pt had good arm swing and big steps without distraction today but definite decrease in arm swing (left worse than right) with light conversation . Pt was observed leaving the clinic with improved gait after treatment. Physical Therapy Plan Next Visit Focus/Plan Next Note Type Treatment Note Next Visit Plan Continue fine motor functional activities.
--- NOTE | 2019-06-20 13:17 | PT.OTN ---
Current Diagnoses Parkinson's disease (06/20/19) Unspecified atrial fibrillation (06/20/19) Spinal stenosis, lumbar region without neurogenic claudication (06/20/19) Physical Therapy Treatment Note PT-OP-A Visit Information Start: 06/03/19 10:51 Freq: Status: Active Protocol: Document 06/20/19 11:00 AMB (Rec: 06/20/19 13:06 AMB [email or web address]) Out-Patient Physical Therapy Visit Information Visit Information Visit Type Treatment Note Visit Note 01/26 Visit Start Time 11:00 Visit Stop Time 11:55 Total Visit Minutes 55 Visit Number 8 PT-OP-B Current Condition Start: 06/03/19 10:51 Freq: Status: Active Protocol: Document 06/03/19 11:00 AMB (Rec: 06/03/19 16:25 AMB [email or web address]) Current Condition History of Current Condition Onset Date 2 years, progressing Current Complaints Difficulty using the right hand, increased difficulty walking History of Current Condition Thor was recently diagnosed with Parkinson's although did notice increased difficulty using his right hand (he is righ hand dominant) about 2 years ago after his right total shoulder surgery. He does have a resting tremor in his right hand. He does have a history of low back pain and left hip pain and neuropathy that has limited his walking on hills, he does not report much difficulty walking on flat surfaces although he admits his is slower than he used to be. 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 Prior Functional Status Baseline Function- ADL's Independent Baseline Function- Mobility Independent Current Functional Impairments (Reported) Functional Limitations- ADL's Pt reports he is slower with buttoning, has noticed micrographia especially with signing multiple checks. Functional Limitations- Recreation/ Pt has stopped playing golf: Hobbies he recently finished 18 holes in a golf cart 3x/wk, but then felt that he was too stiff after that, so stopped, he is hoping to return to that but maybe at onex/week. Personal Factors Other Personal Factors That May Effect Hx right total shoulder, right Therapy/Recovery total hip. Neuropathy, lumbar stenosis. PT-OP-C Subjective Start: 06/03/19 10:51 Freq: Status: Active Protocol: Document 06/20/19 11:00 AMB (Rec: 06/20/19 13:16 AMB [email or web address]) OP-PT Subjective Patient Comments Patient Comments Thor states he is doing well, his back is slowly feeling better. PT-OP-D Balance Start: 06/03/19 10:51 Freq: Status: Active Protocol: Document 06/03/19 11:00 AMB (Rec: 06/03/19 16:25 AMB [email or web address]) Balance Tests Other Other Balance Tests Performed NBOS EC: 20 seconds with increased ankle sway PT-OP-E Functional Tests Start: 06/03/19 10:51 Freq: Status: Active Protocol: Document 06/03/19 11:00 AMB (Rec: 06/03/19 16:25 AMB [email or web address]) Functional Tests 6 Minute Walk Test Distance 1263 feet Device Used none 10 Meter Walk Test Distance 10 seconds at self selected speed, 7 seconds when going fast Device Used none Five Times Sit to Stand Test Score 14 Comments chair in private treatment room, no UE support PT-OP-G Mobility & Gait Start: 06/03/19 10:51 Freq: Status: Active Protocol: Document 06/03/19 11:00 AMB (Rec: 06/03/19 16:25 AMB [email or web address]) OP Gait Assessment Comments Gait Comments Pt can have appropriate armswing, but only when conciously attending to it. Shortened step length bilaterally. Reduced trunk rotation. Reduced heel strike - more flat foot contact. PT-OP-H Neuro Start: 06/03/19 10:51 Freq: Status: Active Protocol: Document 06/03/19 11:00 AMB (Rec: 06/03/19 16:25 AMB [email or web address]) Coordination Evaluation Upper Extremity Tests Right Pronation/Supination Test Minimal Impairment Lower Extremity Tests Foot Tapping Test Normal Performance PT-OP-J Posture/Palpation/Skin Start: 06/03/19 10:51 Freq: Status: Active Protocol: Document 06/03/19 11:00 AMB (Rec: 06/03/19 16:25 AMB [email or web address]) Posture Evaluation Comments Posture Comments Flat lumbar spine with flexed hips in standing, absent trunk rotation in standing PT-OP-K Range of Motion Start: 06/03/19 10:51 Freq: Status: Active Protocol: Document 06/03/19 11:00 AMB (Rec: 06/03/19 16:25 AMB [email or web address]) Shoulder Goniometric Range of Motion Shoulder Left Passive Testing Position Sitting Flexion 146 Right Passive Testing Position Sitting Flexion 140 PT-OP-M Strength Start: 06/03/19 10:51 Freq: Status: Active Protocol: Document 06/03/19 11:00 AMB (Rec: 06/03/19 16:25 AMB [email or web address]) Hand Carbon Paper Coating Supervisor/Pinch Strength Hand Strength Right Carbon Paper Coating Supervisor (lbs) 58 Left Carbon Paper Coating Supervisor (lbs) 58 PT-OP-Q Treatments Start: 06/03/19 10:51 Freq: Status: Active Protocol: Document 06/20/19 11:00 AMB (Rec: 06/20/19 13:06 AMB [email or web address]) Therapeutic Exercises Sitting Exercises side to side Sitting Exercise Name side to side Side bilateral Equipment Used 20 mat Reps/Minutes x10 alternating sides Comments vc counting, straighten back knee floor to ceiling Sitting Exercise Name floor to ceiling Equipment Used 20 mat Reps/Minutes x10 Comments vc for counting loud Standing Exercises sideways rock and reach Standing Exercise Name sideways rock and reach Side bilateral Reps/Minutes 10 each side Comments vc to pivot through foot and rotate hips, avoiding much trunk rotation forward rock and reach Standing Exercise Name forward rock and reach Side bilateral Equipment Used without UE support but with diminished amplitude; plan to return to UE supp Reps/Minutes 10 each side Comments cue full Rom for UEs backward step Standing Exercise Name backward step Side bilateral Equipment Used chair for UE support both sides Reps/Minutes 10 each side Comments cues for bigger weight shift sideways step Standing Exercise Name sideways step Side bilateral Reps/Minutes 10 each side, alternating Comments cues head turn, arm position forward step Standing Exercise Name forward step Side bilateral Reps/Minutes 10 each side, alternating Comments cues for upright trunk, big step back to start position Other Exercises big sit to stand Other Exercise Name big sit to stand Equipment Used 20 mat, 2 blue foam Reps/Minutes 3 x 5 reps Comments arms below shoulder height, extension into pain-free range Gait Training Gait Activity 2 Description treadmill walking on 3% incline Comments 3 minutes pt with lumbar flexion 1 Description 6-8 step up Device Used light UE touch and then none BIG walking Description BIG walking Device Used no AD Level of Assistance SBA Surface level, tile Distance/Duration 400 ft Treatment Focus trunk rotation Comments cued to focus on big walking. light conversation distracted from arm swing (left more affected than right) but pt able to maintain big steps. PT-OP-T Assessment and Plan Start: 06/03/19 10:51 Freq: Status: Active Protocol: Document 06/20/19 11:00 AMB (Rec: 06/20/19 13:06 AMB [email or web address]) Physical Therapy Assessment Assessment Summary Assessment Pt's hip strength was limiting his ability to descend stairs without railings step over step. Back gets fatigued with walking on treadmill at incline. Physical Therapy Plan Next Visit Focus/Plan Next Note Type Progress Note Next Visit Plan Retest 6 MWT, 10MWT, 5x sit to stand next visit. Address typing
--- NOTE | 2019-06-21 12:57 | PT.OTN ---
Current Diagnoses Parkinson's disease (06/21/19) Unspecified atrial fibrillation (06/21/19) Spinal stenosis, lumbar region without neurogenic claudication (06/21/19) Physical Therapy Treatment Note PT-OP-A Visit Information Start: 06/03/19 10:51 Freq: Status: Active Protocol: Document 06/21/19 11:00 AMB (Rec: 06/21/19 13:00 AMB [email or web address]) Out-Patient Physical Therapy Visit Information Visit Information Visit Type Progress Note Visit Note 06/28 Visit Start Time 11:00 Visit Stop Time 12:00 Total Visit Minutes 60 Visit Number 9 PT-OP-B Current Condition Start: 06/03/19 10:51 Freq: Status: Active Protocol: Document 06/03/19 11:00 AMB (Rec: 06/03/19 16:25 AMB [email or web address]) Current Condition History of Current Condition Onset Date 2 years, progressing Current Complaints Difficulty using the right hand, increased difficulty walking History of Current Condition Thor was recently diagnosed with Parkinson's although did notice increased difficulty using his right hand (he is righ hand dominant) about 2 years ago after his right total shoulder surgery. He does have a resting tremor in his right hand. He does have a history of low back pain and left hip pain and neuropathy that has limited his walking on hills, he does not report much difficulty walking on flat surfaces although he admits his is slower than he used to be. 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 Prior Functional Status Baseline Function- ADL's Independent Baseline Function- Mobility Independent Current Functional Impairments (Reported) Functional Limitations- ADL's Pt reports he is slower with buttoning, has noticed micrographia especially with signing multiple checks. Functional Limitations- Recreation/ Pt has stopped playing golf: Hobbies he recently finished 18 holes in a golf cart 3x/wk, but then felt that he was too stiff after that, so stopped, he is hoping to return to that but maybe at onex/week. Personal Factors Other Personal Factors That May Effect Hx right total shoulder, right Therapy/Recovery total hip. Neuropathy, lumbar stenosis. PT-OP-C Subjective Start: 06/03/19 10:51 Freq: Status: Active Protocol: Document 06/21/19 11:00 AMB (Rec: 06/21/19 13:00 AMB [email or web address]) OP-PT Subjective Patient Comments Patient Comments Pt states PT-OP-D Balance Start: 06/03/19 10:51 Freq: Status: Active Protocol: Document 06/03/19 11:00 AMB (Rec: 06/03/19 16:25 AMB [email or web address]) Balance Tests Other Other Balance Tests Performed NBOS EC: 20 seconds with increased ankle sway PT-OP-E Functional Tests Start: 06/03/19 10:51 Freq: Status: Active Protocol: Document 06/21/19 11:00 AMB (Rec: 06/23/19 12:49 AMB [email or web address]) Functional Tests 10 Meter Walk Test Distance 6 sec fast walking, 7 sec self selected Device Used none Timed Up and Go (TUG) Score 6 sec normal, 7 sec holding water cup TUG Impairment Rating 0% Impaired (Score 10) PT-OP-G Mobility & Gait Start: 06/03/19 10:51 Freq: Status: Active Protocol: Document 06/03/19 11:00 AMB (Rec: 06/03/19 16:25 AMB [email or web address]) OP Gait Assessment Comments Gait Comments Pt can have appropriate armswing, but only when conciously attending to it. Shortened step length bilaterally. Reduced trunk rotation. Reduced heel strike - more flat foot contact. PT-OP-H Neuro Start: 06/03/19 10:51 Freq: Status: Active Protocol: Document 06/03/19 11:00 AMB (Rec: 06/03/19 16:25 AMB [email or web address]) Coordination Evaluation Upper Extremity Tests Right Pronation/Supination Test Minimal Impairment Lower Extremity Tests Foot Tapping Test Normal Performance PT-OP-J Posture/Palpation/Skin Start: 06/03/19 10:51 Freq: Status: Active Protocol: Document 06/03/19 11:00 AMB (Rec: 06/03/19 16:25 AMB [email or web address]) Posture Evaluation Comments Posture Comments Flat lumbar spine with flexed hips in standing, absent trunk rotation in standing PT-OP-K Range of Motion Start: 06/03/19 10:51 Freq: Status: Active Protocol: Document 06/03/19 11:00 AMB (Rec: 06/03/19 16:25 AMB [email or web address]) Shoulder Goniometric Range of Motion Shoulder Left Passive Testing Position Sitting Flexion 146 Right Passive Testing Position Sitting Flexion 140 PT-OP-M Strength Start: 06/03/19 10:51 Freq: Status: Active Protocol: Document 06/03/19 11:00 AMB (Rec: 06/03/19 16:25 AMB [email or web address]) Hand Furs Salesperson/Pinch Strength Hand Strength Right Furs Salesperson (lbs) 58 Left Furs Salesperson (lbs) 58 PT-OP-Q Treatments Start: 06/03/19 10:51 Freq: Status: Active Protocol: Document 06/21/19 11:00 AMB (Rec: 06/23/19 12:56 AMB [email or web address]) Therapeutic Exercises Sitting Exercises side to side Sitting Exercise Name side to side Side bilateral Equipment Used 20 mat Reps/Minutes x10 alternating sides Comments added 1# wrist weights, vc straighten back knee floor to ceiling Sitting Exercise Name floor to ceiling Equipment Used 20 mat Reps/Minutes x10 Comments added 1# wrist weights, pt still able to move through good shoulder ROM Standing Exercises sideways rock and reach Standing Exercise Name sideways rock and reach Side bilateral Reps/Minutes 10 each side Comments vc to pivot through foot and rotate hips, avoiding much trunk rotation forward rock and reach Standing Exercise Name forward rock and reach Side bilateral Equipment Used without UE support but with diminished amplitude; plan to return to UE supp Reps/Minutes 10 each side Comments cue full Rom for UEs backward step Standing Exercise Name backward step Side bilateral Equipment Used chair for UE support both sides Reps/Minutes 10 each side Comments cues for bigger weight shift sideways step Standing Exercise Name sideways step Side bilateral Reps/Minutes 10 each side, alternating forward step Standing Exercise Name forward step Side bilateral Reps/Minutes 10 each side, alternating Comments cues for upright trunk, big step back to start position Other Exercises big sit to stand Other Exercise Name big sit to stand Equipment Used 20 mat, 2 blue foam Reps/Minutes 3 x 5 reps Comments arms below shoulder height, extension into pain-free range Therapeutic Activity Therapeutic Activity 1 Name typing Comments pt has never typed normally but uses index fingers fairly quickly, encouraged rest breaks, setting up computer for best body mechanics Gait Training Gait Activity BIG walking Description BIG walking Device Used no AD Level of Assistance SBA Surface level, tile Distance/Duration 1000ft Treatment Focus trunk rotation Comments cued to focus on big walking. -pt tending towards fast but shorter steps when trying to walk quickly, encouraged longer step length PT-OP-T Assessment and Plan Start: 06/03/19 10:51 Freq: Status: Active Protocol: Document 06/21/19 11:00 AMB (Rec: 06/21/19 13:00 AMB [email or web address]) Physical Therapy Assessment Goals Three Impairment ROM Short Term Goal (STG) Thor will improve his shoulder flexion bilaterally to 150 degrees. 1/3: No change yet STG Duration 2 weeks Two Impairment Fine motor control Short Term Goal (STG) Thor will sign his name 10 times with minimal micrographia. STG Duration 2 weeks Fpc Goal (LTG) Thor will button a wrist button on a dress shirt with his right hand within 5 seconds of the time it takes to do so with his left hand. LTG Duration 4 weeks One Impairment Gait Short Term Goal (STG) Thor will ambulate over uneven surfaces with good step length and without LOB. 13: intermittently met STG Duration 2 weeks Iridologist Goal (LTG) Thor will improve his 6 minute walk distance to 1532 or more without assistive device. 13: NOT MET YET LTG Duration 4 weeks Assessment Summary Assessment Pt's 6MWT was slightly slower, but improved 10MWT today. Encouraged pt in lengthening stride rather than taking faster steps when working on speed. Physical Therapy Plan Frequency and Duration Frequency of Treatment 4x/Week Duration of Treatment 6 weeks (longer duration due to break in the middle) Plan of Care Start Date 06/03/19 Plan of Care End Date 07/15/19 Therapeutic Interventions Therapeutic Interventions Balance Training,Gait Training ,Home Exercise Program,Manual Therapy,Neuromuscular Re- education,Self-Care/Home Management,Therapeutic Activities,Therapeutic Exercises Next Visit Focus/Plan Next Note Type Treatment Note Next Visit Plan Retest 5x sit to stand, continue fine motor and gait training
--- NOTE | 2019-06-24 16:02 | PT.OTN ---
Current Diagnoses Parkinson's disease (06/24/19) Unspecified atrial fibrillation (06/24/19) Spinal stenosis, lumbar region without neurogenic claudication (06/24/19) Physical Therapy Treatment Note PT-OP-A Visit Information Start: 06/03/19 10:51 Freq: Status: Active Protocol: Document 06/24/19 11:00 AMB (Rec: 06/24/19 12:19 AMB [id number]) Out-Patient Physical Therapy Visit Information Visit Information Visit Type Treatment Note Visit Note 07/29 Visit Start Time 11:00 Visit Stop Time 12:00 Total Visit Minutes 60 Visit Number 10 PT-OP-B Current Condition Start: 06/03/19 10:51 Freq: Status: Active Protocol: Document 06/03/19 11:00 AMB (Rec: 06/03/19 16:25 AMB [email or web address]) Current Condition History of Current Condition Onset Date 2 years, progressing Current Complaints Difficulty using the right hand, increased difficulty walking History of Current Condition Thor was recently diagnosed with Parkinson's although did notice increased difficulty using his right hand (he is righ hand dominant) about 2 years ago after his right total shoulder surgery. He does have a resting tremor in his right hand. He does have a history of low back pain and left hip pain and neuropathy that has limited his walking on hills, he does not report much difficulty walking on flat surfaces although he admits his is slower than he used to be. 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 Prior Functional Status Baseline Function- ADL's Independent Baseline Function- Mobility Independent Current Functional Impairments (Reported) Functional Limitations- ADL's Pt reports he is slower with buttoning, has noticed micrographia especially with signing multiple checks. Functional Limitations- Recreation/ Pt has stopped playing golf: Hobbies he recently finished 18 holes in a golf cart 3x/wk, but then felt that he was too stiff after that, so stopped, he is hoping to return to that but maybe at onex/week. Personal Factors Other Personal Factors That May Effect Hx right total shoulder, right Therapy/Recovery total hip. Neuropathy, lumbar stenosis. PT-OP-C Subjective Start: 06/03/19 10:51 Freq: Status: Active Protocol: Document 06/24/19 11:00 AMB (Rec: 06/24/19 12:19 AMB [id number]) OP-PT Subjective Patient Comments Patient Comments Pt reports back is about the same. L hip can still catch at times. PT-OP-D Balance Start: 06/03/19 10:51 Freq: Status: Active Protocol: Document 06/03/19 11:00 AMB (Rec: 06/03/19 16:25 AMB [email or web address]) Balance Tests Other Other Balance Tests Performed NBOS EC: 20 seconds with increased ankle sway PT-OP-E Functional Tests Start: 06/03/19 10:51 Freq: Status: Active Protocol: Document 06/24/19 11:26 AMB (Rec: 06/24/19 11:26 AMB [id number]) Functional Tests 6 Minute Walk Test Distance 1220 Device Used none Five Times Sit to Stand Test Score 10 PT-OP-G Mobility & Gait Start: 06/03/19 10:51 Freq: Status: Active Protocol: Document 06/03/19 11:00 AMB (Rec: 06/03/19 16:25 AMB [email or web address]) OP Gait Assessment Comments Gait Comments Pt can have appropriate armswing, but only when conciously attending to it. Shortened step length bilaterally. Reduced trunk rotation. Reduced heel strike - more flat foot contact. PT-OP-H Neuro Start: 06/03/19 10:51 Freq: Status: Active Protocol: Document 06/03/19 11:00 AMB (Rec: 06/03/19 16:25 AMB [email or web address]) Coordination Evaluation Upper Extremity Tests Right Pronation/Supination Test Minimal Impairment Lower Extremity Tests Foot Tapping Test Normal Performance PT-OP-J Posture/Palpation/Skin Start: 06/03/19 10:51 Freq: Status: Active Protocol: Document 06/03/19 11:00 AMB (Rec: 06/03/19 16:25 AMB [email or web address]) Posture Evaluation Comments Posture Comments Flat lumbar spine with flexed hips in standing, absent trunk rotation in standing PT-OP-K Range of Motion Start: 06/03/19 10:51 Freq: Status: Active Protocol: Document 06/03/19 11:00 AMB (Rec: 06/03/19 16:25 AMB [email or web address]) Shoulder Goniometric Range of Motion Shoulder Left Passive Testing Position Sitting Flexion 146 Right Passive Testing Position Sitting Flexion 140 PT-OP-M Strength Start: 06/03/19 10:51 Freq: Status: Active Protocol: Document 06/03/19 11:00 AMB (Rec: 06/03/19 16:25 AMB [email or web address]) Hand Evp/Pinch Strength Hand Strength Right Evp (lbs) 58 Left Evp (lbs) 58 PT-OP-Q Treatments Start: 06/03/19 10:51 Freq: Status: Active Protocol: Document 06/24/19 11:00 AMB (Rec: 06/24/19 13:01 AMB [email or web address]) Therapeutic Exercises Sitting Exercises side to side Sitting Exercise Name side to side Side bilateral Equipment Used 20 mat Reps/Minutes x10 alternating sides Comments added 1# wrist weights, vc straighten back knee floor to ceiling Sitting Exercise Name floor to ceiling Equipment Used 20 mat Reps/Minutes x10 Comments added 1# wrist weights, pt still able to move through good shoulder ROM Standing Exercises sideways rock and reach Standing Exercise Name sideways rock and reach Side bilateral Resistance 1# wrist weight Reps/Minutes 10 each side Comments vc to pivot through foot and rotate hips, avoiding much trunk rotation forward rock and reach Standing Exercise Name forward rock and reach Side bilateral Resistance 1# wrist weight Equipment Used without UE support Reps/Minutes 10 each side Comments cue full Rom for UEs backward step Standing Exercise Name backward step Side bilateral Resistance 1# wrist weight Equipment Used chair for UE support both sides Reps/Minutes 10 each side Comments cues for bigger weight shift sideways step Standing Exercise Name sideways step Side bilateral Resistance 1# wrist weight Reps/Minutes 10 each side, alternating forward step Standing Exercise Name forward step Side bilateral Resistance 1# wrist weight Reps/Minutes 10 each side, alternating Comments cues for upright trunk, big step back to start position 2 Standing Exercise Name hamstring stretch Reps/Minutes 30x2 1 Standing Exercise Name calf stretch Reps/Minutes 30x2 Other Exercises big sit to stand Other Exercise Name big sit to stand Equipment Used 20 mat, 2 blue foam Reps/Minutes 3 x 5 reps Comments arms below shoulder height, extension into pain-free range Therapeutic Activity Therapeutic Activity handwriting Name handwriting Reps/Minutes 5 Comments Signature practice, check- writing components, grocery list practice. Cued pt for hand/wrist flicks and big openstack developer on standard pen. Cued also for involvement of entire upper extremity including elbow, shoulder, and trunk movement. Gait Training Gait Activity 4 Description stairs Distance/Duration 4 an 6 stairs without railing Comments pt had one mistep where he was able to independently catch himself, but did lose his balance after catching his toe . 3 Description walking over uneven terrain Device Used none Level of Assistance SBA Surface uneven -yoga mat over pods/ hurdles Distance/Duration // bars BIG walking Description BIG walking Device Used no AD Level of Assistance SBA Surface level, tile Distance/Duration 500ft Treatment Focus trunk rotation Comments cued to focus on big walking. -pt tending towards fast but shorter steps when trying to walk quickly, encouraged longer step length PT-OP-T Assessment and Plan Start: 06/03/19 10:51 Freq: Status: Active Protocol: Document 06/24/19 11:00 AMB (Rec: 06/24/19 12:19 AMB [id number]) Physical Therapy Assessment Assessment Summary Assessment Pt showing good improvement with 5x sit to stand. Descending stairs with alternating gait pattern is problematic due to hip. Pt tolerating weights well. Physical Therapy Plan Next Visit Focus/Plan Next Note Type Treatment Note Next Visit Plan Progress gait and fine motor activities
--- NOTE | 2019-06-25 12:19 | PT.OTN ---
Current Diagnoses Parkinson's disease (06/25/19) Unspecified atrial fibrillation (06/25/19) Spinal stenosis, lumbar region without neurogenic claudication (06/25/19) Physical Therapy Treatment Note PT-OP-A Visit Information Start: 06/03/19 10:51 Freq: Status: Active Protocol: Document 06/25/19 11:59 AW (Rec: 06/25/19 12:19 AW [email or web address]) Out-Patient Physical Therapy Visit Information Visit Information Visit Type Treatment Note Visit Note 08/26 Visit Start Time 11:03 Visit Stop Time 11:58 Total Visit Minutes 55 Visit Number 11 PT-OP-B Current Condition Start: 06/03/19 10:51 Freq: Status: Active Protocol: Document 06/03/19 11:00 AMB (Rec: 06/03/19 16:25 AMB [email or web address]) Current Condition History of Current Condition Onset Date 2 years, progressing Current Complaints Difficulty using the right hand, increased difficulty walking History of Current Condition Thor was recently diagnosed with Parkinson's although did notice increased difficulty using his right hand (he is righ hand dominant) about 2 years ago after his right total shoulder surgery. He does have a resting tremor in his right hand. He does have a history of low back pain and left hip pain and neuropathy that has limited his walking on hills, he does not report much difficulty walking on flat surfaces although he admits his is slower than he used to be. 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 Prior Functional Status Baseline Function- ADL's Independent Baseline Function- Mobility Independent Current Functional Impairments (Reported) Functional Limitations- ADL's Pt reports he is slower with buttoning, has noticed micrographia especially with signing multiple checks. Functional Limitations- Recreation/ Pt has stopped playing golf: Hobbies he recently finished 18 holes in a golf cart 3x/wk, but then felt that he was too stiff after that, so stopped, he is hoping to return to that but maybe at onex/week. Personal Factors Other Personal Factors That May Effect Hx right total shoulder, right Therapy/Recovery total hip. Neuropathy, lumbar stenosis. PT-OP-C Subjective Start: 06/03/19 10:51 Freq: Status: Active Protocol: Document 06/25/19 11:59 AW (Rec: 06/25/19 12:19 AW [email or web address]) OP-PT Subjective Patient Comments Patient Comments Pt feels his balance is improving PT-OP-D Balance Start: 06/03/19 10:51 Freq: Status: Active Protocol: Document 06/03/19 11:00 AMB (Rec: 06/03/19 16:25 AMB [email or web address]) Balance Tests Other Other Balance Tests Performed NBOS EC: 20 seconds with increased ankle sway PT-OP-E Functional Tests Start: 06/03/19 10:51 Freq: Status: Active Protocol: Document 06/24/19 11:26 AMB (Rec: 06/24/19 11:26 AMB [id number]) Functional Tests 6 Minute Walk Test Distance 1220 Device Used none Five Times Sit to Stand Test Score 10 PT-OP-G Mobility & Gait Start: 06/03/19 10:51 Freq: Status: Active Protocol: Document 06/03/19 11:00 AMB (Rec: 06/03/19 16:25 AMB [email or web address]) OP Gait Assessment Comments Gait Comments Pt can have appropriate armswing, but only when conciously attending to it. Shortened step length bilaterally. Reduced trunk rotation. Reduced heel strike - more flat foot contact. PT-OP-H Neuro Start: 06/03/19 10:51 Freq: Status: Active Protocol: Document 06/03/19 11:00 AMB (Rec: 06/03/19 16:25 AMB [email or web address]) Coordination Evaluation Upper Extremity Tests Right Pronation/Supination Test Minimal Impairment Lower Extremity Tests Foot Tapping Test Normal Performance PT-OP-J Posture/Palpation/Skin Start: 06/03/19 10:51 Freq: Status: Active Protocol: Document 06/03/19 11:00 AMB (Rec: 06/03/19 16:25 AMB [email or web address]) Posture Evaluation Comments Posture Comments Flat lumbar spine with flexed hips in standing, absent trunk rotation in standing PT-OP-K Range of Motion Start: 06/03/19 10:51 Freq: Status: Active Protocol: Document 06/03/19 11:00 AMB (Rec: 06/03/19 16:25 AMB [email or web address]) Shoulder Goniometric Range of Motion Shoulder Left Passive Testing Position Sitting Flexion 146 Right Passive Testing Position Sitting Flexion 140 PT-OP-M Strength Start: 06/03/19 10:51 Freq: Status: Active Protocol: Document 06/03/19 11:00 AMB (Rec: 06/03/19 16:25 AMB [email or web address]) Hand Security System Sales Consultant/Pinch Strength Hand Strength Right Security System Sales Consultant (lbs) 58 Left Security System Sales Consultant (lbs) 58 PT-OP-Q Treatments Start: 06/03/19 10:51 Freq: Status: Active Protocol: Document 06/25/19 11:59 AW (Rec: 06/25/19 12:19 AW [email or web address]) Therapeutic Exercises Sitting Exercises side to side Sitting Exercise Name side to side Side bilateral Equipment Used leobardo stool, 1# wrist weights Reps/Minutes x10 alternating sides Comments vc straighten back knee (more difficult left leg) floor to ceiling Sitting Exercise Name floor to ceiling Equipment Used leobardo stool, 1# wrist weights Reps/Minutes x10 Comments pt still able to move through good shoulder ROM Standing Exercises sideways rock and reach Standing Exercise Name sideways rock and reach Side bilateral Resistance 1# wrist weight, 2 floor mat Reps/Minutes 10 each side Comments vc to pivot through foot and rotate hips, avoiding much trunk rotation forward rock and reach Standing Exercise Name forward rock and reach Side bilateral Resistance 1# wrist weight, 2 floor mat Equipment Used without UE support Reps/Minutes 10 each side Comments cue full Rom for UEs, swing left back farther backward step Standing Exercise Name backward step Side bilateral Resistance 1# wrist weight Equipment Used chair for UE support both sides Reps/Minutes 10 each side Comments cues for bigger weight shift, toe up in front, heel up in back sideways step Standing Exercise Name sideways step Side bilateral Resistance 1# wrist weight, 2 floor mat Reps/Minutes 10 each side, alternating Comments cues for foot clearance with return step forward step Standing Exercise Name forward step Side bilateral Resistance 1# wrist weight, 2 floor mat Reps/Minutes 10 each side, alternating Comments cues for upright trunk, big step back to start position 2 Standing Exercise Name hamstring stretch Side bilateral Resistance 6 step left; 12 step right Reps/Minutes 30x2 1 Standing Exercise Name calf stretch Equipment Used MAYE Reps/Minutes 30x2 Other Exercises big sit to stand Other Exercise Name big sit to stand Equipment Used leobardo stool, wobble board, gait belt Reps/Minutes 3 x 8 reps Comments 1st 2 sets on stool; 3rd set on 20 mat with wobble board oriented laterall Gait Training Gait Activity backward walking Description backward walking Device Used railing for fingertip support Level of Assistance SBA Surface tile Distance/Duration 20 feet x 4 Treatment Focus big steps, foot clearance Comments Pt has one LOB from which he recovered without assist and one LOB requiring therapist assist. Audible foot drag noted ~20% of the time. 4 Description stairs Distance/Duration 4 an 6 stairs without railing Comments No LOB this session. Pt continues to descend step-to but with improved balance 3 Description walking over uneven terrain Device Used none Level of Assistance SBA Surface hurdles; hurdles with foam pads Treatment Focus foot clearance, big walking BIG walking Description BIG walking Device Used no AD Level of Assistance SBA Surface level, tile Distance/Duration 1000 ft Treatment Focus trunk rotation, change in speed without loss of amplitude Comments Cued to think big. Pt continues to demonstrate diminished arm swing (left worse than right) with conversational distraction. PT-OP-T Assessment and Plan Start: 06/03/19 10:51 Freq: Status: Active Protocol: Document 06/25/19 11:59 AW (Rec: 06/25/19 12:19 AW [email or web address]) Physical Therapy Assessment Goals Three Impairment ROM Short Term Goal (STG) Thor will improve his shoulder flexion bilaterally to 150 degrees. 1/3: No change yet STG Duration 2 weeks Two Impairment Fine motor control Short Term Goal (STG) Thor will sign his name 10 times with minimal micrographia. STG Duration 2 weeks Steel Erector Apprentice Goal (LTG) Thor will button a wrist button on a dress shirt with his right hand within 5 seconds of the time it takes to do so with his left hand. LTG Duration 4 weeks One Impairment Gait Short Term Goal (STG) Thor will ambulate over uneven surfaces with good step length and without LOB. 1/3: intermittently met STG Duration 2 weeks Skilled Nursing Goal (LTG) Thor will improve his 6 minute walk distance to 1532 or more without assistive device. 1/3: NOT MET YET LTG Duration 4 weeks Assessment Summary Assessment Thor states his back pain has improved and he feels more confident with his balance. He tolerated increased challenge in daily exercises and sit to stand without increased pain or unsteadiness. Physical Therapy Plan Frequency and Duration Frequency of Treatment 4x/Week Duration of Treatment 6 weeks (longer duration due to break in the middle) Plan of Care Start Date 06/03/19 Plan of Care End Date 07/15/19 Therapeutic Interventions Therapeutic Interventions Balance Training,Gait Training ,Home Exercise Program,Manual Therapy,Neuromuscular Re- education,Self-Care/Home Management,Therapeutic Activities,Therapeutic Exercises Next Visit Focus/Plan Next Note Type Treatment Note Next Visit Plan Progress gait and fine motor activities
--- NOTE | 2019-06-26 16:36 | PT.OTN ---
Current Diagnoses Parkinson's disease (06/26/19) Unspecified atrial fibrillation (06/26/19) Spinal stenosis, lumbar region without neurogenic claudication (06/26/19) Physical Therapy Treatment Note PT-OP-A Visit Information Start: 06/03/19 10:51 Freq: Status: Active Protocol: Document 06/26/19 11:00 AMB (Rec: 06/26/19 16:36 AMB [email or web address]) Out-Patient Physical Therapy Visit Information Visit Information Visit Type Treatment Note Visit Note 09/26 Visit Start Time 11:02 Visit Stop Time 11:55 Total Visit Minutes 53 Visit Number 12 PT-OP-B Current Condition Start: 06/03/19 10:51 Freq: Status: Active Protocol: Document 06/03/19 11:00 AMB (Rec: 06/03/19 16:25 AMB [email or web address]) Current Condition History of Current Condition Onset Date 2 years, progressing Current Complaints Difficulty using the right hand, increased difficulty walking History of Current Condition Thor was recently diagnosed with Parkinson's although did notice increased difficulty using his right hand (he is righ hand dominant) about 2 years ago after his right total shoulder surgery. He does have a resting tremor in his right hand. He does have a history of low back pain and left hip pain and neuropathy that has limited his walking on hills, he does not report much difficulty walking on flat surfaces although he admits his is slower than he used to be. 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 Prior Functional Status Baseline Function- ADL's Independent Baseline Function- Mobility Independent Current Functional Impairments (Reported) Functional Limitations- ADL's Pt reports he is slower with buttoning, has noticed micrographia especially with signing multiple checks. Functional Limitations- Recreation/ Pt has stopped playing golf: Hobbies he recently finished 18 holes in a golf cart 3x/wk, but then felt that he was too stiff after that, so stopped, he is hoping to return to that but maybe at onex/week. Personal Factors Other Personal Factors That May Effect Hx right total shoulder, right Therapy/Recovery total hip. Neuropathy, lumbar stenosis. PT-OP-C Subjective Start: 06/03/19 10:51 Freq: Status: Active Protocol: Document 06/26/19 11:00 AMB (Rec: 06/26/19 16:36 AMB [email or web address]) OP-PT Subjective Patient Comments Patient Comments Pt feels that overall balance and back pain are both improving. PT-OP-D Balance Start: 06/03/19 10:51 Freq: Status: Active Protocol: Document 06/03/19 11:00 AMB (Rec: 06/03/19 16:25 AMB [email or web address]) Balance Tests Other Other Balance Tests Performed NBOS EC: 20 seconds with increased ankle sway PT-OP-E Functional Tests Start: 06/03/19 10:51 Freq: Status: Active Protocol: Document 06/24/19 11:26 AMB (Rec: 06/24/19 11:26 AMB [id number]) Functional Tests 6 Minute Walk Test Distance 1220 Device Used none Five Times Sit to Stand Test Score 10 PT-OP-G Mobility & Gait Start: 06/03/19 10:51 Freq: Status: Active Protocol: Document 06/03/19 11:00 AMB (Rec: 06/03/19 16:25 AMB [email or web address]) OP Gait Assessment Comments Gait Comments Pt can have appropriate armswing, but only when conciously attending to it. Shortened step length bilaterally. Reduced trunk rotation. Reduced heel strike - more flat foot contact. PT-OP-H Neuro Start: 06/03/19 10:51 Freq: Status: Active Protocol: Document 06/03/19 11:00 AMB (Rec: 06/03/19 16:25 AMB [email or web address]) Coordination Evaluation Upper Extremity Tests Right Pronation/Supination Test Minimal Impairment Lower Extremity Tests Foot Tapping Test Normal Performance PT-OP-J Posture/Palpation/Skin Start: 06/03/19 10:51 Freq: Status: Active Protocol: Document 06/03/19 11:00 AMB (Rec: 06/03/19 16:25 AMB [email or web address]) Posture Evaluation Comments Posture Comments Flat lumbar spine with flexed hips in standing, absent trunk rotation in standing PT-OP-K Range of Motion Start: 06/03/19 10:51 Freq: Status: Active Protocol: Document 06/03/19 11:00 AMB (Rec: 06/03/19 16:25 AMB [email or web address]) Shoulder Goniometric Range of Motion Shoulder Left Passive Testing Position Sitting Flexion 146 Right Passive Testing Position Sitting Flexion 140 PT-OP-M Strength Start: 06/03/19 10:51 Freq: Status: Active Protocol: Document 06/03/19 11:00 AMB (Rec: 06/03/19 16:25 AMB [email or web address]) Hand Manager Family/Pinch Strength Hand Strength Right Manager Family (lbs) 58 Left Manager Family (lbs) 58 PT-OP-Q Treatments Start: 06/03/19 10:51 Freq: Status: Active Protocol: Document 06/26/19 11:00 AMB (Rec: 06/26/19 16:36 AMB [email or web address]) Therapeutic Exercises Sitting Exercises side to side Sitting Exercise Name side to side Side bilateral Equipment Used leobardo stool, 1# wrist weights Reps/Minutes x10 alternating sides Comments vc straighten back knee (more difficult left leg) floor to ceiling Sitting Exercise Name floor to ceiling Equipment Used leobardo stool, 1# wrist weights Reps/Minutes x10 Comments pt still able to move through good shoulder ROM Standing Exercises sideways rock and reach Standing Exercise Name sideways rock and reach Side bilateral Resistance 1# wrist weight, 2 floor mat Reps/Minutes 10 each side Comments vc to pivot through foot and rotate hips, avoiding much trunk rotation forward rock and reach Standing Exercise Name forward rock and reach Side bilateral Resistance 1# wrist weight, 2 floor mat Equipment Used without UE support Reps/Minutes 10 each side Comments cue full Rom for UEs, swing left back farther backward step Standing Exercise Name backward step Side bilateral Resistance 1# wrist weight Equipment Used chair for UE support both sides Reps/Minutes 10 each side Comments cues for bigger weight shift, toe up in front, heel up in back sideways step Standing Exercise Name sideways step Side bilateral Resistance 1# wrist weight, 2 floor mat Reps/Minutes 10 each side, alternating Comments cues for foot clearance with return step forward step Standing Exercise Name forward step Side bilateral Resistance 1# wrist weight, 2 floor mat Reps/Minutes 10 each side, alternating Comments cues for upright trunk, big step back to start position Other Exercises big sit to stand Other Exercise Name big sit to stand Equipment Used wobble board, gait belt Reps/Minutes 1 x 8 reps Comments 1st 2 sets on stool; 3rd set on 20 mat with wobble board oriented laterall Therapeutic Activity Therapeutic Activity handwriting Name handwriting Reps/Minutes 5 Comments Signature practice, check- writing components, grocery list practice. Cued pt for hand/wrist flicks and big carton marker machine on standard pen. Cued also for involvement of entire upper extremity including elbow, shoulder, and trunk movement. Gait Training Gait Activity 4 Description stairs Distance/Duration 4 an 6 stairs without railing Comments No LOB this session. Pt continues to descend step-to but with improved balance 3 Description walking over uneven terrain Device Used none Level of Assistance SBA Surface hurdles; hurdles with foam pads Treatment Focus foot clearance, big walking Comments difficulty with hurdles with foam, hurdles and foam alone were better 2 Description BIG walking Device Used none Surface smooth Distance/Duration 400' Comments vc increased stride length PT-OP-T Assessment and Plan Start: 06/03/19 10:51 Freq: Status: Active Protocol: Document 06/26/19 11:00 AMB (Rec: 06/26/19 16:36 AMB [email or web address]) Physical Therapy Assessment Assessment Summary Assessment Thor did well with continued uneven surfaces today. Physical Therapy Plan Next Visit Focus/Plan Next Note Type Treatment Note Next Visit Plan Progress gait and fine motor activities
--- NOTE | 2019-06-27 16:02 | PT.OTN ---
Current Diagnoses Parkinson's disease (06/27/19) Unspecified atrial fibrillation (06/27/19) Spinal stenosis, lumbar region without neurogenic claudication (06/27/19) Physical Therapy Treatment Note PT-OP-A Visit Information Start: 06/03/19 10:51 Freq: Status: Active Protocol: Document 06/27/19 11:00 AMB (Rec: 06/27/19 16:02 AMB [email or web address]) Out-Patient Physical Therapy Visit Information Visit Information Visit Type Treatment Note Visit Note 10/26 Visit Start Time 11:02 Visit Stop Time 12:00 Total Visit Minutes 58 Visit Number 13 PT-OP-B Current Condition Start: 06/03/19 10:51 Freq: Status: Active Protocol: Document 06/03/19 11:00 AMB (Rec: 06/03/19 16:25 AMB [email or web address]) Current Condition History of Current Condition Onset Date 2 years, progressing Current Complaints Difficulty using the right hand, increased difficulty walking History of Current Condition Thor was recently diagnosed with Parkinson's although did notice increased difficulty using his right hand (he is righ hand dominant) about 2 years ago after his right total shoulder surgery. He does have a resting tremor in his right hand. He does have a history of low back pain and left hip pain and neuropathy that has limited his walking on hills, he does not report much difficulty walking on flat surfaces although he admits his is slower than he used to be. 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 Prior Functional Status Baseline Function- ADL's Independent Baseline Function- Mobility Independent Current Functional Impairments (Reported) Functional Limitations- ADL's Pt reports he is slower with buttoning, has noticed micrographia especially with signing multiple checks. Functional Limitations- Recreation/ Pt has stopped playing golf: Hobbies he recently finished 18 holes in a golf cart 3x/wk, but then felt that he was too stiff after that, so stopped, he is hoping to return to that but maybe at onex/week. Personal Factors Other Personal Factors That May Effect Hx right total shoulder, right Therapy/Recovery total hip. Neuropathy, lumbar stenosis. PT-OP-C Subjective Start: 06/03/19 10:51 Freq: Status: Active Protocol: Document 06/27/19 11:00 AMB (Rec: 06/27/19 16:02 AMB [email or web address]) OP-PT Subjective Patient Comments Patient Comments Pt feeling ready for his check signing this afternoon. PT-OP-D Balance Start: 06/03/19 10:51 Freq: Status: Active Protocol: Document 06/03/19 11:00 AMB (Rec: 06/03/19 16:25 AMB [email or web address]) Balance Tests Other Other Balance Tests Performed NBOS EC: 20 seconds with increased ankle sway PT-OP-E Functional Tests Start: 06/03/19 10:51 Freq: Status: Active Protocol: Document 06/24/19 11:26 AMB (Rec: 06/24/19 11:26 AMB [id number]) Functional Tests 6 Minute Walk Test Distance 1220 Device Used none Five Times Sit to Stand Test Score 10 PT-OP-G Mobility & Gait Start: 06/03/19 10:51 Freq: Status: Active Protocol: Document 06/03/19 11:00 AMB (Rec: 06/03/19 16:25 AMB [email or web address]) OP Gait Assessment Comments Gait Comments Pt can have appropriate armswing, but only when conciously attending to it. Shortened step length bilaterally. Reduced trunk rotation. Reduced heel strike - more flat foot contact. PT-OP-H Neuro Start: 06/03/19 10:51 Freq: Status: Active Protocol: Document 06/03/19 11:00 AMB (Rec: 06/03/19 16:25 AMB [email or web address]) Coordination Evaluation Upper Extremity Tests Right Pronation/Supination Test Minimal Impairment Lower Extremity Tests Foot Tapping Test Normal Performance PT-OP-J Posture/Palpation/Skin Start: 06/03/19 10:51 Freq: Status: Active Protocol: Document 06/03/19 11:00 AMB (Rec: 06/03/19 16:25 AMB [email or web address]) Posture Evaluation Comments Posture Comments Flat lumbar spine with flexed hips in standing, absent trunk rotation in standing PT-OP-K Range of Motion Start: 06/03/19 10:51 Freq: Status: Active Protocol: Document 06/03/19 11:00 AMB (Rec: 06/03/19 16:25 AMB [email or web address]) Shoulder Goniometric Range of Motion Shoulder Left Passive Testing Position Sitting Flexion 146 Right Passive Testing Position Sitting Flexion 140 PT-OP-M Strength Start: 06/03/19 10:51 Freq: Status: Active Protocol: Document 06/03/19 11:00 AMB (Rec: 06/03/19 16:25 AMB [email or web address]) Hand Monitor Worker/Pinch Strength Hand Strength Right Monitor Worker (lbs) 58 Left Monitor Worker (lbs) 58 PT-OP-Q Treatments Start: 06/03/19 10:51 Freq: Status: Active Protocol: Document 06/27/19 11:00 AMB (Rec: 06/27/19 16:02 AMB [email or web address]) Therapeutic Exercises Sitting Exercises side to side Sitting Exercise Name side to side Side bilateral Equipment Used mat table Reps/Minutes x10 alternating sides Comments vc straighten back knee (more difficult left leg) floor to ceiling Sitting Exercise Name floor to ceiling Equipment Used mat table Reps/Minutes x10 Comments pt still able to move through good shoulder ROM Standing Exercises sideways rock and reach Standing Exercise Name sideways rock and reach Side bilateral Resistance 2# wrist weight, 2 floor mat Reps/Minutes 10 each side Comments vc to pivot through foot and rotate hips, avoiding much trunk rotation forward rock and reach Standing Exercise Name forward rock and reach Side bilateral Resistance 2# wrist weight, 2 floor mat Equipment Used without UE support Reps/Minutes 10 each side Comments cue full Rom for UEs, swing left back farther backward step Standing Exercise Name backward step Side bilateral Resistance 2# wrist weight Equipment Used chair for UE support both sides Reps/Minutes 10 each side Comments cues for bigger weight shift, toe up in front, heel up in back sideways step Standing Exercise Name sideways step Side bilateral Resistance 2# wrist weight, 2 floor mat Reps/Minutes 10 each side, alternating Comments cues for foot clearance with return step forward step Standing Exercise Name forward step Side bilateral Resistance 2# wrist weight, 2 floor mat Reps/Minutes 10 each side, alternating Comments cues for upright trunk, big step back to start position Other Exercises big sit to stand Other Exercise Name big sit to stand Equipment Used wobble board, gait belt Reps/Minutes 1 x 8 reps Comments chair with wobble board oriented laterall Therapeutic Activity Therapeutic Activity handwriting Name handwriting Reps/Minutes 5 Comments Signature practice, check- writing components, consecutive circles. Cued pt for hand/wrist flicks and big senior biostatistician/group leader on standard pen. Cued also for involvement of entire upper extremity including elbow, shoulder, and trunk movement. Gait Training Gait Activity 4 Description stairs Distance/Duration 2 flights ascend/descend 1 railing Comments No LOB this session. Pt descended alternating pattern with 1 railing. 2 Description BIG walking Device Used none Surface smooth Distance/Duration 400' Comments vc increased stride length PT-OP-T Assessment and Plan Start: 06/03/19 10:51 Freq: Status: Active Protocol: Document 06/27/19 11:00 AMB (Rec: 06/27/19 16:02 AMB [email or web address]) Physical Therapy Assessment Goals Three Impairment ROM Short Term Goal (STG) Thor will improve his shoulder flexion bilaterally to 150 degrees. 1/3: No change yet STG Duration 2 weeks Two Impairment Fine motor control Short Term Goal (STG) Thor will sign his name 10 times with minimal micrographia. STG Duration 2 weeks Java [employer] Developer Goal (LTG) Thor will button a wrist button on a dress shirt with his right hand within 5 seconds of the time it takes to do so with his left hand. LTG Duration 4 weeks One Impairment Gait Short Term Goal (STG) Thor will ambulate over uneven surfaces with good step length and without LOB. 1/3: intermittently met STG Duration 2 weeks Care Home Goal (LTG) Thor will improve his 6 minute walk distance to 1532 or more without assistive device. 1/3: NOT MET YET LTG Duration 4 weeks Assessment Summary Assessment 2# weights increased shoulder soreness a little but tolerable. Overall pt doing well, but when trying to walk quickly continues to exhibit shorter stride than would be expected, hip pain may also be a factor. Physical Therapy Plan Frequency and Duration Frequency of Treatment 4x/Week Duration of Treatment 6 weeks (longer duration due to break in the middle) Plan of Care Start Date 06/03/19 Plan of Care End Date 07/15/19 Next Visit Focus/Plan Next Note Type Treatment Note Next Visit Plan Progress gait and fine motor activities- plan for upcoming d/c.
--- NOTE | 2019-07-01 17:13 | PT.OTN ---
Current Diagnoses Parkinson's disease (07/01/19) Unspecified atrial fibrillation (07/01/19) Spinal stenosis, lumbar region without neurogenic claudication (07/01/19) Physical Therapy Treatment Note PT-OP-A Visit Information Start: 06/03/19 10:51 Freq: Status: Active Protocol: Document 07/01/19 11:00 AMB (Rec: 07/01/19 14:01 AMB [id number]) Out-Patient Physical Therapy Visit Information Visit Information Visit Type Treatment Note Visit Note 10/26 Visit Start Time 11:02 Visit Stop Time 12:00 Total Visit Minutes 58 Visit Number 14 PT-OP-B Current Condition Start: 06/03/19 10:51 Freq: Status: Active Protocol: Document 06/03/19 11:00 AMB (Rec: 06/03/19 16:25 AMB [email or web address]) Current Condition History of Current Condition Onset Date 2 years, progressing Current Complaints Difficulty using the right hand, increased difficulty walking History of Current Condition Thor was recently diagnosed with Parkinson's although did notice increased difficulty using his right hand (he is righ hand dominant) about 2 years ago after his right total shoulder surgery. He does have a resting tremor in his right hand. He does have a history of low back pain and left hip pain and neuropathy that has limited his walking on hills, he does not report much difficulty walking on flat surfaces although he admits his is slower than he used to be. He is hopeful that he will be able to maintain his mobility for the [facility]. Prior Functional Status Baseline Function- ADL's Independent Baseline Function- Mobility Independent Current Functional Impairments (Reported) Functional Limitations- ADL's Pt reports he is slower with buttoning, has noticed micrographia especially with signing multiple checks. Functional Limitations- Recreation/ Pt has stopped playing golf: Hobbies he recently finished 18 holes in a golf cart 3x/wk, but then felt that he was too stiff after that, so stopped, he is hoping to return to that but maybe at onex/week. Personal Factors Other Personal Factors That May Effect Hx right total shoulder, right Therapy/Recovery total hip. Neuropathy, lumbar stenosis. PT-OP-C Subjective Start: 06/03/19 10:51 Freq: Status: Active Protocol: Document 07/01/19 11:00 AMB (Rec: 07/01/19 14:01 AMB [id number]) OP-PT Subjective Patient Comments Patient Comments Pt reports check signing went well, no problems. His back is pretty much his regular baseline. PT-OP-D Balance Start: 06/03/19 10:51 Freq: Status: Active Protocol: Document 06/03/19 11:00 AMB (Rec: 06/03/19 16:25 AMB [email or web address]) Balance Tests Other Other Balance Tests Performed NBOS EC: 20 seconds with increased ankle sway PT-OP-E Functional Tests Start: 06/03/19 10:51 Freq: Status: Active Protocol: Document 07/01/19 11:00 AMB (Rec: 07/01/19 17:13 AMB [email or web address]) Functional Tests 10 Meter Walk Test Distance 6, 5 Comments seconds at self selected and then fast pace PT-OP-G Mobility & Gait Start: 06/03/19 10:51 Freq: Status: Active Protocol: Document 06/03/19 11:00 AMB (Rec: 06/03/19 16:25 AMB [email or web address]) OP Gait Assessment Comments Gait Comments Pt can have appropriate armswing, but only when conciously attending to it. Shortened step length bilaterally. Reduced trunk rotation. Reduced heel strike - more flat foot contact. PT-OP-H Neuro Start: 06/03/19 10:51 Freq: Status: Active Protocol: Document 06/03/19 11:00 AMB (Rec: 06/03/19 16:25 AMB [email or web address]) Coordination Evaluation Upper Extremity Tests Right Pronation/Supination Test Minimal Impairment Lower Extremity Tests Foot Tapping Test Normal Performance PT-OP-J Posture/Palpation/Skin Start: 06/03/19 10:51 Freq: Status: Active Protocol: Document 06/03/19 11:00 AMB (Rec: 06/03/19 16:25 AMB [email or web address]) Posture Evaluation Comments Posture Comments Flat lumbar spine with flexed hips in standing, absent trunk rotation in standing PT-OP-K Range of Motion Start: 06/03/19 10:51 Freq: Status: Active Protocol: Document 06/03/19 11:00 AMB (Rec: 06/03/19 16:25 AMB [email or web address]) Shoulder Goniometric Range of Motion Shoulder Left Passive Testing Position Sitting Flexion 146 Right Passive Testing Position Sitting Flexion 140 PT-OP-M Strength Start: 06/03/19 10:51 Freq: Status: Active Protocol: Document 06/03/19 11:00 AMB (Rec: 06/03/19 16:25 AMB [email or web address]) Hand Cabana Attendant/Pinch Strength Hand Strength Right Cabana Attendant (lbs) 58 Left Cabana Attendant (lbs) 58 PT-OP-Q Treatments Start: 06/03/19 10:51 Freq: Status: Active Protocol: Document 07/01/19 11:00 AMB (Rec: 07/01/19 17:13 AMB [email or web address]) Therapeutic Exercises Sitting Exercises side to side Sitting Exercise Name side to side Side bilateral Equipment Used mat table Reps/Minutes x10 alternating sides Comments 2# on wrists vc straighten back knee (more difficult left leg) floor to ceiling Sitting Exercise Name floor to ceiling Equipment Used mat table Reps/Minutes x10 Comments pt still able to move through good shoulder ROM Standing Exercises sideways rock and reach Standing Exercise Name sideways rock and reach Side bilateral Resistance 2# wrist weight, 2 floor mat Reps/Minutes 10 each side Comments vc to pivot through foot and rotate hips, avoiding much trunk rotation forward rock and reach Standing Exercise Name forward rock and reach Side bilateral Resistance 2# wrist weight, 2 floor mat Equipment Used without UE support Reps/Minutes 10 each side Comments cue full Rom for UEs, swing left back farther backward step Standing Exercise Name backward step Side bilateral Resistance 2# wrist weight Equipment Used chair for UE support both sides Reps/Minutes 10 each side Comments cues for bigger weight shift, toe up in front, heel up in back sideways step Standing Exercise Name sideways step Side bilateral Resistance 2# wrist weight, 2 floor mat Reps/Minutes 10 each side, alternating Comments cues for foot clearance with return step forward step Standing Exercise Name forward step Side bilateral Resistance 2# wrist weight, 2 floor mat Reps/Minutes 10 each side, alternating Comments cues for upright trunk, big step back to start position Other Exercises big sit to stand Other Exercise Name big sit to stand Equipment Used wobble board, gait belt Reps/Minutes 1 x 10 reps Comments 20 mat with wobble board oriented laterall Therapeutic Activity Therapeutic Activity 3 Name threading belt Reps/Minutes 1 minute Comments 29 seconds 1 Name cuff buttoning Reps/Minutes 3 reps Comments very intermittent practice- pt frustrated, varied from quick to over a minute with 3 reps each side. Gait Training Gait Activity 3 Description walking over uneven terrain Device Used none Level of Assistance SBA Surface hurdles; hurdles with foam pads Treatment Focus foot clearance, big walking Comments difficulty with hurdles with foam, hurdles and foam alone were better PT-OP-T Assessment and Plan Start: 06/03/19 10:51 Freq: Status: Active Protocol: Document 07/01/19 11:00 AMB (Rec: 07/01/19 17:13 AMB [email or web address]) Physical Therapy Assessment Goals Three Impairment ROM Short Term Goal (STG) Thor will improve his shoulder flexion bilaterally to 150 degrees. Almost met, 145 degrees. STG Duration 2 weeks Two Impairment Fine motor control Short Term Goal (STG) Thor will sign his name 10 times with minimal micrographia. STG Duration MET Starch Cooker Goal (LTG) Thor will button a wrist button on a dress shirt with his right hand within 5 seconds of the time it takes to do so with his left hand. LTG Duration 4 weeks One Impairment Gait Short Term Goal (STG) Thor will ambulate over uneven surfaces with good step length and without LOB. STG Duration MET [facility] Goal (LTG) Thor will improve his 6 minute walk distance to 1532 or more without assistive device. 06/21: NOT MET YET LTG Duration 4 weeks Assessment Summary Assessment Thor was very intermittent with his buttoning today. Avg with left hand unbuttoning R: 34 seconds. Avg with right hand unbuttoning L: 44 seconds. Getting belt on pants: 29 seconds. Physical Therapy Plan Next Visit Focus/Plan Next Note Type Discharge Summary Next Visit Plan 6MWT, 5x sit to stand, consider [facility] vs [facility], reassess unbuttoning cuffs.
--- NOTE | 2019-07-02 13:17 | PT.OTN ---
Current Diagnoses Parkinson's disease (07/02/19) Unspecified atrial fibrillation (07/02/19) Spinal stenosis, lumbar region without neurogenic claudication (07/02/19) Physical Therapy Treatment Note PT-OP-A Visit Information Start: 06/03/19 10:51 Freq: Status: Active Protocol: Document 07/02/19 12:43 AW (Rec: 07/02/19 13:16 AW [email or web address]) Out-Patient Physical Therapy Visit Information Visit Information Visit Type Discharge Summary Visit Start Time 11:46 Visit Stop Time 12:41 Total Visit Minutes 55 Visit Number 15 Number of STAVE LOG CUT OFF SAW OPERATOR Visits 0 Evaluation Information Evaluation Date 06/03/19 PT-OP-B Current Condition Start: 06/03/19 10:51 Freq: Status: Active Protocol: Document 06/03/19 11:00 AMB (Rec: 06/03/19 16:25 AMB [email or web address]) Current Condition History of Current Condition Onset Date 2 years, progressing Current Complaints Difficulty using the right hand, increased difficulty walking History of Current Condition Thor was recently diagnosed with Parkinson's although did notice increased difficulty using his right hand (he is righ hand dominant) about 2 years ago after his right total shoulder surgery. He does have a resting tremor in his right hand. He does have a history of low back pain and left hip pain and neuropathy that has limited his walking on hills, he does not report much difficulty walking on flat surfaces although he admits his is slower than he used to be. He is hopeful that he will be able to maintain his mobility for the alf. Prior Functional Status Baseline Function- ADL's Independent Baseline Function- Mobility Independent Current Functional Impairments (Reported) Functional Limitations- ADL's Pt reports he is slower with buttoning, has noticed micrographia especially with signing multiple checks. Functional Limitations- Recreation/ Pt has stopped playing golf: Hobbies he recently finished 18 holes in a golf cart 3x/wk, but then felt that he was too stiff after that, so stopped, he is hoping to return to that but maybe at onex/week. Personal Factors Other Personal Factors That May Effect Hx right total shoulder, right Therapy/Recovery total hip. Neuropathy, lumbar stenosis. PT-OP-C Subjective Start: 06/03/19 10:51 Freq: Status: Active Protocol: Document 07/02/19 12:43 AW (Rec: 07/02/19 13:16 AW [email or web address]) OP-PT Subjective Patient Comments Patient Comments Pt reports he expects to be scheduled for pacemaker placement in July. PT-OP-D Balance Start: 06/03/19 10:51 Freq: Status: Active Protocol: Document 06/03/19 11:00 AMB (Rec: 06/03/19 16:25 AMB [email or web address]) Balance Tests Other Other Balance Tests Performed NBOS EC: 20 seconds with increased ankle sway PT-OP-E Functional Tests Start: 06/03/19 10:51 Freq: Status: Active Protocol: Document 07/02/19 12:43 AW (Rec: 07/02/19 13:16 AW [email or web address]) Functional Tests 6 Minute Walk Test Distance 1410 feet Device Used none Comments no appreciable difference first 1/2 vs second 1/2 Five Times Sit to Stand Test Score 9.13 seconds Comments arms crossed over chest; stopped timing once attained full standing 5th rep Functional Gait Assessment Score 23/30 Functional Gait Assessment Impairment 20 to <40% Impaired (Score 19- Rating 24) PT-OP-G Mobility & Gait Start: 06/03/19 10:51 Freq: Status: Active Protocol: Document 06/03/19 11:00 AMB (Rec: 06/03/19 16:25 AMB [email or web address]) OP Gait Assessment Comments Gait Comments Pt can have appropriate armswing, but only when conciously attending to it. Shortened step length bilaterally. Reduced trunk rotation. Reduced heel strike - more flat foot contact. PT-OP-H Neuro Start: 06/03/19 10:51 Freq: Status: Active Protocol: Document 06/03/19 11:00 AMB (Rec: 06/03/19 16:25 AMB [email or web address]) Coordination Evaluation Upper Extremity Tests Right Pronation/Supination Test Minimal Impairment Lower Extremity Tests Foot Tapping Test Normal Performance PT-OP-J Posture/Palpation/Skin Start: 06/03/19 10:51 Freq: Status: Active Protocol: Document 06/03/19 11:00 AMB (Rec: 06/03/19 16:25 AMB [email or web address]) Posture Evaluation Comments Posture Comments Flat lumbar spine with flexed hips in standing, absent trunk rotation in standing PT-OP-K Range of Motion Start: 06/03/19 10:51 Freq: Status: Active Protocol: Document 06/03/19 11:00 AMB (Rec: 06/03/19 16:25 AMB [email or web address]) Shoulder Goniometric Range of Motion Shoulder Left Passive Testing Position Sitting Flexion 146 Right Passive Testing Position Sitting Flexion 140 PT-OP-M Strength Start: 06/03/19 10:51 Freq: Status: Active Protocol: Document 06/03/19 11:00 AMB (Rec: 06/03/19 16:25 AMB [email or web address]) Hand Repair Supervisor/Pinch Strength Hand Strength Right Repair Supervisor (lbs) 58 Left Repair Supervisor (lbs) 58 PT-OP-Q Treatments Start: 06/03/19 10:51 Freq: Status: Active Protocol: Document 07/02/19 12:43 AW (Rec: 07/02/19 13:16 AW [email or web address]) Therapeutic Exercises Sitting Exercises side to side Sitting Exercise Name side to side Side bilateral Equipment Used leobardo stool without back support Reps/Minutes x10 alternating sides Comments 2# on wrists vc straighten back knee (more difficult left leg) floor to ceiling Sitting Exercise Name floor to ceiling Equipment Used leobardo stool without back support Reps/Minutes x10 Comments 2# wrist weights; cues for big stretch Standing Exercises sideways rock and reach Standing Exercise Name sideways rock and reach Side bilateral Resistance 2# wrist weight, 2 floor mat Reps/Minutes 10 each side Comments vc to pivot through foot and rotate hips, avoiding much trunk rotation forward rock and reach Standing Exercise Name forward rock and reach Side bilateral Resistance 2# wrist weight, 2 floor mat Equipment Used without UE support Reps/Minutes 10 each side Comments cue full Rom for UEs, swing left back farther backward step Standing Exercise Name backward step Side bilateral Resistance 2# wrist weight Equipment Used chair for UE support both sides Reps/Minutes 10 each side Comments cues for bigger weight shift, toe up in front, heel up in back sideways step Standing Exercise Name sideways step Side bilateral Resistance 2# wrist weight, 2 floor mat Reps/Minutes 10 each side, alternating Comments cues for foot clearance with return step forward step Standing Exercise Name forward step Side bilateral Resistance 2# wrist weight, 2 floor mat Reps/Minutes 10 each side, alternating Comments cues for upright trunk, big step back to start position Other Exercises big sit to stand Other Exercise Name big sit to stand Equipment Used wobble board, gait belt Reps/Minutes 1 x 10 reps Comments 20 mat with wobble board oriented A/P Therapeutic Activity Therapeutic Activity 1 Name cuff buttoning Reps/Minutes 5 minutes Comments Pt struggled with use of R UE today, unable to perform Gait Training Gait Activity 4 Description stairs Distance/Duration 14 5.5 stairs (between floors ) x 2 Comments No LOB this session. Pt descended alternating pattern with 1 railing. 2 Description BIG walking Device Used none Surface smooth Distance/Duration 1410' 6 MWT Comments vc increased stride length PT-OP-T Assessment and Plan Start: 06/03/19 10:51 Freq: Status: Active Protocol: Document 07/02/19 12:43 AW (Rec: 07/02/19 13:16 AW [email or web address]) Physical Therapy Assessment Goals Three Impairment ROM Short Term Goal (STG) Thro will improve his shoulder flexion bilaterally to 150 degrees. Almost met, 145 degrees. STG Duration 2 weeks Two Impairment Fine motor control Short Term Goal (STG) Thor will sign his name 10 times with minimal micrographia. STG Duration MET Senior Living Goal (LTG) Thor will button a wrist button on a dress shirt with his right hand within 5 seconds of the time it takes to do so with his left hand. 07/02/19 NOT MET: pt unable LTG Duration 4 weeks One Impairment Gait Short Term Goal (STG) Thor will ambulate over uneven surfaces with good step length and without LOB. STG Duration MET Game Preserve Manager Goal (LTG) Thor will improve his 6 minute walk distance to 1532 or more without assistive device. 06/21: NOT MET YET 07/02/19: PARTIALLY MET - 1410 feet today with minimal difference 1st half vs 2nd half LTG Duration 4 weeks Assessment Summary Assessment Pt increased his 6MWT by 12%. 5 Time Sit to Stand score of 9 .13 seconds indicates low risk of falls. Thor scored 23/30 on Functional Gait Assessment which is above the cutoff for fall risk in the Parkinson's population (Seay et al 2014) but below norms for community- dwelling adults 70-79 years old (Walker et al 2007). Discussed with Thor the need for continued performance of daily exercises (at least once every other day) and continued focus on increasing effort and amplitude in everyday movement. Thor understands we plan to seek another referral for PT in 6-9 months to follow up and complare outcome measures with these discharge measures to determine the need for further treatment. Physical Therapy Plan Discharge Physical Therapy Discharge Reasons Goals Met Discharge Comments Pt completed 4 weeks of amplitude-based therapy focused on decreasing hypokinesia and bradykinesia associated with Parkinson's disease. He met many of the goals of this plan of care. He will benefit from a PT check- in in 6-9 months to determine stability of gains from this episode of care.
== END 2019-08-15 13:03 ==
LOC: PHYS 12:00
PROVIDERS: Family Provider Family Medicine; PCP Family Medicine; Visit Provider Psychiatry & Neurology Neurology
DX: G20 Parkinson's disease (principal); I48.91 Unspecified atrial fibrillation; M48.061 Spinal stenosis, lumbar region without neurogenic claudication
CPT/HCPCS: 97110; 97116; 97162; 97530

== ENCOUNTER → 2019-07-04 13:52 | Outpatient (CLI) | payer MEDICARE, SELFPAY ==
--- NOTE | 2019-07-04 | DI.ECHO.S_ITS ---
[facility]---------+ [facility] +---------+ : : [address] : : : : [id number] : : : : Phone: [phone]+ Echocardiogram Report + + :Name: RENY FERREIRA Study Date: 07/04/2019 Height: 71 in : :[facility] Weight: 230 lb : : Gender: Male BSA: 2.2 m2 : :: 1940 Age: 79 yrs BP: 142/94 mmHg: :Reason For Study: AFIB : :Ordering Physician: Royce Porras : :Ashlyn Performed By: Arnel Hollins : :Referring: ROYCE PACHECO : + + Interpretation Summary 1) Normal left ventricular size, thickness, wall motion, and systolic function (EF 60-65%). 2) Normal right ventricular size and function. 3) Bicuspid aortic valve present without stenosis or regurgitation. 4) Compared to the Echo done 07/14/2016, no significant change. Procedure: A two-dimensional transthoracic echocardiogram with color flow and Doppler was performed. The study quality was technically adequate. Prior echo performed on 07/14/16. The patient was in normal sinus rhythm during the exam. Left Ventricle: The left ventricle is normal in size. There is normal left ventricular wall thickness. Left ventricular systolic function is normal. The ejection fraction is estimated to be 60-65%. Left ventricular wall motion is normal. Mild septal bounce present. Right Ventricle: The right ventricle is normal in size and function. Atria: The left atrial size is normal. The right atrium is mildly dilated. The interatrial septum is intact with no evidence for an atrial septal defect. Mitral Valve: The mitral valve is normal in structure and function. There is trace mitral regurgitation. Aortic Valve: The aortic valve is bicuspid. Mildy thickened leaflets. There is no aortic valve stenosis. No aortic regurgitation is present. Tricuspid Valve: The tricuspid valve is normal in structure and function. There is trace tricuspid regurgitation. Pulmonary artery pressures cannot be estimated because of the lack of a measurable TR jet velocity. Pulmonic Valve: The pulmonic valve is not well visualized. There is mild pulmonic regurgitation. Great Vessels: The aortic root is normal size. The ascending aorta is at the upper limits of normal in size. The pulmonary artery is normal size. The IVC is of normal diameter and collapses greater than 50% with a sniff. This suggests a low right atrial pressure of 3 mm Hg. Pericardium/ Pleura There is no pericardial effusion. There is no pleural effusion. MMode/2D Measurements & Calculations LVIDd: 4.7 cm LVOT diam: 2.0 cm LVIDs: 3.1 cm Ao root diam: 3.6 cm FS: 33.5 % Aortic Jxn: 3.1 cm EPSS: 0.82 cm asc Aorta Diam: 3.9 cm IVSd: 1.1 cm LVPWd: 1.1 cm LV leong. diameter/BSA (cm/m^2): 2.1 LV sys. diameter/BSA (cm/m^2): 1.4 LA A2 area: 18.4 cm2 RA long axis: 5.7 cm LA A4 area: 19.8 cm2 RA area: 18.4 cm2 LA length (vol): 5.2 cm RA vol: 50.0 ml LA vol: 59.3 ml RA : 22.3 ml/m2 LA vol index: 26.5 ml/m2 TAPSE: 2.1 cm ÁLVARO (plan): 3.4 cm2 Doppler Measurements & Calculations Ao V2 max: 141.0 cm/sec LVOT Max Bib: 116.8 cm/sec Ao V2 mean: 89.1 cm/sec LV V1 max P.5 mmHg Ao max P.9 mmHg LV V1 VTI: 28.0 cm Ao mean P.8 mmHg ÁLVARO(I,D): 3.3 cm2 Ao V2 VTI: 27.7 cm ÁLVARO(V,D): 2.7 cm2 sev ratio: 1.0 ÁLVARO indexed to BSA (cm^2/m^2): 1.5 MV E max bib: 91.9 cm/sec PA V2 max: 85.2 cm/sec MV A max bib: 114.2 cm/sec PA V2 mean: 60.2 cm/sec MV E/A: 0.80 PA mean P.7 mmHg Med Peak E' Bib: 5.9 cm/sec PA Accel Time: 0.12 sec E/E' med: 15.6 Lat Peak E' Bib: 5.8 cm/sec E/E' lat: 15.9 E/e' average: 15.8 MV dec time: 0.26 sec SV(LVOT): 90.8 ml Reading Physician:05:[id number] PM
== END ==
PROVIDERS: Family Provider Family Medicine; PCP Family Medicine; Visit Provider Internal Medicine Cardiovascular Disease
DX: I37.1 Nonrheumatic pulmonary valve insufficiency (principal); I48.0 Paroxysmal atrial fibrillation; Z95.2 Presence of prosthetic heart valve
CPT/HCPCS: 93306

== ENCOUNTER → 2019-11-26 13:11 | Outpatient (CLI) | payer MEDICARE, SELFPAY ==
--- NOTE | 2019-11-26 | DI.RAD.S_ITS ---
PROCEDURE: XR CHEST 2V INDICATIONS: Pneumonia, unspecified organism TECHNIQUE: 2 views of the chest were acquired. COMPARISON: [facility], , CHEST 1 VIEW, 07/14/2016, 13:26. FINDINGS: Surgical changes and devices: Cardiac pacer Lungs and pleura: Lungs are clear. No pleural effusions or pneumothorax. Mediastinum: Mediastinal contours are normal. Heart size is normal. Bones and chest wall: No suspicious bony abnormalities. Soft tissues appear unremarkable. IMPRESSION: No acute disease Dictated by: Anthony Strauss M.D. on 11/26/2019 at 14:12 Approved by: Anthony Strauss M.D. on 11/26/2019 at 14:14
[2019-11-26 14:48] LABS: Add Manual Diff / Slide Review NO; Basophils Absolute Auto 0 /uL (0-100); Basophils Percent Auto 0.4 % (0-2); Eosinophils Absolute Auto 100 /uL (0-450); Eosinophils Percent Auto 1.1 % (2-4); Hematocrit 36.3 % (41-53); Hemoglobin 12.4 g/dL (13.5-17.5); Lymphocytes Absolute Auto 2000 /uL (1100-4500); Lymphocytes Percent Auto 27.4 % (25-40); Mean Corpuscular HGB Conc 34.2 % (30-36); Mean Corpuscular Volume 93.6 fL (80-100); Monocytes Absolute Auto 500 /uL (0-900); Monocytes Percent Auto 6.1 % (3-14); Neutrophils Absolute Auto 4800 /uL (1500-7000); Platelet Count 214 X10^3/uL (150-400); Red Blood Cell Count 3.87 X10^6/uL (4.5-5.9); Red Cell Distribution Width 13.5 % (11.6-14.8); White Blood Cell Count 7.4 X10^3/uL (4.5-11.0)
[2019-11-26 15:31] LABS: Alanine Aminotransferase 26 IU/L (<50); Albumin 4.3 g/dL (3.5-5.0); Albumin Globulin Ratio 1.6 (1.0-2.8); Alkaline Phosphatase 99 U/L (38-126); Aspartate Aminotransferase 36 IU/L (17-59); BUN Creatinine Ratio 12.7 (6-22); Bilirubin Total 0.5 mg/dL (0.2-1.3); Blood Urea Nitrogen 19 mg/dL (9-20); Calcium 9.4 mg/dL (8.4-10.2); Carbon Dioxide 25 mmol/L (22-32); Chloride 97 mmol/L (98-107); Globulin 2.7 g/dL (1.7-4.1); Glucose 98 mg/dL (80-110); HEMOLYSIS < 15 (0-50); Potassium 4.8 mmol/L (3.4-5.1); Sodium 132 mmol/L (137-145)
[2019-11-26 15:33] LABS: C-Reactive Protein Quant < 0.5 mg/dL (<1.0)
[2019-11-26 15:38] LABS: NT-proBNP (BNP-Adult 18+) 125 pg/mL (<450)
== END ==
PROVIDERS: Family Provider Family Medicine; PCP Family Medicine; Referring Provider Family Medicine; Visit Provider Family Medicine
DX: J18.9 Pneumonia, unspecified organism (principal); I48.0 Paroxysmal atrial fibrillation; G20 Parkinson's disease; R06.02 Shortness of breath
CPT/HCPCS: 36415; 71046; 80053; 83880; 85025; 86140

== ENCOUNTER → 2019-11-29 10:08 | Outpatient (CLI) | payer MEDICARE, SELFPAY ==
--- NOTE | 2019-11-29 10:11 | DI.US.S_ITS ---
PROCEDURE: US ABDOMEN COMPLETE INDICATIONS: RIGHT UPPER QUADRANT PAIN TECHNIQUE: Real-time scanning was performed of the abdominal and retroperitoneal organs, with image documentation. COMPARISON: [facility], CR, XR CHEST 2V, 11/26/2019, 13:17. FINDINGS: Liver: Liver is diffusely increased in echogenicity. No focal hepatic abnormalities identified. Normal hepatic size. Gallbladder: No gallstones identified. Normal gallbladder wall. No pericholecystic fluid. Negative sonographic Johnson sign. Biliary ducts: Intrahepatic bile ducts are non-dilated. Extrahepatic bile duct caliber measures 7.7 mm. Normal is 6-7 mm or less in diameter, or 10 mm or less post-cholecystectomy. Pancreas: Visualized portions of the pancreas are sonographically normal. Spleen: Spleen is normal in size and homogeneous in echotexture. Kidneys: Kidneys are normal in size and echotexture. Right kidney measures 10.2 cm long; left kidney measures 9.8 cm long. No hydronephrosis or nephrolithiasis. No solid masses. Aorta: Visualized aorta is normal in caliber at less than 3 cm. Iliacs: Proximal common iliac arteries are normal in caliber at less than 2.5 cm. IVC: Intrahepatic inferior vena cava is patent. Trace pericardial effusion. Miscellaneous: No free abdominal fluid. IMPRESSION: 1. Increased hepatic echogenicity noted possibly related to hepatic steatosis but other sources of hepatocellular disease cannot be excluded. Recommend clinical correlation. 2. No source for abdominal pain identified. 3. Trace pericardial effusion. Dictated by: Jason Almaraz A Interpreted: Candie Vaughan MD on 11/29/2019 at 12:12 Approved by: Candie Vaughan MD, PhD on 11/29/2019 at 14:31
== END ==
PROVIDERS: Family Provider Family Medicine; PCP Family Medicine; Referring Provider Family Medicine; Visit Provider Family Medicine
DX: R10.11 Right upper quadrant pain (principal)
CPT/HCPCS: 76700

== ENCOUNTER → 2020-02-11 10:47 | Outpatient (CLI) | payer MEDICARE, SELFPAY ==
--- NOTE | 2020-02-11 | DI.CT.S_ITS ---
PROCEDURE: CT SINUS SCREEN WO CON INDICATIONS: Chronic sinusitis, unspecified TECHNIQUE: Noncontrast 3.0 mm axial images acquired from the frontal sinuses to the mid-sella, with coronal and sagittal reformats. For radiation dose reduction, the following was used: automated exposure control, adjustment of mA and/or kV according to patient size. COMPARISON: None. FINDINGS: Image quality: Excellent. Maxillary Sinuses: No bony remodeling or destruction. Sinuses are clear. Ethmoid Air Cells: No bony remodeling or destruction. Sinuses are clear. Sphenoid Sinuses: No bony remodeling or destruction. Sinuses are clear. Frontal Sinuses: No bony remodeling or destruction. Sinuses are clear. Ostiomeatal Complexes: Ostiomeatal complexes are patent. No Heather cells. Miscellaneous: Rightward deviation of the nasal septum without significant spurring. No raymond bullosa. No significant nasal polyposis or nasal cavity mass. Limited views of the included intracranial and intraorbital compartments demonstrate no acute finding. IMPRESSION: No findings of acute or chronic sinusitis. Dictated by: Glen Nelson M.D. on 02/11/2020 at 11:16 Approved by: Glen Nelson M.D. on 02/11/2020 at 11:18
== END ==
PROVIDERS: Family Provider Family Medicine; PCP Family Medicine; Referring Provider Family Medicine; Visit Provider Family Medicine
DX: J01.90 Acute sinusitis, unspecified (principal); J32.9 Chronic sinusitis, unspecified; J34.2 Deviated nasal septum
CPT/HCPCS: 70486

== ENCOUNTER 2020-03-02 14:18 | Emergency (ER) | payer MEDICARE, SELFPAY ==
[2020-03-02] VITALS (14 sets, daily range): BP systolic 115–156; BP diastolic 68–93; PULSE 60–61; RESP 13–20; TEMP 36.8; O2SAT 96–99; BMI 29.9
[2020-03-02 14:40] LABS: Add Manual Diff / Slide Review NO; Basophils Absolute Auto 0 /uL (0-100); Basophils Percent Auto 0.5 % (0-2); Eosinophils Absolute Auto 100 /uL (0-450); Eosinophils Percent Auto 2.1 % (2-4); Hematocrit 39.9 % (41-53); Hemoglobin 13.2 g/dL (13.5-17.5); Lymphocytes Absolute Auto 1600 /uL (1100-4500); Lymphocytes Percent Auto 25.7 % (25-40); Mean Corpuscular HGB Conc 33.2 % (30-36); Mean Corpuscular Hemoglobin 30.7 PG (26-34); Mean Corpuscular Volume 92.5 fL (80-100); Monocytes Absolute Auto 500 /uL (0-900); Monocytes Percent Auto 7.6 % (3-14); Neutrophils Absolute Auto 3900 /uL (1500-7000); Neutrophils Percent Auto 64.1 % (50-75); Platelet Count 228 X10^3/uL (150-400); Red Blood Cell Count 4.31 X10^6/uL (4.5-5.9); Red Cell Distribution Width 13.6 % (11.6-14.8)
[2020-03-02 14:41] LABS: INR 1.3 (0.9-1.3); Prothrombin Time 15.4 SECONDS (10.1-12.7)
[2020-03-02 14:44] LABS: PTT Partial Thromboplastin Tim 35 SECONDS (26.4-36.2)
[2020-03-02 14:46] LABS: Alanine Aminotransferase 42 IU/L (<50); Albumin 4.8 g/dL (3.5-5.0); Albumin Globulin Ratio 1.5 (1.0-2.8); Alkaline Phosphatase 129 U/L (38-126); Aspartate Aminotransferase 48 IU/L (17-59); BUN Creatinine Ratio 11.9 (6-22); Bilirubin Total 0.5 mg/dL (0.2-1.3); Blood Urea Nitrogen 16 mg/dL (9-20); Calcium 9.4 mg/dL (8.4-10.2); Carbon Dioxide 26 mmol/L (22-32); Chloride 96 mmol/L (98-107); Estimated Glomerular Filt Rate 51.3 mL/min (>60); Globulin 3.2 g/dL (1.7-4.1); Glucose 112 mg/dL (80-110); HEMOLYSIS < 15 (0-50); Lipase 154 U/L (23-300); Potassium 4.7 mmol/L (3.4-5.1); Sodium 132 mmol/L (137-145)
--- NOTE | 2020-03-02 15:08 | ED.ABDPAIN ---
HPI - Abdominal Pain General Chief Complaint: Abdominal Pain Stated Complaint: Weakness w/ abd pressure Time Seen by Provider: 03/02/20 14:34 Source: patient Mode of arrival: EMS Limitations: no limitations History of Present Illness HPI narrative: The patient presents with weakness, he has been experiencing abdominal pain recently. He has 1 dose left, he has finished up a course of antibiotics that his doctor prescribed for diverticulitis. He comes in because of left abdominal pain, but tells me he has no pain at this moment. He has also experienced constipation, that is even better. He has no URI symptoms. Has no headache or sore throat. He has no chest discomfort, he has no dyspnea or cough. He says his appetite is good. He is drinking plenty of fluids. His normal urine output without discomfort. He has no testicular lesions. Abdominal ultrasound November 2019 showed no gallbladder disease. CT 2 years ago showed iglesias diverticulosis, acute diverticulitis at that time. He says he gets diverticulitis about once yearly. The patient also had a pacer placed earlier this year. His base rate is 60. He knows in recent days when resting home his heart rate has dropped to 30s to 40s. The heart rate is include covered the 60. He is having no chest pain, no dyspnea and no palpitations. Related Data Home Medications Medication Instructions Recorded Confirmed CA PANTOTHENATE/FOLIC ACID/VIT 1 tab PO QDAY #0 02/22/11 09/11/18 (MULTIVITAMIN) Fish Oil (Fish Oil 500 MG Softgel) 500 mg PO Q DAY #0 02/22/11 09/11/18 atorvastatin [Lipitor] 10 mg PO HS #0 02/22/11 09/11/18 tamsulosin [Flomax] 0.4 mg PO QDAY #0 02/22/11 09/11/18 levothyroxine 50 mcg capsule 50 mcg PO DAILY 12/21/17 09/11/18 RespirVisitars Dreamstation BIPAP #1 ea 03/12/19 03/12/19 Previous Rx's Medication Instructions Recorded metoprolol succinate [Toprol XL] 25 mg PO BID #60 tab 07/16/16 warfarin [Coumadin] 5 mg PO Q DAY #60 tab 07/16/16 Allergies Allergy/AdvReac Type Severity Reaction Status Date / Time doxycycline AdvReac Intermediate Nausea Verified 03/02/20 14:55 Review of Systems Review of Systems ROS Unobtainable: All systems reviewed & are unremarkable except as noted in HPI and below Constitutional Constitutional: Denies body ache(s), Denies chills, Reports fatigue, Denies fever(s) and Denies headache(s) Eyes Eyes: Denies change in vision ENT Ears, Nose, Mouth, and Throat: Denies vertigo, Denies dizziness and Denies headache(s) Cardiovascular Cardiovascular: Denies chest pain, Denies irregular heart rhythm, Denies lightheadedness and Denies dyspnea Respiratory Respiratory: Denies cough, Denies dyspnea and Denies wheezing Gastrointestinal Gastrointestinal: Reports as per HPI, Reports abdominal pain, Denies change in bowel habits, Denies diarrhea, Denies nausea and Denies vomiting Genitourinary Genitourinary: Denies dysuria, Denies scrotal swelling and Denies urinary urgency Genitourinary: Denies dysuria and Denies urinary urgency Musculoskeletal Musculoskeletal: Denies back pain and Denies muscle weakness Integumentary/Breasts Skin/Breast: Denies pruritus, Denies rash and Denies wounds Neurologic Neurologic: Denies vertigo, Denies dizziness and Denies headache(s) Endocrine Endocrine: Reports fatigue Allergic/Immunologic Allergic/Immunologic: Denies wheezing Patient History Medical History (Updated 03/02/20 @ 18:46 by Hector Spring MD) Atrial fibrillation, currently in sinus rhythm (Chronic ~08/2016) Central sleep apnea (Chronic Unknown) Diverticulitis (Inactive) Obstructive sleep apnea of adult (Chronic ~2011) Pacemaker (Acute) Parkinsons (Acute) Snoring (Chronic ~2011) Surgical History History of arthroplasty of right shoulder (Acute) History of total hip arthroplasty (Acute) Social History Smoking Status: Former smoker Smoking Status: Former smoker alcohol intake frequency: 0-2 drinks per day Substance Use Type: does not use Exam Initial Vital Signs Initial Vital Signs: Vital Signs Pulse Rate 60 03/02/20 14:21 Blood Pressure 145/81 H 03/02/20 14:21 Pulse Oximetry 99 03/02/20 14:21 Const General: cooperative and well developed Nutritional Appearance: well nourished HENMT Throat: posterior oropharynx normal Neck Neck: normal visual inspection, trachea midline, No lymphadenopathy, No midline deformity and No JVD Lymphatic: No lymphedema Chest Chest: normal inspection of the chest Resp Effort & Inspection: normal respiratory effort and able to speak in complete sentences Auscultation: clear to auscultation bilaterally, no rales, no rhonchi and no wheezes Cardio Rate: regular rate Rhythm: regular rhythm Heart Sounds: S1 normal and S2 normal Pulses: normal peripheral pulses GI Inspection: non-distended Palpation: soft, no hepatosplenomegaly, No guarding, No pulsatile mass and No tender Auscultation: normal bowel sounds Back/Spine/Pelvis Back: No CVA tenderness Skin General: no rashes or lesions noted, No jaundice and No petechiae Neuro General: patient alert, patient oriented x3, gait normal and no focal motor deficits Speech: speech normal Extrem General: full ROM, no pedal edema and no calf tenderness Course Course Course Narrative: The patient has been IV hydrated. He had a mild headache that resolved with IV hydration. He was treated clinically for diverticulitis, exam and labs are reassuring. Concerning is his knowledge bradycardia despite having a pacemaker in place. 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 Orders Ordered: ED Orders 03/02/20 14:15 Complete Blood Count AUTO DIFF Stat Comprehensive Metabolic Panel Stat Lipase Stat Partial Thromboplastin Time Stat Prothrombin Time INR Stat 03/02/20 14:32 EKG-12 Lead Stat Discontinued Medications Sodium Chloride (Normal Saline 0.9%) 1,000 mls @ 1,000 mls/hr IV BOLUS PRN PRN Reason: Fluid replacement Last Infusion: 03/02/20 17:28 Dose: 0 mls/hr Documented by: Admin: 03/02/20 15:24 Dose: 1,000 mls/hr Documented by: GOLD Ondansetron HCl (Zofran) 4 mg IV NOW ONE Stop: 03/02/20 15:16 Last Admin: 03/02/20 15:24 Dose: 4 mg Documented by: GOLD Vital Signs Vital signs: Vital Signs - 8 hr 03/02/20 14:21 03/02/20 14:26 03/02/20 14:27 Temperature 98.2 F Pulse Rate 60 61 60 Pulse Rate [Orthostatic Lying] Pulse Rate [Orthostatic Sitting] Pulse Rate [Orthostatic Standing] Respiratory Rate 17 20 Blood Pressure 145/81 H 156/93 H 145/81 H Blood Pressure [Orthostatic Lying] Blood Pressure [Orthostatic Sitting] Blood Pressure [Orthostatic Standing] Pulse Oximetry 99 98 98 03/02/20 14:30 03/02/20 14:31 03/02/20 15:00 Temperature Pulse Rate 60 60 60 Pulse Rate [Orthostatic Lying] Pulse Rate [Orthostatic Sitting] Pulse Rate [Orthostatic Standing] Respiratory Rate 13 18 Blood Pressure 147/84 H Blood Pressure [Orthostatic Lying] Blood Pressure [Orthostatic Sitting] Blood Pressure [Orthostatic Standing] Pulse Oximetry 98 97 96 03/02/20 15:01 03/02/20 15:30 03/02/20 15:32 Temperature Pulse Rate 60 60 60 Pulse Rate [Orthostatic Lying] Pulse Rate [Orthostatic Sitting] Pulse Rate [Orthostatic Standing] Respiratory Rate 15 14 16 Blood Pressure 115/68 124/76 Blood Pressure [Orthostatic Lying] Blood Pressure [Orthostatic Sitting] Blood Pressure [Orthostatic Standing] Pulse Oximetry 96 97 96 03/02/20 16:00 03/02/20 16:01 03/02/20 16:30 Temperature Pulse Rate 60 60 60 Pulse Rate [Orthostatic Lying] Pulse Rate [Orthostatic Sitting] Pulse Rate [Orthostatic Standing] Respiratory Rate 15 20 Blood Pressure 144/85 H Blood Pressure [Orthostatic Lying] Blood Pressure [Orthostatic Sitting] Blood Pressure [Orthostatic Standing] Pulse Oximetry 98 97 98 03/02/20 16:31 03/02/20 17:21 Temperature Pulse Rate 60 Pulse Rate [Orthostatic Lying] 60 Pulse Rate [Orthostatic Sitting] 61 Pulse Rate [Orthostatic Standing] 60 Respiratory Rate 20 Blood Pressure 155/73 H Blood Pressure [Orthostatic Lying] 136/73 Blood Pressure [Orthostatic Sitting] 134/74 Blood Pressure [Orthostatic Standing] 136/76 Pulse Oximetry 97 MDM - Abdominal Pain Lab Data Result diagrams: 03/02/20 14:15 03/02/20 14:15 Labs: Lab Results 03/02/20 03/02/20 03/02/20 Range/Units 14:15 14:15 14:15 WBC 6.0 (4.5-11.0) X10^3/uL RBC 4.31 L (4.5-5.9) X10^6/uL Hgb 13.2 L (13.5-17.5) g/dL Hct 39.9 L (41-53) % MCV 92.5 (80-100) fL MCH 30.7 (26-34) PG MCHC 33.2 (30-36) % RDW 13.6 (11.6-14.8) % Plt Count 228 (150-400) X10^3/uL Neut % (Auto) 64.1 (50-75) % Lymph % (Auto) 25.7 (25-40) % [place] % (Auto) 7.6 (3-14) % Eos % (Auto) 2.1 (2-4) % Baso % (Auto) 0.5 (0-2) % Neut # (Auto) 3900 (5972-2543) /uL Lymph # (Auto) 1600 (1560-6578) /uL [place] # (Auto) 500 (0-900) /uL Eos # (Auto) 100 (0-450) /uL Baso # (Auto) 0 (0-100) /uL PT 15.4 H (10.1-12.7) SECONDS INR 1.3 (0.9-1.3) APTT 35 (26.4-36.2) SECONDS Sodium 132 L (137-145) mmol/L Potassium 4.7 (3.4-5.1) mmol/L Chloride 96 L (98-107) mmol/L Carbon Dioxide 26 (22-32) mmol/L BUN 16 (9-20) mg/dL Creatinine 1.34 H (0.66-1.25) mg/dL Estimated GFR 51.3 L (>60) mL/min BUN/Creatinine Ratio 11.9 (6-22) Glucose 112 H (80-110) mg/dL Calcium 9.4 (8.4-10.2) mg/dL Total Bilirubin 0.5 (0.2-1.3) mg/dL AST 48 (17-59) IU/L ALT 42 (<50) IU/L Alkaline Phosphatase 129 H (38-126) U/L Total Protein 8.0 (6.3-8.2) g/dL Albumin 4.8 (3.5-5.0) g/dL Globulin 3.2 (1.7-4.1) g/dL Albumin/Globulin Ratio 1.5 (1.0-2.8) Lipase 154 (23-300) U/L Point of care testing: Urine Dip Bedside Urine Glucose Negative Bedside Urine Bilirubin - Negative Bedside Urine Ketone - Negative Urine Specific [place] 1.010 Bedside Urine Occult Blood - Negative Bedside Urine pH 6.0 Bedside Urine Protein - Negative Bedside Urine Urobilinogen - Negative Bedside Urine Nitrite - Negative Bedside Urine Leukocytes - Negative Esterase ECG Data Attestation: I personally reviewed and interpreted this ECG as follows: (Paced rhythm, rate 60) Discharge Plan Departure Patient Disposition: Home Clinical Impression: Diverticulitis, Bradycardia Discharge Date/Time: 03/02/20 17:51 Instructions: Bradycardia, DI for Diverticulitis Activity Restrictions/Additional Instructions: Finish Your antibiotics. Be sure you are drinking plenty of fluids. Slow follow-up with Dr. Severino there this week for recheck. Discuss a colonoscopy with your doctor. 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 You indicated your heart rate was 30-40 despite the pacer. Your slow heart rate may have more to do with how your feeling then your abdomen. Return the ER as needed. Prescriptions: No Action levothyroxine 50 mcg capsule 50 mcg PO DAILY RF: 0 atorvastatin [Lipitor] 10 MG tablet 10 mg PO HS Qty: 0 RF: 0 tamsulosin [Flomax] 0.4 MG capsule,extended release 24hr 0.4 mg PO QDAY Qty: 0 RF: 0 CA PANTOTHENATE/FOLIC ACID/VIT (MULTIVITAMIN) 1 tab PO QDAY Qty: 0 RF: 0 Fish Oil (Fish Oil 500 MG Softgel) 500 mg PO Q DAY Qty: 0 RF: 0 warfarin [Coumadin] 5 MG tablet 5 mg PO Q DAY Qty: 60 RF: 0 metoprolol succinate [Toprol XL] 25 MG tablet extended release 24 hr 25 mg PO BID Qty: 60 RF: 0 (DME) Respironics Dreamstation BIPAP Qty: 1 RF: 0 Referrals: Genet Severino MD [Primary Care Provider] -
[2020-03-02] MEDS: ONDANSETRON 4 MG/2 ML INJ IV (15:24)
[2020-03-02] MEDS: SODIUM CHLORIDE 0.9% 1,000 ML 1000 ML IV (15:24)
== END 2020-03-02 17:51 | disposition home or self-care (01) ==
PROVIDERS: Emergency Provider Emergency Medicine; Family Provider Family Medicine; PCP Family Medicine
DX: K57.92 Diverticulitis of intestine, part unspecified, without perforation or abscess without bleeding (principal); R00.1 Bradycardia, unspecified; K59.00 Constipation, unspecified; Z95.0 Presence of cardiac pacemaker
CPT/HCPCS: 80053; 81003; 83690; 85025; 85610; 85730; 93005; 93010; 96361; 96374; 99283; 99284; J2405